=== PATIENT | female | born 1985 | race Caucasian/White ===

== ENCOUNTER 2023-09-16 11:10 | Outpatient (OUT) | payer OTHER, SELFPAY ==
[2023-09-16 11:47] LABS: Basophils Absolute Auto 0.1 10^3/uL (0.0-0.1); Basophils Percent Auto 0.8 % (0.2-2.0); Eosinophils Absolute Auto 0.3 10^3/uL (0.0-0.7); Eosinophils Percent Auto 3.3 % (0.9-7.0); Hematocrit 37.9 % (36.0-48.0); Hemoglobin 12.1 g/dL (12.0-16.0); Immature Granulocytes Abs Auto 0.02 10^3/uL (0.00-0.03); Immature Granulocytes Pct Auto 0.2 % (0.0-0.5); Lymphocytes Absolute Auto 2.7 10^3/uL (1.2-3.8); Lymphocytes Percent Auto 27.3 % (20.5-60.0); Mean Corpuscular HGB Conc 31.9 g/dL (29.9-35.2); Mean Corpuscular Hemoglobin 28.1 pg (26.7-34.0); Mean Corpuscular Volume 88.1 fL (81.0-99.0); Mean Platelet Volume 11.3 fL (9.5-13.5); Monocytes Absolute Auto 0.6 10^3/uL (0.3-0.8); Monocytes Percent Auto 6.2 % (1.7-12.0); Neutrophils Absolute Auto 6.1 10^3/uL (1.4-6.5); Neutrophils Percent Auto 62.2 % (43.0-75.0); Platelet Count 325 10^3/uL (150-450); Red Cell Distribution Width 13.9 % (11.0-15.0); White Blood Count 9.8 10^3/uL (4.0-11.0)
[2023-09-16 12:41] LABS: Estimated Average Glucose 111 mg/dL; Glycohemoglobin A1C 5.5 % (4.5-6.2)
[2023-09-16 12:57] LABS: HCG Quantitative <1 mIU/mL; Thyroid Stimulating Hormone 2.407 uIU/mL (0.358-3.740)
[2023-09-16 13:22] LABS: Free T4 0.66 ng/dL (0.76-1.46)
[2023-09-17 15:09] LABS: FSH 5.3 mIU/mL (.); Luteinizing Hormone(LH) 6.1 mIU/mL (.)
[2023-09-28 15:09] LABS: DHEA, Serum 227 ng/dL (31-701)
== END 2023-09-16 11:11 | disposition home or self-care (01) ==
LOC: LAB 11:14
PROVIDERS: Visit Provider Obstetrics & Gynecology
DX: E28.2 Polycystic ovarian syndrome (principal)
CPT/HCPCS: 36415; 82626; 82627; 83001; 83002; 83036; 84439; 84443; 84702; 85025

== ENCOUNTER 2023-09-16 11:16 | Outpatient (OUT) | payer OTHER, SELFPAY ==
--- NOTE | 2023-09-16 11:55 | XR_ITS ---
The [address] [address] Patient Name: SARAH ALVAREZ MRN: [id number] date: 1985 Sex: F Assigned Patient Location: [facility] Current Patient Location: [facility] Accession/Order Number: [id number] Exam Date: 09/16/2023 11:40 Report Date: 09/16/2023 12:18 At the request of: CLARITZA JORDAN Procedure: XR thoracic spine 3V EXAM: XR thoracic spine 3V HISTORY: mid back pain M54.9 COMPARISON: None. TECHNIQUE: 2 view(s) of the thoracic spine. FINDINGS: The bones are well mineralized. The spine is in good alignment. Mild multilevel degenerative changes are present in the thoracic spine. No acute fracture or malalignment. Surgical clips are noted in the right upper quadrant of the abdomen. XR/XR thoracic spine 3V IMPRESSION: 1. No osseous abnormality of the thoracic spine. 2. Mild multilevel degenerative changes. Electronically authenticated by: TAYLA ZHOU Date: 09/16/2023 12:18
--- NOTE | 2023-09-16 11:55 | XR_ITS ---
The [address] [address] Patient Name: SARAH ALVAREZ MRN: [id number] date: 1985 Sex: F Assigned Patient Location: [facility] Current Patient Location: Accession/Order Number: [id number] Exam Date: 09/16/2023 11:40 Report Date: 09/17/2023 06:45 At the request of: CLARITZA JORDAN Procedure: XR hip RT 2V w/ pelvis PROCEDURE: XR hip RT 2V w/ pelvis HISTORY: right hip pain M25.551 , chronic low back pain COMPARISON: None. FINDINGS: BONES:No fracture, acute abnormality, or significant arthropathy. Small areas of heterotopic bone formation cephalad to the greater trochanter bilaterally, likely sequela of remote injuries. SOFT TISSUES:No visible soft tissue swelling. EFFUSION:None visible. OTHER: Negative. XR/XR hip RT 2V w/ pelvis IMPRESSION: 1. No acute bone abnormality. 2. Minimal degenerative joint disease. Electronically authenticated by: ZACH WALDEN Date: 09/17/2023 06:45
--- NOTE | 2023-09-16 11:55 | XR_ITS ---
The [address] [address] Patient Name: SARAH ALVAREZ MRN: [id number] date: 1985 Sex: F Assigned Patient Location: [facility] Current Patient Location: [facility] Accession/Order Number: [id number] Exam Date: 09/16/2023 11:40 Report Date: 09/16/2023 12:16 At the request of: CLARITZA JORDAN Procedure: XR lumbar spine min 4V EXAM: XR lumbar spine min 4V HISTORY: mid back pain M54.9 COMPARISON: 10/20/2021 TECHNIQUE: 5 view(s) of the lumbar spine. FINDINGS: The bones are well mineralized. The spine is in good alignment. No significant degenerative changes are identified. No acute fracture or malalignment. XR/XR lumbar spine min 4V IMPRESSION: 1. No osseous abnormality of the lumbar spine. Electronically authenticated by: TAYLA ZHOU Date: 09/16/2023 12:16
== END 2023-09-16 11:17 | disposition home or self-care (01) ==
LOC: RAD 11:17
PROVIDERS: Visit Provider Nurse Practitioner
DX: M54.9 Dorsalgia, unspecified (principal); M25.551 Pain in right hip; M16.11 Unilateral primary osteoarthritis, right hip; M51.34 Other intervertebral disc degeneration, thoracic region; E28.2 Polycystic ovarian syndrome
CPT/HCPCS: 36415; 72072; 72110; 73502; 82626; 82627; 83001; 83002; 83036; 84439; 84443; 84702; 85025

== ENCOUNTER 2024-05-18 19:01 | Observation (INO) | payer OTHER, SELFPAY ==
--- OUTSIDE RECORDS SUMMARY | 2024-05-18 19:06 | XMS_ITS | CCD ---
Author Organization [facility] Care Team Providers Care Grinder Brake Lining Name Role Phone LUIS ANGEL, DR JOHNSON Admitting Unavailable LUIS ANGEL, DR JOHNSON Attending Unavailable REQUEST, NONE LISTED Primary Care Unavaila ble LUIS ANGEL, DR JOHNSON Consulting Unavailable LUIS ANGEL, DR JOHNSON Admitting Unavailable LUIS ANGEL, DR JOHNSON Attending Unavailable HOUSE, DR BO Primary Care Unavailable LUIS ANGEL, DR JOHNSON Consulting Unavailable LUIS ANGEL, DR JOHNSON Admitting Unavailable LUIS ANGEL, DR JOHNSON Attending Unavailable REQUEST, DR NONE LISTED Primary Care Unavaila ble LUIS ANGEL, DR JOHNSON Consulting Unavailable CARLAJAVIER Francisco Consulting Unavailable LUIS ANGEL, DR JOHNSON Procedure Practitioner Unavailab KENDAL Walsh Consulting Unavailable TEAGAN CALZADA Consulting Unavaila ble LUIS ANGEL, DR JOHNSON Admitting Unavailable LUIS ANGEL, DR JOHNSON Attending Unavailable HOUSE, DR BO Primary Care Unavailable LUIS ANGEL, DR JOHNSON Consulting Unavailable LUIS ANGEL, DR JOHNSON Admitting Unavailable LUIS ANGEL, DR JOHNSON Attending Unavailable ANGELICA, DR BO Primary Care Unavailable AMERICUS, DR SOUMYA Galan Consulting Unavailable LUIS ANGEL, DR JOHNSON Consulting Unavailable HOUSE, DR BO Primary Care Unavailable KARASIPiotr, DR FALK Admitting Unavailable KARBREA, DR FALK Attending Unavailable GREY, DR FALK Consulting Unavailable LUIS ANGEL, DR JOHNSON Consulting Unavailable IRAM, DR ZACH Baxter Consulting Unavailable ANGELICA, DR BO Primary Care Unavailable OWEN, DR ANAYELI Baxter Admitting Unavailable OWEN, DR ANAYELI Baxter Attending Unavailable OWEN, DR ANAYELI Baxter Consulting Unavailable BARBARA ROBBINS Consulting Unavailable ANGELICA, DR BO Primary Care Unavailable JAMEL RAMÍREZ Admitting Unavailable JAMEL RAMÍREZ Attending Unavailable SHAIKH Jeyson ANGELO Consulting Unavailable JAMEL RAMÍREZ Consulting Unavailable JANE MORTON Consulting Unavailable LUIS ANGEL, DR JOHNSON Admitting Unavailable LUIS ANGEL, DR JOHNSON Attending Unavailable HOUSE, DR BO Primary Care Unavailable LUIS ANGEL, DR JOHNSON Consulting Unavailable LUIS ANGEL, DR JOHNSON Admitting Unavailable LUIS ANGEL, DR JOHNSON Attending Unavailable HOUSE, DR BO Primary Care Unavailable LUIS ANGEL, DR JOHNSON Consulting Unavailable HOUSE, DR BO Primary Care Unavailable KARASIK, DR FALK Admitting Unavailable KARASIK, DR FALK Attending Unavailable KARASIK, DR FALK Consulting Unavailable LUIS ANGEL, DR JOHNSON Consulting Unavailable ZIEBER, DR ZACH Baxter Consulting Unavailable LUIS ANGEL, DR JOHNSON Admitting Unavailable LUIS ANGEL, DR JOHNSON Attending Unavailable LUIS ANGEL, DR JOHNSON Consulting Unavailable REQUEST, DR OHARA LISTED Primary Care Unavaila ble ZIEBER, DR ZACH Baxter Consulting Unavailable LUIS ANGEL, DR JOHNSON Admitting Unavailable LUIS ANGEL, DR JOHNSON Attending Unavailable HOUSE, DR BO Primary Care Unavailable LUIS ANGEL, DR JOHNSON Consulting Unavailable ZIEBER, DR ZACH Baxter Consulting Unavailable LUIS ANGEL, DR JOHNSON Admitting Unavailable LUIS ANGEL, DR JOHNSON Attending Unavailable HOUSE, DR BO Primary Care Unavailable LUIS ANGEL, DR JOHNSON Consulting Unavailable ZIEBER, DR ZACH Baxter Consulting Unavailable LUIS ANGEL, DR JOHNSON Admitting Unavailable LUIS ANGEL, DR JOHNSON Attending Unavailable HOUSE, DR BO Primary Care Unavailable WEST, DR SOUMYA Galan Consulting Unavailable LUIS ANGEL, DR JOHNSON Consulting Unavailable LUIS ANGEL, DR JOHNSON Admitting Unavailable LUIS ANGEL, DR JOHNSON Attending Unavailable HOUSE, DR OB Primary Care Unavailable LUIS ANGEL, DR JOHNSON Consulting Unavailable ZIEBER, DR ZACH Baxter Consulting Unavailable LUIS ANGEL, DR JOHNSON Admitting Unavailable LUIS ANGEL, DR JOHNSON Attending Unavailable HOUSE, DR BO Primary Care Unavailable LUIS ANGEL, DR JOHNSON Consulting Unavailable LUIS ANGEL, DR JOHNSON Admitting Unavailable LUIS ANGEL, DR JOHNSON Attending Unavailable HOUSE, DR BO Primary Care Unavailable LUIS ANGEL, DR JOHNSON Consulting Unavailable LUIS ANGEL, DR JOHNSON Admitting Unavailable LUIS ANGEL, DR JOHNSON Attending Unavailable HOUSE, DR BO Primary Care Unavailable LUIS ANGEL, DR JOHNSON Consulting Unavailable LUIS ANGEL, DR JOHNSON Admitting Unavailable LUIS ANGEL, DR JOHNSON Attending Unavailable HOUSE, DR BO Primary Care Unavailable HOUSE, DR BO Primary Care Unavailable KARASIK, DR FALK Admitting Unavailable KARASIK, DR FALK Attending Unavailable GREY, DR FALK Consulting Unavailable LUIS ANGEL, DR JOHNSON Consulting Unavailable IRAM, DR ZACH Baxter Consulting Unavailable Unavailable Primary Care Provider UnavailJENS Haynes Attending Unavailable JENS PLASENCIA Attending Unavailable KARSON ACUNA Attending Unavailable Robbin Love Attending Unavailable Robbin Love Ad[facility] Unavailable DO Danyell Banks Emergency Provider NON STAFF Primary Care Provider UnavailDO Robbin Wilks Admit Provider DO Robbin Love Attending Provider SHVIA Cheng [place] Primary Care Provider PHILLIP SALEH Attending Unavailable PHILLIP SALEH Referring Unavailable [facility] Care Unavailable Unavailable Primary Care Provider Unavailhannah [facility] [phone] Allergies Allergy Classification Reported Allergen(s) Allergy Type Date of Onset Reaction(s) Facility (1 source) Azithromycin Drug Allergy 07-22-2013 [facility] Repository (10 sources) Azithromycin; Translations: [AZITHROMYCIN] Drug Allergy 01-31-2013 [facility] Work Phone: (1 source) Azithromycin Drug Allergy 05-09-2024 [facility] Repository Medications Current Medications Medication Drug Class(es) Dates Sig (Normalized) Sig (Original) 24 hr dilTIAZem hydrochloride 120 mg extended release oral tablet (2 sources) Calcium Channel Tae Start: 05-09-2024 take 1 tablet by mouth once daily Diltiazem Hcl (Cardizem La) 120 mg tablet extended release 24 hr Active 120 MG PO Daily May 09, 2024 12:00am ibuprofen 400 mg oral tablet (3 sources) Nonsteroidal Anti-inflammatory Drug take 1 tablet by mouth every six hours ibuprofen 400 MG tablet Take 400 mg by mouth every 6 (six) hours 0 Active metFORMIN hydrochloride 500 mg oral tablet (3 sources) Biguanide Start: 09-10-2023 End: 12-09-2023 take 1 tablet by mouth at mealtime metFORMIN (Glucophage) 500 MG tablet Indications: PCOS (polycystic ovarian syndrome) Take 1 tablet (500 mg) by mouth in the morning. Take with meals. 30 tablet 2 09/10/2023 12/09/2023 Active metroNIDAZOLE 500 mg oral tablet (3 sources) Nitroimidazole Antimicrobial Start: 09-10-2023 End: 09-17-2023 take 1 tablet by mouth in the morning metroNIDAZOLE (Flagyl) 500 MG tablet Indications: Vaginal discharge Take 1 tablet (500 mg) by mouth in the morning and 1 tablet (500 mg) before bedtime. Do all this for 7 days. Do not drink alcohol while taking this medication. 14 tablet 0 09/10/2023 09/17/2023 Active rivaroxaban 20 mg oral tablet (2 sources) Factor Xa Inhibitor Start: 05-13-2024 End: 05-13-2025 take 1 tablet by mouth once daily at mealtime rivaroxaban (Xarelto) 20 mg tablet Indications: Paroxysmal atrial fibrillation (Multi) Take 1 tablet (20 mg) by mouth once daily in the evening. Take with meals. Take with food. 30 tablet 11 05/13/2024 05/13/2025 Active Problems Active Problems Problem Classification Problem Date Documented Date Episodic/Chronic Cardiac dysrhythmias (13 sources) Unspecified atrial fibrillation; Translations: [Atrial fibrillation] Onset: 05-09-2024 05-09-2024 Chronic Contraceptive and procreative management (1 source) Encounter for sterilization; Translations: [ENCOUNTER FOR STERILIZATION] Onset: 07-29-2022 Episodic Fluid and electrolyte disorders (1 source) Hypokalemia; Translations: [HYPOKALEMIA] Onset: 05-28-2022 Episodic Genitourinary symptoms and ill-defined conditions (6 sources) Personal history of urinary (tract) infections; Translations: [Hematuria, unspecified] Onset: 07-02-2022 Episodic Immunizations and screening for infectious disease (4 sources) Encounter for screening for human papillomavirus (HPV); Translations: [Contact with and (suspected) exposure to infections with a predominantly sexual mode of transmission] Onset: 12-26-2021 09-10-2023 Episodic Menstrual disorders (4 sources) Irregular menstruation, unspecified; Translations: [IRREGULAR MENSTRUATION UNSPECIFIED] Onset: 12-23-2021 Chronic Nausea and vomiting (3 sources) Nausea with vomiting, unspecified; Translations: [NAUSEA WITH VOMITING UNSPECIFIED] Onset: 05-22-2022 Episodic Noninfectious gastroenteritis (1 source) Noninfective gastroenteritis and colitis, unspecified; Translations: [NONINFECTIVE GE AND COLITIS UNS] Onset: 05-28-2022 Episodic Other complications of ; puerperium affecting management of mother (1 source) Smoking (tobacco) complicating childbirth; Translations: [SMOKING TOBACCO COMP CHILDBIRTH] Onset: 07-29-2022 Episodic Other complications of (3 sources) Smoking (tobacco) complicating , third trimester; Translations: [SMOKING TOBACCO COMP PREG 3RD TRI] Onset: 07-12-2022 Episodic Other complications of (5 sources) Maternal care for excessive growth, third trimester, not applicable or unspecified; Translations: [MAT CARE EXCSS FTL GRTH 3RD TRI UNS] Onset: 06-24-2022 Episodic Other complications of (4 sources) Supervision of elderly multigravida, third trimester; Translations: [SUP ELDER MULTIGRAVIDA THIRD TRI] Onset: 07-05-2022 Episodic Other complications of (1 source) Supervision of with history of in utero procedure during previous , third trimester; Translations: [SUP PREG HX IU PROC PREV PG 3RD TRI] Onset: 07-12-2022 Episodic Other complications of (1 source) Diseases of the digestive system complicating , third trimester; Translations: [DZ DIGESTIVE SYS COMP PREG 3RD TRI] Onset: 05-28-2022 Episodic Other complications of (1 source) Other specified related conditions, third trimester; Translations: [OTH SPEC PREG RELATED COND 3RD TRI] Onset: 05-28-2022 Episodic Other endocrine disorders (2 sources) Polycystic ovary syndrome; Translations: [Polycystic ovarian syndrome] 09-10-2023 Chronic Other female genital disorders (2 sources) Vaginal discharge; Translations: [Other specified noninflammatory disorders of vagina] 09-10-2023 Episodic Other nutritional; endocrine; and metabolic disorders (2 sources) Weight gain; Translations: [Abnormal weight gain] 09-10-2023 Episodic Other and delivery including normal (15 sources) Single live ; Translations: [Encounter for supervision of other normal , third trimester] Onset: 11-29-2021 Episodic Polyhydramnios and other problems of amniotic cavity (1 source) Polyhydramnios, third trimester, not applicable or unspecified; Translations: [POLYHYDRAMNIOS THIRD TRI NA/UNS] Onset: 07-12-2022 Episodic Previous (1 source) Maternal care for low transverse scar from previous delivery; Translations: [MAT CARE LW TRANS SCAR PREV C/S DEL] Onset: 07-29-2022 Episodic Residual codes; unclassified (1 source) 39 weeks gestation of ; Translations: [39 WEEKS GESTATION OF ] Onset: 07-29-2022 Episodic Residual codes; unclassified (1 source) Acquired absence of other specified parts of digestive tract; Translations: [ACQ ABSENCE OTH PART DIGESTV TRACT] Onset: 07-29-2022 Episodic Residual codes; unclassified (1 source) 38 weeks gestation of ; Translations: [38 WEEKS GESTATION OF ] Onset: 07-12-2022 Episodic Residual codes; unclassified (1 source) 37 weeks gestation of ; Translations: [37 WEEKS GESTATION OF ] Onset: 07-05-2022 Episodic Residual codes; unclassified (1 source) 36 weeks gestation of ; Translations: [36 WEEKS GESTATION OF ] Onset: 06-28-2022 Episodic Residual codes; unclassified (1 source) 35 weeks gestation of ; Translations: [35 WEEKS GESTATION OF ] Onset: 06-20-2022 Episodic Residual codes; unclassified (1 source) 34 weeks gestation of ; Translations: [34 WEEKS GESTATION OF ] Onset: 06-14-2022 Episodic Residual codes; unclassified (1 source) 33 weeks gestation of ; Translations: [33 WEEKS GESTATION OF ] Onset: 06-05-2022 Episodic Residual codes; unclassified (1 source) 32 weeks gestation of ; Translations: [32 WEEKS GESTATION OF ] Onset: 06-01-2022 Episodic Residual codes; unclassified (1 source) 31 weeks gestation of ; Translations: [31 WEEKS GESTATION OF ] Onset: 05-28-2022 Episodic Substance-related disorders (2 sources) Nicotine dependence, cigarettes, uncomplicated; Translations: [Nicotine dependence, unspecified, uncomplicated] Onset: 07-12-2022 Chronic Unclassified (1 source) CONTACT W/AND (SUSP) EXPOS COVID-19; Translations: [CONTACT W/AND (SUSP) EXPOS COVID-19] Onset: 07-29-2022 Unclassified (1 source) OTH SPCF DIS/COND COMPL CHILDBIRTH; Translations: [OTH SPCF DIS/COND COMPL CHILDBIRTH] Onset: 07-29-2022 Past or Other Problems Problem Classification Problem Date Documented Da te Episodic/Chronic Abdominal pain (4 sources) Epigastric pain; Translations: [Unspecified abdominal pain] Onset: 10-20-2021 Episodic Other screening for suspected conditions (not mental disorders or infectious disease) (10 sources) Encounter for screening for malignant neoplasm of cervix; Translations: [Encounter for other specified screening] Onset: 12-26-2021 Episodic Unclassified (2 sources) Onset: 05-13-2024 05-13-2024 Urinary tract infections (4 sources) Urinary tract infection, site not specified; Translations: [UTI SITE NOT SPECIFIED] Onset: 04-15-2022 Episodic Results Test Name Value Interpretation Reference Range Facility [facility] echo transthoracicon [facility] echo transthoracic [facility] [place] [address] Echocardiogram Signed Patient: Sarah Pennington MR#: [id number] : 1985 Acct:[id number] Age/Sex: 38 / F ADM Date: 05/09/24 Loc: Room: [address] [place] [address] Type: DIS INOo Attending Dr: Robbin Love DO Ordering Provider: Robbin Love DO Date of Service: 05/09/2402/23/2013 [facility] echo transthoracic: afib Copies to: MD Robbin Ryan DO Sarah Conroy 11:55 AM Patient Location: : 1985 Gender: Female (MM/DD/YYYY) Age: 38 Years Ordering Physician: Robbin Love Height: 65.75 in Weight: 240.941 lb Performed By: Romana Fuentes BSA: 2.16 m2 BP: 101 / 63 mmHg HR: 54 bpm Reason For Study: afib History: Smoker, Afib + + Interpretation Summary Ejection Fraction = 60-65%. The left ventricular size and thickness are normal. No regional wall motion abnormalities noted. A variety of Doppler measurements indicate normal left ventricular diastolic function. There is no comparison study available. This was essentially a normal study. Procedure/Quality: A two-dimensional transthoracic echocardiogram with color flow and Doppler was performed. The study was technically good in quality. Left Ventricle: The left ventricular size and thickness are normal. Ejection Fraction = 60-65%. A variety of Doppler measurements indicate normal left ventricular diastolic function. No regional wall motion abnormalities noted. Left Atrium: The left atrium appears normal in size. Right Atrium: The right atrium appears normal in size. Right Ventricle: The right ventricle is normal in size and function. Aortic Valve: The aortic valve is normal in structure. No hemodynamically significant valvular aortic stenosis. No aortic regurgitation is present. Mitral Valve: The mitral valve is normal in structure. No significant mitral valve stenosis. There is no mitral regurgitation noted. Tricuspid Valve: The tricuspid valve is normal in structure. No tricuspid regurgitation. Pulmonic Valve: The pulmonic valve is not well visualized. Arteries: The aortic root is normal size. Pericardium/Pleura: No pericardial effusion seen. There is no pleural effusion. IVC/Hepatic Veins: Mildly dilated inferior vena cava. MMode/2D Measurements Calculations IVSd (0.7-1.1 cm): 1.10 cm LVIDd (3.7-5.4 cm): 4.8 cm LVPWd (0.7-1.1 cm): 1.04 cm LVIDs (2.3-3.6 cm): 2.9 cm LA dimension (2.3-4.0 cm): 3.6 Ao root diam (2.0-3.2 cm): 3.3 cm cm FS: 39.4 % Ao root area: 8.7 cm2 EDV(Teich): 109.1 ml LVOT diam: 2.02 cm ESV(Teich): 32.9 ml LVOT area: 3.2 cm2 EF(Teich): 69.8 % LAV(MOD-sp2): 63.9 ml LAV(MOD-sp4): 52.5 ml LA A2 area: 22.9 cm2 LA A4 area: 21.6 cm2 LA length (vol): 7.2 cm LA vol: 58.7 ml LA vol index: 27.2 ml/m2 Doppler Measurements Calculations MV E max alton: 105.0 cm/sec Ao V2 max: 146.6 cm/sec MV A max alton: 55.4 cm/sec Ao max P.6 mmHg MR max alton: 153.4 cm/sec Ao mean P.0 mmHg MV dec time: 0.22 sec Ao V2 mean: 106.0 cm/sec MV dec slope: 466.9 cm/sec?? Ao V2 VTI: 38.3 cm E/E' lat: 6.5 CAREN(I,D): 2.5 cm2 E/E' med: 8.9 CAREN(V,D): 2.6 cm2 TV max P.0 mmHg LV V1 max: 119.7 cm/sec TR max alton: 186.0 cm/sec LV V1 max P.7 mmHg TR max P.8 mmHg LV V1 mean: 74.3 cm/sec RAP systole: 8.0 mmHg LV V1 mean P.8 mmHg LV V1 VTI: 30.2 cm + + + -------+ + : Electronically : : : : signed by: Daniel : : : : Obie : : : : on: 05/10/2024, : : 6:17 PM : Transcribed By: LOBO Performed At: 05/10/24 1155 Signed By: Daniel Ragland MD 05/10/24 1817 Normal [facility] Albumin [Mass/volume] in Ser um or Plasma by Bromocresol green (BCG) dye binding methoOrdered By: Danyell Banks on 05-09-2024 Albumin BCG dye [Mass/Vol] 3.9 g/dL 3.5-5.7 [facility] B-Type Natriuretic PeptideOr dered By: Danyell Banks on 05-09-2024 Natriuretic peptide B (Bld) [Mass/Vol] 63.0 pg/mL Normal 5-100 [facility] Comment on above: Result Comment: PERF ORMED BY: [place] [address] PATHOLOGIST MICRO LAB ANALYST JEANETH CERNA M.D. Performed By: #### C BC, HS TROP, BNP, TSH3, MG, CMP, PHOS, HCGQUAL #### [facility] [address] [place] [address] Bacteria [Presence] in Urine by AutomatedOrdered By: Danyell Banks on 05-09-2024 Bacteria Auto Ql (U) Rare [HPF] None Seen [facility] Bilirubin Test strip Ql (U)O rdered By: Danyell Banks on 05-09-2024 Bilirubin Ql (U) Negative Negative [facility] Choriogonadotropin.beta subu nit [Units/volume] in Serum or PlasmaOrdered By: Danyell Banks on 05-09-2024 HCG.beta subunit Qn Negative [facility] Complete Blood Count Auto Di ffOrdered By: Danyell Banks on 05-09-2024 Basophils (Bld) [#/Vol] 0.1 10*3/uL Normal 0.0-0.2 [facility] Comment on above: Result Comment: PERF ORMED BY: [place] [address] PATHOLOGIST MICRO LAB ANALYST JEANETH CERNA M.D. Performed By: #### C BC, HS TROP, BNP, TSH3, MG, CMP, PHOS, HCGQUAL #### [facility] [address] [place] [address] [place] Basophils/100 WBC (Bld) 0.9 % Normal . [facility] Comment on above: Performed By: #### C BC, HS TROP, BNP, TSH3, MG, CMP, PHOS, HCGQUAL #### [facility] [address] Eosinophils (Bld) [#/Vol] 0.2 10*3/uL Normal 0.0-0.45 [facility] Comment on above: Performed By: #### C BC, HS TROP, BNP, TSH3, MG, CMP, PHOS, HCGQUAL #### [address] Eosinophils/100 WBC (Bld) 2.7 % Normal . [facility] Comment on above: Performed By: #### C BC, HS TROP, BNP, TSH3, MG, CMP, PHOS, HCGQUAL #### [address] Erythrocyte distribution width (RBC) [Ratio] 14.6 % Normal 11.9-15.3 [facility] Comment on above: Performed By: #### C BC, HS TROP, BNP, TSH3, MG, CMP, PHOS, HCGQUAL #### [address] Hematocrit (Bld) [Volume fraction] 38.2 % Normal 34.0-46.4 [facility] Comment on above: Performed By: #### C BC, HS TROP, BNP, TSH3, MG, CMP, PHOS, HCGQUAL #### [address] Hemoglobin (Bld) [Mass/Vol] 12.8 g/dL Normal 11.8-15.4 [facility] Comment on above: Performed By: #### C BC, HS TROP, BNP, TSH3, MG, CMP, PHOS, HCGQUAL #### [address] Lymphocytes (Bld) [#/Vol] 2.8 10*3/uL Normal 1.00-4.8 [facility] Comment on above: Performed By: #### C BC, HS TROP, BNP, TSH3, MG, CMP, PHOS, HCGQUAL #### [address] Lymphocytes/100 WBC (Bld) 31.1 % Normal . [facility] Comment on above: Performed By: #### C BC, HS TROP, BNP, TSH3, MG, CMP, PHOS, HCGQUAL #### [address] MCH (RBC) [Entitic mass] 28.6 pg Normal 24.7-34.3 [facility] Comment on above: Performed By: #### C BC, HS TROP, BNP, TSH3, MG, CMP, PHOS, HCGQUAL #### [address] MCV (RBC) [Entitic vol] 85.4 fL Normal 80-100 [facility] Comment on above: Performed By: #### C BC, HS TROP, BNP, TSH3, MG, CMP, PHOS, HCGQUAL #### [address] Monocytes (Bld) [#/Vol] 0.6 10*3/uL Normal 0.0-0.8 [facility] Comment on above: Performed By: #### C BC, HS TROP, BNP, TSH3, MG, CMP, PHOS, HCGQUAL #### [address] Monocytes/100 WBC (Bld) 6.3 % Normal . [facility] Comment on above: Performed By: #### C BC, HS TROP, BNP, TSH3, MG, CMP, PHOS, HCGQUAL #### [address] Neutrophils (Bld) [#/Vol] 5.4 10*3/uL Normal 1.8-7.7 [facility] Comment on above: Performed By: #### C BC, HS TROP, BNP, TSH3, MG, CMP, PHOS, HCGQUAL #### [address] Neutrophils/100 WBC (Bld) 59.0 % Normal . [facility] Comment on above: Performed By: #### C BC, HS TROP, BNP, TSH3, MG, CMP, PHOS, HCGQUAL #### [address] Platelet mean volume (Bld) [Entitic vol] 9.2 fL Normal 6.3-10.7 [facility] Comment on above: Performed By: #### C BC, HS TROP, BNP, TSH3, MG, CMP, PHOS, HCGQUAL #### [address] Platelets (Bld) [#/Vol] 344 10*3/uL Normal 150-450 [facility] Comment on above: Performed By: #### C BC, HS TROP, BNP, TSH3, MG, CMP, PHOS, HCGQUAL #### [address] RBC (Bld) [#/Vol] 4.47 10*6/uL Normal 3.60-5.00 [facility] Comment on above: Performed By: #### C BC, HS TROP, BNP, TSH3, MG, CMP, PHOS, HCGQUAL #### [address] WBC (Bld) [#/Vol] 9.1 10*3/uL Normal 3.8-11.6 [facility] Comment on above: Performed By: #### C BC, HS TROP, BNP, TSH3, MG, CMP, PHOS, HCGQUAL #### [address] Complete Blood Count Auto Di ffon 05-09-2024 Mean Corpuscular HGB Conc 33.5 g/dL Normal 32.0-35.0 [facility] Comment on above: Performed By: #### C BC, HS TROP, BNP, TSH3, MG, CMP, PHOS, HCGQUAL #### [address] Monocytes/100 WBC (Bld) 19.70 % Normal 0.00-20.00 [facility] Comment on above: Performed By: #### C BC, HS TROP, BNP, TSH3, MG, CMP, PHOS, HCGQUAL #### [address] NRBC% 0.1 /100{WBC} Normal 0-0.5 [facility] Comment on above: Performed By: #### C BC, HS TROP, BNP, TSH3, MG, CMP, PHOS, HCGQUAL #### [address] Comprehensive Metabolic Pane brady 05-09-2024 Albumin [Mass/Vol] 3.9 g/dL Normal 3.5-5.7 [facility] Comment on above: Performed By: #### C BC, HS TROP, BNP, TSH3, MG, CMP, PHOS, HCGQUAL #### [address] Creatinine Clr Calc Pharmacy 145.19 Normal [facility] Comment on above: Performed By: #### C BC, HS TROP, BNP, TSH3, MG, CMP, PHOS, HCGQUAL #### [address] GFR/1.73 sq M.predicted MDRD (S/P/Bld) [Vol rate/Area] mL/min/{1.73_m2} Normal [facility] Comment on above: Performed By: #### C BC, HS TROP, BNP, TSH3, MG, CMP, PHOS, HCGQUAL #### [address] Comprehensive Metabolic Pane lOrdered By: Danyell Banks on 05-09-2024 Albumin/Globulin [Mass ratio] 1.1 {ratio} Normal [facility] Comment on above: Performed By: #### C BC, HS TROP, BNP, TSH3, MG, CMP, PHOS, HCGQUAL #### [address] ALP [Catalytic activity/Vol] 66 U/L Normal 34-104 [facility] Comment on above: Performed By: #### C BC, HS TROP, BNP, TSH3, MG, CMP, PHOS, HCGQUAL #### [facility] [address] ALT [Catalytic activity/Vol] 13 U/L Normal 7-52 [facility] Comment on above: Performed By: #### C BC, HS TROP, BNP, TSH3, MG, CMP, PHOS, HCGQUAL #### [facility] [address] Anion gap [Moles/Vol] 11.2 mmol/L Normal 6.0-15.0 [facility] Comment on above: Performed By: #### C BC, HS TROP, BNP, TSH3, MG, CMP, PHOS, HCGQUAL #### [facility] [address] [place] [address] AST [Catalytic activity/Vol] 12 U/L Low 13-39 [facility] Comment on above: Performed By: #### C BC, HS TROP, BNP, TSH3, MG, CMP, PHOS, HCGQUAL #### [address] Bilirubin [Mass/Vol] 0.4 mg/dL Normal 0.3-1.0 [facility] Comment on above: Performed By: #### C BC, HS TROP, BNP, TSH3, MG, CMP, PHOS, HCGQUAL #### [address] Calcium [Mass/Vol] 8.6 mg/dL Normal 8.6-10.3 [facility] Comment on above: Performed By: #### C BC, HS TROP, BNP, TSH3, MG, CMP, PHOS, HCGQUAL #### [address] Chloride [Moles/Vol] 108 mmol/L High 98-107 [facility] Comment on above: Performed By: #### C BC, HS TROP, BNP, TSH3, MG, CMP, PHOS, HCGQUAL #### [address] CO2 [Moles/Vol] 24.7 mmol/L Normal 21.0-31.0 [facility] Comment on above: Performed By: #### C BC, HS TROP, BNP, TSH3, MG, CMP, PHOS, HCGQUAL #### [address] Creatinine [Mass/Vol] 0.66 mg/dL Normal 0.60-1.20 [facility] Comment on above: Performed By: #### C BC, HS TROP, BNP, TSH3, MG, CMP, PHOS, HCGQUAL #### [address] Globulin (S) [Mass/Vol] 3.4 g/dL Normal [facility] Comment on above: Performed By: #### C BC, HS TROP, BNP, TSH3, MG, CMP, PHOS, HCGQUAL #### [address] Glucose [Mass/Vol] 102 mg/dL High 70-100 [facility] Comment on above: Result Comment: [place] om Glucose Reference Range is dependent on time and content of last meal. Glucose of more than 200 mg/dL in a nonstressed, ambulatory subject supports the diagnosis of Diabetes Mellitus. ADA recommended reference range Performed By: #### C BC, HS TROP, BNP, TSH3, MG, CMP, PHOS, HCGQUAL #### [address] ADA recommended refe rence rangeRandom Glucose Reference Range is dependent on time and content of last meal. Glucose of more than 200 mg/dL in a nonstressed, ambulatory subject supports the diagnosis of Diabetes Mellitus. Potassium [Moles/Vol] 3.9 mmol/L Normal 3.5-5.1 [facility] Comment on above: Performed By: #### C BC, HS TROP, BNP, TSH3, MG, CMP, PHOS, HCGQUAL #### [address] Protein [Mass/Vol] 7.3 g/dL Normal 6.4-8.9 [facility] Comment on above: Performed By: #### C BC, HS TROP, BNP, TSH3, MG, CMP, PHOS, HCGQUAL #### [facility] [address] Sodium [Moles/Vol] 140 mmol/L Normal 136-145 [facility] Comment on above: Performed By: #### C BC, HS TROP, BNP, TSH3, MG, CMP, PHOS, HCGQUAL #### [facility] [address] Urea nitrogen [Mass/Vol] 9 mg/dL Normal 7-25 [facility] Comment on above: Performed By: #### C BC, HS TROP, BNP, TSH3, MG, CMP, PHOS, HCGQUAL #### [place] [address] [place] Dipstick and MicroscopicOrde red By: Danyell Banks on 05-09-2024 Appearance (U) Clear Normal Clear [facility] Comment on above: Order Comment: Name Collection Type:: Clean-Voided Midstream Performed By: #### A DDONUAPLUS #### [address] Color (U) Colorless Normal Yellow [facility] Comment on above: Order Comment: Name Collection Type:: Clean-Voided Midstream Performed By: #### A DDONUAPLUS #### [address] Ketones Ql (U) Negative Normal Negative [facility] Comment on above: Order Comment: Name Collection Type:: Clean-Voided Midstream Performed By: #### A DDONUAPLUS #### [address] Leukocyte esterase Test strip Ql (U) Negative Normal Negative [facility] Comment on above: Order Comment: Name Collection Type:: Clean-Voided Midstream Performed By: #### A DDONUAPLUS #### [address] pH (U) 6.5 [pH] Normal 5.0-9.0 [facility] Comment on above: Order Comment: Name Collection Type:: Clean-Voided Midstream Performed By: #### A DDONUAPLUS #### [place] [address] [place] Dipstick and Microscopicon 1 0 Bacteria,Urine Rare Normal None Seen [facility] Comment on above: Order Comment: Name Collection Type:: Clean-Voided Midstream Performed By: #### A DDONUAPLUS #### [place] [address] [place] Bilirubin,Urine Negative Normal Negative [facility] Comment on above: Order Comment: Name Collection Type:: Clean-Voided Midstream Performed By: #### A DDONUAPLUS #### [address] Glucose Ql (U) Normal Normal Normal [facility] Comment on above: Order Comment: Name Collection Type:: Clean-Voided Midstream Performed By: #### A DDONUAPLUS #### [address] Hyaline Casts,Urine None Normal 0-8 [facility] Comment on above: Order Comment: Name Collection Type:: Clean-Voided Midstream Result Comment: PERF ORMED BY: [place] [address] PATHOLOGIST MICRO LAB ANALYST JEANETH CERNA M.D. Performed By: #### A DDONUAPLUS #### [place] [address] [place] Nitrite,Urine Negative Normal Negative [facility] Comment on above: Order Comment: Name Collection Type:: Clean-Voided Midstream Performed By: #### A DDONUAPLUS #### [place] [address] [place] Occult Blood,Urine 1+ High Negative [facility] Comment on above: Order Comment: Name Collection Type:: Clean-Voided Midstream Result Comment: PERF ORMED BY: [place] [address] PATHOLOGIST MICRO LAB ANALYST JIANLAN SUN M.D. Performed By: #### A DDONUAPLUS #### [place] [address] [place] Protein,Urine Negative Normal Negative [facility] Comment on above: Order Comment: Name Collection Type:: Clean-Voided Midstream Performed By: #### A DDONUAPLUS #### [place] [id number] [place] RBC,Urine 3-4 Normal 0-4 [facility] Comment on above: Order Comment: Name Collection Type:: Clean-Voided Midstream Performed By: #### A DDONUAPLUS #### [place] [address] [place] Specificy [place],Urine 1.006 Normal 1.001-1.030 [facility] Comment on above: Order Comment: Name Collection Type:: Clean-Voided Midstream Performed By: #### A DDONUAPLUS #### [place] [address] [place] Squamous Epithelial Cell,Urine 1-2 Normal 0-2 [facility] Comment on above: Order Comment: Name Collection Type:: Clean-Voided Midstream Performed By: #### A DDONUAPLUS #### [place] [address] [place] Urobilinogen,Urine Normal Normal Normal [facility] Comment on above: Order Comment: Name Collection Type:: Clean-Voided Midstream Performed By: #### A DDONUAPLUS #### [place] [address] [place] WBC,Urine 1-2 Normal 0-4 [facility] Comment on above: Order Comment: Name Collection Type:: Clean-Voided Midstream Performed By: #### A DDONUAPLUS #### [place] [address] [place] ECG 12 lead ECGon 05-09-2024 ECG 12 lead ECG [facility] [place] [address] [place] [address] Electrocardiograph Report Signed Patient: Sarah Pennington MR#: [id number] : 1985 Acct:[id number] Age/Sex: 38 / F ADM Date: 05/09/24 Loc: Room: [address] [place] [address] Type: ADM INOo Attending Dr: Robbin Love DO Ordering Provider: Danyell Banks DO Date of Service: 05/09/2402/23/1100 ECG/ECG 12 lead ECG: Arrhythmia/Palpitati ons Copies to: Test Reason : Blood Pressure : */* mmHG Vent. Rate : 52 BPM Atrial Rate : 52 BPM P-R Int : 166 ms QRS Dur : 88 ms QT Int : 452 ms P-R-T Axes : 61 38 30 degrees QTcB Int : 420 ms Sinus bradycardia Confirmed by Mark Madrigal DO ([id number]) on 05/09/2024 8:25:51 PM Referred By: Electronically Signed By: Mark Madrigal DO Transcribed By: MUS Signed By Mark Madrigal DO 2024 Normal [facility] ECG 12 lead ECG [facility] [place] [address] Electrocardiograph Report Signed Patient: Sarah Pennington MR#: [id number] : 1985 Acct:[id number] Age/Sex: 38 / F ADM Date: 05/09/24 Loc: Room: [address] [place] [address] Type: ADM INOo Attending Dr: Robbin Love DO Ordering Provider: Danyell Banks DO Date of Service: 05/09/2402/23/850 ECG/ECG 12 lead ECG: Arrhythmia/Palpitati ons Copies to: Test Reason : Blood Pressure : 120/85 mmHG Vent. Rate : 103 BPM Atrial Rate : 104 BPM P-R Int : * ms QRS Dur : 92 ms QT Int : 364 ms P-R-T Axes : * 43 -21 degrees QTcB Int : 476 ms Atrial fibrillation with rapid ventricular response Nonspecific ST and T wave abnormality Confirmed by Mark Madrigal DO ([id number]) on 05/09/2024 8:26:05 PM Referred By: Electronically Signed By: Mark Madrigal DO Transcribed By: MUS Signed By Mark Madrigal DO 2025 Normal [facility] Epithelial cells.squamous [# /area] in Urine sediment by Automated countOrdered By: Danyell Banks on 05-09-2024 Epithelial cells.squamous Auto (Urine sed) [#/Area] 1-2 [HPF] 0-2 [facility] Erythrocytes [#/area] in Uri ne sediment by Automated countOrdered By: Danyell Banks on 05-09-2024 RBC Auto (Urine sed) [#/Area] 3-4 [HPF] 0-4 [facility] Glucose [Mass/volume] in Uri ne by Test stripOrdered By: Danyell Banks on 05-09-2024 Glucose Test strip (U) [Mass/Vol] Normal mg/dL Normal [facility] HCG,Qualitative Serumon HCG,Qualitative Serum Negative Normal [facility] Comment on above: Result Comment: PERF ORMED BY: [place] [address] PATHOLOGIST MICRO LAB ANALYST JEANETH CERNA M.D. Performed By: #### C BC, HS TROP, BNP, TSH3, MG, CMP, PHOS, HCGQUAL #### [address] Hemoglobin Test strip Ql (U) Ordered By: Danyell Banks on 05-09-2024 Hemoglobin Ql (U) 1+ High Negative [facility] Hyaline casts [#/area] in Ur ine sediment by Automated countOrdered By: Danyell Banks on 05-09-2024 Hyaline casts Auto (Urine sed) [#/Area] None [LPF] 0-8 [facility] Leukocytes [#/area] in Urine sediment by Automated countOrdered By: Danyell Banks on 05-09-2024 WBC Auto (Urine sed) [#/Area] 1-2 [HPF] 0-4 [facility] Leukocytes [#/volume] correc tania for nucleated erythrocytes in Blood by Automated counOrdered By: Danyell Banks on 05-09-2024 WBC corrected for nucl RBC Auto (Bld) [#/Vol] 9.1 10*3/uL 3.8-11.6 [facility] MCHC Auto (RBC) [Mass/Vol]Or dered By: Danyell Banks on 05-09-2024 MCHC (RBC) [Mass/Vol] 33.5 g/dL 32.0-35.0 [facility] MagnesiumOrdered By: Johanna Banks on 05-09-2024 Magnesium [Mass/Vol] 1.8 mg/dL Low 1.9-2.7 [facility] Comment on above: Performed By: #### C BC, HS TROP, BNP, TSH3, MG, CMP, PHOS, HCGQUAL #### [facility] [address] Monocyte distribution width [Entitic volume] in Blood by AutomatedOrdered By: Danyell Banks on 05-09-2024 Monocyte distribution width Auto (Bld) [Entitic vol] 19.70 % 0.00-20.00 [facility] Nitrite Test strip Ql (U)Ord ered By: Danyell Banks on 05-09-2024 Nitrite Ql (U) Negative Negative [facility] No Panel InformationOrdered By: Danyell Banks on 05-09-2024 Estimated GFR (CKD-EPI) > 60.0 mL/Min [facility] Creatinine Clearance (Chem 145.19 [facility] Nucleated erythrocytes [Pres ence] in Blood by Automated countOrdered By: Danyell Bansk on 05-09-2024 Nucleated RBC Auto Ql (Bld) 0.1 /100{WBC} 0-0.5 [facility] PhosphorusOrdered By: Austyn Banks on 05-09-2024 Phosphate [Mass/Vol] 2.7 mg/dL Normal 2.5-4.5 [facility] Comment on above: Performed By: #### C BC, HS TROP, BNP, TSH3, MG, CMP, PHOS, HCGQUAL #### [facility] [address] Protein Test strip (U) [Mass /Vol]Ordered By: Danyell Banks on 05-09-2024 Protein (U) [Mass/Vol] Negative Negative [facility] Specific gravity Test strip (U) [Rel density]Ordered By: Danyell Banks on 05-09-2024 Specific gravity (U) [Rel density] 1.006 1.001-1.030 [facility] Thyroid Stimulating HormoneO rdered By: Danyell Banks on 05-09-2024 TSH Qn 2.96 m[IU]/L Normal 0.45-5.33 [facility] Comment on above: Performed By: #### C BC, HS TROP, BNP, TSH3, MG, CMP, PHOS, HCGQUAL #### [facility] [address] [place] [address] Troponin I High Sensitivityo n 05-09-2024 Troponin I High Sensitivity 5.7 pg/mL Normal 0.0-15.0 [facility] Comment on above: Result Comment: PERF ORMED BY: [place] [address] PATHOLOGIST MICRO LAB ANALYST JEANETH CERNA M.D. Performed By: #### C BC, HS TROP, BNP, TSH3, MG, CMP, PHOS, HCGQUAL #### [facility] [address] [place] [address] Troponin I.cardiac [Mass/vol ume] in Serum or Plasma by Detection limit <= 0.01 ng/Ordered By: Danyell Banks on 05-09-2024 Troponin I.cardiac DL <= 0.01 ng/mL [Mass/Vol] 5.7 pg/mL 0.0-15.0 [facility] Urobilinogen Test strip (U) [Mass/Vol]Ordered By: Danyell Banks on 05-09-2024 Urobilinogen (U) [Mass/Vol] Normal mg/dL Normal [facility] XR chest 1V portableon 05-09 XR chest 1V portable [facility] [place] [address] XRay Report Signed Patient: Sarah Pennington MR#: [id number] : 1985 Acct:[id number] Age/Sex: 38 / F ADM Date: 05/09/24 Loc: ER Room: Type: [facility] ER Attending Dr: Copies to: Danyell Banks DO Ordering Provider: Danyell Banks DO Date of Service: 05/09/24 XR/XR chest 1V portable: Arrhythmia/Palpitati ons Plain film chest Single view HISTORY: Chest pain. History of atrial fibrillation. COMPARISON: None FINDINGS: SUPPORT DEVICES: None POSTSURGICAL CHANGES: None HEART: Within normal limits PULMONARY NILTON: Within normal limits MEDIASTINUM: Unremarkable LUNGS AND PLEURA: No acute lung process, pleural effusion or pneumothorax identified. BONY STRUCTURES: Intact ADDITIONAL FINDINGS None XR/XR chest 1V portable IMPRESSION: No acute process. Impression dictated by: Artie Duke M.D.05/09/2024 10:31 AM Dictation Location: [place] [address] Transcribed By: [facility] 05/09/24 1031 Dictated By: Artie Duke DO 05/09/24 1031 Signed By: 05/09/24 1031 Normal [facility] ALL CBC WITH AUTO DIFFon BASOPHILS ABSOLUTE AUTO 0.1 [facility] Basophils/100 WBC (Bld) 0.8 % 0.2 - 2.0 % [facility] Eosinophils/100 WBC (Bld) 3.3 % 0.9 - 7.0 % [facility] Erythrocyte distribution width (RBC) [Ratio] 13.9 % 11.0 - 15.0 % [facility] Hematocrit (Bld) [Volume fraction] 37.9 % 36.0 - 48.0 % [facility] Hemoglobin (Bld) [Mass/Vol] 12.1 g/dL 12.0 - 16.0 g/dL [facility] IMMATURE GRANULOCYTES ABS AUTO 0.02 [facility] Immature granulocytes/100 WBC (Bld) 0.2 % 0.0 - 0.5 % [facility] LYMPHOCYTES ABSOLUTE AUTO 2.7 [facility] Lymphocytes/100 WBC (Bld) 27.3 % 20.5 - 60.0 % [facility] MCH (RBC) [Entitic mass] 28.1 pg 26.7 - 34.0 [facility] MCHC (RBC) [Mass/Vol] 31.9 g/dL 29.9 - 35.2 g/dL [facility] MCV (RBC) [Entitic vol] 88.1 fL 81.0 - 99.0 fL [facility] MONOCYTES ABSOLUTE AUTO 0.6 [facility] Monocytes/100 WBC (Bld) 6.2 % 1.7 - 12.0 % [facility] NEUTROPHILS ABSOLUTE AUTO 6.1 [facility] Neutrophils/100 WBC (Bld) 62.2 % 43.0 - 75.0 % [facility] Platelet mean volume (Bld) [Entitic vol] 11.3 fL 9.5 - 13.5 fL [facility] E[facility] # [facility]3 [facility] RBC 4.30 [facility] WBC 9.8 [facility] BUNon 07-15-2022 Urea nitrogen [Mass/Vol] 10.0 mg/dL Normal 7.0-18.0 [facility] Comment on above: Performed By: #### U RCX #### [facility] [address] [place] [address] Dr. Julien Eric CBC AUTO DIFFon 07-15-2022 BASO # 0.1 103/ul Normal 0.0-0.1 [facility] Comment on above: Performed By: #### H CVPCRR #### [facility] [address] [place] [address] Dr. Julien Eric Basophils/100 WBC (Bld) 0.4 % Normal 0.2-2.0 [facility] Comment on above: Performed By: #### H CVPCRR #### [facility] [address] [place] [address] Dr. Julien Eric EO # 0.2 103/ul Normal 0.0-0.7 [facility] Comment on above: Performed By: #### H CVPCRR #### [facility] [address] [place] [address] Dr. Julien Eric Eosinophils/100 WBC (Bld) 1.6 % Normal 0.9-7.0 [facility] Comment on above: Performed By: #### H CVPCRR #### [facility] [address] [place] [address] Dr. Julien Eric Erythrocyte distribution width (RBC) [Ratio] 15.3 % Critically high 11.0-15.0 [facility] Comment on above: Performed By: #### H CVPCRR #### [facility] [address] [place] [address] Dr. Julien Eric Hematocrit (Bld) [Volume fraction] 27.2 % Critically low 36.0-48.0 [facility] Comment on above: Performed By: #### H CVPCRR #### [facility] [address] [place] [address] [address] Julien Eric Hemoglobin (Bld) [Mass/Vol] 8.8 g/dL Critically low 12.0-16.0 [facility] Comment on above: Performed By: #### H CVPCRR #### [facility] [address] [place] [address] Dr. Julien Eric IG # 0.07 10e3/ul Critically high 0.00-0.03 [facility] Comment on above: Performed By: #### H CVPCRR #### [facility] [address] [place] [address] Dr. Julien Eric IG % 0.6 % Critically high 0.0-0.5 [facility] Comment on above: Performed By: #### H CVPCRR #### [facility] [address] [place] [address] Dr. Julien Eric LYMPH # 2.0 103/ul Normal 1.2-3.8 [facility] Comment on above: Performed By: #### H CVPCRR #### [facility] [address] [place] [address] Dr. Julien Eric Lymphocytes/100 WBC (Bld) 17.3 % Critically low 20.5-60.0 [facility] Comment on above: Performed By: #### H CVPCRR #### [facility] [address] [place] [address] Dr. Julien Eric MANUAL DIFF REQ NO Normal [facility] Comment on above: Performed By: #### H CVPCRR #### [facility] [address] [place] [address] Dr. Julien Eric MCH (RBC) [Entitic mass] 29.9 pg Normal 26.7-34.0 [facility] Comment on above: Performed By: #### H CVPCRR #### [facility] [address] [place] [address] Dr. Julien Eric MCHC (RBC) [Mass/Vol] 32.4 g/dL Normal 29.9-35.2 [facility] Comment on above: Performed By: #### H CVPCRR #### [facility] [address] [place] [address] [address] Julien Eric MCV (RBC) [Entitic vol] 92.5 fL Normal 81.0-99.0 [facility] Comment on above: Performed By: #### H CVPCRR #### [facility] [address] [place] [address] [address] Julien Eric MONO # 0.7 103/ul Normal 0.3-0.8 [facility] Comment on above: Performed By: #### H CVPCRR #### [facility] [address] [place] [address] [address] Julien Eric Monocytes/100 WBC (Bld) 5.8 % Normal 1.7-12.0 [facility] Comment on above: Performed By: #### H CVPCRR #### [facility] [address] [place] [address] [address] Julien Eric NEUT # 8.4 103/ul Critically high 1.4-6.5 [facility] Comment on above: Performed By: #### H CVPCRR #### [facility] [address] [place] [address] [address] Julien Eric Neutrophils/100 WBC (Bld) 74.3 % Normal 43.0-75.0 [facility] Comment on above: Performed By: #### H CVPCRR #### [facility] [address] [place] [address] [address] Julien Eric Platelet mean volume (Bld) [Entitic vol] 10.9 fL Normal 9.5-13.5 [facility] Comment on above: Performed By: #### H CVPCRR #### [facility] [address] [place] [address] [address] Julien Eric PLT 300 103/ul Normal 150-450 [facility] Comment on above: Performed By: #### H CVPCRR #### [facility] [address] [place] [address] [address] Julien Eric RBC 2.94 106/ul Critically low 4.20-5.40 [facility] Comment on above: Performed By: #### H CVPCRR #### [facility] [address] [place] [address] [address] Julien Eric WBC 11.3 103/ul Critically high 4.0-11.[address] [facility] Comment on above: Performed By: #### H CVPCRR #### [facility] [address] [place] [address] [address] Julien Eric CREATININEon 07-15-2022 Creatinine [Mass/Vol] 0.61 mg/dL Normal 0.55-1.02 [facility] Comment on above: Performed By: #### U RCX #### [facility] [address] [place] [address] Dr. Julien Eric EGFR-AF AFGHAN >60 Normal >=[address] [facility] Comment on above: Performed By: #### U RCX #### [facility] [address] [place] [address] Dr. Julien Eric EGFR-NON AF AFGHAN >60 Normal >=60 [facility] Comment on above: Performed By: #### U RCX #### [facility] [address] [place] [address] Dr. Julien Eric CBC AUTO DIFFon 07-14-2022 BASO # 0.1 103/ul Normal 0.0-0.1 [facility] Comment on above: Performed By: #### U RCX #### [facility] [address] [place] [address] Dr. Julien Eric Basophils/100 WBC (Bld) 0.4 % Normal 0.2-2.0 [facility] Comment on above: Performed By: #### U RCX #### [facility] [address] [place] [address] Dr. Julien Eric EO # 0.2 103/ul Normal 0.0-0.7 [facility] Comment on above: Performed By: #### U RCX #### [facility] [address] [place] [address] [address] Julien Eric Eosinophils/100 WBC (Bld) 1.2 % Normal 0.9-7.0 [facility] Comment on above: Performed By: #### U RCX #### [facility] [address] [place] [address] Dr. Julien Eric Erythrocyte distribution width (RBC) [Ratio] 15.2 % Critically high 11.0-15.0 [facility] Comment on above: Performed By: #### U RCX #### [facility] [address] [place] [address] Dr. Julien Eric Hematocrit (Bld) [Volume fraction] 33.8 % Critically low 36.0-48.0 [facility] Comment on above: Performed By: #### U RCX #### [facility] [address] [place] [address] Dr. Julien Eric Hemoglobin (Bld) [Mass/Vol] 11.1 g/dL Critically low 12.0-16.0 [facility] Comment on above: Performed By: #### U RCX #### [facility] [address] [place] [address] Dr. Julien Eric IG # 0.06 10e3/ul Critically high 0.00-0.03 [facility] Comment on above: Performed By: #### U RCX #### [facility] [address] [place] [address] Dr. Julien Eric IG % 0.5 % Normal 0.0-0.5 [facility] Comment on above: Performed By: #### U RCX #### [facility] [address] [place] [address] Dr. Julien Eric LYMPH # 2.4 103/ul Normal 1.2-3.8 [facility] Comment on above: Performed By: #### U RCX #### [facility] [address] [place] [address] Dr. Julien Eric Lymphocytes/100 WBC (Bld) 19.4 % Critically low 20.5-60.0 [facility] Comment on above: Performed By: #### U RCX #### [facility] [address] [place] [address] Dr. Julien Eric MANUAL DIFF REQ NO Normal [facility] Comment on above: Performed By: #### U RCX #### [facility] [address] [place] [address] Dr. Julien Eric MCH (RBC) [Entitic mass] 29.6 pg Normal 26.7-34.0 [facility] Comment on above: Performed By: #### U RCX #### [facility] [address] [place] [address] Dr. Julien Eric MCHC (RBC) [Mass/Vol] 32.8 g/dL Normal 29.9-35.2 [facility] Comment on above: Performed By: #### U RCX #### [facility] [address] [place] [address] Dr. Julien Eric MCV (RBC) [Entitic vol] 90.1 fL Normal 81.0-99.0 [facility] Comment on above: Performed By: #### U RCX #### [facility] [address] [place] [address] Dr. Julien Eric MONO # 0.7 103/ul Normal 0.3-0.8 [facility] Comment on above: Performed By: #### U RCX #### [facility] [address] [place] [address] Dr. Julien Eric Monocytes/100 WBC (Bld) 5.4 % Normal 1.7-12.0 [facility] Comment on above: Performed By: #### U RCX #### [facility] [address] [place] [address] Dr. Julien Eric NEUT # 9.2 103/ul Critically high 1.4-6.5 [facility] Comment on above: Performed By: #### U RCX #### [facility] [address] [place] [address] Dr. Julien Eric Neutrophils/100 WBC (Bld) 73.1 % Normal 43.0-75.0 [facility] Comment on above: Performed By: #### U RCX #### [facility] [address] [address] [address] Julien Eric Platelet mean volume (Bld) [Entitic vol] 11.2 fL Normal 9.5-13.5 [facility] Comment on above: Performed By: #### U RCX #### [facility] [address] [address] [address] Julien Eric PLT 371 103/ul Normal 150-450 [facility] Comment on above: Performed By: #### U RCX #### [facility] [address] [address] [address] Julien Eric RBC 3.75 106/ul Critically low 4.20-5.40 [facility] Comment on above: Performed By: #### U RCX #### [facility] [address] [place] [address] Dr. Julien Eric WBC 12.6 103/ul Critically high 4.0-11.[address] [facility] Comment on above: Performed By: #### U RCX #### [facility] [address] [place] [address] Dr. Julien Eric CULTURE URINEon 07-14-2022 CULTURE URINE Culture Observations: LIGHT GROWTH OF MIXED GENITAL BRITTON. NO POTENTIAL PATHOGENS SEEN. Normal [facility] Comment on above: Performed By: #### B LDCX2 #### [facility] [address] [place] [address] Dr. Julien Eric DRUG SCREEN RAPID (URINE)on 07-14-2022 AMP Negative Normal NEGATIVE [facility] Comment on above: Performed By: #### H CVPCRR #### [facility] [address] [place] [address] Dr. Julien Eric BAR Negative Normal NEGATIVE [facility] Comment on above: Performed By: #### H CVPCRR #### [facility] [address] [place] [address] Dr. Julien Eric BUP Negative Normal NEGATIVE [facility] Comment on above: Performed By: #### H CVPCRR #### [facility] [address] [place] [address] Dr. Julien Eric BZO Negative Normal NEGATIVE [facility] Comment on above: Performed By: #### H CVPCRR #### [facility] [address] [place] [address] Dr. Julien Eric REMI Negative Normal NEGATIVE [facility] Comment on above: Performed By: #### H CVPCRR #### [facility] [address] [place] [address] Dr. Julien Eric CUT-OFFS SEE BELOW Normal [facility] Comment on above: Result Comment: AMP (Amphetamine): 500ng/mL, BAR (Barbituates): 200 ng/mL, BZO (Benzodiazepines): 150 ng/mL, BUP (Buprenorphine): 10 ng/mL, REMI (Cocaine): 150 ng/mL, mAMP (Methamphetamine): 500 ng/mL, MTD (Methadone): 200 ng/mL, OPI (Opiates): 100 ng/mL, OXY (Oxycodone): 100 ng/mL, PCP (Phencyclidine): 25 ng/mL, PPX (Propoxyphene): 300 ng/mL, THC (Cannabinoids): 50 ng/mL, TCA (Trycyclic Antidepressants): 300 ng/mL Performed By: #### H CVPCRR #### [facility] [address] [place] [address] Dr. Julien Eric DRUG CUT HEADER DRUG CLASS TEST SYSTEM CUT-OFF CONCENTRATIONS ARE FOLLOWS: Normal [facility] Comment on above: Performed By: #### H CVPCRR #### [facility] [address] [place] [address] Dr. Julien Eric mAMP Negative Normal NEGATIVE [facility] Comment on above: Performed By: #### H CVPCRR #### [facility] [address] [place] [address] Dr. Julien Eric MTD Negative Normal NEGATIVE [facility] Comment on above: Performed By: #### H CVPCRR #### [facility] [address] [place] [address] Dr. Julien Eric OPI Negative Normal NEGATIVE [facility] Comment on above: Performed By: #### H CVPCRR #### [facility] [address] [address] [address] Julien Eric OXY Negative Normal NEGATIVE [facility] Comment on above: Performed By: #### H CVPCRR #### [facility] [address] [place] [address] Dr. Julien Eric PCP Negative Normal NEGATIVE [facility] Comment on above: Performed By: #### H CVPCRR #### [facility] [address] [place] [address] Dr. Julien Eric PPX Negative Normal NEGATIVE [facility] Comment on above: Performed By: #### H CVPCRR #### [facility] [address] [place] [address] Dr. Julien Eric TCA Negative Normal NEGATIVE [facility] Comment on above: Performed By: #### H CVPCRR #### [facility] [address] [place] [address] Dr. Julien Eric THC Negative Normal NEGATIVE [facility] Comment on above: Performed By: #### H CVPCRR #### [facility] [address] [place] [address] Dr. Julien Eric TYPE AND SCREENon 07-14-2022 TYPE AND SCREEN Negative Normal [facility] Comment on above: Performed By: #### T NS #### [facility] [address] [place] [address] Dr. 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 Julien Eric Clarity (U) SL CLOUDY Abnormal CLEAR [facility] Comment on above: Performed By: #### H CVPCRR #### [facility] [address] [place] [address] Dr. Julien Eric Color (U) LT. YELLOW Normal YELLOW [facility] Comment on above: Performed By: #### H CVPCRR #### [facility] [address] [place] [address] Dr. Julien Eric Glucose Ql (U) Negative Normal NEGATIVE [facility] Comment on above: Performed By: #### H CVPCRR #### [facility] [address] [place] [address] Dr. Julien Eric Hemoglobin Ql (U) SMALL Abnormal NEGATIVE [facility] Comment on above: Performed By: #### H CVPCRR #### [facility] [address] [place] [address] Dr. Julien Eric Ketones Ql (U) Negative Normal NEGATIVE [facility] Comment on above: Performed By: #### H CVPCRR #### [facility] [address] [place] [address] Dr. Julien Eric LEUKOCYTES SMALL Abnormal NEGATIVE [facility] Comment on above: Performed By: #### H CVPCRR #### [facility] [address] [place] [address] Dr. Julien Eric Nitrite Ql (U) Negative Normal NEGATIVE [facility] Comment on above: Performed By: #### H CVPCRR #### [facility] [address] [place] [address] Dr. Julien Eric pH (U) 7.0 [pH] Normal 5-9 [facility] Comment on above: Performed By: #### H CVPCRR #### [facility] [address] [place] [address] Dr. Julien Eric SPEC GRAVITY 1.020 Normal 1.005-<=1.02 5 [facility] Comment on above: Performed By: #### H CVPCRR #### [facility] [address] [place] [address] Dr. Julien Eric UA PROTEIN 30 mg/dl Abnormal NEGATIVE/ TRACE [facility] Comment on above: Performed By: #### H CVPCRR #### [facility] [address] [place] [address] Dr. Julien Eric UR MICRO IND INDICATED Normal [facility] Comment on above: Performed By: #### H CVPCRR #### [facility] [address] [place] [address] Dr. Julien Eric Urobilinogen Qn (U) 0.2 {Ene'U}/dL Normal 0.2 - 1. 0 [facility] Comment on above: Performed By: #### H CVPCRR #### [facility] [address] [place] [address] Dr. Julien Eric URINE MICROSCOPIC ONLYon BACTERIA MODERATE Abnormal NONE SEEN [facility] Comment on above: Performed By: #### H CVPCRR #### [facility] [address] [place] [address] Dr. Julien Eric Bacteria identified Cx Nom (U) INDICATED Normal [facility] Comment on above: Performed By: #### H CVPCRR #### [facility] [address] [place] [address] Dr. Julien Eric CAST NONE SEEN Normal NONE SEEN [facility] Comment on above: Performed By: #### H CVPCRR #### [facility] [address] [place] [address] Dr. Julien Eric Crystals LM Nom (Urine sed) NONE SEEN Normal NONE SEEN [facility] Comment on above: Performed By: #### H CVPCRR #### [facility] [address] [place] [address] Dr. Julien Eric Epithelial cells LM Ql (Urine sed) MANY Abnormal NONE SEEN /RARE [facility] Comment on above: Performed By: #### H CVPCRR #### [facility] [address] [place] [address] Dr. Julien Eric MUCOUS NONE SEEN Normal NONE SEEN [facility] Comment on above: Performed By: #### H CVPCRR #### [facility] [address] [place] [address] Dr. Julien Eric RBC 0-2 Normal 0-2 [facility] Comment on above: Performed By: #### H CVPCRR #### [facility] [address] [place] [address] Dr. Julien Eric WBC 2-5 Abnormal NONE SEEN [facility] Comment on above: Performed By: #### H CVPCRR #### [facility] [address] [place] [address] Dr. Julien Eric Covid-19 PCR (CVDTBH)on SARS-CoV-2 (COVID-19) RNA KATTY+probe Ql (Unsp spec) Not detected Normal NOT DETECTED [facility] Comment on above: Result Comment: This test is not yet approved or cleared by the [place] FDA. When there are no FDA-approved or cleared tests available, and other criteria are met, FDA can make tests available under an emergency access mechanism called an Emergency Use Authorization (EUA). The EUA for this test is supported by the [place] of Health and Human Service's (HHS's) declaration that circumstances exist to justify the emergency use of in vitro diagnostics for the detection and/or diagnosis of the virus that causes COVID-19. This EUA will remain in effect (meaning this test can be used) for the duration of the COVID-19 declaration justifying emergency of IVDs, unless it is terminated or revoked by FDA (after which the test may no longer be used). When diagnostic testing is negative, the possibility of a false negative should be considered in the context of a patient's recent exposures and the presence of clinical signs and symptoms consistent with SARS-CoV-2. Performed By: #### U RCX #### [facility] [address] [place] [address] Dr. Julien Eric US PREG BIOPHY W NON STRESSo n 07-09-2022 US PREG BIOPHY W NON STRESS EXAMINATION: US PREG BIOPHY W NON STRESS HISTORY: Multigravida of advanced maternal age COMPARISON: Ultrasound biophysical 07/01/2022 TECHNIQUE: Ultrasound biophysical profile was performed. FINDINGS: BREATHING MOVEMENTS: 2.0 GROSS BODY MOVEMENTS: 2.0 TONE: 2.0 QUALITATIVE AMNIOTIC FLUID VOLUME: 2.0 PRESENTATION: Cephalic HEART RATE: 125.6 bpm bpm. AMNIOTIC FLUID VOLUME: 26.0 cm GESTATIONAL AGE: 38 weeks 2 days CONCLUSION: 1. Total biophysical profile score 8.0. 2. Polyhydramnios. Electronically authenticated by: ZACH WALDEN Date: 2022-07-09 06:31 Normal [facility] CULTURE URINEon 07-02-2022 CULTURE URINE Culture Observations: NO GROWTH. Normal [facility] Comment on above: Performed By: #### U RCX #### [facility] [address] [place] [address] Dr. Julien Eric PREG BIOPHY W NON STRESSo n 07-01-2022 US PREG BIOPHY W NON STRESS EXAMINATION: US PREG BIOPHY W NON STRESS HISTORY: Multigravida of advanced maternal age COMPARISON: Ultrasound biophysical 06/24/2022 TECHNIQUE: Ultrasound biophysical profile was performed. FINDINGS: BREATHING MOVEMENTS: 2.0 GROSS BODY MOVEMENTS: 2.0 TONE: 2.0 QUALITATIVE AMNIOTIC FLUID VOLUME: 2.0 PRESENTATION: Transverse HEART RATE: 123.3 bpm bpm. AMNIOTIC FLUID VOLUME: 25.0 cm; >95th percentile GESTATIONAL AGE: 37 weeks 2 days CONCLUSION: 1. Total biophysical profile score 8.0. 2. Polyhydramnios. Electronically authenticated by: ZACH WALDEN Date: 2022-07-01 16:27 Normal [facility] GROUP B STREP CULTUREon 06-04 S. agalactiae Ag Ql (Unsp spec) Culture Observations: NEGATIVE FOR GROUP B STREPTOCOCCUS. Normal [facility] Comment on above: Performed By: #### B [id number] #### [facility] [address] [place] [address] Dr. Julien Eric PREG BIOPHY W NON STRESSo n 06-24-2022 US PREG BIOPHY W NON STRESS EXAMINATION: US PREG BIOPHY W NON STRESS HISTORY: Advanced maternal age COMPARISON: Ultrasound biophysical 06/17/2022 TECHNIQUE: Ultrasound biophysical profile was performed. FINDINGS: BREATHING MOVEMENTS: 2.0 GROSS BODY MOVEMENTS: 2.0 TONE: 2.0 QUALITATIVE AMNIOTIC FLUID VOLUME: 2.0 PRESENTATION: Cephalic HEART RATE: 121.1 bpm bpm. AMNIOTIC FLUID VOLUME: 25.4 cm GESTATIONAL AGE: 36 weeks 2 days CONCLUSION: Total biophysical profile score 8.0. Electronically authenticated by: ZACH WALDEN Date: 2022-06-24 21:28 Normal [facility] US PREG GROWTHon 06-24-2022 US PREG GROWTH EXAMINATION: US PREG GROWTH HISTORY: Advanced maternal age COMPARISON: Ultrasound growth 05/27/2022 FINDINGS: Heart Rate: 121.1 bpm Number: 1.0 Position: Cephalic Amniotic Fluid Volume: 25.4 cm Maximum Vertical Pocket: 9.9 cm BIOMETRY: BPD: 9.5 cm cm; 38 weeks 4 days; greater than 97% HC: 34.2 cmcm; 39 weeks 3 days; 89% AC: 34.2 cm cm; 38 weeks 1 days; 95% FL: 7.2 cm cm; 36 weeks 6 days; 61% EFW: 3368.6 grams; 91% FL/AC: 21.0 FL/BPD: 76.0 HC/AC: 1.0 GESTATIONAL AGE: Age by EDC: 36 weeks 2 days RENETTA by EDC: 07/20/2022 Age by US: 38 weeks 2 days RENETTA by US: 07/06/2022 IMPRESSION: 1. Single live intrauterine with growth detailed above. 2. Biparietal diameter is greater than 97%. 3. Borderline polyhydramnios. Electronically authenticated by: ZACH WALDEN Date: 2022-06-24 21:25 Normal [facility] US PREG BIOPHY W NON STRESSo n 06-18-2022 US PREG BIOPHY W NON STRESS EXAMINATION: US PREG BIOPHY W NON STRESS HISTORY: Advanced maternal age COMPARISON: Ultrasound biophysical 06/10/2022 TECHNIQUE: Ultrasound biophysical profile was performed. FINDINGS: BREATHING MOVEMENTS: 2.0 GROSS BODY MOVEMENTS: 2.0 TONE: 2.0 QUALITATIVE AMNIOTIC FLUID VOLUME: 2.0 PRESENTATION: Breech HEART RATE: 122.2 bpm bpm. AMNIOTIC FLUID VOLUME: 20.9 cm GESTATIONAL AGE: 35 weeks 2 days CONCLUSION: 1. Total biophysical profile score 8.0. 2. Mildly distended renal pelvis, 5 mm. 3. Moderate amount of echogenic debris within amniotic fluid. Electronically authenticated by: ZACH WALDEN Date: 2022-06-18 06:40 Normal [facility] US PREG BIOPHY W NON STRESSo n 06-10-2022 US PREG BIOPHY W NON STRESS EXAMINATION: US PREG BIOPHY W NON STRESS HISTORY: Advanced maternal age COMPARISON: No relevant comparison available. TECHNIQUE: Ultrasound biophysical profile was performed in the radiology department. FINDINGS: BREATHING MOVEMENTS: 2.0 GROSS BODY MOVEMENTS: 2.0 TONE: 2.0 QUALITATIVE AMNIOTIC FLUID VOLUME: 2.0 PRESENTATION: Cephalic HEART RATE: 120.8 bpm H.B./min AMNIOTIC FLUID VOLUME: 19.3 cm cm GESTATIONAL AGE: 34 weeks 2 days CONCLUSION: Total biophysical profile score: 8.0 Electronically authenticated by: SOUMYA MONSALVE Date: 2022-06-10 19:11 Normal [facility] US PREG BIOPHY W NON STRESSo n 06-04-2022 US PREG BIOPHY W NON STRESS EXAMINATION: US PREG BIOPHY W NON STRESS HISTORY: Multigravida of advanced maternal age COMPARISON: Ultrasound biophysical 05/27/2022 TECHNIQUE: Ultrasound biophysical profile was performed. FINDINGS: BREATHING MOVEMENTS: 2.0 GROSS BODY MOVEMENTS: 2.0 TONE: 2.0 QUALITATIVE AMNIOTIC FLUID VOLUME: 2.0 PRESENTATION: CEPHALIC HEART RATE: 153.4 bpm bpm. AMNIOTIC FLUID VOLUME: 22.6 cm GESTATIONAL AGE: 33 weeks 2 days CONCLUSION: Total biophysical profile score 8.0. Electronically authenticated by: ZACH WALDEN Date: 2022-06-03 22:14 Normal [facility] CULTURE BLOODon 05-28-2022 Microscopic examination of blood, culture Culture Observations: POSITIVE AEROBIC BOTTLE 05/23/22 Culture Observations: BCID= STAPH SPP. CALLED TO LIANA JONES RN 05/23/22 @1329 BY DM Culture Observations: NO GROWTH IN ANAEROBIC BOTTLE AT 5 DAYS. Isolate 1 Staphylococcus hominis Growth of ORGANISM 1 Staphylococcus hominis ANTIBIOTIC M.I.C RX STATUS Beta-Lactamase Neg NEG F Cefoxitin Screen Neg NEG F Benzylpenicillin >=0.5 R F Gentamicin <=0.5 S F Ciprofloxacin <=0.5 S F Levofloxacin <=0.12 S F Inducible Clindamycin Resistance Neg NEG F Erythromycin >=8 R F Clindamycin <=0.25 S F Quinupristin/Dalfopr istin <=0.25 S F Linezolid 2 S F Vancomycin 1 S F Tetracycline 2 S F Rifampicin <=0.5 S F Trimethoprim/Sulfame thoxazole <=10 S F Oxacillin <=0.25 S F Normal [facility] Comment on above: Performed By: #### B [id number] #### [facility] [address] [place] [address] Dr. Julien Eric US PREG BIOPHY W NON STRESSo n 05-27-2022 US PREG BIOPHY W NON STRESS EXAMINATION: US PREG BIOPHY W NON STRESS HISTORY: Multigravida of advanced maternal age COMPARISON: Ultrasound anatomy 02/25/2022 TECHNIQUE: Ultrasound biophysical profile was performed. FINDINGS: BREATHING MOVEMENTS: 2.0 GROSS BODY MOVEMENTS: 2.0 TONE: 2.0 QUALITATIVE AMNIOTIC FLUID VOLUME: 2.0 PRESENTATION: CEPHALIC HEART RATE: 161.7 bpm bpm. AMNIOTIC FLUID VOLUME: 17.8 cm GESTATIONAL AGE: 32 weeks 2 days CONCLUSION: Total biophysical profile score 8.0. Electronically authenticated by: ZACH WALDEN Date: 2022-05-27 16:04 Normal [facility] US PREG GROWTHon 05-27-2022 US PREG GROWTH EXAMINATION: US PREG GROWTH HISTORY: Excessive growth affecting management of mother COMPARISON: No relevant comparison available. FINDINGS: Heart Rate: 161.7 bpm Number: 1.0 Position: CEPHALIC Amniotic Fluid Volume: 17.8 cm Maximum Vertical Pocket: 7.0 cm BIOMETRY: BPD: 8.4 cm cm; 34 weeks 0 days; 87% HC: 31.9 cmcm; 35 weeks 6 days; 94% AC: 30.5 cm cm; 34 weeks 3 days; 95% FL: 6.3 cm cm; 32 weeks 4 days; 44% EFW: 2331.8 grams; 89% FL/AC: 20.6 FL/BPD: 74.5 HC/AC: 1.0 GESTATIONAL AGE: Age by EDC: 32 weeks 2 days RENETTA by EDC: 07/20/2022 Age by US: 34 weeks, 2 days RENETTA by US: 07/06/2022 IMPRESSION: 1. Single live intrauterine with growth detailed above. Electronically authenticated by: ZACH WALDEN Date: 2022-05-27 16:05 Normal [facility] CBC AUTO DIFFon 05-23-2022 BASO # 0.0 103/ul Normal 0.0-0.1 [facility] Comment on above: Performed By: #### H CVPCRR #### [facility] [address] [address] [address] Julien Eric Basophils/100 WBC (Bld) 0.3 % Normal 0.2-2.0 [facility] Comment on above: Performed By: #### H CVPCRR #### [facility] [address] [address] [address] Julien Eric EO # 0.1 103/ul Normal 0.0-0.7 [facility] Comment on above: Performed By: #### H CVPCRR #### [facility] [address] [place] [address] Dr. Julien Eric Eosinophils/100 WBC (Bld) 1.3 % Normal 0.9-7.0 [facility] Comment on above: Performed By: #### H CVPCRR #### [facility] [address] [place] [address] Dr. Julien Eric Erythrocyte distribution width (RBC) [Ratio] 14.5 % Normal 11.0-15.0 [facility] Comment on above: Performed By: #### H CVPCRR #### [facility] [address] [place] [address] Dr. Julien Eric Hematocrit (Bld) [Volume fraction] 28.8 % Critically low 36.0-48.0 [facility] Comment on above: Performed By: #### H CVPCRR #### [facility] [address] [place] [address] Dr. Julien Eric Hemoglobin (Bld) [Mass/Vol] 9.5 g/dL Critically low 12.0-16.0 [facility] Comment on above: Performed By: #### H CVPCRR #### [facility] [address] [place] [address] Dr. Julien Eric IG # 0.06 10e3/ul Critically high 0.00-0.03 [facility] Comment on above: Performed By: #### H CVPCRR #### [facility] [address] [place] [address] Dr. Julien Eric IG % 0.8 % Critically high 0.0-0.5 [facility] Comment on above: Performed By: #### H CVPCRR #### [facility] [address] [place] [address] Dr. Julien Eric LYMPH # 1.5 103/ul Normal 1.2-3.8 [facility] Comment on above: Performed By: #### H CVPCRR #### [facility] [address] [place] [address] Dr. Julien Eric Lymphocytes/100 WBC (Bld) 18.8 % Critically low 20.5-60.0 [facility] Comment on above: Performed By: #### H CVPCRR #### [facility] [address] [place] [address] Dr. Julien Eric MANUAL DIFF REQ NO Normal [facility] Comment on above: Performed By: #### H CVPCRR #### [facility] [address] [place] [address] Dr. Julien Eric MCH (RBC) [Entitic mass] 30.4 pg Normal 26.7-34.0 [facility] Comment on above: Performed By: #### H CVPCRR #### [facility] [address] [place] [address] Dr. Julien Eric MCHC (RBC) [Mass/Vol] 33.0 g/dL Normal 29.9-35.2 [facility] Comment on above: Performed By: #### H CVPCRR #### [facility] [address] [place] [address] Dr. Julien Eric MCV (RBC) [Entitic vol] 92.0 fL Normal 81.0-99.0 [facility] Comment on above: Performed By: #### H CVPCRR #### [facility] [address] [place] [address] Dr. Julien Eric MONO # 0.6 103/ul Normal 0.3-0.8 [facility] Comment on above: Performed By: #### H CVPCRR #### [facility] [address] [place] [address] Dr. Julien Eric Monocytes/100 WBC (Bld) 7.3 % Normal 1.7-12.0 [facility] Comment on above: Performed By: #### H CVPCRR #### [facility] [address] [place] [address] Dr. Julien Eric NEUT # 5.7 103/ul Normal 1.4-6.5 [facility] Comment on above: Performed By: #### H CVPCRR #### [facility] [address] [place], [place] [id number] Dr. Julien Eric Neutrophils/100 WBC (Bld) 71.5 % Normal 43.0-75.0 [facility] Comment on above: Performed By: #### H CVPCRR #### [facility] [address] [address] [address] Julien Eric Platelet mean volume (Bld) [Entitic vol] 11.4 fL Normal 9.5-13.5 [facility] [facility] Comment on above: Performed By: #### H CVPCRR #### [facility] [address] [address] [address] Julien Eric PLT 286 103/ul Normal 150-450 [facility] Comment on above: Performed By: #### H CVPCRR #### [facility] [address] [address] [address] Julien Eric RBC 3.13 106/ul Critically low 4.20-5.40 [facility] Comment on above: Performed By: #### H CVPCRR #### [facility] [address] [address] [address] Julien Eric WBC 8.0 103/ul Normal 4.0-11.0 [facility] Comment on above: Performed By: #### H CVPCRR #### [facility] [address] [place] [address] Dr. Julien Eric PROF CHEM 8 (BAS METB)on Anion gap [Moles/Vol] 7.8 mmol/L Normal [facility] Comment on above: Performed By: #### H BSANS #### [facility] [address] [place] [address] Dr. Julien Eric Calcium [Mass/Vol] 7.8 mg/dL Critically low 8.5-10.1 [facility] Comment on above: Performed By: #### H BSANS #### [facility] [address] [place] [address] Dr. Julien Eric Chloride [Moles/Vol] 105 mmol/L Normal 98-107 [facility] Comment on above: Performed By: #### H BSANS #### [facility] [address] [address] [address] Julien Eric CO2 [Moles/Vol] 24.5 mmol/L Normal 21.0-32.0 [facility] Comment on above: Performed By: #### H BSANS #### [facility] [address] [address] [address] Julien Eric Creatinine [Mass/Vol] 0.50 mg/dL Critically low 0.55-1.02 [facility] Comment on above: Performed By: #### H BSANS #### [facility] [address] [address] [address] Julien Eric EGFR-AF AFGHAN >60 Normal >=60 [facility] Comment on above: Performed By: #### H BSANS #### [facility] [address] [address] [address] Julien Eric EGFR-NON AF AFGHAN >60 Normal >=60 [facility] Comment on above: Performed By: #### H BSANS #### [facility] [address] [address] [address] Julien Eric Glucose [Mass/Vol] 98 mg/dL Normal 74-106 [facility] Comment on above: Performed By: #### H BSANS #### [facility] [address] [address] [address] Julien Eric Potassium [Moles/Vol] 3.3 mmol/L Critically low 3.5-5.1 [facility] Comment on above: Performed By: #### H BSANS #### [facility] [address] [address] [address] Julien Eric Sodium [Moles/Vol] 134 mmol/L Critically low 136-145 Th [facility] Comment on above: Performed By: #### H BSANS #### [facility] [address] [address] [address] Julien Eric Urea nitrogen [Mass/Vol] 5.0 mg/dL Critically low 7.0-18.0 [facility] Comment on above: Performed By: #### H BSANS #### [facility] [address] [address] [address] Julien Eric Urea nitrogen/Creatinine [Mass ratio] 10.0 mg/mg Normal [facility] Comment on above: Performed By: #### H BSANS #### [facility] [address] [place] [address] Dr. Julien Eric AMYLASEon 05-22-2022 Amylase [Catalytic activity/Vol] 33 U/L Normal 25-115 [facility] Comment on above: Performed By: #### H BSANS #### [facility] [address] [place] [address] Dr. Julien Eric BLOOD CULTURE ID PANELon A. baumannii Not detected Normal NOT DETECTED [facility] Comment on above: Performed By: #### U RCX #### [facility] [address] [place] [address] Dr. Julien Eric Bacteriodes fragilis Not detected Normal NOT DETECTED [facility] Comment on above: Performed By: #### U RCX #### [facility] [address] [place] [address] Dr. Julien Eric BCID CONTROLS PASSED Normal [facility] Comment on above: Performed By: #### U RCX #### [facility] [address] [place] [address] Dr. Julien Eric BCIDBTHD BLOOD CULTURE BOTTLE INFORMATION Normal [facility] Comment on above: Performed By: #### U RCX #### [facility] [address] [place] [address] Dr. Julien Eric BCIDHD1 ANTIMICROBIAL RESISTANCE GENES Normal [facility] Comment on above: Performed By: #### U RCX #### [facility] [address] [place] [address] Dr. Julien Eric BCIDHD2 SEE BELOW [facility] Comment on above: Result Comment: Note : Antimicrobial resitance can occur via multiple mechanisms. A Not Detected result for the [employer] antomicrobial resistance gene assays does not indicate antimicrobial susceptibility. Subculturing is required for species identification and susceptibility testing of isolates. Performed By: #### U RCX #### [facility] [address] [place] [address] Dr. Julien Eric BCIDHD3 Positive Normal [facility] Comment on above: Performed By: #### U RCX #### [facility] [address] [address] [address] Julien Eric BCIDHD4 Negative Normal [facility] Comment on above: Performed By: #### U RCX #### [facility] [address] [address] [address] Julien Eric BCIDHD5 YEAST Normal [facility] Comment on above: Performed By: #### U RCX #### [facility] [address] [address] [address] Julien Eric Bottle Set: Set 2 [facility] Comment on above: Performed By: #### U RCX #### [facility] [address] [place] [address] Dr. Julien Eric Bottle: Aerobic Normal [facility] Comment on above: Performed By: #### U RCX #### [facility] [address] [place] [address] Dr. Julien Eric C. neoformans/gattii Not detected Normal NOT DETECTED [facility] Comment on above: Performed By: #### U RCX #### [facility] [address] [place] [address] Dr. Julien Eric Rocio albicans Not detected Normal NOT DETECTED [facility] Comment on above: Performed By: #### U RCX #### [facility] [address] [place] [address] Dr. Julien Eric Rocio auris Not detected Normal NOT DETECTED [facility] Comment on above: Performed By: #### U RCX #### [facility] [address] [place] [address] Dr. Julien Eric Rocio glabrata Not detected Normal NOT DETECTED [facility] Comment on above: Performed By: #### U RCX #### [facility] [address] [place] [address] Dr. Julien Eric Rocio Krusei Not detected Normal NOT DETECTED [facility] Comment on above: Performed By: #### U RCX #### [facility] [address] [place] [address] Dr. Julien Eric Rocio Parapsilosis Not detected Normal NOT DETECTED [facility] Comment on above: Performed By: #### U RCX #### [facility] [address] [address] [address] Julien Eric Rocio Tropicalis Not detected Normal NOT DETECTED [facility] Comment on above: Performed By: #### U RCX #### [facility] [address] [place] [address] Dr. Julien Eric CTX-M Resistant Gene Not Applicable Normal NOT DETECTE D [facility] Comment on above: Performed By: #### U RCX #### [facility] [address] [place] [address] Dr. Julien Eric E. Cloacae complex Not detected Normal NOT DETECTED [facility] Comment on above: Performed By: #### U RCX #### [facility] [address] [place] [address] Dr. Julien Eric E. faecalis Not detected Normal NOT DETECTED [facility] Comment on above: Performed By: #### U RCX #### [facility] [address] [place] [address] Dr. Julien Eric E. faecium Not detected Normal NOT DETECTED [facility] Comment on above: Performed By: #### U RCX #### [facility] [address] [place] [address] Dr. Julien Eric Enterobacteriaceae Not detected Normal NOT DETECTED [facility] Comment on above: Performed By: #### U RCX #### [facility] [address] [place] [address] Dr. Julien Eric Escherichia coli Not detected Normal NOT DETECTED [facility] Comment on above: Performed By: #### U RCX #### [facility] [address] [place] [address] Dr. Julien Eric H. influenzae Not detected Normal NOT DETECTED [facility] Comment on above: Performed By: #### U RCX #### [facility] [address] [place] [address] Dr. Julien Eric IMP Resistant Gene Not Applicable Normal NOT DETECTED [facility] Comment on above: Performed By: #### U RCX #### [facility] [address] [place] [address] Dr. Julien Eric K. oxytoca Not detected Normal NOT DETECTED [facility] Comment on above: Performed By: #### U RCX #### [facility] [address] [place] [address] Dr. Julien Eric K. pneumoniae Not detected Normal NOT DETECTED [facility] Comment on above: Performed By: #### U RCX #### [facility] [address] [place] [address] Dr. Julien Eric Klebsiella aerogenes Not detected Normal NOT DETECTED [facility] Comment on above: Performed By: #### U RCX #### [facility] [address] [place] [address] Dr. Julien Eric KPC Resistant Gene Not Applicable Normal NOT DETECTED [facility] Comment on above: Performed By: #### U RCX #### [facility] [address] [place] [address] Dr. Julien Eric List. monocytogenes Not detected Normal NOT DETECTED [facility] Comment on above: Performed By: #### U RCX #### [facility] [address] [place] [address] Dr. Julien Eric Mcr-1 Resistant Gene Not Applicable Normal NOT DETECTE D [facility] Comment on above: Performed By: #### U RCX #### [facility] [address] [place] [address] Dr. Julien Eric mecA/C Not Applicable Normal NOT DETECTED [facility] Comment on above: Performed By: #### U RCX #### [facility] [address] [place] [address] Dr. Julien Eric mecA/C MREJ Not Applicable Normal NOT DETECTED [facility] Comment on above: Performed By: #### U RCX #### [facility] [address] [place] [address] Dr. Julien Eric N. meningitidis Not detected Normal NOT DETECTED [facility] Comment on above: Performed By: #### U RCX #### [facility] [address] [place] [address] Dr. Julien Eric NDM Resistant Gene Not Applicable Normal NOT DETECTED [facility] Comment on above: Performed By: #### U RCX #### [facility] [address] [place] [address] Dr. Julien Eric Oxa-48-like Not Applicable Normal NOT DETECTED [facility] Comment on above: Performed By: #### U RCX #### [facility] [address] [place] [address] Dr. Julien Eric Proteus Not detected Normal NOT DETECTED [facility] Comment on above: Performed By: #### U RCX #### [facility] [address] [place] [address] Dr. Julien Eric Pseud. aeruginosa Not detected Normal NOT DETECTED [facility] Comment on above: Performed By: #### U RCX #### [facility] [address] [place] [address] Dr. Julien Eric S. maltophilia Not detected Normal NOT DETECTED [facility] Comment on above: Performed By: #### U RCX #### [facility] [address] [place] [address] Dr. Julien Eric Salmonella Not detected Normal NOT DETECTED [facility] Comment on above: Performed By: #### U RCX #### [facility] [address] [place] [address] Dr. Julien Eric Seratia marcescens Not detected Normal NOT DETECTED [facility] Comment on above: Performed By: #### U RCX #### [facility] [address] [place] [address] Dr. Julien Eric Site: l. hand Normal [facility] Comment on above: Performed By: #### U RCX #### [facility] [address] [place] [address] Dr. Julien Eric Staph. aureus Not detected Normal NOT DETECTED [facility] Comment on above: Performed By: #### U RCX #### [facility] [address] [place] [address] Dr. Julien Eric Staph. epidermidis Not detected Normal NOT DETECTED [facility] Comment on above: Performed By: #### U RCX #### [facility] [address] [place] [address] Dr. Julein Eric Staph. lugdunensis Not detected Normal NOT DETECTED [facility] Comment on above: Performed By: #### U RCX #### [facility] [address] [place] [address] Dr. Julien Eric Staphylococcus Detected Critically abnormal NOT DETECTED [facility] Comment on above: Performed By: #### U RCX #### [facility] [address] [place] [address] Dr. Julien Eric Strep. agalactiae Not detected Normal NOT DETECTED [facility] Comment on above: Performed By: #### U RCX #### [facility] [address] [place] [address] Dr. Julien Eric Strep. pneumoniae Not detected Normal NOT DETECTED [facility] Comment on above: Performed By: #### U RCX #### [facility] [address] [place] [address] Dr. Julien Eric Strep. pyogenes Not detected Normal NOT DETECTED [facility] Comment on above: Performed By: #### U RCX #### [facility] [address] [place] [address] Dr. Julien Eric Streptococcus Not detected Normal NOT DETECTED [facility] Comment on above: Performed By: #### U RCX #### [facility] [address] [place] [address] Dr. Julien Eric Melisa/B Resist. Gene Not Applicable Normal NOT DETECTED [facility] Comment on above: Performed By: #### U RCX #### [facility] [address] [place] [address] Dr. Julien Eric VIM Resistant Gene Not Applicable Normal NOT DETECTED [facility] Comment on above: Performed By: #### U RCX #### [facility] [address] [place] [address] Dr. Julien Eric CBC AUTO DIFFon 05-22-2022 BASO # 0.1 103/ul Normal 0.0-0.1 [facility] Comment on above: Performed By: #### U RCX #### [facility] [address] [place] [address] Dr. Julien Eric Basophils/100 WBC (Bld) 0.3 % Normal 0.2-2.0 [facility] Comment on above: Performed By: #### U RCX #### [facility] [address] [place] [address] Dr. Julien Eric EO # 0.0 103/ul Normal 0.0-0.7 [facility] Comment on above: Performed By: #### U RCX #### [facility] [address] [place] [address] Dr. Julien Eric Eosinophils/100 WBC (Bld) 0.2 % Critically low 0.9-7.0 [facility] Comment on above: Performed By: #### U RCX #### [facility] [address] [place] [address] Dr. Julien Eric Erythrocyte distribution width (RBC) [Ratio] 14.3 % Normal 11.0-15.0 [facility] Comment on above: Performed By: #### U RCX #### [facility] [address] [place] [address] Dr. Julien Eric Hematocrit (Bld) [Volume fraction] 36.3 % Normal 36.0-48.0 [facility] Comment on above: Performed By: #### U RCX #### [facility] [address] [place] [address] Dr. Julien Eric Hemoglobin (Bld) [Mass/Vol] 11.8 g/dL Critically low 12.0-16.0 [facility] Comment on above: Performed By: #### U RCX #### [facility] [address] [place] [address] Dr. Julien Eric IG # 0.11 10e3/ul Critically high 0.00-0.03 [facility] Comment on above: Performed By: #### U RCX #### [facility] [address] [place] [address] Dr. Julien Eric IG % 0.6 % Critically high 0.0-0.5 [facility] Comment on above: Performed By: #### U RCX #### [facility] [address] [place] [address] Dr. Julien Eric LYMPH # 0.9 103/ul Critically low 1.2-3.8 [facility] Comment on above: Performed By: #### U RCX #### [facility] [address] [place] [address] Dr. Julien Eric Lymphocytes/100 WBC (Bld) 4.7 % Critically low 20.5-60.0 [facility] Comment on above: Performed By: #### U RCX #### [facility] [address] [place] [address] Dr. Julien Eric MANUAL DIFF REQ NO Normal [facility] Comment on above: Performed By: #### U RCX #### [facility] [address] [place] [address] Dr. Julien Eric MCH (RBC) [Entitic mass] 29.9 pg Normal 26.7-34.0 [facility] Comment on above: Performed By: #### U RCX #### [facility] [address] [place] [address] Dr. Julien Eric MCHC (RBC) [Mass/Vol] 32.5 g/dL Normal 29.9-35.2 [facility] Comment on above: Performed By: #### U RCX #### [facility] [address] [place] [address] Dr. Julien Eric MCV (RBC) [Entitic vol] 92.1 fL Normal 81.0-99.0 [facility] Comment on above: Performed By: #### U RCX #### [facility] [address] [place] [address] Dr. Julien Eric MONO # 0.5 103/ul Normal 0.3-0.8 [facility] Comment on above: Performed By: #### U RCX #### [facility] [address] [place] [address] Dr. Julien Eric Monocytes/100 WBC (Bld) 2.7 % Normal 1.7-12.0 [facility] Comment on above: Performed By: #### U RCX #### [facility] [address] [place] [address] Dr. Julien Eric NEUT # 16.4 103/ul Critically high 1.4-6.[address] [facility] Comment on above: Performed By: #### U RCX #### [facility] [address] [place] [address] Dr. Julien Eric Neutrophils/100 WBC (Bld) 91.5 % Critically high 43.0-75.0 [facility] Comment on above: Performed By: #### U RCX #### [facility] [address] [place] [address] Dr. Julien Eric Platelet mean volume (Bld) [Entitic vol] 11.1 fL Normal 9.5-13.5 [facility] Comment on above: Performed By: #### U RCX #### [facility] [address] [place] [address] Dr. Julien Eric PLT 374 103/ul Normal 150-450 [facility] Comment on above: Performed By: #### U RCX #### [facility] [address] [place] [address] Dr. Julien Eric RBC 3.94 106/ul Critically low 4.20-5.40 [facility] Comment on above: Performed By: #### U RCX #### [facility] [address] [place] [address] Dr. Julien Eric WBC 17.9 103/ul Critically high 4.0-11.[address] [facility] Comment on above: Performed By: #### U RCX #### [facility] [address] [place] [address] Dr. Julien Eric CULTURE BLOODon 05-22-2022 Microscopic examination of blood, culture Culture Observations: NO GROWTH AT 5 DAYS. Normal [facility] Comment on above: Performed By: #### B [id number] #### [facility] [address] [place] [address] Dr. Julien Eric CULTURE URINEon 05-22-2022 CULTURE URINE Culture Observations: HEAVY GROWTH OF MIXED GENITAL BRITTON. NO POTENTIAL PATHOGENS SEEN. Normal [facility] Comment on above: Performed By: #### B LDCX2 #### [facility] [address] [address] [address] Julien Eric Covid-19 PCR ([facility])on 05-04 SARS-CoV-2 (COVID-19) RNA KATTY+probe Ql (Unsp spec) Not detected Normal NOT DETECTED [facility] Comment on above: Result Comment: When diagnostic testing is negative, the possibility of a false negative should be considered in the context of a patient's recent exposures and the presence of clinical signs and symptoms consistent with SARS-CoV-2. This test is not yet approved or cleared by the [place] FDA. When there are no FDA-approved or cleared tests available, and other criteria are met, FDA can make tests available under an emergency access mechanism called an Emergency Use Authorization (EUA). The EUA for this test is supported by the [place] of Health and Human Service's declaration that circumstances exist to justify the emergency use of in vitro diagnostics for the detection and/or diagnosis of the virus that causes COVID-19. This EUA will remain in effect for the duration of the COVID-19 declaration justifying emergency of IVDs, unless it is terminated or revoked by the FDA (after which the test may no longer be used). Performed By: #### H CVPCRR #### [facility] [address] [address] [address] Julien Eric DRUG SCREEN RAPID (URINE)on 05-22-2022 AMP Negative Normal NEGATIVE [facility] Comment on above: Performed By: #### H CVPCRR #### [facility] [address] [address] [address] Julien Eric BAR Negative Normal NEGATIVE [facility] Comment on above: Performed By: #### H CVPCRR #### [facility] [address] [place] [address] Dr. Julien Eric [facility] Negative Normal NEGATIVE [facility] Comment on above: Performed By: #### H CVPCRR #### [facility] [address] [place] [address] Dr. Julien Eric BZO Negative Normal NEGATIVE [facility] Comment on above: Performed By: #### H CVPCRR #### [facility] [address] [place] [address] Dr. Julien Eric REMI Negative Normal NEGATIVE [facility] Comment on above: Performed By: #### H CVPCRR #### [facility] [address] [place] [address] Dr. Julien Eric CUT-OFFS SEE BELOW Normal [facility] Comment on above: Result Comment: AMP (Amphetamine): 500ng/mL, BAR (Barbituates): 200 ng/mL, BZO (Benzodiazepines): 150 ng/mL, BUP (Buprenorphine): 10 ng/mL, REMI (Cocaine): 150 ng/mL, mAMP (Methamphetamine): 500 ng/mL, MTD (Methadone): 200 ng/mL, OPI (Opiates): 100 ng/mL, OXY (Oxycodone): 100 ng/mL, PCP (Phencyclidine): 25 ng/mL, PPX (Propoxyphene): 300 ng/mL, THC (Cannabinoids): 50 ng/mL, TCA (Trycyclic Antidepressants): 300 ng/mL Performed By: #### H CVPCRR #### [facility] [address] [place] [address] Dr. Julien Eirc DRUG CUT HEADER DRUG CLASS TEST SYSTEM CUT-OFF CONCENTRATIONS ARE FOLLOWS: Normal [facility] Comment on above: Performed By: #### H CVPCRR #### [facility] [address] [place] [address] Dr. Julien Eric mAMP Negative Normal NEGATIVE [facility] Comment on above: Performed By: #### H CVPCRR #### [facility] [address] [place] [address] Dr. Julien Eric MTD Negative Normal NEGATIVE [facility] Comment on above: Performed By: #### H CVPCRR #### [facility] [address] [place] [address] Dr. Julien Eric OPI Negative Normal NEGATIVE [facility] Comment on above: Performed By: #### H CVPCRR #### [facility] [address] [address] [address] Julien Eric OXY Negative Normal NEGATIVE [facility] Comment on above: Performed By: #### H CVPCRR #### [facility] [address] [place] [address] Dr. Julien Eric PCP Negative Normal NEGATIVE [facility] Comment on above: Performed By: #### H CVPCRR #### [facility] [address] [place] [address] Dr. Julien Eric PPX Negative Normal NEGATIVE [facility] Comment on above: Performed By: #### H CVPCRR #### [facility] [address] [place] [address] Dr. Julien Eric TCA Negative Normal NEGATIVE [facility] Comment on above: Performed By: #### H CVPCRR #### [facility] [address] [place] [address] Dr. Julien Eric THC Negative Normal NEGATIVE [facility] Comment on above: Performed By: #### H CVPCRR #### [facility] [address] [place] [address] Dr. Julien Eric LIPASEon 05-22-2022 Lipase [Catalytic activity/Vol] 71.0 U/L Critically low 73.0-393.0 [facility] Comment on above: Performed By: #### H BSANS #### [facility] [address] [place] [address] Dr. Julien Eric MRI ABDOMEN WO CONon 022 MRI ABDOMEN WO CON MRI ABDOMEN WITHOUT IV CONTRAST. HISTORY: Abdominal pain COMPARISON: None. TECHNIQUE: MR imaging of the abdomen using the following sequences without IV contrast: axial and coronal T2 SSFSE and FRFSE, axial gradient recalled echo opposed phase sequence and axial 2-D FIESTA. Coronal T1 and T2-weighted images with fat suppression were subsequently acquired. FINDINGS: Somewhat limited evaluation due to motion. LOWER LUNGS: Clear. LIVER: No mass. No intrahepatic ductal dilatation. GALLBLADDER: Absent. CBD: Normal caliber. No stone. PANCREAS: No mass. No peripancreatic inflammation. No pancreatic duct dilatation. ADRENAL: No mass. KIDNEYS: No mass. No hydronephrosis. PERITONEAL CAVITY: No fluid or inflammation. Incompletely visualized intrauterine . STOMACH AND BOWEL: No bowel wall thickening or inflammation. Appendix is not visualized on this MR abdomen study. OSSEOUS STRUCTURES: No visualized destructive osseous lesion. IMPRESSION: 1. Unremarkable MRI abdomen. 2. Incompletely visualized intrauterine . Electronically authenticated by: JANE MORTON Date: 2022-05-22 19:43 Normal [facility] PROF 14(COMP METB)on 05-22- 022 Albumin [Mass/Vol] 2.7 g/dL Critically low 3.4-5.0 [facility] Comment on above: Performed By: #### H BSANS #### [facility] [address] [address] [address] Julien Eric Albumin/Globulin [Mass ratio] 0.6 {ratio} Normal [facility] Comment on above: Performed By: #### H BSANS #### [facility] [address] [place] [address] Dr. Julien Eric ALP [Catalytic activity/Vol] 108 U/L Normal 46-116 [facility] Comment on above: Performed By: #### H BSANS #### [facility] [address] [address] [address] Julien Eric ALT [Catalytic activity/Vol] 10 U/L Critically low 14-59 [facility] Comment on above: Performed By: #### H BSANS #### [facility] [address] [address] [address] Julien Eric Anion gap [Moles/Vol] 16.6 mmol/L Normal [facility] Comment on above: Performed By: #### H BSANS #### [facility] [address] [address] [address] Julien Eric AST [Catalytic activity/Vol] 9 U/L Critically low 15-37 [facility] Comment on above: Performed By: #### H BSANS #### [facility] [address] [address] [address] Julien Eric Bilirubin [Mass/Vol] 0.3 mg/dL Normal 0.2-1.0 [facility] Comment on above: Performed By: #### H BSANS #### [facility] [address] [address] [address] Julien rEic Calcium [Mass/Vol] 8.1 mg/dL Critically low 8.5-10.1 Th [facility] Comment on above: Performed By: #### H BSANS #### [facility] [address] [address] [address] Julien Eric Chloride [Moles/Vol] 103 mmol/L Normal 98-107 [facility] Comment on above: Performed By: #### H BSANS #### [facility] [address] [address] [address] Julien Eric CO2 [Moles/Vol] 21.4 mmol/L Normal 21.0-32.0 [facility] Comment on above: Performed By: #### H BSANS #### [facility] [address] [place] [address] Dr. Julien Eric Creatinine [Mass/Vol] 0.46 mg/dL Critically low 0.55-1.02 [facility] Comment on above: Performed By: #### H BSANS #### [facility] [address] [address] [address] Julien Eric EGFR-AF AFGHAN >60 Normal >=60 [facility] Comment on above: Performed By: #### H BSANS #### [facility] [address] [address] [address] Julien Eric EGFR-NON AF AFGHAN >60 Normal >=60 [facility] Comment on above: Performed By: #### H BSANS #### [facility] [address] [address] [address] Julien Eric Globulin (S) [Mass/Vol] 4.5 g/dL Normal [facility] Comment on above: Performed By: #### H BSANS #### [facility] [address] [address] [address] Julien Eric Glucose [Mass/Vol] 99 mg/dL Normal 74-106 [facility] Comment on above: Performed By: #### H BSANS #### [facility] [address] [address] [address] Julien Eric Potassium [Moles/Vol] 4.0 mmol/L Normal 3.5-5.1 [facility] Comment on above: Performed By: #### H BSANS #### [facility] [address] [place] [address] Dr. Julien Eric Protein [Mass/Vol] 7.2 g/dL Normal 6.4-8.2 [facility] Comment on above: Performed By: #### H BSANS #### [facility] [address] [place] [address] Dr. Julien Eric Sodium [Moles/Vol] 137 mmol/L Normal 136-145 [facility] Comment on above: Performed By: #### H BSANS #### [facility] [address] [place] [address] Dr. Julien Eric Urea nitrogen [Mass/Vol] 7.0 mg/dL Normal 7.0-18.0 [facility] Comment on above: Performed By: #### H BSANS #### [facility] [address] [place] [address] Dr. Julien Eric Urea nitrogen/Creatinine [Mass ratio] 15.2 mg/mg Normal [facility] Comment on above: Performed By: #### H BSANS #### [facility] [address] [place] [address] Dr. Julien Eric UA (CLEAN/CATCH) [employer] SUPERVISOR/MICRO I F IND.on 05-22-2022 Bilirubin Ql (U) Negative Normal NEGATIVE [facility] Comment on above: Performed By: #### U RCX #### [facility] [address] [place] [address] Dr. Julien Eric Clarity (U) CLEAR Normal CLEAR [facility] Comment on above: Performed By: #### U RCX #### [facility] [address] [place] [address] Dr. Julien Eric Color (U) YELLOW Normal YELLOW [facility] Comment on above: Performed By: #### U RCX #### [facility] [address] [place] [address] Dr. Julien Eric Glucose Ql (U) Negative Normal NEGATIVE [facility] Comment on above: Performed By: #### U RCX #### [facility] [address] [place] [address] Dr. Julien Eric Hemoglobin Ql (U) MODERATE Abnormal NEGATIVE [facility] Comment on above: Performed By: #### U RCX #### [facility] [address] [place] [address] Dr. Julien Eric Ketones Ql (U) Negative Normal NEGATIVE [facility] Comment on above: Performed By: #### U RCX #### [facility] [address] [place] [address] Dr. Julien Eric LEUKOCYTES Negative Normal NEGATIVE [facility] Comment on above: Performed By: #### U RCX #### [facility] [address] [place] [address] Dr. Julien Eric Nitrite Ql (U) Negative Normal NEGATIVE [facility] Comment on above: Performed By: #### U RCX #### [facility] [address] [place] [address] Dr. Julien Eric pH (U) 6.0 [pH] Normal 5-9 [facility] Comment on above: Performed By: #### U RCX #### [facility] [address] [place] [address] Dr. Julien Eric SPEC GRAVITY >=1.030 Abnormal 1.005-<=1.02 5 [facility] Comment on above: Performed By: #### U RCX #### [facility] [address] [place] [address] Dr. Julien Eric UA PROTEIN 100 mg/dl Abnormal NEGATIVE/ TRACE [facility] Comment on above: Performed By: #### U RCX #### [facility] [address] [place] [address] Dr. Julien Eric UR MICRO IND INDICATED Normal [facility] Comment on above: Performed By: #### U RCX #### [facility] [address] [place] [address] Dr. Julien Eric Urobilinogen Qn (U) 0.2 {Ene'U}/dL Normal 0.2 - 1. 0 [facility] Comment on above: Performed By: #### U RCX #### [facility] [address] [place] [address] Dr. Julien Eric URINE MICROSCOPIC ONLYon BACTERIA SMALL Abnormal NONE SEEN [facility] Comment on above: Performed By: #### U RCX #### [facility] [address] [place] [address] Dr. Julien Eric Bacteria identified Cx Nom (U) NOT INDICATED Normal [facility] Comment on above: Performed By: #### U RCX #### [facility] [address] [place] [address] Dr. Julien Eric CAST NONE SEEN Normal NONE SEEN [facility] Comment on above: Performed By: #### U RCX #### [facility] [address] [place] [address] Dr. Julien Eric Crystals LM Nom (Urine sed) NONE SEEN Normal NONE SEEN [facility] Comment on above: Performed By: #### U RCX #### [facility] [address] [place] [address] Dr. Julien Eric Epithelial cells LM Ql (Urine sed) FEW Abnormal NONE SEEN /RARE [facility] Comment on above: Performed By: #### U RCX #### [facility] [address] [place] [address] Dr. Julien Eric MUCOUS LARGE Abnormal NONE SEEN [facility] Comment on above: Performed By: #### U RCX #### [facility] [address] [place] [address] Dr. Julien Eric RBC 5-10 Abnormal 0-2 [facility] Comment on above: Performed By: #### U RCX #### [facility] [address] [place] [address] Dr. Julien Eric WBC NONE SEEN Normal NONE SEEN [facility] Comment on above: Performed By: #### U RCX #### [facility] [address] [place] [address] Dr. Julien Eric PAP ACOG PANEL 2: 30 to 65on 04-21-2022 . . Normal [facility] Comment on above: Result Comment: Perf ormed at: WB Performed By: #### U RCX #### [facility] [address] [address] [address] Julien Eric Age Gdln ACOG Testing 30-65 [facility] Comment on above: Performed By: #### U RCX #### [facility] [address] [address] [address] Julien Eric DIAGNOSIS: Comment Normal [facility] Comment on above: Result Comment: NEGA TIVE FOR INTRAEPITHELIAL LESION OR MALIGNANCY. Performed at: WB Performed By: #### U RCX #### [facility] [address] [address] [address] Julien Eric HPV Aptima Negative Normal Negative [facility] Comment on above: Result Comment: This nucleic acid amplification test detects fourteen high-risk HPV types (16,18,31,33,35,39,45,51,52,56,58,59,66,68) without differentiation. Performed at: =G Performed By: #### U RCX #### [facility] [address] [place] [address] Dr. Julien Eric Methodology: Comment [facility] Comment on above: Result Comment: This liquid based ThinPrep(R) pap test was screened with the use of an image guided system. Performed at: WB Performed By: #### U RCX #### [facility] [address] [place] [address] Dr. Julien Eric Note: Comment Normal [facility] Comment on above: Result Comment: The Pap smear is a screening test designed to aid in the detection of premalignant and malignant conditions of the uterine cervix. It is not a diagnostic procedure and should not be used as the sole means of detecting cervical cancer. Both false-positive and false-negative reports do occur. . Performed at: WB Performed By: #### U RCX #### [facility] [address] [address] [address] Julien Eric Performed by: Comment Normal [facility] Comment on above: Result Comment: Hanane Treviño, [employer] ([employer]) Performed at: WB Performed By: #### U RCX #### [facility] [address] [place] [address] Dr. Julien Eric Specimen adequacy: Comment Normal [facility] Comment on above: Result Comment: Sati sfactory for evaluation. No endocervical component is identified. Performed at: WB Performed By: #### U RCX #### [facility] [address] [place] [address] Dr. Julien Eric CHLAMYDIA/GONOCOCCUS KATTY (SW AB/URINE/PAPon 04-18-2022 Chlamydia trachomatis, KATTY Negative Normal Negative [facility] Comment on above: Performed By: #### H BSANS #### [facility] [address] [place] [address] Dr. Julien Eric Neisseria gonorrhoeae, KATTY Negative Normal Negative [facility] Comment on above: Performed By: #### H BSANS #### [facility] [address] [place] [address] Dr. Julien Eric CULTURE URINEon 04-18-2022 CULTURE URINE Isolate 1 Escherichia coli >100,000 cfu/mL of ORGANISM 1 Escherichia coli ANTIBIOTIC M.I.C RX STATUS Ampicillin <=2 S F Ampicillin/Sulbactam <=2 S F Piperacillin/Tazobac enrique <=4 S F Cefazolin <=4 S F Ceftazidime <=1 S F Ceftriaxone <=1 S F Ertapenem <=0.5 S F Imipenem <=0.25 S F Amikacin <=2 S F Gentamicin <=1 S F Tobramycin <=1 S F Ciprofloxacin <=0.25 S F Levofloxacin <=0.12 S F Nitrofurantoin <=16 S F Trimethoprim/Sulfame thoxazole <=20 S F Normal [facility] Comment on above: Performed By: #### U RCX #### [facility] [address] [place] [address] Dr. Julien Eric VAGINITIS/VAGINOSIS DNA PROB Jonathan 04-17-2022 Rocio species Negative Normal Negative [facility] Comment on above: Performed By: #### H CVPCRR #### [facility] [address] [place] [address] Dr. Julien Eric Gardnerella vaginalis Negative Normal Negative [facility] Comment on above: Performed By: #### H CVPCRR #### [facility] [address] [place] [address] Dr. Julien Eric Trichomonas vaginalis Negative Normal Negative [facility] Comment on above: Performed By: #### H CVPCRR #### [facility] [address] [place] [address] Dr. Julien Eric UA RANDOM W/MICROSCOPICon BACTERIA LARGE Abnormal NONE SEEN [facility] Comment on above: Performed By: #### U RCX #### [facility] [address] [place] [address] Dr. Julien Eric Bilirubin Ql (U) Negative Normal NEGATIVE [facility] Comment on above: Performed By: #### U RCX #### [facility] [address] [place] [address] Dr. Julien Eric CAST NONE SEEN Normal NONE SEEN [facility] Comment on above: Performed By: #### U RCX #### [facility] [address] [place] [address] Dr. Julien Eric Clarity (U) CLEAR Normal CLEAR [facility] Comment on above: Performed By: #### U RCX #### [facility] [address] [place] [address] Dr. Julien Eric Color (U) LT. YELLOW Normal YELLOW [facility] Comment on above: Performed By: #### U RCX #### [facility] [address] [address] [address] Julien Eric Crystals LM Nom (Urine sed) NONE SEEN Normal NONE SEEN [facility] Comment on above: Performed By: #### U RCX #### [facility] [address] [place] [address] Dr. Julien Eric Epithelial cells LM Ql (Urine sed) FEW Abnormal NONE SEEN /RARE [facility] Comment on above: Performed By: #### U RCX #### [facility] [address] [place] [address] Dr. Julien Eric Glucose Ql (U) Negative Normal NEGATIVE [facility] Comment on above: Performed By: #### U RCX #### [facility] [address] [place] [address] Dr. Julien Eric Hemoglobin Ql (U) MODERATE Abnormal NEGATIVE [facility] Comment on above: Performed By: #### U RCX #### [facility] [address] [place] [address] Dr. Julien Eric Ketones Ql (U) Negative Normal NEGATIVE [facility] Comment on above: Performed By: #### U RCX #### [facility] [address] [place] [address] Dr. Julien Eric LEUKOCYTES Negative Normal NEGATIVE [facility] Comment on above: Performed By: #### U RCX #### [facility] [address] [place] [address] Dr. Julien Eric MUCOUS NONE SEEN Normal NONE SEEN [facility] Comment on above: Performed By: #### U RCX #### [facility] [address] [place] [address] Dr. Julien Eric Nitrite Ql (U) Negative Normal NEGATIVE [facility] Comment on above: Performed By: #### U RCX #### [facility] [address] [place] [address] Dr. Julien Eric pH (U) 6.5 [pH] Normal 5-9 [facility] Comment on above: Performed By: #### U RCX #### [facility] [address] [place] [address] Dr. Julien Eric RBC NONE SEEN Abnormal 0-2 [facility] Comment on above: Performed By: #### U RCX #### [facility] [address] [place] [address] Dr. Julien Eric SPEC GRAVITY 1.020 Normal 1.005-<=1.02 5 [facility] Comment on above: Performed By: #### U RCX #### [facility] [address] [place] [address] Dr. Julien Eric UA PROTEIN 30 mg/dl Abnormal NEGATIVE/ TRACE [facility] Comment on above: Performed By: #### U RCX #### [facility] [address] [address] [address] Julien Eric Urobilinogen Qn (U) 0.2 {Ene'U}/dL Normal 0.2 - 1. 0 [facility] Comment on above: Performed By: #### U RCX #### [facility] [address] [address] [address] Julien Eric WBC 2-5 Abnormal NONE SEEN [facility] Comment on above: Performed By: #### U RCX #### [facility] [address] [address] [address] Julien Eric AFP MATERNAL FOR SPINA BIFID Aon 03-01-2022 AFP MoM 0.98 Normal [facility] Comment on above: Performed By: #### A FPMAT #### [facility] [address] [address] [address] Julien Eric AFP Value 35.7 ng/mL Normal [facility] Comment on above: Performed By: #### A FPMAT #### [facility] [address] [address] [address] Julien Eric AFP, Serum for Spina Bifida Report Normal [facility] Comment on above: Performed By: #### A FPMAT #### [facility] [address] [address] [address] Julien Eric Comment Comment Normal [facility] Comment on above: Result Comment: Jessica Borja, Ph.D., [facility] Director . References: Available Upon Request. . Multiples Of Median Cutoffs For AFP Elevations Warner 2.5 Black 2.8 IDD 2.0 Twins 4.5 Abbreviation Definitions IDD - Insulin Dep Diabetes OSBR - Open Spina Bifida Risk . For further inquiries contact [employer] [facility] at [phone]. . This test was developed and its performance characteristics determined by [employer]. It has not been cleared or approved by the Food and Drug Administration. Performed By: #### A FPMAT #### [facility] [address] [address] [address] Julien Eric Gest Age Collection Date 18.3 weeks Normal [facility] Comment on above: Performed By: #### A FPMAT #### [facility] [address] [place] [address] Dr. Julien Eric Gestat, Age Based on As provided Normal [facility] Comment on above: Result Comment: Reca lculations are not recommended when gestational dating by LMP and ultrasound are within 10 days. Performed By: #### A FPMAT #### [facility] [address] [place] [address] Dr. Julien Eric Insulin Dep Diabetes No Normal [facility] Comment on above: Performed By: #### A FPMAT #### [facility] [address] [place] [address] Dr. Julien Eric Interpretation Comment Normal [facility] Comment on above: Result Comment: Inte rpretation: Screen Negative . This result is screen negative for OSB. The AFP MoM calculated is based on the gestational age provided. MS-AFP can identify up to 80% of open neural tube defects. Closed neural tube defects and some open defects may not be detected by this test. This test does not screen for Down Syndrome or Trisomy 18. If screening for Down Syndrome or Trisomy 18 is desired, contact [employer] to discuss available options. The [employer] recommends amniocentesis be offered to women age 35 and older. Performed By: #### A FPMAT #### [facility] [address] [place] [address] Dr. Julien Eric [age] Normal [facility] Comment on above: Performed By: #### A FPMAT #### [facility] [address] [place] [address] Dr. Julien Eric Multiple Gestation No Normal [facility] Comment on above: Performed By: #### A FPMAT #### [facility] [address] [place] [address] Dr. Julien Eric [place] [id number] Normal [facility] Comment on above: Performed By: #### A FPMAT #### [facility] [address] [place] [address] Dr. Julien Eric PDF . Normal [facility] Comment on above: Performed By: #### A FPMAT #### [facility] [address] [address] [address] uJlien Eric Race Normal [facility] Comment on above: Performed By: #### A FPMAT #### [facility] [address] [place], [place] [address] Dr. Julien Eric Test Results: Negative Normal [facility] Comment on above: Performed By: #### A FPMAT #### [facility] [address] [place], [place] [address] Dr. Julien Eric US PREG ANATOMY SINGLEon US PREG ANATOMY SINGLE EXAMINATION: US P REG ANATOMY SINGLE HISTORY: anatomy study COMPARISON: No relevant comparison available. TECHNIQUE: Transabdominal sonographic examination was performed for obstetrical and evaluation. FINDINGS: Number: 1 Heart Rate: 140.0 bpm H.B. /min Amniotic Fluid Volume: Subjectively normal Placental Location: POSTERIOR with lower margin 3.3 cm from os Cervix Length: 4 cm in length; trace amount of fluid within cervical canal. ANATOMY: Normal Structures -cerebellum, choroid plexus, cisterna magna, lateral cerebral ventricles, orbits, midline falx, hard palate, four-chamber heart, RVOT, LVOT, stomach, kidneys, bladder, umbilical cord insertion into abdomen, three-vessel cord, cervical spine, thoracic spine, lumbar spine, sacral spine, right upper extremity, left upper extremity, right lower extremity, left lower extremity. SUBOPTIMALLY SEEN: Cerebellum, posterior fossa, hard palate, four-chamber heart, cardiac outflow tracts ABNORMALITIES: None BIOMETRY: BPD: 4.7 cm 20 weeks 1 days HC: 17.4 cm 19 weeks 6 days AC: 14.9 cm 20 weeks 1 days FL: 3.2 cm 19 weeks 6 days EFW:325.9 grams; 85% FL/AC: 21.1 FL/BPD: 67.3 HC/AC: 1.2 GESTATIONAL AGE: Age by EDC: 19 weeks 2 days RENETTA by EDC: 07/20/2022 Age by current US: 20 weeks 0 days RENETTA by current US: 07/15/2022 IMPRESSION: 1. Single live intrauterine with growth detailed above. 2. Suboptimal visualization of the cerebellum, posterior fossa, hard palate, four-chamber heart, cardiac outflow tracts due to early gestational age and maternal body habitus. Electronically authenticated by: ZACH WALDEN Date: 2022-02-25 16:32 Normal [facility] HEPATITIS C VIRUS AB W/ REFL EX QUANTon 12-26-2021 HCV AB 1.9 s/co ratio Critically high 0.0-0.9 [facility] Comment on above: Result Comment: . Performed By: #### H CVPCRR #### [facility] [address] [place] [address] Dr. Julien Eric HCV log10 Normal [facility] Comment on above: Performed By: #### H CVPCRR #### [facility] [address] [place] [address] Dr. Julien Eric Hep C Quantitation Not detected Normal [facility] Comment on above: Performed By: #### H CVPCRR #### [facility] [address] [place] [address] Dr. Julien Eric Interpretation Comment Normal [facility] Comment on above: Result Comment: Posi tive HCV antibody screen without the presence of HCV RNA is consistent with a resolved past infection or a false positive HCV antibody. Consider repeat testing after one month. Performed By: #### H CVPCRR #### [facility] [address] [place] [address] Dr. Julien Eric Test Information: Comment Normal [facility] Comment on above: Result Comment: The quantitative range of this assay is 15 IU/mL to 100 million IU/mL. Performed By: #### H CVPCRR #### [facility] [address] [place] [address] Dr. Julien Eric CULTURE URINEon 12-24-2021 CULTURE URINE Culture Observations: GREATER THAN TWO ORGANISMS PRESENT. PLEASE RESUBMIT CLEAN CATCH MID-STREAM URINE IF CLINICALLY INDICATED. Normal [facility] Comment on above: Performed By: #### U RCX #### [facility] [address] [place] [address] Dr. Julien Eric HEP B SURFACE ANTIGEN SCREEN on 12-24-2021 HBsAg Screen Negative Normal Negative [facility] Comment on above: Performed By: #### H BSANS #### [facility] [address] [address] [address] Julien Eric HIV 1 AND 2 WITH REFLEXon HIV Screen 4th Generation wRfx Non-Reactive Normal Non Reactive [facility] Comment on above: Result Comment: HIV Negative HIV-1/HIV-2 antibodies and HIV-1 p24 antigen were NOT detected. There is no laboratory evidence of HIV infection. Performed By: #### U RCX #### [facility] [address] [address] [address] Julien Eric RPR QUANTon 12-24-2021 Rapid Plasma Reagin, Quant Non-Reactive Normal NonRea<1:1 [facility] Comment on above: Result Comment: Plea Note: This test does not meet current guidelines for screening and diagnosis of syphilis. This test is intended for following treatment response in patients being treated for syphilis infection. To screen for syphilis infection, a reflex cascade that includes both RPR and a treponema-specific assay should be utilized, such as Treponema pallidum (Syphilis) Screening [facility] (648097) or Rapid Plasma Reagin (RPR) Test With Reflex to Quantitative RPR and Confirmatory Treponema pallidum Antibodies (692168). Performed By: #### U RCX #### [facility] [address] [place] [address] Dr. Julien Eric RUBELLA AB IGGon 12-24-2021 Rubella Antibodies, IgG 8.34 index Normal Immune >0.99 [facility] Comment on above: Result Comment: Non- immune <0.90 Equivocal 0.90 - 0.99 Immune >0.99 Performed By: #### H CVPCRR #### [facility] [address] [place] [address] Dr. Julien Eric CBC AUTO DIFFon 12-23-2021 BASO # 0.1 103/ul Normal 0.0-0.1 [facility] Comment on above: Performed By: #### B [id number] #### [facility] [address] [place] [address] Dr. Julien Eric Basophils/100 WBC (Bld) 0.6 % Normal 0.2-2.0 [facility] Comment on above: Performed By: #### B LDCX2 #### [facility] [address] [place] [address] Dr. Julien Eric EO # 0.2 103/ul Normal 0.0-0.7 [facility] Comment on above: Performed By: #### B LDCX2 #### [facility] [address] [place] [address] Dr. Julien Eric Eosinophils/100 WBC (Bld) 1.5 % Normal 0.9-7.0 [facility] Comment on above: Performed By: #### B LDCX2 #### [facility] [address] [place] [address] Dr. Julien Eric Erythrocyte distribution width (RBC) [Ratio] 14.4 % Normal 11.0-15.0 [facility] Comment on above: Performed By: #### B LDCX2 #### [facility] [address] [place] [address] Dr. Julien Eric Hematocrit (Bld) [Volume fraction] 39.5 % Normal 36.0-48.0 [facility] Comment on above: Performed By: #### B LDCX2 #### [facility] [address] [place] [address] Dr. Julien Eric Hemoglobin (Bld) [Mass/Vol] 12.8 g/dL Normal 12.0-16.0 [facility] Comment on above: Performed By: #### B [id number] #### [facility] [address] [place] [address] Dr. Julien Eric IG # 0.04 10e3/ul Critically high 0.00-0.03 [facility] Comment on above: Performed By: #### B LDCX2 #### [facility] [address] [place] [address] Dr. Julien Eric IG % 0.3 % Normal 0.0-0.5 [facility] Comment on above: Performed By: #### B [id number] #### [facility] [address] [place] [address] Dr. Julien Eric LYMPH # 2.5 103/ul Normal 1.2-3.8 [facility] Comment on above: Performed By: #### B LDCX2 #### [facility] [address] [place] [address] Dr. Julien Eric Lymphocytes/100 WBC (Bld) 21.2 % Normal 20.5-60.0 [facility] Comment on above: Performed By: #### B [id number] #### [facility] [address] [place] [address] Dr. Julien Eric MANUAL DIFF REQ NO Normal [facility] Comment on above: Performed By: #### B LDCX2 #### [facility] [address] [place] [address] Dr. Julien Eric MCH (RBC) [Entitic mass] 29.1 pg Normal 26.7-34.0 [facility] Comment on above: Performed By: #### B LDCX2 #### [facility] [address] [place] [address] Dr. Julien Eric MCHC (RBC) [Mass/Vol] 32.4 g/dL Normal 29.9-35.2 [facility] Comment on above: Performed By: #### B LDCX2 #### [facility] [address] [place] [address] Dr. Julien Eric MCV (RBC) [Entitic vol] 89.8 fL Normal 81.0-99.0 [facility] Comment on above: Performed By: #### B LDCX2 #### [facility] [address] [place] [address] Dr. Julien Eric MONO # 0.5 103/ul Normal 0.3-0.8 [facility] Comment on above: Performed By: #### B LDCX2 #### [facility] [address] [place] [address] Dr. Julien Eric Monocytes/100 WBC (Bld) 4.2 % Normal 1.7-12.0 [facility] Comment on above: Performed By: #### B LDCX2 #### [facility] [address] [place] [address] Dr. Julien Eric NEUT # 8.4 103/ul Critically high 1.4-6.5 [facility] Comment on above: Performed By: #### B LDCX2 #### [facility] [address] [address] [address] Julien Eric Neutrophils/100 WBC (Bld) 72.2 % Normal 43.0-75.0 [facility] Comment on above: Performed By: #### B LDCX2 #### [facility] [address] [address] [address] Julien Eric Platelet mean volume (Bld) [Entitic vol] 11.3 fL Normal 9.5-13.5 [facility] Comment on above: Performed By: #### B LDCX2 #### [facility] [address] [place] [address] Dr. Julien Eric PLT 264 103/ul Normal 150-450 [facility] Comment on above: Performed By: #### B LDCX2 #### [facility] [address] [place] [address] Dr. Julien Eric RBC 4.40 106/ul Normal 4.20-5.40 [facility] Comment on above: Performed By: #### B LDCX2 #### [facility] [address] [place] [address] Dr. Julien Eric WBC 11.7 103/ul Critically high 4.0-11.0 [facility] Comment on above: Performed By: #### B LDCX2 #### [facility] [address] [place] [address] Dr. Julien Eric GLYCOHEMOGLOBIN A1Con 2021 ADA RECOMMENDATION SEE BELOW Normal [facility] Comment on above: Result Comment: ADA RECOMMENDED LIMIT 4.0 - 6.0 ADA THERAPEUTIC TARGET < 7.0 ACTION SUGGESTED > 7.0 Performed By: #### H BSANS #### [facility] [address] [place] [address] Dr. Julien Eric Glucose [Mass/Vol] 111 mg/dL Normal [facility] Comment on above: Performed By: #### H BSANS #### [facility] [address] [place] [address] Dr. Julien Eric HbA1c (Bld) [Mass fraction] 5.5 % Normal 4.5-6.2 [facility] Comment on above: Performed By: #### H BSANS #### [facility] [address] [place] [address] Dr. Julien Eric SERENITY BOX TEST PT SEND OUTo n 12-23-2021 SENT TO REF LAB 12/23/2021 Normal [facility] Comment on above: Performed By: #### H BSANS #### [facility] [address] [place] [address] Dr. Julien Eric TYPE AND SCREENon 12-23-2021 TYPE AND SCREEN Negative Normal [facility] Comment on above: Performed By: #### H BSANS #### [facility] [address] [place] [address] Dr. Julien Eric CULTURE URINEon 12-02-2021 CULTURE URINE Isolate 1 Escherichia coli >100,000 cfu/ml of ORGANISM 1 Escherichia coli ANTIBIOTIC M.I.C RX STATUS Ampicillin >=32 R F Ampicillin/Sulbactam 8 S F Cefazolin 8 S F Ceftazidime <=1 S F Ceftriaxone <=1 S F Ertapenem <=0.5 S F Amikacin 4 S F Gentamicin <=1 S F Tobramycin <=1 S F Ciprofloxacin 0.5 S F Levofloxacin <=0.12 S F Nitrofurantoin 32 S F Normal [facility] Comment on above: Performed By: #### H BSANS #### [facility] [address] [place] [address] Dr. Julien Eric US PREG TVon 11-29-2021 US PREG TV EXAMINATION: US PREG TV HISTORY: Missed period COMPARISON: No relevant comparison available. FINDINGS: Transvaginal images Warner intrauterine gestation Gestational sac: 1.9 cm, 6 weeks 2 days [place]-rump length: 0.76 cm, 6 weeks 5 days Yolk sac: 0.34 cm Heart rate: 111 beats minute Cervix: Closed, 4.5 cm The uterus is normal in appearance, retroverted, retroflexed The ovaries are normal in appearance. Clinical age: 12 weeks 1 day Clinical RENETTA: 06/12/2022 Ultrasound age: 6 weeks 5 days Ultrasound RENETTA: 07/20/2022 IMPRESSION: Viable warner intrauterine gestation measuring 6 weeks 5 days Electronically authenticated by: SOUMYA MONSALVE Date: 2021-11-29 16:59 Normal [facility] AMYLASEon 10-20-2021 Amylase [Catalytic activity/Vol] 32 U/L Normal 25-115 [facility] Comment on above: Performed By: #### U RCX #### [facility] [address] [place] [address] Dr. Julien Eric CBC AUTO DIFFon 10-20-2021 BASO # 0.1 103/ul Normal 0.0-0.1 [facility] Comment on above: Performed By: #### U RCX #### [facility] [address] [place] [address] Dr. Julien Eric Basophils/100 WBC (Bld) 0.8 % Normal 0.2-2.0 [facility] Comment on above: Performed By: #### U RCX #### [facility] [address] [place] [address] Dr. Julien Eric EO # 0.5 103/ul Normal 0.0-0.7 [facility] Comment on above: Performed By: #### U RCX #### [facility] [address] [place] [address] Dr. Julien Eric Eosinophils/100 WBC (Bld) 4.7 % Normal 0.9-7.0 [facility] Comment on above: Performed By: #### U RCX #### [facility] [address] [place] [address] Dr. Julien Eric Erythrocyte distribution width (RBC) [Ratio] 14.9 % Normal 11.0-15.0 [facility] Comment on above: Performed By: #### U RCX #### [facility] [address] [place] [address] Dr. Julien Eric Hematocrit (Bld) [Volume fraction] 39.3 % Normal 36.0-48.0 [facility] Comment on above: Performed By: #### U RCX #### [facility] [address] [address] [address] Julien Eric Hemoglobin (Bld) [Mass/Vol] 12.6 g/dL Normal 12.0-16.0 [facility] Comment on above: Performed By: #### U RCX #### [facility] [address] [address] [address] Julien Eric IG # 0.03 10e3/ul Normal 0.00-0.03 [facility] Comment on above: Performed By: #### U RCX #### [facility] [address] [address] [address] Julien Eric IG % 0.3 % Normal 0.0-0.5 [facility] Comment on above: Performed By: #### U RCX #### [facility] [address] [place] [address] Dr. Julien Eric LYMPH # 3.0 103/ul Normal 1.2-3.8 [facility] Comment on above: Performed By: #### U RCX #### [facility] [address] [place] [address] Dr. Julien Eric Lymphocytes/100 WBC (Bld) 27.8 % Normal 20.5-60.0 [facility] Comment on above: Performed By: #### U RCX #### [facility] [address] [place] [address] Dr. Julien Eric MANUAL DIFF REQ NO Normal [facility] Comment on above: Performed By: #### U RCX #### [facility] [address] [address] [address] Julien Eric MCH (RBC) [Entitic mass] 29.2 pg Normal 26.7-34.0 [facility] Comment on above: Performed By: #### U RCX #### [facility] [address] [place] [address] Dr. Julien Eric MCHC (RBC) [Mass/Vol] 32.1 g/dL Normal 29.9-35.2 [facility] Comment on above: Performed By: #### U RCX #### [facility] [address] [place] [address] Dr. Julien Eric MCV (RBC) [Entitic vol] 91.0 fL Normal 81.0-99.0 [facility] Comment on above: Performed By: #### U RCX #### [facility] [address] [place] [address] Dr. Julien Eric MONO # 0.8 103/ul Normal 0.3-0.8 [facility] Comment on above: Performed By: #### U RCX #### [facility] [address] [place] [address] Dr. Julien Eric Monocytes/100 WBC (Bld) 7.6 % Normal 1.7-12.0 [facility] Comment on above: Performed By: #### U RCX #### [facility] [address] [place] [address] Dr. Julien Eric NEUT # 6.3 103/ul Normal 1.4-6.5 [facility] Comment on above: Performed By: #### U RCX #### [facility] [address] [place] [address] Dr. Julien Eric Neutrophils/100 WBC (Bld) 58.8 % Normal 43.0-75.0 [facility] Comment on above: Performed By: #### U RCX #### [facility] [address] [place] [address] Dr. Julien Eric Platelet mean volume (Bld) [Entitic vol] 10.9 fL Normal 9.5-13.5 [facility] Comment on above: Performed By: #### U RCX #### [facility] [address] [place] [address] Dr. Julien Eric PLT 305 103/ul Normal 150-450 [facility] Comment on above: Performed By: #### U RCX #### [facility] [address] [place] [address] Dr. Julien Eric RBC 4.32 106/ul Normal 4.20-5.40 [facility] Comment on above: Performed By: #### U RCX #### [facility] [address] [place] [address] Dr. Julien Eric WBC 10.7 103/ul Normal 4.0-11.0 [facility] Comment on above: Performed By: #### U RCX #### [facility] [address] [address] [address] ABD/PELV W CONon 10-21-19 CT ABD/PELV W CON EXAMINATION: CT ABD/PELV W CON HISTORY: ABDOMINAL DISTENSION (GASEOUS) COMPARISON: CT abdomen and pelvis examination dated 05/14/2018. TECHNIQUE: Axial CT images through the abdomen and pelvis were obtained after the intravenous administration of 100 mL Omnipaque 300 contrast. Coronal and sagittal reformats were obtained. Dose reduction techniques were achieved by using automated exposure control and/or adjustment of mA and/or kV according to patient size and/or use of iterative reconstruction technique. FINDINGS: There is mild bibasilar atelectasis. Abdomen: The liver and spleen enhance homogeneously without focal lesion. There is no intra or extrahepatic biliary duct dilatation. The gallbladder is surgically absent. The pancreas, adrenal glands, kidneys, and bowel loops, including the appendix, are unremarkable. There is no mesenteric or retroperitoneal lymphadenopathy. Pelvis: The bladder demonstrates wall thickening. The rectum is unremarkable. There is no iliac or inguinal lymphadenopathy. The uterus is present. The ovaries appear within normal limits by CT. Bone windows show no aggressive osseous lesions. IMPRESSION: 1. No evidence of bowel obstruction. 2. Status post cholecystectomy. 3. Normal appendix. 4. Urinary bladder wall thickening. Please correlate with urinalysis for infection. Electronically authenticated by: Piotr ROBBINS Date: 2021-10-20 03:27 Normal [facility] LIPASEon 10-20-2021 Lipase [Catalytic activity/Vol] 112.0 U/L Normal 23.0-300.0 [facility] Comment on above: Performed By: #### U RCX #### [facility] [address] [address] [address] Julien Eric PREG HCG QUALon 10-20-2021 , QUAL Negative Normal NEGATIVE [facility] Comment on above: Performed By: #### H CVPCRR #### [facility] [address] [address] [address] Julien Eric PROF 14(COMP METB)on 022 Albumin [Mass/Vol] 3.1 g/dL Critically low 3.4-5.0 [facility] Comment on above: Performed By: #### U RCX #### [facility] [address] [place] [address] Dr. Julien Eric Albumin/Globulin [Mass ratio] 0.8 {ratio} Normal [facility] Comment on above: Performed By: #### U RCX #### [facility] [address] [place] [address] Dr. Julien Eric ALP [Catalytic activity/Vol] 86 U/L Normal 46-116 [facility] Comment on above: Performed By: #### U RCX #### [facility] [address] [place] [address] Dr. Julien Eric ALT [Catalytic activity/Vol] 21 U/L Normal 14-59 [facility] Comment on above: Performed By: #### U RCX #### [facility] [address] [place] [address] Dr. Julien Eric Anion gap [Moles/Vol] 12.1 mmol/L Normal [facility] Comment on above: Performed By: #### U RCX #### [facility] [address] [place] [address] Dr. Julien Eric AST [Catalytic activity/Vol] 10 U/L Critically low 15-37 [facility] Comment on above: Performed By: #### U RCX #### [facility] [address] [place] [address] Dr. Julien Eric Bilirubin [Mass/Vol] 0.1 mg/dL Critically low 0.2-1.3 [facility] Comment on above: Performed By: #### U RCX #### [facility] [address] [place] [address] Dr. Julien Eric Calcium [Mass/Vol] 8.2 mg/dL Critically low 8.5-10.1 [facility] Comment on above: Performed By: #### U RCX #### [facility] [address] [place] [address] Dr. Julien Eric Chloride [Moles/Vol] 105 mmol/L Normal 98-107 [facility] Comment on above: Performed By: #### U RCX #### [facility] [address] [address] [address] Julien Eric CO2 [Moles/Vol] 26.7 mmol/L Normal 22.0-30.0 [facility] Comment on above: Performed By: #### U RCX #### [facility] [address] [address] [address] Julien Eric Creatinine [Mass/Vol] 0.79 mg/dL Normal 0.52-1.04 [facility] Comment on above: Performed By: #### U RCX #### [facility] [address] [place] [address] Dr. Julien Eric EGFR-AF AFGHAN >60 Normal >=60 [facility] Comment on above: Performed By: #### U RCX #### [facility] [address] [place] [address] Dr. Julien Eric EGFR-NON AF AFGHAN >60 Normal >=60 [facility] Comment on above: Performed By: #### U RCX #### [facility] [address] [address] [address] Julien Eric Globulin (S) [Mass/Vol] 3.7 g/dL Normal [facility] Comment on above: Performed By: #### U RCX #### [facility] [address] [address] [address] Julien Eric Glucose [Mass/Vol] 112 mg/dL Critically high 74-106 [facility] Comment on above: Performed By: #### U RCX #### [facility] [address] [address] [address] Julien Eric Potassium [Moles/Vol] 3.8 mmol/L Normal 3.4-5.0 [facility] Comment on above: Performed By: #### U RCX #### [facility] [address] [place] [address] Dr. Julien Eric Protein [Mass/Vol] 6.8 g/dL Normal 6.1-8.2 [facility] Comment on above: Performed By: #### U RCX #### [facility] [address] [address] [address] Julien Eric Sodium [Moles/Vol] 140 mmol/L Normal 137-145 [facility] Comment on above: Performed By: #### U RCX #### [facility] [address] [address] [address] Julien Eric Urea nitrogen [Mass/Vol] 8.0 mg/dL Normal 7.0-18.0 [facility] Comment on above: Performed By: #### U RCX #### [facility] [address] [address] [address] Julien Eric Urea nitrogen/Creatinine [Mass ratio] 10.1 mg/mg Normal [facility] Comment on above: Performed By: #### U RCX #### [facility] [address] [address] [address] Julien Eric Vital Signs Date Time Vital Sign Value Performing Clinician Facility 05-13-2024 13:04-0400 Body height 170.2 cm Phillip RAMÍREZ DNP Work Phone: [phone] [place] [address] 05-13-2024 13:04-0400 Body mass index (BMI) [Ratio] 38.37 kg/m2 Phillip RAMÍREZ DNP Work Phone: [phone] [place] [address] 05-13-2024 13:04-0400 Body weight 111.13 kg Phillip RAMÍREZ DNP Work Phone: [phone] [place] [address] 05-13-2024 13:04-0400 Diastolic blood pressure 70 mm[Hg] Phillip RAMÍREZ DNP Work Phone: [phone] [place] [address] 05-13-2024 13:04-0400 Heart rate 81 /min Phillip RAMÍREZ DNP Work Phone: [phone] [address] 05-13-2024 13:04-0400 SaO2% (BldA) [Mass fraction] 99 % Phillip RAMÍREZ DNP Work Phone: [facility] 05-13-2024 13:04-0400 Systolic blood pressure 112 mm[Hg] Phillip Saleh IT AUDITOR-OUTSIDE SALES ENGINEER, DNP Work Phone: [facility] 05-10-2024 12:00-0400 Body temperature 98.1 [degF] DO Danyell Brown Work Phone: [facility] 05-10-2024 12:00-0400 Diastolic blood pressure 70 mm[Hg] DO Danyell Brown Work Phone: [facility] 05-10-2024 12:00-0400 Heart rate 69 /min DO Danyell Brown Work Phone: [facility] 05-10-2024 12:00-0400 Respiratory rate 16 /min DO Danyell Brown Work Phone: [facility] 05-10-2024 12:00-0400 SaO2% (BldA) [Mass fraction] 99 % DO Danyell Brown Work Phone: [facility] 05-10-2024 12:00-0400 Systolic blood pressure 124 mm[Hg] DO Danyell Brown Work Phone: [facility] 05-10-2024 06:57-0400 Body weight 109.3 kg DO Danyell Brown Work Phone: [facility] 05-09-2024 14:05-0400 Body height 167.64 cm DO Danyell Brown Work Phone: [facility] 05-09-2024 13:00-0400 Diastolic blood pressure 56 mm[Hg] DO Danyell Brown Work Phone: [facility] 05-09-2024 13:00-0400 Heart rate 56 /min DO Danyell Brown Work Phone: [facility] 05-09-2024 13:00-0400 Respiratory rate 18 /min DO Danyell Brown Work Phone: [facility] 05-09-2024 13:00-0400 SaO2% (BldA) [Mass fraction] 98 % DO Danyell Banks Work Phone: [facility] 05-09-2024 13:00-0400 Systolic blood pressure 97 mm[Hg] DO Danyell Banks Work Phone: [facility] 05-09-2024 08:41-0400 Body height 167.64 cm DO Danyell Banks Work Phone: [facility] 05-09-2024 08:41-0400 Body temperature 98.4 [degF] DO Danyell Banks Work Phone: [facility] 05-09-2024 08:41-0400 Body weight 110 kg DO Danyell Banks Work Phone: [facility] 09-10-2023 08:59-0500 Body height 170.2 cm Jenssenait Plasencia DO Work Phone: [facility] 09-10-2023 08:59-0500 Body mass index (BMI) [Ratio] 39.84 kg/m2 Jens Plasencia DO Work Phone: [facility] 09-10-2023 08:59-0500 Body weight 115.39 kg Jens Plasencia DO Work Phone: [facility] 09-10-2023 08:59-0500 Diastolic blood pressure 70 mm[Hg] Jenssenait Plasencia DO Work Phone: [facility] 09-10-2023 08:59-0500 Systolic blood pressure 110 mm[Hg] Jens Luis Angel Work Phone: [facility] 03-01-2022 02:06-0400 Body weight 105.[address] JENS PLASENCIA [facility] Comment on above: Performed By: #### AFPMAT #### [facility] [address] [place] [address] Dr. Julien Eric Encounters Encounter Date Encounter Type Care Provider Facility Start: 05-13-2024 End: 05-13-[address] [facility] Start: 05-13-2024 End: 05-13-2024 Subsequent hospital visit by physician Fernando Ellington [facility] Comment on above: Paroxysmal atrial fi brillation (Multi) Start: 05-13-2024 End: 05-13-2024 Office outpatient new 45 minutes Phillip Baxter Reynaldo IT AUDITOR-OUTSIDE SALES ENGINEER, DNP Work Phone: [facility] Comment on above: Paroxysmal atrial fi brillation (Multi) (Primary Dx) Start: 05-13-2024 End: 05-13-2024 ambulatory PHILLIP Baxter SALEH [facility] Start: 05-09-2024 End: 05-10-2024 Evaluation and management of inpatient DO Danyell Banks Work Phone: [facility] Work Phone: Start: 05-09-2024 End: 05-10-2024 observation encounter DO Danyell Banks Work Phone: [facility] Work Phone: Start: 05-09-2024 End: 05-10-2024 ambulatory Robbin Love Facility:[facility] Start: 10-29-2023 End: 10-29-2023 ambulatory KARSON ARMAND Not Available Start: 10-01-2023 End: 10-01-2023 ambulatory JENS LUIS ANGEL Not Available Start: 09-16-2023 Clinisync Result Encounter Jens Luis Angel DO Work Phone: [facility] Unsolicited Start: 09-16-2023 Clinisync Result Encounter Jens Luis Angel DO Work Phone: [facility] Unsolicited Start: 09-10-2023 Bamboo flowsheet Jens Luis Angel D O Work Phone: [facility] Start: 09-10-2023 Bamboo flowsheet Jens Luis Angel D O Work Phone: [facility] Start: 09-10-2023 End: 09-10-2023 ambulatory JENS PLASENCIA Not Available Start: 09-10-2023 End: 09-10-2023 Office outpatient visit 15 minutes Jens Plasencia DO Work Phone: [facility] Comment on above: Vaginal discharge; Weight gain; PCOS (polycystic ovarian syndrome); STD exposure Start: 07-29-2022 Encounter for preprocedural laboratory examination DR JENS PLASENCIA [facility] Start: 07-16-2022 Encounter for preprocedural laboratory examination DR JENS PLASENCIA [facility] Start: 07-14-2022 End: 07-16-2022 Evaluation and management of inpatient DR JENS PLASENCIA Facility:[facility] Start: 07-11-2022 End: 07-12-[address] JENS PLASENCIA Facility:[facility] Start: 07-11-2022 End: 07-12-2022 Encounter for preprocedural laboratory examination DR JENS PLASENCIA Facility:[facility] Start: 07-08-2022 End: 07-08-[address] JENS PLASENCIA Facility:[facility] Start: 07-02-2022 End: 07-02-[address] JENS PLASENCIA Facility:[facility] Start: 07-01-2022 End: 07-01-[address] BETZY DOMINGUEZ Facility:[facility] Start: 06-25-2022 End: 06-25-[address] JENS PLASENCIA Facility:[facility] Start: 06-24-2022 End: 06-24-[address] BETZY DOMINGUEZ Facility:[facility] Start: 06-17-2022 End: 06-17-[address] BETZY DOMINGUEZ Facility:[facility] Start: 06-10-2022 End: 06-10-[address] JENS PLASENCIA Facility:[facility] Start: 06-03-2022 End: 06-03-[address] JENS PLASENCIA Facility:[facility] Start: 05-27-2022 End: 05-27-[address] JENS PLASENCIA Facility:[facility] Start: 05-22-2022 End: 05-23-[address] BETZY DOMINGUEZ Facility:[facility] Start: 04-29-[address] JENS PLASENCIA Facility :[facility] Start: 04-15-2022 End: 04-15-[address] JENS PLASENCIA Facility:[facility] Start: 02-25-2022 End: 02-26-[address] JENS PLASENCIA Facility:[facility] Start: 02-18-2022 End: 02-19-[address] JENS PLASENCIA Facility:[facility] Start: 12-23-2021 End: 12-24-[address] JENS PLASENCIA Facility:[facility] Start: 11-29-2021 End: 11-29-[address] JENS PLASENCIA Facility:[facility] Start: 11-29-2021 End: 11-30-[address] JENS PLASENCIA Facility:[facility] Start: 10-20-2021 End: 10-20-[address] BETZY DOMINGUEZ Facility:[facility] Procedures Date Procedure Procedure Detail Performing Clinician Start: 05-09-2024 Plain chest X-ray DO Al yuni Banks Work Phone: Start: 09-16-2023 ALL CBC WITH AUTO DIFF Jens Plasencia DO Work Phone: Start: 07-14-2022 Extraction of Produc ts of Conception, Low Cervical, Open Approach DR JENS PLASENCIA Start: 07-14-2022 Resection of Bilater al Fallopian Tubes, Open Approach DR JENS PLASENCIA Plan of Treatment Date Care Activity Detail Author Start: 11-16-2035 Zoster Vaccines (1 o f 2) Zoster Vaccines (1 of 2) [facility] Start: 06-24-2024 End: 06-24-2024 Telemedicine consultation with patient 06/24/2024 1:00 PM EST Telemedicine [facility] [address] [place] [id number] Phillip Saleh, IT AUDITOR-OUTSIDE SALES ENGINEER, DNP [address] [place], [place] [id number] [facility] Start: 06-13-2024 End: 06-13-2024 Patient encounter procedure 06/13/2024 11:15 AM EST Appointment [address] [place] [address] [facility] Start: 06-13-2024 End: 06-13-2024 Patient encounter procedure [facility] Start: 05-13-2024 End: 05-13-2025 Holter monitor study [facility] Work Phone: Comment on above: Expected: 05/13/2024 (Approximate), Expires: 05/13/2025 Once for 1 Occurrenc es starting 05/13/2024 until 05/13/2024 Start: 05-13-2024 End: 05-13-2025 NM Heart Perfusion W stress and W radionuclide IV Nuclear Stress Test Cardiac Nuclear Medicine Routine Paroxysmal atrial fibrillation (Multi) Expected: 05/13/2024 (Approximate), Expires: 05/13/2025 [facility] Service Area Work Phone: Comment on above: Expected: 05/13/2024 (Approximate), Expires: 05/13/2025 Start: 05-13-2024 End: 05-13-2024 Patient encounter procedure 05/13/2024 2:00 PM EDT Appointment [facility] [address] [phone] [facility] Start: 05-10-2024 [facility] Start: 05-09-2024 Hospital admission [facility] Start: 05-09-2024 [facility] Start: 04-03-2024 COVID-19 Vaccine ( season) COVID-19 Vaccine ( season) [facility] Start: 04-03-2024 Influenza vaccination Influenza Vacc ine (#1) [facility] Start: 10-01-2023 End: 10-01-2023 Patient encounter procedure 10/01/2023 10:00 AM EST Office Visit [facility] [address] [place] [place] [address] Jens Plasencia DO [address] [place] [address] [facility] Start: 09-10-2023 End: 09-10-2024 DHEA DHEA Lab Routine PCOS (polycystic ovarian syndrome) Expected: 09/10/2023 (Approximate), Expires: 09/10/2024 [facility] Comment on above: Expected: 09/10/2023 (Approximate), Expires: 09/10/2024 Start: 09-10-2023 End: 09-10-2024 US for US PELVIS-TRANSVAG IF INDICATED Imaging Routine PCOS (polycystic ovarian syndrome) Expected: 09/10/2023 (Approximate), Expires: 09/10/2024 [facility] Comment on above: Expected: 09/10/2023 (Approximate), Expires: 09/10/2024 Start: 09-10-2023 End: 09-10-2023 Patient encounter procedure 09/10/2023 8:50 AM EST Office Visit [facility] [address] [place] [phone] Jens Plasencia DO [address] [facility] [address] [place], [place] [id number] Arrived [facility] Comment on above: Arrived Start: 11-16-2007 DTaP/Tdap/Td Vaccine s (1 - Tdap) DTaP/Tdap/Td Vaccines (1 - Tdap) [facility] Start: 2006 Screening for malign ant neoplasm of cervix [facility] Start: 2004 Hepatitis B Vaccines (1 of 3 - 19+ 3-dose series) Hepatitis B Vaccines (1 of 3 - 19+ 3-dose series) [facility] Start: 11-16-2003 Diabetes mellitus screening Diabetes Screening [facility] Start: 11-16-2003 Hepatitis C screening Hepatitis C Sc reening [facility] Start: 1998 Varicella vaccination Varicell a Vaccines (1 of 2 - 13+ 2-dose series) [facility] Start: 1986 MMR Vaccines (1 of 1 - Standard series) MMR Vaccines (1 of 1 - Standard series) [facility] Start: 1985 HIV screening HIV Screening [facility] Start: 1985 Lipid panel Lipid Panel [facility] Start: 1985 Yearly Adult Physical Yearly Adult P hysical [facility] CBC W Auto Different ial panel - Blood CBC and differential Lab Routine PCOS (polycystic ovarian syndrome) Ordered: 09/10/2023 [facility] Comment on above: Ordered: 09/10/2023 CHLAMYDIA TRACHOMATI S (GENITO/STI) CHLAMYDIA TRACHOMATIS (GENITO/STI) Lab Routine STD exposure Ordered: 09/10/2023 [facility] Comment on above: Ordered: 09/10/2023 DHEA-sulfate DHEA-sulfate Lab Routine PCOS (polycystic ovarian syndrome) Ordered: 09/10/2023 [facility] Comment on above: Ordered: 09/10/2023 Follicle stimulating hormone Follicle stimulating hormone Lab Routine PCOS (polycystic ovarian syndrome) Ordered: 09/10/2023 [facility] Comment on above: Ordered: 09/10/2023 hCG, quantitative, hCG, quantitative, Lab Routine PCOS (polycystic ovarian syndrome) Ordered: 09/10/2023 [facility] Work Phone: Comment on above: Ordered: 09/10/2023 Hemoglobin A1c measurement Hemoglobin A1c Lab Routine PCOS (polycystic ovarian syndrome) Ordered: 09/10/2023 [facility] Comment on above: Ordered: 09/10/2023 Luteinizing hormone Luteinizing hormone Lab Routine PCOS (polycystic ovarian syndrome) Ordered: 09/10/2023 [facility] Comment on above: Ordered: 09/10/2023 Neisseria gonorrhoea e DNA [Presence] in Unspecified specimen by KATTY with probe detection Neisseria gonorrhea DNA probe, direct Lab Routine STD exposure Ordered: 09/10/2023 [facility] Comment on above: Ordered: 09/10/2023 Patient Education Know your Meds [facility] Work Phone: Patient referral [facility] Work Phone: SURESWAB(R) ADVANCED VAGINITIS PLUS, TMA SURESWAB(R) ADVANCED VAGINITIS PLUS, TMA Pathology and Cytology Routine Vaginal discharge Ordered: 09/10/2023 [facility] Comment on above: Ordered: 09/10/2023 Thyrotropin [Units/volume] in Serum or Plasma TSH Lab Routine PCOS (polycystic ovarian syndrome) Ordered: 09/10/2023 [facility] Comment on above: Ordered: 09/10/2023 Thyroxine (T4) free [Mass/volume] in Serum or Plasma T4, free Lab Routine PCOS (polycystic ovarian syndrome) Ordered: 09/10/2023 [facility] Comment on above: Ordered: 09/10/2023 Payers Date Payer Category Payer Self-pay 2019 Medicaid [employer] [place] [employer] [id number] 2019-Present [address] [place] [address] [id number] 2019 Unknown [facility] [id number] 2019-Present [address] [place] [address] [id number] 1985 Unknown [id number] 2.16.840.1.737287.3.579.2.593 1985 Unknown [id number] 2.16.840.1.004438.3.579.2.593 1985 Unknown [id number] 2.16.840.1.234336.3.579.2.593 1985 Unknown [id number] 2.16.840.1.371363.3.579.2.593 1985 Unknown [id number] 2.16.840.1.495767.3.579.2.593 1985 Unknown [id number] 2.16.840.1.890001.3.579.2.593 1985 Unknown [id number] 2.16.840.1.960685.3.579.2.593 1985 Unknown [id number] 2.16.840.1.897243.3.579.2.593 1985 Unknown [id number] 2.16.840.1.216637.3.579.2.593 1985 Unknown [id number] 2.16.840.1.357220.3.579.2.593 1985 Unknown [id number] 2.16.840.1.145669.3.579.2.593 1985 Unknown [id number] 2.16.840.1.522434.3.579.2.593 1985 Unknown [id number] 2.16.840.1.396188.3.579.2.593 1985 Unknown [id number] 2.16.840.1.305775.3.579.2.593 1985 Unknown [id number] 2.16.840.1.415594.3.579.2.593 1985 Unknown [id number] 2.16.840.1.213074.3.579.2.593 1985 Unknown [id number] 2.16.840.1.225583.3.579.2.593 1985 Unknown [id number] 2.16.840.1.606690.3.579.2.593 1985 Unknown [id number] 2.16.840.1.404553.3.579.2.593 1985 Unknown [id number] 2.16.840.1.434219.3.579.2.593 1985 Unknown [id number] 2.16.840.1.246825.3.579.2.1259 1985 Unknown [id number] 2.16.840.1.938777.3.579.2.1259 1985 Unknown [id number] 2.16.840.1.178058.3.579.2.1259 1985 Unknown [id number] 2.16.840.1.721929.3.579.2.1244 1985 Unknown [id number] 2.16.840.1.597391.3.579.2.1243 1959 Self-pay [id number] 1959 Unknown [id number] 1959 Unknown UNDEFINED Unknown [id number] 2.16.840.1.923098.3.579.2.593 Unknown [id number] 2.16.840.1.053275.3.579.2.531 Social History Date Type Detail Facility Start: 04-10-2023 Tobacco smoking status SDIS Never smoked tobacco [facility] Start: 04-10-2023 Tobacco use and exposure Smokeless tobacco non-user [facility] Start: 04-10-2023 End: 09-10-2023 Alcohol intake Lifetime non-drinker (finding) [facility] Start: 04-10-2023 End: 05-13-2024 History of Social function [facility] Start: 04-10-2023 End: 05-13-2024 Tobacco use panel [facility] Start: 1985 Sex Assigned At Not on file [facility] Start: 05-09-2024 End: 05-09-2024 Tobacco smoking status SDIS Smoker (finding) [facility] Start: 1985 Sex Assigned At Female [facility] Start: 05-13-2024 Tobacco smoking status SDIS Ex-smoker [facility] Work Phone: History of tobacco use Cigarette Smoker [facility] Work Phone: Start: 05-13-2024 Tobacco use and exposure User of smokeless tobacco [facility] Work Phone: Start: 05-13-2024 Alcoholic beverage intake Current drinker of alcohol (finding) [facility] Work Phone: Start: 05-13-2024 Tobacco Comment Vape [facility] Work Phone: Start: 05-13-2024 Alcohol Comment occasionally [facility] Work Phone: Start: 05-03-2024 End: 05-13-2024 Exposure to SARS-CoV-2 (event) Not sure [facility] NEGATED: Highlighted row [facility] Goals Date Patient Goal Desired Activity /State Functional Status Date Assessment Result Facility 05-09-2024 Functional status Patient at [facility] Work Phone: Mental Status Date Assessment Result Facility 05-09-2024 Cognitive function Cognitive Sta tus Patient at [facility] Work Phone: Clinical Notes 07-14-2022 to 05-13-2024 Phillip Saleh, IT AUDITOR-OUTSIDE SALES ENGINEER, DNP - 05/13/2024 1:00 PM EDT Note Date & Type Note Facility 05-13-2024 History of Present illness Narrative Images from the original note were not included. CHIEF COMPLAINT Establish care HISTORY OF PRESENT ILLNESS Patient presented to the ER on 05/09/24 in the setting of palpitations and elevated heart rate. Patient was found to be atrial fibrillation and given diltiazem and self converted back to NSR. She reports she also had an ultrasound done at the hospital. She was never prescribed a DOAC and was sent home on diltiazem ER 120mg daily but stopped due to low heart rates. Patient was never advised to follow up with a Cardiology, but rather her PCP. Patient tried to get in with a Supervisor Brine near her hometown but all were months out. Given her recent hospital admission, I can see her discharge summary, chest x-ray results, and blood work. She did have an echo done, but no report can be seen. Patient reports occasional chest pressure that does go away with deep breathing and she is wondering if her symptoms are more related to stress which she reports she has been under more than normal. Patient reports a strong family hx of afib on her paternal side. Past Medical, Surgical, and Family History reviewed and updated in chart. Reviewed all medications by prescribing practitioner or clinical pharmacist (such as prescriptions, OTCs, herbal therapies and supplements) and documented in the medical record. Past Medical History History reviewed. No pertinent past medical history. Social History Social History Tobacco Use Smoking status: Former Types: Cigarettes Smokeless tobacco: Current Tobacco comments: Vape Substance Use Topics Alcohol use: Yes Comment: occasionally Drug use: Never Family History Family History Problem Relation Name Age of Onset Heart disease Paternal Grandmother Heart disease Paternal Grandfather Allergies: Allergies Allergen Reactions Azithromycin Swelling Face swells up. Outpatient Medications: Current Outpatient Medications Medication Instructions rivaroxaban (XARELTO) 20 mg, oral, Daily with evening meal, Take with food. Labs: CMP:No results for input(s): NA , K , CL , CO2 , ANIONGAP , BUN , CREATININE , EGFR , MG in the last 74866 hours.No results for input(s): ALBUMIN , ALKPHOS , ALT , AST , BILITOT , LIPASE in the last 12454 hours. No lab exists for component: CA CBC:No results for input(s): WBC , HGB , HCT , PLT , MCV in the last 72103 hours. COAG: No results for input(s): PTT , INR , HAUF , DDIMERVTE , HAPTOGLOBIN , FIBRINOGEN in the last 68724 hours. ABO: No results for input(s): ABO in the last 51346 hours. HEME/ENDO:No results for input(s): FERRITIN , IRONSAT , TSH , HGBA1C in the last 57611 hours. CARDIAC: No results for input(s): LDH , CKMB , TROPHS , BNP in the last 22974 hours. No lab exists for component: CK , CKMBP No results for input(s): CHOL , LDLF , HDL , TRIG in the last 15241 hours. MICRO: No results for input(s): ESR , CRP , PROCAL in the last 27572 hours. No results found for the last 90 days. Notable Studies: imaging personally reviewed EKG:No results found for this or any previous visit (from the past 4464 hour(s)). Echocardiogram: No results found for this or any previous visit from the past 1825 days. Stress Testing: No results found for this or any previous visit from the past 1825 days. Cardiac Catheterization: No results found for this or any previous visit from the past 1825 days. No results found for this or any previous visit from the past 3650 days. REVIEW OF SYSTEMS A 10-point system review was completed and was negative except as noted in the HPI. VITALS Vitals: 05/13/24 1304 BP: 112/70 Pulse: 81 SpO2: 99% PHYSICAL EXAM General: awake, alert and oriented. No acute distress. Skin: Skin is warm, dry and intact without rashes or lesions. HEENT: normocephalic, atraumatic; conjunctivae are clear without exudates or hemorrhage. Sclera is non-icteric. Eyelids are normal in appearance without swelling or lesions. Hearing intact. Nares are patent bilaterally. Moist mucous membranes. Cardiovascular: heart rate and rhythm are normal. No murmurs, gallops, or rubs are auscultated. S1 and S2 are heard and are of normal intensity. No JVD, no carotid bruits Respiratory: bilateral lung sounds clear to auscultations without rales, rhonchi, or wheezes. No accessory muscle use or stridor Musculoskeletal: ROM intact, no deformities Extremities: no swelling or erythema Neurological: no focal deficits; gait steady Psychiatric: appropriate mood and affect; good judgment and insight ASSESSMENT AND PLAN Assessment/Plan Diagnoses and all orders for this visit: Paroxysmal atrial fibrillation (Multi) -IOEKG showing NSR with controlled rates -MACIE?DS?-VASc Score of 1; will start patient on Xarelto 20mg daily until further data obtained. Patient advised on common side effects and red flag s/sx to alert me of such as hematuria or blood in her stool -Will order a 30 day event monitor. If at the end of the monitoring period, no further episodes of atrial fibrillation observed, we can discuss long-term monitoring with a loop recorder. -Will try and obtain echo results to rule out any underlying structural abnormalities -Will order a nuclear stress test to rule out ischemia RTC:after testing Thank you for allowing me to participate in the care of this patient. Please reach me out if you have any questions or if you need any clarifications regarding the patient's care. Phillip Saleh DNP, SHIVA, TRACER CLERK-C Division of Cardiovascular Medicine [facility] documented in this encounter [facility] Work Phone: 05-09-2024 History and physi thomas note Note Date/Time May 09, 2024 8:21pm [facility] [address] [place] [address] Hospitalist H&P Signed Patient: Sarah Pennington MR#: [id number] : 1985 Acct:[id number] Age/Sex: 38 / F Adm Date: 4 Loc: Room: [address] [place] [address] Type: ADM INOo Attending Dr: Robbin Love DO Copies to: NON STAFF Robbin Love, ~ HPI DATE OF EXAMINATION: 05/09/24 CHIEF COMPLAINT: Palpitations HISTORY OF PRESENT ILLNESS: This patient is a 38-year-old female who presented to the emergency department by EMS earlier today after having woken up with severe palpitations and poundingin her chest. She felt as if she was having a heart attack . She was in much more rapid atrial fibrillation with a heart rate as high as 150 bpm per EMS and was given 20 Cardizem IV. Subsequently on arrival to the ER she had EKG revealing atrial fibrillation with mild tachycardia but more rate controlled. Cardizem drip was initiated at 10 mg an hour and the patient relatively quickly converted to a normal sinus rhythm and actually became mildly bradycardic subsequently down titrated on drip. [facility] hospitalist service for further evaluation and treatment. She presently feels okay and has no further palpitations but reportsthat she has had flutters in the past that usually go away however this acute episode was much more significant abdominal would not pass. Physical Examination: GENERAL APPEARANCE: Alert, up in bed AAOx3 HEENT: NCAT, MMM NECK: Neck soft w/o masses, no JVD CARDIAC: Normal S1 and S2. No S3, S4 or murmurs. LUNGS: Clear to auscultation bilaterally. no wheeze/rhonchi/rales ABDOMEN: Positive bowel sounds. Soft, nontender. No guarding or signs of an acute abdomen MUSCULOSKELETAL: No joint erythema or tenderness. EXTREMITIES: No clubbing, cyanosis or edema PSYCHIATRIC: Appropriate mood and affect Assessment and plan: 1. Atrial fibrillation with rapid ventricular rate with suspected paroxysmal atrial fibrillation undiagnosed previously The patient is hemodynamically doing well and converted quite quickly with IV Cardizem. Subsequently will provide her an evening dose of 60 mg p.o. Cardizem IR and start 120 mg extended release Cardizem daily tomorrow with plan for discharge on this medication. She however has had intermittent flutters that she describes and likely I feel this represents paroxysmal A-fib that does placeher at theoretically higher risk for cardiac thrombus and subsequent stroke thishowever is her only real risk factor other than female gender in terms of her [id number] scoring which is only a score of 1 based on gender. Ultimately there is minimal risk to her being placed on anticoagulation at her age and evenif stroke risk is minimal I think reasonable to initiate anticoagulation with Eliquis. Will obtain echocardiogram and if no functional abnormalities and she remains a rate controlled sinus rhythm on p.o. Cardizem she can be discharged with these 2 new medications tomorrow. [facility] Medical History (Updated 05/09/24 @ 13:12 by Robbin Love DO) No pertinent past medical history Social History Smoking Status: Current every day smoker Tobacco Type: e-cigarettes Substance Use Type: None Social History Comments: four children Meds Medications and Allergies Allergies azithromycin Allergy (Severe, Verified 05/09/24 08:45) Swelling of Lip/Tongue/Throat Home Medications diltiazem HCl 120 mg tablet,extended release 24 hr (Cardizem LA) 120 mg PO DAILY#30 tabs 05/09/24 [Rx] Exam Physical Exam Vital Signs: Temp Pulse Resp BP Pulse Ox O2 Del Method 98 F 60 18 107/70 99 Room Air 05/09/24 20:00 05/09/24 20:00 05/09/24 20:00 05/09/24 20:00 05/09/24 20:00 05/09/24 20:00 Results - Hospitalist H&P Lab Results Labs: Laboratory Last Values Corrected WBC 9.1 X10E3/uL (3.8-11.6) 05/09/24 08:43 Uncorrected WBC Count 9.1 x10E3/uL (3.8-11.6) 05/09/24 08:43 RBC 4.47 X10E6/uL (3.60-5.00) 05/09/24 08:43 Hgb 12.8 g/dL (11.8-15.4) 05/09/24 08:43 Hct 38.2 % (34.0-46.4) 05/09/24 08:43 MCV 85.4 fl (80-100) 05/09/24 08:43 MCH 28.6 pg (24.7-34.3) 05/09/24 08:43 MCHC 33.5 g/dL (32.0-35.0) 05/09/24 08:43 RDW 14.6 % (11.9-15.3) 05/09/24 08:43 Plt Count 344 x10E3/uL (150-450) 05/09/24 08:43 MPV 9.2 fl (6.3-10.7) 05/09/24 08:43 Neut % (Auto) 59.0 % (.) 05/09/24 08:43 Lymph % (Auto) 31.1 % (.) 05/09/24 08:43 Barnes % (Auto) 6.3 % (.) 05/09/24 08:43 Eos % (Auto) 2.7 % (.) 05/09/24 08:43 Baso % (Auto) 0.9 % (.) 05/09/24 08:43 Nucleat RBC Rel Count 0.1 /100 WBC (0-0.5) 05/09/24 08:43 Neut # (Auto) 5.4 x10E3/uL (1.8-7.7) 05/09/24 08:43 Lymph # (Auto) 2.8 x10E3/uL (1.00-4.8) 05/09/24 08:43 Barnes # (Auto) 0.6 x10E3/uL (0.0-0.8) 05/09/24 08:43 Eos # (Auto) 0.2 x10E3/uL (0.0-0.45) 05/09/24 08:43 Baso # (Auto) 0.1 x10E3/uL (0.0-0.2) 05/09/24 08:43 Monocyte Dist Width 19.70 % (0.00-20.00) 05/09/24 08:43 PHA Creatinine Clear 145.19 05/09/24 08:43 Sodium 140 mmol/L (136-145) 05/09/24 08:43 Potassium 3.9 mmol/L (3.5-5.1) 05/09/24 08:43 Chloride 108 mmol/L (98-107) H 05/09/24 08:43 Carbon Dioxide 24.7 mmol/L (21.0-31.0) 05/09/24 08:43 Anion Gap 11.2 mEq/L (6.0-15.0) 05/09/24 08:43 BUN 9 mg/dL (7-25) 05/09/24 08:43 Creatinine 0.66 mg/dL (0.60-1.20) 05/09/24 08:43 Est GFR (CKD-EPI) > 60.0 mL/Min 05/09/24 08:43 Glucose 102 mg/dL (70-100) H 05/09/24 08:43 Calcium 8.6 mg/dL (8.6-10.3) 05/09/24 08:43 Phosphorus 2.7 mg/dL (2.5-4.5) 05/09/24 08:43 Magnesium 1.8 mg/dL (1.9-2.7) L 05/09/24 08:43 Total Bilirubin 0.4 mg/dl (0.3-1.0) 05/09/24 08:43 AST 12 U/L (13-39) L 05/09/24 08:43 ALT 13 U/L (7-52) 05/09/24 08:43 Alkaline Phosphatase 66 U/L (34-104) 05/09/24 08:43 Troponin I High Sens 5.7 pg/mL (0.0-15.0) 05/09/24 08:43 B-Natriuretic Peptide 63.0 pg/mL (5-100) 05/09/24 08:43 Total Protein 7.3 gm/dL (6.4-8.9) 05/09/24 08:43 Albumin 3.9 gm/dL (3.5-5.7) 05/09/24 08:43 Globulin 3.4 gm/dL 05/09/24 08:43 Albumin/Globulin Ratio 1.1 05/09/24 08:43 TSH 3rd Generation 2.96 uIU/mL (0.45-5.33) 05/09/24 08:43 HCG, Qual Negative 05/09/24 08:43 Urine Color Colorless (Yellow) 05/09/24 08:05 Urine Appearance Clear (Clear) 05/09/24 08:05 Urine pH 6.5 (5.0-9.0) 05/09/24 08:05 Ur Specific [place] 1.006 (1.001-1.030) 05/09/24 08:05 Urine Protein Negative mg/dL (Negative) 05/09/24 08:05 Urine Glucose (UA) Normal mg/dL (Normal) 05/09/24 08:05 Urine Ketones Negative (Negative) 05/09/24 08:05 Urine Occult Blood 1+ (Negative) H 05/09/24 08:05 Urine Nitrite Negative (Negative) 05/09/24 08:05 Urine Bilirubin Negative (Negative) 05/09/24 08:05 Urine Urobilinogen Normal mg/dL (Normal) 05/09/24 08:05 Ur Leukocyte Esterase Negative (Negative) 05/09/24 08:05 Urine RBC 3-4 /HPF (0-4) 05/09/24 08:05 Urine WBC 1-2 /HPF (0-4) 05/09/24 08:05 Ur Squamous Epith Cells 1-2 /HPF (0-2) 05/09/24 08:05 Urine Bacteria Rare /HPF (None Seen) 05/09/24 08:05 Hyaline Casts None /LPF (0-8) 05/09/24 08:05 Assessment & Plan Assessment/Plan (1) Atrial fibrillation: Plan . IP vs OBS Justification Based on differential dx, clinical care plan, and risk of adverse events, if untreated, in my clinical judgement this patient requires an acute care setting as: OBSERVATION because of an expectation of an under 2 midnight stay. Estimated length of stay (# of days): 2 Documented By: Robbin Love DO 05/09/24 15 Signed By: <Electronically signed by Robbin Love DO> 05/09/242020 [facility] Work Phone: 1(328) 305-696510-07-2024 Discharge summary Author Robbin Love [facility] May 09, 2024 5:40pm Note Date/Time May 09, 2024 1: 19pm [facility] [address] [place] [address] Discharge Summary Signed with Addenda Patient: Sarah Pennington MR#: [id number] : 1985 Acct:[id number] Age/Sex: 38 / F Adm Date: 4 Loc: 3T Room: 8Y5207-[address]: Robbin Love DO Copies to: NON STAFF Robbin Love DO~ ADDENDUM1 Disregard this documentation as I was falsely informed by ER nursing staff of the patient's AMA status and now unbeknownst to me he has arrived on the [facility] for admission. Addendum Documented By: Robbin Love DO 05/09/241739 Addendum Signed By: <Electronically signed by Robbin Love, > 05/09/241739 Providers Date of Discharge: 05/09/24 Discharging Provider: Robbin Love Primary Care Provider: NON STAFF Discharge Diagnosis Final Diagnosis Final Discharge Diagnosis: Atrial Fibrillation Summary Hospital Course Hospital course: This patient is a 38-year-old female who presented to the emergency department earlier today after awakening with palpitations. She had more rapid atrial fibrillation reported by EMS and was provided Cardizem and removed. She was in a more rate controlled but still tachycardic atrial fibrillation upon arrival tothe ER and after initiation of Cardizem drip she did convert to a normal sinus rhythm quite quickly. I accepted the patient for admission and observation on telemetry to obtain echocardiogram and discuss her diagnosis and potentially cardiac consultation as well as trending of cardiac markers in case of any acutecoronary syndrome precipitating this event. She however left AGAINST MEDICAL ADVICE prior to admission. I have provided a 30-day prescription for 120 mg of extended release Cardizem daily at discharge sent to her listed pharmacy. She has no PCP listed and ultimately is at risk for recurrence especially in light of unknown etiology or other cardiac risk factors not being fully elucidated. She theoretically may also necessitate a blood thinner long-term however at 38 years old she has minimal known risk factors Elisse listed within her medical chart to warrant anticoagulation chronically answered [id number] scoring based on female statusis only 1. She may have other cardiac risk factors and be of higher risk and absolutely necessitate long-term anticoagulation but I am unable to know these factors at this time and have deferred anticoagulation to her PCP if she does indeed have one. Physical examination deferred due to AMA status Time Spent with Patient Time spent providing/coordinating discharge services (# min): 15 Discharge Plan Discharge Plan Clinical Impression: Atrial fibrillation Patient Disposition: Against Medical Advice Condition: Guarded Prescriptions: New diltiazem HCl [Cardizem LA] 120 mg tablet extended release 24 hr 120 mg PO DAILY Qty: 30 2RF Exam Physical Exam Vital Signs: Temp Pulse Resp BP Pulse Ox O2 Del Method 98.4 F 53 L 18 97/56 L 95 Room Air 05/09/24 08:41 05/09/24 12:56 05/09/24 12:56 05/09/24 12:56 05/09/24 12:56 05/09/24 12:56 Diagnostic Studies Completed and Pending Studies Pending studies at discharge: 05/09/24 11:54 ECH echo transthoracic Routine Labs on day of discharge: 05/09/24 08:43: Corrected WBC 9.1, Uncorrected WBC Count 9.1, RBC 4.47, Hgb 12.8, Hct 38.2, MCV 85.4, MCH 28.6, MCHC 33.5, RDW 14.6, Plt Count 344, MPV 9.2,Neut % (Auto) 59.0, Lymph % (Auto) 31.1, Barnes % (Auto) 6.3, Eos % (Auto) 2.7, Baso % (Auto) 0.9, Nucleat RBC Rel Count 0.1, Neut # (Auto) 5.4, Lymph # (Auto) 2.8, Barnes # (Auto) 0.6, Eos # (Auto) 0.2, Baso # (Auto) 0.1, Monocyte Dist Width19.70, PHA Creatinine Clear 145.19, Sodium 140, Potassium 3.9, Chloride 108 H, Carbon Dioxide 24.7, Anion Gap 11.2, BUN 9, Creatinine 0.66, Est GFR (CKD-EPI) >60.0, Glucose 102 H, Calcium 8.6, Phosphorus 2.7, Magnesium 1.8 L, Total Bilirubin 0.4, AST 12 L, ALT 13, Alkaline Phosphatase 66, Troponin I High Sens 5.7, B-Natriuretic Peptide 63.0, Total Protein 7.3, Albumin 3.9, Globulin 3.4, Albumin/Globulin Ratio 1.1, TSH 3rd Generation 2.96, HCG, Qual Negative 05/09/24 08:05: Urine Color Colorless, Urine Appearance Clear, Urine pH 6.5, Ur Specific [place] 1.006, Urine Protein Negative, Urine Glucose (UA) Normal, UrineKetones Negative, Urine Occult Blood 1+ H, Urine Nitrite Negative, Urine Bilirubin Negative, Urine Urobilinogen Normal, Ur Leukocyte Esterase Negative, Urine RBC 3-4, Urine WBC 1-2, Ur Squamous Epith Cells 1-2, Urine Bacteria Rare, Hyaline Casts None Documented By: Robbin Love DO 05/09/24 13 15 Signed By: <Electronically signed by Robbin Love DO> 05/09/24 [facility] [facility] Work Phone: 1(419) 510-843302-08-2024 History of Present illness Narrative* Rosio Maurer SILVANA - 09/10/2023 8:50 AM EST Reason for Appointment: Patient ID: Sarah Pennington is a 37 y.o. female who presents for Issues with vagina Patient presents today for Acute Visit appointment. Current Medications: has a current medication list which includes the following prescription(s): ibuprofen. Medical History: Active Ambulatory Problems Diagnosis Date Noted No Active Ambulatory Problems Resolved Ambulatory Problems Diagnosis Date Noted No Resolved Ambulatory Problems Past Medical History: Diagnosis Date Bacterial vaginosis Broken wrist HPV (human papilloma virus) infection Smoker UTI (urinary tract infection) Family History Problem Relation Name Age of Onset Breast cancer Mother Diabetes Father Social History Tobacco Use Smoking status: Never Smokeless tobacco: Never Substance Use Topics Alcohol use: Never Drug use: Never Past Surgical History: Procedure Laterality Date SECTION, LOW TRANSVERSE 05/09/2004, 12/03/2007, 10/05/2017 CHOLECYSTECTOMY 2013 PAP SMEAR 2021 neg HPV- TUBAL LIGATION 07/14/2022 Allergies Allergen Reactions Azithromycin Swelling Other Reaction(s): Comments: lips swelling and swelling in face, Unknown Face swells up. Review of Systems: Review of Systems All other systems reviewed and are negative. Objective Physical Exam Constitutional: Appearance: Normal appearance. She is well-developed. Genitourinary: Vulva normal. Vaginal discharge present. Cardiovascular: Rate and Rhythm: Normal rate and regular rhythm. Pulmonary: Effort: Pulmonary effort is normal. Breath sounds: Normal breath sounds. Abdominal: General: Bowel sounds are normal. There is no distension. Palpations: Abdomen is soft. Tenderness: There is no abdominal tenderness. There is no guarding or rebound. Musculoskeletal: General: No swelling. Normal range of motion. Right lower leg: No edema. Left lower leg: No edema. Neurological: Mental Status: She is alert and oriented to person, place, and time. Skin: General: Skin is warm and dry. Psychiatric: Mood and Affect: Mood normal. Behavior: Behavior normal. Vitals and nursing note reviewed. Exam conducted with a numerical control lathe operator present. Vitals: Estimated body mass index is 39.84 kg/m as calculated from the following: Height as of this encounter: 5' 7 . Weight as of this encounter: 254 lb 6.4 oz. BP: 110/70 Patient's last menstrual period was 08/17/2023. Assessment/Plan Encounter Diagnoses Name Primary? Vaginal discharge Weight gain Pt presents today complaining of vaginal discharge and odor around the time of her cycles. Culturesobtained today. She also complains of weight gain and desires weight loss. Labs and US ordered today. Metformin sent to pharmacy. Pt to return to discuss starting Adipex. Documented by Rosio Maurer MA on behalf of: Jens Plasencia DO documented in this encounterMissouri Rehabilitation [id number] NoteOPERATIVE NOTE OPERATION DATE: 07/14/2022 PROCEDURE: Repeat low transverse section with bilateral salpingectomy. PREOPERATIVE DIAGNOSIS: 1. Intrauterine at 39 weeks. 2. Desires permanent sterilization. 3. Previous x3. POSTOPERATIVE DIAGNOSIS: 1. Intrauterine at 39 weeks. 2. Desires permanent sterilization. 3. Previous x3. ANESTHESIA: Spinal with Duramorph. SURGEON: Jens Plasencia D.O. CORPORATE DEVELOPMENT ANALYST: KURT Carrion URINE OUTPUT: Yellow and clear. BLOOD LOSS: 575 mL. SPECIMEN: Placenta. FINDINGS: Viable male. Apgars and weight unknown at this time. PROCEDURE: Patient was taken back to the Operating Room where she was given a spinal anesthesia with Duramorph without difficulty. She was prepped and draped in the normal sterile fashion. A Pfannenstiel skin incision was then made 2 cm above the symphysis pubis and carried down to underlying rectus fascia using a Bovie. The fascia was incised in the midline and extended laterally using Kennedy scissors. Two Alanna clamps were placed on the superior aspect of the fascia and dissected off the underlying rectus muscles. The same was performed on the inferior aspect as well. The muscles were then in the midline. Peritoneum was identified and entered bluntly. The peritoneum was then extended superiorly and inferiorly with good visualization of the bladder. The bladder blade was inserted. Vesicouterine peritoneum was identified, tented up, and entered with Metzenbaum scissors. A bladder flap was then created digitally. The bladder blade was reinserted. A low transverse incision was made on the patient's uterus and extended laterally digitally. The infant was then delivered atraumatically after the bladder blade was removed in the cephalic position. The cord was clamped and cut. Cord blood was obtained. The was handed off to awaiting team. The patient's placenta was spontaneously delivered. The uterus was then exteriorized. The uterus was cleared of all clots and debris. The bladder blade was reinserted. The patient's uterine incision was closed using #0 Vicryl in a running lock fashion. Excellent hemostasis was assured. The uterus was then returned to the patient's abdomen. The patient's abdomen was copiously irrigated using warm saline. Peritoneal gutters were cleared of all clots and debris. Again excellent hemostasis was assured. The tubes were identified, grasped with a Allie, the LigaSure apparatus was used to come across the mesosalpinx and the tube removed in its entirety. Excellent hemostasis was assured. The patient's peritoneum was closed using 3-0 Vicryl in a running fashion. The patient's fascia was closed using #0 Vicryl in a running fashion. The patient's skin was closed using 4-0 Vicryl subcuticularly. The patient tolerated the procedure well. Sponge, lap, and needle counts were correct x2. The patient was taken to the Recovery Room in stable condition.[facility] [id number] NoteDISCHARGE SUMMARY DISCHARGE DATE: 07/28/2022 PRIMARY DIAGNOSES: 1. Intrauterine at 39 weeks. 2. Desires permanent sterilization. 3. Previous x3. PROCEDURE: Repeat low transverse section with bilateral salpingectomy. HOSPITAL COURSE: As expected. Please see chart for full details. LABORATORY DATA: Please see chart. COMPLICATIONS: None. DISCHARGE CONDITION: Stable. CONSULTATION: Anesthesia. DISCHARGE INSTRUCTIONS: 1. Diet: Regular. 2. Medications: a. Percocet 5/325 one to two p.o. every 4-6 hours p.r.n. pain. b. Motrin 800 one p.o. every 8 hours p.r.n. pain. 3. Followup in one week. Restrictions: Pelvic rest for 6 weeks. No heavy lifting. May drive when pain free and no longer on narcotics.[facility] HospitalDischar summary Author Robbin Love [facility] May 09, 2024 1:19pm Note Date/Time May 09, 2024 1: 19pm [facility] [address] [place], [place] [id number] Discharge Summary Signed Patient: Sarah Pennington MR#: [id number] : 1985 Acct:[id number] Age/Sex: 38 / F Adm Date: 4 Loc: ER Room: Attending Dr: Copies to: NON STAFF Danyell Banks, DO Robbin Love, ~ Providers Date of Discharge: 05/09/24 Discharging Provider: Robbin Love Primary Care Provider: NON STAFF Discharge Diagnosis Final Diagnosis Final Discharge Diagnosis: Atrial Fibrillation Summary Hospital Course Hospital course: This patient is a 38-year-old female who presented to the emergency department earlier today after awakening with palpitations. She had more rapid atrial fibrillation reported by EMS and was provided Cardizem and removed. She was in a more rate controlled but still tachycardic atrial fibrillation upon arrival tothe ER and after initiation of Cardizem drip she did convert to a normal sinus rhythm quite quickly. I accepted the patient for admission and observation on telemetry to obtain echocardiogram and discuss her diagnosis and potentially cardiac consultation as well as trending of cardiac markers in case of any acutecoronary syndrome precipitating this event. She however left AGAINST MEDICAL ADVICE prior to admission. I have provided a 30-day prescription for 120 mg of extended release Cardizem daily at discharge sent to her listed pharmacy. She has no PCP listed and ultimately is at risk for recurrence especially in light of unknown etiology or other cardiac risk factors not being fully elucidated. She theoretically may also necessitate a blood thinner long-term however at 38 years old she has minimal known risk factors Elisse listed within her medical chart to warrant anticoagulation chronically answered [id number] scoring based on female statusis only 1. She may have other cardiac risk factors and be of higher risk and absolutely necessitate long-term anticoagulation but I am unable to know these factors at this time and have deferred anticoagulation to her PCP if she does indeed have one. Physical examination deferred due to AMA status Time Spent with Patient Time spent providing/coordinating discharge services (# min): 15 Discharge Plan Discharge Plan Clinical Impression: Atrial fibrillation Patient Disposition: Against Medical Advice Condition: Guarded Prescriptions: New diltiazem HCl [Cardizem LA] 120 mg tablet extended release 24 hr 120 mg PO DAILY Qty: 30 2RF Exam Physical Exam Vital Signs: Temp Pulse Resp BP Pulse Ox O2 Del Method 98.4 F 53 L 18 97/56 L 95 Room Air 05/09/24 08:41 05/09/24 12:56 05/09/24 12:56 05/09/24 12:56 05/09/24 12:56 05/09/24 12:56 Diagnostic Studies Completed and Pending Studies Pending studies at discharge: 05/09/24 11:54 ECH echo transthoracic Routine Labs on day of discharge: 05/09/24 08:43: Corrected WBC 9.1, Uncorrected WBC Count 9.1, RBC 4.47, Hgb 12.8, Hct 38.2, MCV 85.4, MCH 28.6, MCHC 33.5, RDW 14.6, Plt Count 344, MPV 9.2,Neut % (Auto) 59.0, Lymph % (Auto) 31.1, Barnes % (Auto) 6.3, Eos % (Auto) 2.7, Baso % (Auto) 0.9, Nucleat RBC Rel Count 0.1, Neut # (Auto) 5.4, Lymph # (Auto) 2.8, Barnes # (Auto) 0.6, Eos # (Auto) 0.2, Baso # (Auto) 0.1, Monocyte Dist Width19.70, PHA Creatinine Clear 145.19, Sodium 140, Potassium 3.9, Chloride 108 H, Carbon Dioxide 24.7, Anion Gap 11.2, BUN 9, Creatinine 0.66, Est GFR (CKD-EPI) >60.0, Glucose 102 H, Calcium 8.6, Phosphorus 2.7, Magnesium 1.8 L, Total Bilirubin 0.4, AST 12 L, ALT 13, Alkaline Phosphatase 66, Troponin I High Sens 5.7, B-Natriuretic Peptide 63.0, Total Protein 7.3, Albumin 3.9, Globulin 3.4, Albumin/Globulin Ratio 1.1, TSH 3rd Generation 2.96, HCG, Qual Negative 05/09/24 08:05: Urine Color Colorless, Urine Appearance Clear, Urine pH 6.5, Ur Specific [place] 1.006, Urine Protein Negative, Urine Glucose (UA) Normal, UrineKetones Negative, Urine Occult Blood 1+ H, Urine Nitrite Negative, Urine Bilirubin Negative, Urine Urobilinogen Normal, Ur Leukocyte Esterase Negative, Urine RBC 3-4, Urine WBC 1-2, Ur Squamous Epith Cells 1-2, Urine Bacteria Rare, Hyaline Casts None Documented By: Robbin Love DO 05/09/24 13 15 Signed By: <Electronically signed by Robbin Love DO> 05/09/24 1319 [facility] Work Phone: Evaluation note* Diagnosis Vaginal discharge Leukorrhea, not specified as infective Weight gain Other symptoms concerning nutrition, metabolism, and development PCOS (polycystic ovarian syndrome) Polycystic ovaries STD exposure documented [facility] Diagnosis Onset Date Resolution Status Atrial fibrillation acute [facility] Work Phone: Evaluation note* Diagnosis Paroxysmal atrial fibrillation (Multi)- Primary Atrial fibrillation documented in this encounter [facility] Work Phone: Evaluation note* Diagnosis Paroxysmal atrial fibrillation (Multi) Atrial fibrillation documented in this encounter [facility] Work Phone: Summary Purpose Family History No Family History Records FoundNo Family History Records FoundNo Family History Records FoundNo Family History Records FoundNo Family History Records Found Advance Directives Advance Directive Response Recorded Date/ Time Advance Directives No February 10 1:57pm Chief Complaint and Reason for Visit Chief Complaint a-fib Reason for Visit Atrial fibrillation Reason for Referral Specialty Diagnoses / Procedures Referred By Contac t Referred To Contact Cardiology Diagnoses Paroxysmal atrial fibrillation (Multi) Procedures Holter Or Event Sandwich Maker Phillip Saleh APRN-CNP, [facility] [facility], [address] [place] [address] Referral ID Status Reason Start Date Expiration Date V isits Requested Visits Authorized [id number] Pending Review 05/13/2024 05/13/2025 1 1 Specialty Diagnoses / Procedures Referred By Contac t Referred To Contact Cardiology Diagnoses Paroxysmal atrial fibrillation (Multi) Procedures Nuclear Stress Test CHG MYOCARDIAL SPECT MULTIPLE STUDIES Phillip Saleh APRN-CNP, DNP [address] [place], [address] [place] [address] Referral ID Status Reason Start Date Expiration Date Visits Requested Visits Authorized [id number] Pending Review Perform Procedure 05/13/2025 3 3 Referral ID Status Reason Start Date Expiration Date V isits Requested Visits Authorized [id number] Authorized 05/13/2024 05/13/2025 1 1 Additional Source Comments INFORMATION SOURCE (unrecogn ized section and content) DATE CREATED AUTHOR 07/29/2022 [facility] DATE CREATED AUTHOR AUTHOR'S ORGANIZ ATION 10/30/2023 [facility] [facility] EPIC DATE CREATED AUTHOR AUTHOR'S ORGANIZ ATION 05/14/2024 [facility] DATE CREATED AUTHOR AUTHOR'S ORGANIZ ATION 05/16/2024 [facility] DATE CREATED AUTHOR AUTHOR'S ORGANIZ ATION 05/16/2024 [facility] Reason for Visit (unrecogniz ed section and content) Reason Comments Issues with vagina Reason Comments New Patient Visit AFIB Specialty Diagnoses / Procedures Referred By Contac t Referred To Contact Cardiology Diagnoses Paroxysmal atrial fibrillation (Multi) Procedures Holter Or Event Sandwich Maker Phillip Saleh, SHIVA-OUTSIDE SALES ENGINEER, DNP [address] [facility], [facility] [address] [place] [address] Referral ID Status Reason Start Date Expiration Date V isits Requested Visits Authorized [id number] Authorized 05/13/2024 05/13/2025 1 1 Care Teams (unrecognized sec tion and content) Team Status: Active Member Role Status Dates NON STAFF Primary Care Provider Active Team Status: Active Member Role Status Dates Danyell Banks DO Emergency Provider Active Start: May 09, 2024 NON STAFF Primary Care Provider Active Start: May 09, 2024 Robbin Love DO Admit Provider, Atte nding Provider Active Start: May 09, 2024 Team Status: Active Member Role Status Dates Airam Cheng APRN Primary Care Provider Active Team Status: Inactive Member Role Status Dates Danyell Banks DO Emergency Provider Active Start: May 09, 2024 End: May 10, 2024 Robbin Love DO Admit Provider, Atte nding Provider Active Start: May 09, 2024 End: May 10, 2024 Airam Cheng APRN Primary Care Provider Active Start: May 09, 2024 End: May 10, 2024 Grinder Brake Lining Relationship Specialty Start Date End Date Airam Cheng [address] [place] [address] PCP - General 05/13/24 Goals (unrecognized section and content) Goals may be documented in a n alternate section FOR RECORDS PERTAINING TO PATIENTS WHO ARE OR HAVE BEEN ENROLLED IN A CHEMICAL DEPENDENCY/SUBSTANCEABUSE PROGRAM, SOME INFORMATION MAY BE OMITTED. This clinical summary was aggregated from multiple sources. Caution should be exercised in using it in the provision of clinical care. This summary normalizes information from multiple sources, and as a consequence, information in this document may materially change the coding, format and clinical context of patient data. In addition, data may be omitted in some cases. CLINICAL DECISIONS SHOULD BE BASED ON THE PRIMARY CLINICAL RECORDS. [employer] provides no warranty or guarantee of the accuracy or completeness of information in this document.
[2024-05-18 19:07] VITALS: BP 153/75; PULSE 90; TEMP 37.4; O2SAT 99; BMI 37.7
--- NOTE | 2024-05-18 19:23 | ED.GENADUL1 ---
Documented by User: MUSTAPHA Dunne 05/18/24 22:38 HPI HPI - General Adult General Chief complaint: Fever Stated complaint: DENTAL PAIN Time Seen by Provider: 05/18/24 19:02 Source: patient Mode of arrival: walk-in Limitations: no limitations History of Present Illness HPI narrative: Patient is a 38-year-old female who presents to the emergency department for shaking chills after dental procedure this afternoon. She states 4 hours ago she had 4 teeth extracted by her dentist. She was not prescribed any medications. She states 30 minutes after the procedure she began shaking and had chills in addition to temperatures as high as 99.0 Fahrenheit. She was concerned that she may be having a reaction to the Novocaine. She is not concerned for . She has not had any recent illness, no drainage from the teeth. She states her pain is fairly well-controlled and she was not prescribed any pain medication from the dentist. Related Data Allergies Allergy/AdvReac Type Severity Reaction Status Date / Time azithromycin (From Zithromax) Allergy Mild Anaphylaxis Verified 05/18/24 19:13 Opioid HPI Opioid Management Most Recent Opioid Data: No Data to Display Review of Systems ROS Constitutional Reports: chills; Denies: fever Ears, nose, mouth, and throat Denies: throat pain Respiratory Denies: shortness of breath Gastrointestinal Denies: nausea or vomiting Musculoskeletal Denies: back pain, neck pain or extremity pain Integumentary/Breast Denies: rash Neurological Reports: headache; Denies: numbness in extremities or weakness in extremities Hematologic/Lymphatic Denies: easy bruising or easy bleeding Exam Narrative Exam Narrative: Gen.: Awake, alert, in no distress Head: Normocephalic, atraumatic ENT: Moist mucous membranes, bilateral TMs clear, mild facial swelling noted with extraction sites to the gums that are intact with no active bleeding or purulence. No redness or swelling under the tongue, uvula midline Respiratory: No respiratory distress, lungs clear bilaterally Cardio: Regular rate and rhythm Extremities: Moves extremities equally Psych: Normal mood and affect Neuro: No focal neuro deficit Skin: Warm, dry, intact Constitutional Vital Signs, click to edit/add: Last Vital Signs Temp 100 F 05/18/24 21:17 Pulse 58 L 05/18/24 22:26 Resp 18 05/18/24 22:26 BP 97/46 L 10/16/24 22:26 Pulse Ox 97 05/18/24 22:26 O2 Del Method Room Air 05/18/24 22:26 Course Vital Signs Vital signs: Vital Signs Temperature 99.3 F 05/18/24 19:07 Pulse Rate 90 05/18/24 19:07 Respiratory Rate 20 05/18/24 19:07 Blood Pressure 153/75 H 05/18/24 19:07 Pulse Oximetry 99 05/18/24 19:07 Oxygen Delivery Method Room Air 05/18/24 19:07 Temperature 100 F 05/18/24 21:17 Pulse Rate 58 L 05/18/24 22:26 Respiratory Rate 18 05/18/24 22:26 Blood Pressure 97/46 L 05/18/24 22:26 Pulse Oximetry 97 05/18/24 22:26 Oxygen Delivery Method Room Air 05/18/24 22:26 Medical Decision Making MDM Narrative Medical decision making narrative: 2234: Patient was initially medicated with IV fluids, pain medication with significant improvement. She was found to have elevated white blood cell count, negative respiratory swabs, otherwise unremarkable labs except for an elevated lactic acid. Her urine does show evidence of very minimal urinary tract infection but she does have large blood. She states she does have a history of UTIs. At this time I do not appreciate a dental abscess or any active drainage from the mouth. Chest x-ray was added, this is unremarkable. Blood cultures are pending. Patient was given IV Rocephin for antibiotic coverage and a CT of the abdomen and pelvis is pending at this time. Case is turned over to attending physician for disposition after imaging results. SHARED APC VISIT, PHYSICIAN ATTESTATION: [id number] I performed a substantive part of the MDM during the patient?s E/M visit. I personally evaluated and examined the patient. I personally made or approved the documented management plan and acknowledge its risk of complications. Medical Records Medical records reviewed: Yes I reviewed the patient's medical records Lab Data Lab results reviewed: Yes I reviewed the patient's lab results Labs: Lab Results 05/18/24 05/18/24 05/18/24 Range/Units 19:30 20:18 21:25 WBC 18.3 H (4.0-11.0) 10^3/uL RBC 4.28 (4.20-5.40) 10^6/uL Hgb 12.3 (12.0-16.0) g/dL Hct 37.4 (36.0-48.0) % MCV 87.4 (81.0-99.0) fL MCH 28.7 (26.7-34.0) pg MCHC 32.9 (29.9-35.2) g/dL RDW 14.2 (11.0-15.0) % Plt Count 284 (150-450) 10^3/uL MPV 11.0 (9.5-13.5) fL Neut % (Auto) 91.3 H (43.0-75.0) % Lymph % (Auto) 4.0 L (20.5-60.0) % Rogers % (Auto) 3.8 (1.7-12.0) % Eos % (Auto) 0.2 L (0.9-7.0) % Baso % (Auto) 0.3 (0.2-2.0) % Neut # (Auto) 16.7 H (1.4-6.5) 10^3/uL Lymph # (Auto) 0.7 L (1.2-3.8) 10^3/uL Rogers # (Auto) 0.7 (0.3-0.8) 10^3/uL Eos # (Auto) 0.0 (0.0-0.7) 10^3/uL Baso # (Auto) 0.1 (0.0-0.1) 10^3/uL Abs Immat Gran (auto) 0.08 H (0.00-0.03) 10^3/uL Imm/Tot Granulo (auto) 0.4 (0.0-0.5) % VBG pH 7.427 (7.330-7.430) VBG pCO2 32.4 L (40.0-52.0) mmHg Sodium 137 (136-145) mmol/L Potassium 3.4 L (3.5-5.1) mmol/L Chloride 103 (98-107) mmol/L Carbon Dioxide 21.2 (21.0-32.0) mmol/L Anion Gap 16.2 BUN 11.0 (7.0-18.0) mg/dL Creatinine 1.08 H (0.55-1.02) mg/dL Est GFR ( Amer) >60 (>=60 mL/min/1.73m^2) Est GFR (Non-Af Amer) 57 L (>=60 mL/min/1.73m^2) BUN/Creatinine Ratio 10.2 Glucose 135 H (74-106) mg/dL Lactate 3.4 H* (0.4-2.0) mmol/L Calcium 8.9 (8.5-10.1) mg/dL Total Bilirubin 0.4 (0.2-1.0) mg/dL AST 13 L (15-37) U/L ALT 21 (14-59) U/L Alkaline Phosphatase 74 (46-116) U/L Total Protein 7.1 (6.4-8.2) g/dL Albumin 3.2 L (3.4-5.0) g/dL Globulin 3.9 g/dL Albumin/Globulin Ratio 0.8 Urine Color Lt. yellow (YELLOW) Urine Clarity Clear (CLEAR) Urine pH 5.5 (5.0-9.0) Ur Specific [place] >=1.030 A (1.005-1.025) Urine Protein 100 A (NEG/TRACE) mg/dL Urine Glucose (UA) Negative (NEGATIVE) mg/dL Urine Ketones Negative (NEGATIVE) mg/dL Urine Occult Blood Large A (NEGATIVE) Urine Nitrite Negative (NEGATIVE) Urine Bilirubin Negative (NEGATIVE) Urine Urobilinogen 0.2 (0.2-1.0) EU/dL Ur Leukocyte Esterase Negative (NEGATIVE) Urine RBC 2-5 A (0-2) #/HPF Urine WBC 2-5 A (NONE SEEN) #/HPF Ur Squamous Epith Cells Few A (NONE/RARE) #/LPF Urine Crystals None seen (None Seen) #/HPF Urine Bacteria Trace A (NONE SEEN) #/HPF Urine Casts None seen (NONE SEEN) #/LPF Urine Mucus Trace A (NONE SEEN) Ur Culture Indicated? No Urine HCG, Qual Negative (NEGATIVE) Influenza Type A Ag Negative Influenza Type B Ag Negative SARS-CoV-2 Ag (CV2AG) Negative (NEGATIVE) 05/18/24 Range/Units 22:56 WBC (4.0-11.0) 10^3/uL RBC (4.20-5.40) 10^6/uL Hgb (12.0-16.0) g/dL Hct (36.0-48.0) % MCV (81.0-99.0) fL MCH (26.7-34.0) pg MCHC (29.9-35.2) g/dL RDW (11.0-15.0) % Plt Count (150-450) 10^3/uL MPV (9.5-13.5) fL Neut % (Auto) (43.0-75.0) % Lymph % (Auto) (20.5-60.0) % Rogers % (Auto) (1.7-12.0) % Eos % (Auto) (0.9-7.0) % Baso % (Auto) (0.2-2.0) % Neut # (Auto) (1.4-6.5) 10^3/uL Lymph # (Auto) (1.2-3.8) 10^3/uL Rogers # (Auto) (0.3-0.8) 10^3/uL Eos # (Auto) (0.0-0.7) 10^3/uL Baso # (Auto) (0.0-0.1) 10^3/uL Abs Immat Gran (auto) (0.00-0.03) 10^3/uL Imm/Tot Granulo (auto) (0.0-0.5) % VBG pH (7.330-7.430) VBG pCO2 (40.0-52.0) mmHg Sodium (136-145) mmol/L Potassium (3.5-5.1) mmol/L Chloride (98-107) mmol/L Carbon Dioxide (21.0-32.0) mmol/L Anion Gap BUN (7.0-18.0) mg/dL Creatinine (0.55-1.02) mg/dL Est GFR ( Amer) (>=60 mL/min/1.73m^2) Est GFR (Non-Af Amer) (>=60 mL/min/1.73m^2) BUN/Creatinine Ratio Glucose (74-106) mg/dL Lactate 2.2 H* (0.4-2.0) mmol/L Calcium (8.5-10.1) mg/dL Total Bilirubin (0.2-1.0) mg/dL AST (15-37) U/L ALT (14-59) U/L Alkaline Phosphatase (46-116) U/L Total Protein (6.4-8.2) g/dL Albumin (3.4-5.0) g/dL Globulin g/dL Albumin/Globulin Ratio Urine Color (YELLOW) Urine Clarity (CLEAR) Urine pH (5.0-9.0) Ur Specific [place] (1.005-1.025) Urine Protein (NEG/TRACE) mg/dL Urine Glucose (UA) (NEGATIVE) mg/dL Urine Ketones (NEGATIVE) mg/dL Urine Occult Blood (NEGATIVE) Urine Nitrite (NEGATIVE) Urine Bilirubin (NEGATIVE) Urine Urobilinogen (0.2-1.0) EU/dL Ur Leukocyte Esterase (NEGATIVE) Urine RBC (0-2) #/HPF Urine WBC (NONE SEEN) #/HPF Ur Squamous Epith Cells (NONE/RARE) #/LPF Urine Crystals (None Seen) #/HPF Urine Bacteria (NONE SEEN) #/HPF Urine Casts (NONE SEEN) #/LPF Urine Mucus (NONE SEEN) Ur Culture Indicated? Urine HCG, Qual (NEGATIVE) Influenza Type A Ag Influenza Type B Ag SARS-CoV-2 Ag (CV2AG) (NEGATIVE) Imaging Data Chest x-ray: Attestation: I have reviewed the pertinent imaging results. Radiologist's impression: ITS Impressions Chest X-Ray 05/18/24 20:46 IMPRESSION: No acute pulmonary disease. Electronically authenticated by: VENU LOVE Date: 05/18/2024 22:17 Abdomen/Pelvis CT 05/18/24 21:41 IMPRESSION: 1. Punctate nonobstructing left renal calculus. 2. Suggestion of a tubular structure in the right adnexa measuring approximately 2.1 centimeters in caliber. This may represent hydrosalpinx or pyosalpinx. Pelvic ultrasound for further evaluation as warranted. 3. Moderate diverticulosis. 4. Small hiatal hernia. Electronically authenticated by: NEAL SERNA Date: 05/18/2024 22:55 Discharge Plan Discharge Chief Complaint: Fever Clinical Impression: Rigors, Fever Patient Disposition: Admitted as Observation Documented by User: Yobani Garay MD 05/18/24 23:53 HPI HPI - General Adult General Chief complaint: Fever Stated complaint: DENTAL PAIN Time Seen by Provider: 05/18/24 19:02 Related Data Allergies Allergy/AdvReac Type Severity Reaction Status Date / Time azithromycin (From Zithromax) Allergy Mild Anaphylaxis Verified 05/18/24 19:13 Opioid HPI Opioid Management Most Recent Opioid Data: No Data to Display Exam Constitutional Vital Signs, click to edit/add: Last Vital Signs Temp 100 F 05/18/24 21:17 Pulse 58 L 05/18/24 22:26 Resp 18 05/18/24 22:26 BP 97/46 L 05/18/24 22:26 Pulse Ox 97 05/18/24 22:26 O2 Del Method Room Air 05/18/24 22:26 Course Vital Signs Vital signs: Vital Signs Temperature 99.3 F 05/18/24 19:07 Pulse Rate 90 05/18/24 19:07 Respiratory Rate 20 05/18/24 19:07 Blood Pressure 153/75 H 05/18/24 19:07 Pulse Oximetry 99 05/18/24 19:07 Oxygen Delivery Method Room Air 05/18/24 19:07 Temperature 100 F 05/18/24 21:17 Pulse Rate 58 L 05/18/24 22:26 Respiratory Rate 18 05/18/24 22:26 Blood Pressure 97/46 L 05/18/24 22:26 Pulse Oximetry 97 05/18/24 22:26 Oxygen Delivery Method Room Air 05/18/24 22:26 Medical Decision Making [facility] Narrative Medical decision making narrative: 223: Patient was initially medicated with IV fluids, pain medication with significant improvement. She was found to have elevated white blood cell count, negative respiratory swabs, otherwise unremarkable labs except for an elevated lactic acid. Her urine does show evidence of very minimal urinary tract infection but she does have large blood. She states she does have a history of UTIs. At this time I do not appreciate a dental abscess or any active drainage from the mouth. Chest x-ray was added, this is unremarkable. Blood cultures are pending. Patient was given IV Rocephin for antibiotic coverage and a CT of the abdomen and pelvis is pending at this time. Case is turned over to attending physician for disposition after imaging results. CT returned with finding of hydrosalpinx vs pyosalpinx. Patient re interviewed. she no abdominal or pelvic pain. None before she came in. Her abdomen is completely nontender clinically I suspect she has hydrosalpinx. she presents with picture of bacteremia after dental procedure. She has leukocytosis and lactic acidosis. Discussed with the hospitalist and will plan obs admission SHARED APC VISIT, PHYSICIAN ATTESTATION: [id number] I performed a substantive part of the MDM during the patient?s E/M visit. I personally evaluated and examined the patient. I personally made or approved the documented management plan and acknowledge its risk of complications. Lab Data Labs: Lab Results 05/18/24 05/18/24 05/18/24 Range/Units 19:30 20:18 21:25 WBC 18.3 H (4.0-11.0) 10^3/uL RBC 4.28 (4.20-5.40) 10^6/uL Hgb 12.3 (12.0-16.0) g/dL Hct 37.4 (36.0-48.0) % MCV 87.4 (81.0-99.0) fL MCH 28.7 (26.7-34.0) pg MCHC 32.9 (29.9-35.2) g/dL RDW 14.2 (11.0-15.0) % Plt Count 284 (150-450) 10^3/uL MPV 11.0 (9.5-13.5) fL Neut % (Auto) 91.3 H (43.0-75.0) % Lymph % (Auto) 4.0 L (20.5-60.0) % Rogers % (Auto) 3.8 (1.7-12.0) % Eos % (Auto) 0.2 L (0.9-7.0) % Baso % (Auto) 0.3 (0.2-2.0) % Neut # (Auto) 16.7 H (1.4-6.5) 10^3/uL Lymph # (Auto) 0.7 L (1.2-3.8) 10^3/uL Rogers # (Auto) 0.7 (0.3-0.8) 10^3/uL Eos # (Auto) 0.0 (0.0-0.7) 10^3/uL Baso # (Auto) 0.1 (0.0-0.1) 10^3/uL Abs Immat Gran (auto) 0.08 H (0.00-0.03) 10^3/uL Imm/Tot Granulo (auto) 0.4 (0.0-0.5) % VBG pH 7.427 (7.330-7.430) VBG pCO2 32.4 L (40.0-52.0) mmHg Sodium 137 (136-145) mmol/L Potassium 3.4 L (3.5-5.1) mmol/L Chloride 103 (98-107) mmol/L Carbon Dioxide 21.2 (21.0-32.0) mmol/L Anion Gap 16.2 BUN 11.0 (7.0-18.0) mg/dL Creatinine 1.08 H (0.55-1.02) mg/dL Est GFR ( Amer) >60 (>=60 mL/min/1.73m^2) Est GFR (Non-Af Amer) 57 L (>=60 mL/min/1.73m^2) BUN/Creatinine Ratio 10.2 Glucose 135 H (74-106) mg/dL Lactate 3.4 H* (0.4-2.0) mmol/L Calcium 8.9 (8.5-10.1) mg/dL Total Bilirubin 0.4 (0.2-1.0) mg/dL AST 13 L (15-37) U/L ALT 21 (14-59) U/L Alkaline Phosphatase 74 (46-116) U/L Total Protein 7.1 (6.4-8.2) g/dL Albumin 3.2 L (3.4-5.0) g/dL Globulin 3.9 g/dL Albumin/Globulin Ratio 0.8 Urine Color Lt. yellow (YELLOW) Urine Clarity Clear (CLEAR) Urine pH 5.5 (5.0-9.0) Ur Specific [place] >=1.030 A (1.005-1.025) Urine Protein 100 A (NEG/TRACE) mg/dL Urine Glucose (UA) Negative (NEGATIVE) mg/dL Urine Ketones Negative (NEGATIVE) mg/dL Urine Occult Blood Large A (NEGATIVE) Urine Nitrite Negative (NEGATIVE) Urine Bilirubin Negative (NEGATIVE) Urine Urobilinogen 0.2 (0.2-1.0) EU/dL Ur Leukocyte Esterase Negative (NEGATIVE) Urine RBC 2-5 A (0-2) #/HPF Urine WBC 2-5 A (NONE SEEN) #/HPF Ur Squamous Epith Cells Few A (NONE/RARE) #/LPF Urine Crystals None seen (None Seen) #/HPF Urine Bacteria Trace A (NONE SEEN) #/HPF Urine Casts None seen (NONE SEEN) #/LPF Urine Mucus Trace A (NONE SEEN) Ur Culture Indicated? No Urine HCG, Qual Negative (NEGATIVE) Influenza Type A Ag Negative Influenza Type B Ag Negative SARS-CoV-2 Ag (CV2AG) Negative (NEGATIVE) 05/18/24 Range/Units 22:56 WBC (4.0-11.0) 10^3/uL RBC (4.20-5.40) 10^6/uL Hgb (12.0-16.0) g/dL Hct (36.0-48.0) % MCV (81.0-99.0) fL MCH (26.7-34.0) pg MCHC (29.9-35.2) g/dL RDW (11.0-15.0) % Plt Count (150-450) 10^3/uL MPV (9.5-13.5) fL Neut % (Auto) (43.0-75.0) % Lymph % (Auto) (20.5-60.0) % Rogers % (Auto) (1.7-12.0) % Eos % (Auto) (0.9-7.0) % Baso % (Auto) (0.2-2.0) % Neut # (Auto) (1.4-6.5) 10^3/uL Lymph # (Auto) (1.2-3.8) 10^3/uL Rogers # (Auto) (0.3-0.8) 10^3/uL Eos # (Auto) (0.0-0.7) 10^3/uL Baso # (Auto) (0.0-0.1) 10^3/uL Abs Immat Gran (auto) (0.00-0.03) 10^3/uL Imm/Tot Granulo (auto) (0.0-0.5) % VBG pH (7.330-7.430) VBG pCO2 (40.0-52.0) mmHg Sodium (136-145) mmol/L Potassium (3.5-5.1) mmol/L Chloride (98-107) mmol/L Carbon Dioxide (21.0-32.0) mmol/L Anion Gap BUN (7.0-18.0) mg/dL Creatinine (0.55-1.02) mg/dL Est GFR ( Amer) (>=60 mL/min/1.73m^2) Est GFR (Non-Af Amer) (>=60 mL/min/1.73m^2) BUN/Creatinine Ratio Glucose (74-106) mg/dL Lactate 2.2 H* (0.4-2.0) mmol/L Calcium (8.5-10.1) mg/dL Total Bilirubin (0.2-1.0) mg/dL AST (15-37) U/L ALT (14-59) U/L Alkaline Phosphatase (46-116) U/L Total Protein (6.4-8.2) g/dL Albumin (3.4-5.0) g/dL Globulin g/dL Albumin/Globulin Ratio Urine Color (YELLOW) Urine Clarity (CLEAR) Urine pH (5.0-9.0) Ur Specific [place] (1.005-1.025) Urine Protein (NEG/TRACE) mg/dL Urine Glucose (UA) (NEGATIVE) mg/dL Urine Ketones (NEGATIVE) mg/dL Urine Occult Blood (NEGATIVE) Urine Nitrite (NEGATIVE) Urine Bilirubin (NEGATIVE) Urine Urobilinogen (0.2-1.0) EU/dL Ur Leukocyte Esterase (NEGATIVE) Urine RBC (0-2) #/HPF Urine WBC (NONE SEEN) #/HPF Ur Squamous Epith Cells (NONE/RARE) #/LPF Urine Crystals (None Seen) #/HPF Urine Bacteria (NONE SEEN) #/HPF Urine Casts (NONE SEEN) #/LPF Urine Mucus (NONE SEEN) Ur Culture Indicated? Urine HCG, Qual (NEGATIVE) Influenza Type A Ag Influenza Type B Ag SARS-CoV-2 Ag (CV2AG) (NEGATIVE) Imaging Data Chest x-ray: Radiologist's impression: ITS Impressions Chest X-Ray 05/18/24 20:46 IMPRESSION: No acute pulmonary disease. Electronically authenticated by: VENU LOVE Date: 05/18/2024 22:17 Abdomen/Pelvis CT 05/18/24 21:41
[2024-05-18 20:06] LABS: Influenza Virus A Antigen Negative; Influenza Virus B Antigen Negative; Internal Control Within Normal Limits; SARS-CoV-2 Ag NEGATIVE (NEGATIVE)
[2024-05-18 20:39] LABS: Basophils Absolute Auto 0.1 10^3/uL (0.0-0.1); Basophils Percent Auto 0.3 % (0.2-2.0); Eosinophils Percent Auto 0.2 % (0.9-7.0); Hematocrit 37.4 % (36.0-48.0); Hemoglobin 12.3 g/dL (12.0-16.0); Immature Granulocytes Abs Auto 0.08 10^3/uL (0.00-0.03); Immature Granulocytes Pct Auto 0.4 % (0.0-0.5); Lymphocytes Absolute Auto 0.7 10^3/uL (1.2-3.8); Mean Corpuscular HGB Conc 32.9 g/dL (29.9-35.2); Mean Corpuscular Hemoglobin 28.7 pg (26.7-34.0); Mean Corpuscular Volume 87.4 fL (81.0-99.0); Monocytes Absolute Auto 0.7 10^3/uL (0.3-0.8); Monocytes Percent Auto 3.8 % (1.7-12.0); Neutrophils Absolute Auto 16.7 10^3/uL (1.4-6.5); Neutrophils Percent Auto 91.3 % (43.0-75.0); Platelet Count 284 10^3/uL (150-450); Red Blood Count 4.28 10^6/uL (4.20-5.40); Red Cell Distribution Width 14.2 % (11.0-15.0); White Blood Count 18.3 10^3/uL (4.0-11.0)
[2024-05-18 20:43] LABS: PCO2 VBG 32.4 mmHg (40.0-52.0); pH VBG 7.427 (7.330-7.430)
[2024-05-18] MEDS: 0.9 % SODIUM CHLORIDE 500 ML IV (20:43)
[2024-05-18] MEDS: KETOROLAC TROMETHAMINE 30 MG/ML VIAL IVP (20:43)
[2024-05-18] MEDS: HYDROMORPHONE HCL 1 MG/ML CARTRIDGE IV (20:43)
[2024-05-18] MEDS: ONDANSETRON PF 4 MG/2 ML VIAL IV (20:43)
--- NOTE | 2024-05-18 20:46 | XR_ITS ---
The [address] [address] Patient Name: SARAH ALVAREZ MRN: [id number] date: 1985 Sex: F Assigned Patient Location: ER Current Patient Location: ER Accession/Order Number: [id number] Exam Date: 05/18/2024 21:06 Report Date: 05/18/2024 22:17 At the request of: REGLA DIAS Procedure: XR chest 1V EXAM: XR chest 1V TECHNIQUE: Single AP view chest HISTORY: Chills COMPARISON: None. FINDINGS: The heart and mediastinum are unremarkable. The lung santiago are clear of any acute infiltrate, effusion or mass. No acute bony abnormality. XR/XR chest 1V IMPRESSION: No acute pulmonary disease. Electronically authenticated by: VENU LOVE Date: 05/18/2024 22:17
[2024-05-18 20:54] LABS: Alanine Aminotransferase 21 U/L (14-59); Albumin Globulin Ratio 0.8; Albumin Level 3.2 g/dL (3.4-5.0); Alkaline Phosphatase 74 U/L (46-116); Anion Gap 16.2; Aspartate Amino Transferase 13 U/L (15-37); BUN Creatinine Ratio 10.2; Bilirubin Total 0.4 mg/dL (0.2-1.0); Calcium 8.9 mg/dL (8.5-10.1); Carbon Dioxide 21.2 mmol/L (21.0-32.0); Chloride 103 mmol/L (98-107); Estimated GFR (African America >60 (>=60 mL/min/1.73m^2); Estimated GFR (Non-African Ame 57 (>=60 mL/min/1.73m^2); Globulin 3.9 g/dL; Glucose 135 mg/dL (74-106); Potassium 3.4 mmol/L (3.5-5.1); Sodium 137 mmol/L (136-145); Total Protein 7.1 g/dL (6.4-8.2)
[2024-05-18 21:11] LABS: Lactate/Lactic Acid 3.4 mmol/L (0.4-2.0)
[2024-05-18 21:17] VITALS: BP 116/53; PULSE 69; TEMP 37.7; O2SAT 96
[2024-05-18 21:35] LABS: Bilirubin Urine NEGATIVE (NEGATIVE); Blood Urine LARGE (NEGATIVE); Clarity Urine CLEAR (CLEAR); Color Urine LT. YELLOW (YELLOW); Glucose Urine UA NEGATIVE (NEGATIVE); Ketones Urine NEGATIVE (NEGATIVE); Leukocyte Esterase Urine NEGATIVE (NEGATIVE); Nitrite Urine NEGATIVE (NEGATIVE); Protein Urine 100 mg/dL (NEG/TRACE); Specific Gravity Urine >=1.030 (1.005-1.025); Urobilinogen Urine 0.2 EU/dL (0.2-1.0); pH Urine 5.5 (5.0-9.0)
[2024-05-18 21:36] LABS: Urine Microscopic Indicated YES
[2024-05-18] MEDS: CEFTRIAXONE 2,000 MG in 0.9 % SODIUM CHLORIDE 100 ML 200 MG IV (21:38)
--- NOTE | 2024-05-18 21:41 | CT_ITS ---
[address] [address] Patient Name: SARAH ALVAREZ MRN: [id number] date: 1985 Sex: F Assigned Patient Location: ER Current Patient Location: .MAIN Accession/Order Number: [id number] Exam Date: 05/18/2024 22:08 Report Date: 05/18/2024 22:55 At the request of: REGLA DIAS Procedure: CT abdomen pelvis wo con EXAM: CT abdomen pelvis wo con HISTORY: Fever COMPARISON: 10/20/2021, 05/22/2022 TECHNIQUE: CT of abdomen and pelvis without intravenous contrast. Dose reduction techniques were achieved by using automated exposure control and/or adjustment of mA and/or kV according to patient size and/or use of iterative reconstruction technique. FINDINGS: Limited evaluation of the viscera/organs and vasculature without intravenous contrast. TUBES AND IMPLANTS: None. LOWER CHEST: Small hiatal hernia. Borderline enlarged heart. ABDOMEN and PELVIS ABDOMINAL WALL AND SOFT TISSUES: Unremarkable. BONES: No suspicious lesions. Multilevel degenerative changes of the spine. ARTERIES: Incompletely evaluated. Mild aortoiliac atherosclerosis without aneurysm VEINS: Incompletely evaluated. LYMPH NODES: Unremarkable. PERITONEUM/ RETROPERITONEUM: Unremarkable. BOWEL: No obstruction. Moderate diverticulosis APPENDIX: Unremarkable LIVER: No suspicious lesions GALLBLADDER: Surgically absent BILE DUCTS: Not dilated SPLEEN: Unremarkable. PANCREAS: Unremarkable. ADRENALS: Unremarkable. KIDNEYS/ URETERS: No right stones or hydronephrosis. Punctate nonobstructing left renal calculus REPRODUCTIVE ORGANS: The uterus appears to be retroflexed. There is a tubular structure in the right adnexa.Left ovarian cyst measuring 2.9, likely physiologic. URINARY BLADDER: Unremarkable. CT/CT abdomen pelvis wo con IMPRESSION: 1. Punctate nonobstructing left renal calculus. 2. Suggestion of a tubular structure in the right adnexa measuring approximately 2.1 centimeters in caliber. This may represent hydrosalpinx or pyosalpinx. Pelvic ultrasound for further evaluation as warranted. 3. Moderate diverticulosis. 4. Small hiatal hernia. Electronically authenticated by: NEAL SERNA Date: 05/18/2024 22:55
[2024-05-18 21:49] LABS: Bacteria Urine TRACE #/HPF (NONE SEEN); Mucus Urine TRACE (NONE SEEN); Squamous Epithelial Cell Urine FEW #/LPF (NONE/RARE)
[2024-05-18 21:50] LABS: Cast Seen? NONE SEEN #/LPF (NONE SEEN); Crystals Seen? None Seen #/HPF (None Seen); Urine Culture Indicated NO
[2024-05-18 22:01] LABS: HCG Qualitative Urine* NEGATIVE (NEGATIVE); Internal Control Within Normal Limits
[2024-05-18 22:26] VITALS: BP 97/46; PULSE 58; O2SAT 97
[2024-05-18 23:48] LABS: Lactate/Lactic Acid 2.2 mmol/L (0.4-2.0)
[2024-05-18 23:58] VITALS: BP 95/58; PULSE 49; TEMP 36.9; O2SAT 96
--- OUTSIDE RECORDS SUMMARY | 2024-05-19 00:34 | XMS_ITS | CCD ---
Author Organization [facility] Care Team Providers Care [employer]er Name Role Phone LUIS ANGEL, DR JOHNSON [...] Unavailable ANGELICA, DR BO Primary Care Unavailable EDNA, DR SOUMYA Galan Consulting Unavailable LUIS ANGEL, [...] PLASENCIA Attending Unavailable KARSON ACUNA Attending Unavailable DO Danyell Banks Emergency Provider [phone] NON STAFF Primary Care Provider UnavailDO Robbin Wilks Admit Provider [phone] DO Robbin Love Attending Provider [phone] SHIVA Cheng [place] Primary Care Provider [phone] PHILLIP SALEH Attending Unavailable PHILLIP SALEH Referring Unavailable [facility] Primary Care Unavailable Unavailable Primary Care Provider [facility] [phone] Robbin Love Attending Unavailable Robbin Love Admitting Unavailable [facility] Unavailable Allergies Allergy Classification Reported Allergen(s) Allergy Type Date of Onset Reaction(s) Facility (1 source) Azithromycin Drug Allergy 07-22-2013 [facility] Repository (10 sources) Azithromycin; Translations: [AZITHROMYCIN] Drug Allergy 01-31-2013 [facility] Work Phone: (1 source) Azithromycin Drug Allergy 05-09-2024 [facility] Repository Medications Current Medications Medication Drug Class(es) [...] Documented Date Episodic/Chronic Cardiac dysrhythmias (13 sources) Atrial fibrillation; Translations: [Unspecified atrial fibrillation] Onset: 05-09-2024 05-09-2024 Chronic Contraceptive and [...] Test Name Value Interpretation Reference Range Facility [facility] echo transthoracicon [facility] echo transthoracic [facility] [place] [address] Echocardiogram Signed Patient: Sarah Pennington MR#: [id number] : 1985 Acct:[id number] Age/Sex: 38 / F ADM Date: 05/09/24 Loc: Room: [address] [place] [address] Type: DIS INOo Attending Dr: Robbin Love DO Ordering Provider: Robbin Love DO Date of Service: 05/09/2402/23/2013 [facility] echo transthoracic: afib Copies to: MD Robbin [...] V1 VTI: 30.2 cm + + + --------+ + : Electronically : : : : signed by: Daniel : : : : Obie : : : : on: 05/10/2024, : : 6:17 PM : Transcribed By: LOBO Performed At: 05/10/24 1155 Signed By: Daniel Ragland MD 05/10/24 1817 Normal [facility] Alanine aminotransferase [En zymatic activity/volume] in Serum or PlasmaOrdered By: Danyell Banks on 05-09-2024 ALT [Catalytic activity/Vol] 13 U/L Normal 7-52 [facility] Comment on above: Performed By: #### C BC, HS TROP, BNP, TSH3, MG, CMP, PHOS, HCGQUAL #### [facility] [address] [place] [address] Albumin [Mass/volume] in Ser um or Plasma by Bromocresol green (BCG) dye binding methoOrdered By: Danyell Banks on 05-09-2024 Albumin BCG dye [Mass/Vol] 3.9 g/dL 3.5-5.7 [facility] Alkaline phosphatase [Enzyma tic activity/volume] in Serum or PlasmaOrdered By: Danyell Banks on 05-09-2024 ALP [Catalytic activity/Vol] 66 U/L Normal 34-104 [facility] Comment on above: Performed By: #### C BC, HS TROP, BNP, TSH3, MG, CMP, PHOS, HCGQUAL #### [facility] [address] [place] [address] Aspartate aminotransferase [ Enzymatic activity/volume] in Serum or PlasmaOrdered By: Danyell Banks on 05-09-2024 AST [Catalytic activity/Vol] 12 U/L Low 13-39 [facility] Comment on above: Performed By: #### C BC, HS TROP, BNP, TSH3, MG, CMP, PHOS, HCGQUAL #### [address] Automated basophil %Ordered By: Danyell Banks on 05-09-2024 Basophils/100 WBC (Bld) 0.9 % Normal . [facility] Comment on above: Performed By: #### C BC, HS TROP, BNP, TSH3, MG, CMP, PHOS, HCGQUAL #### [facility] [address] [place] [address] Automated basophil countOrde red By: Danyell Banks on 05-09-2024 Basophils (Bld) [#/Vol] 0.1 10*3/uL Normal 0.0-0.2 [facility] Comment on above: Result Comment: PERF ORMED BY: [place] [id number] PATHOLOGIST [employer] MILL WORKER JEANETH CERNA M.D. Performed By: #### C BC, HS TROP, BNP, TSH3, MG, CMP, PHOS, HCGQUAL #### [address] Automated blood monocyte cou ntOrdered By: Danyell Banks on 05-09-2024 Monocytes (Bld) [#/Vol] 0.6 10*3/uL Normal 0.0-0.8 [facility] Comment on above: Performed By: #### C BC, HS TROP, BNP, TSH3, MG, CMP, PHOS, HCGQUAL #### [address] Automated eosinophil %Ordere d By: Danyell Banks on 05-09-2024 Eosinophils/100 WBC (Bld) 2.7 % Normal . [facility] Comment on above: Performed By: #### C BC, HS TROP, BNP, TSH3, MG, CMP, PHOS, HCGQUAL #### [address] Automated eosinophil countOr dered By: Danyell Banks on 05-09-2024 Eosinophils (Bld) [#/Vol] 0.2 10*3/uL Normal 0.0-0.45 [facility] Comment on above: Performed By: #### C BC, HS TROP, BNP, TSH3, MG, CMP, PHOS, HCGQUAL #### [address] Automated monocyte %Ordered By: Danyell Banks on 05-09-2024 Monocytes/100 WBC (Bld) 6.3 % Normal . [facility] Comment on above: Performed By: #### C BC, HS TROP, BNP, TSH3, MG, CMP, PHOS, HCGQUAL #### [address] Automated neutrophil %Ordere d By: Danyell Banks on 05-09-2024 Neutrophils/100 WBC (Bld) 59.0 % Normal . [facility] Comment on above: Performed By: #### C BC, HS TROP, BNP, TSH3, MG, CMP, PHOS, HCGQUAL #### [facility] [address] [place] [address] BNP ser/plasOrdered By: Cuco Banks on 05-09-2024 Natriuretic peptide B (Bld) [Mass/Vol] 63.0 pg/mL Normal 5-100 [facility] Comment on above: Result Comment: PERF ORMED BY: [place] [id number] PATHOLOGIST [employer] MILL WORKER JEANETH CERNA M.D. Performed By: #### C BC, HS TROP, BNP, TSH3, MG, CMP, PHOS, HCGQUAL #### [address] Bacteria [Presence] in Urine by AutomatedOrdered By: Danyell Banks on 05-09-2024 Bacteria Auto Ql (U) Rare [HPF] None Seen [facility] Bilirubin Test strip Ql (U)O rdered By: Danyell Banks on 05-09-2024 Bilirubin Ql (U) Negative Negative [facility] Bilirubin.total [Mass/volume ] in Serum or PlasmaOrdered By: Danyell Banks on 05-09-2024 Bilirubin [Mass/Vol] 0.4 mg/dL Normal 0.3-1.0 [facility] Comment on above: Performed By: #### C BC, HS TROP, BNP, TSH3, MG, CMP, PHOS, HCGQUAL #### [facility] [address] [place] [address] Calcium [Mass/volume] in Ser um or PlasmaOrdered By: Danyell Banks on 05-09-2024 Calcium [Mass/Vol] 8.6 mg/dL Normal 8.6-10.3 [facility] Comment on above: Performed By: #### C BC, HS TROP, BNP, TSH3, MG, CMP, PHOS, HCGQUAL #### [address] Carbon dioxide, total [Moles /volume] in Serum or PlasmaOrdered By: Danyell Banks on 05-09-2024 CO2 [Moles/Vol] 24.7 mmol/L Normal 21.0-31.0 [facility] Comment on above: Performed By: #### C BC, HS TROP, BNP, TSH3, MG, CMP, PHOS, HCGQUAL #### [facility] [address] Chloride [Moles/volume] in S ranulfo or PlasmaOrdered By: Danyell Banks on 05-09-2024 Chloride [Moles/Vol] 108 mmol/L High 98-107 [facility] Comment on above: Performed By: #### C BC, HS TROP, BNP, TSH3, MG, CMP, PHOS, HCGQUAL #### [address] Choriogonadotropin.beta subu nit [Units/volume] in Serum or PlasmaOrdered By: Danyell Banks on 05-09-2024 HCG.beta subunit Qn Negative [facility] Color of Urine by AutoOrdere d By: Danyell Banks on 05-09-2024 Color (U) Colorless Normal Yellow [facility] Comment on above: Order Comment: Name Collection Type:: Clean-Voided Midstream Performed By: #### A DDONUAPLUS #### [address] Complete Blood Count Auto Di ffon 05-09-2024 Mean Corpuscular HGB Conc 33.5 g/dL Normal 32.0-35.0 [facility] Comment on above: Performed By: #### C BC, HS TROP, BNP, TSH3, MG, CMP, PHOS, HCGQUAL #### [place] [address] [place] Monocytes/100 WBC (Bld) 19.70 % Normal 0.00-20.00 [facility] Comment on above: Performed By: #### C BC, HS TROP, BNP, TSH3, MG, CMP, PHOS, HCGQUAL #### [address] NRBC% 0.1 /100{WBC} Normal 0-0.5 [facility] Comment on above: Performed By: #### C BC, HS TROP, BNP, TSH3, MG, CMP, PHOS, HCGQUAL #### [facility] [address] Comprehensive Metabolic Pane brady 05-09-2024 Albumin [Mass/Vol] 3.9 g/dL Normal 3.5-5.7 [facility] Comment on above: Performed By: #### C BC, HS TROP, BNP, TSH3, MG, CMP, PHOS, HCGQUAL #### [facility] [address] Creatinine Clr Calc Pharmacy 145.19 Normal [facility] Comment on above: Performed By: #### C BC, HS TROP, BNP, TSH3, MG, CMP, PHOS, HCGQUAL #### [address] GFR/1.73 sq M.predicted MDRD (S/P/Bld) [Vol rate/Area] mL/min/{1.73_m2} Normal [facility] Comment on above: Performed By: #### C BC, HS TROP, BNP, TSH3, MG, CMP, PHOS, HCGQUAL #### [address] Creatinine [Mass/volume] in Serum or PlasmaOrdered By: Danyell Banks on 05-09-2024 Creatinine [Mass/Vol] 0.66 mg/dL Normal 0.60-1.20 [facility] Comment on above: Performed By: #### C BC, HS TROP, BNP, TSH3, MG, CMP, PHOS, HCGQUAL #### [facility] [address] [place] [address] [place] Dipstick and Microscopicon 1 Bacteria,Urine Rare Normal None Seen [facility] Comment on above: Order Comment: Name Collection Type:: Clean-Voided Midstream Performed By: #### A DDONUAPLUS #### [address] Bilirubin,Urine Negative Normal Negative [facility] Comment on above: Order Comment: Name Collection Type:: Clean-Voided Midstream Performed By: #### A DDONUAPLUS #### [address] Glucose Ql (U) Normal Normal Normal [facility] Comment on above: Order Comment: Name Collection Type:: Clean-Voided Midstream Performed By: #### A DDONUAPLUS #### [place] [address] [place] Hyaline Casts,Urine None Normal 0-8 [facility] Comment on above: Order Comment: Name Collection Type:: Clean-Voided Midstream Result Comment: PERF ORMED BY: [place] [id number] PATHOLOGIST [employer] MILL WORKER JEANETH CERNA M.D. Performed By: #### A DDONUAPLUS #### [address] Nitrite,Urine Negative Normal Negative [facility] Comment on above: Order Comment: Name Collection Type:: Clean-Voided Midstream Performed By: #### A DDONUAPLUS #### [address] Occult Blood,Urine 1+ High Negative [facility] Comment on above: Order Comment: Name Collection Type:: Clean-Voided Midstream Result Comment: PERF ORMED BY: [place] [id number] PATHOLOGIST [employer] M[employer] WORKER JEANETH CERNA M.D. Performed By: #### A DDONUAPLUS #### [place] [address] [place] Protein,Urine Negative Normal Negative [facility] Comment on above: Order Comment: Name Collection Type:: Clean-Voided Midstream Performed By: #### A DDONUAPLUS #### [place] [address] [place] RBC,Urine 3-4 Normal 0-4 [facility] Comment on above: Order Comment: Name Collection Type:: Clean-Voided Midstream Performed By: #### A DDONUAPLUS #### [address] Specificy [place]set,Urine 1.006 Normal 1.001-1.030 [facility] Comment on above: Order Comment: Name Collection Type:: Clean-Voided Midstream Performed By: #### A DDONUAPLUS #### [address] Squamous Epithelial Cell,Urine 1-2 Normal 0-2 [facility] Comment on above: Order Comment: Name Collection Type:: Clean-Voided Midstream Performed By: #### A DDONUAPLUS #### [address] Urobilinogen,Urine Normal Normal Normal [facility] Comment on above: Order Comment: Name Collection Type:: Clean-Voided Midstream Performed By: #### A DDONUAPLUS #### [address] WBC,Urine 1-2 Normal 0-4 [facility] Comment on above: Order Comment: Name Collection Type:: Clean-Voided Midstream Performed By: #### A DDONUAPLUS #### [address] ECG 12 lead ECGon 05-09-2024 ECG 12 lead ECG [facility] Main [place] [address] [place] [address] Electrocardiograph Report Signed Patient: Sarah Pennington MR#: [id number] : 1985 Acct:[id number] Age/Sex: 38 / F ADM Date: 05/09/24 Loc: Room: [address] [place] [address] Type: ADM INOo Attending Dr: Robbin Love DO Ordering Provider: Danyell Banks DO Date of Service: 05/09/2402/23/1100 ECG/ECG 12 lead ECG: Arrhythmia/Palpitat ions Copies to: Test Reason : Blood Pressure : */* mmHG Vent. Rate : 52 BPM Atrial Rate : 52 BPM P-R Int : 166 ms QRS Dur : 88 ms QT Int : 452 ms P-R-T Axes : 61 38 30 degrees QTcB Int : 420 ms Sinus bradycardia Confirmed by Mark Madrigal DO ([id number]) on 05/09/2024 8:25:51 PM Referred By: Electronically Signed By: Mark Madrigal DO Transcribed By: YO Signed By Mark Madrigal DO 2024 Normal [facility] ECG 12 lead ECG [facility] [place] [address] Electrocardiograph Report Signed Patient: Sarah Pennington MR#: [id number] : 1985 Acct:[id number] Age/Sex: 38 / F ADM Date: 05/09/24 Loc: Room: [address] [place] [address] Type: ADM INOo Attending Dr: Robbin Love DO Ordering Provider: Danyell Banks DO Date of Service: 05/09/2402/23/850 ECG/ECG 12 lead ECG: Arrhythmia/Palpitat ions Copies to: Test Reason : Blood Pressure [...] wave abnormality Confirmed by Mark Madrigal DO ([id number]) on 05/09/2024 8:26:05 PM Referred By: Electronically Signed By: Mark Madrigal DO Transcribed By: MUS Signed By Mark Madrigal DO 2025 Normal [facility] Epithelial cells.squamous [# /area] in Urine sediment by Automated countOrdered By: Danyell Banks on 05-09-2024 Epithelial cells.squamous Auto (Urine sed) [#/Area] 1-2 [HPF] 0-2 [facility] Erythrocyte distribution wid th [Ratio] by Automated countOrdered By: Danyell Banks on 05-09-2024 Erythrocyte distribution width (RBC) [Ratio] 14.6 % Normal 11.9-15.3 [facility] Comment on above: Performed By: #### C BC, HS TROP, BNP, TSH3, MG, CMP, PHOS, HCGQUAL #### [facility] [address] [place] [id number] [place] Erythrocytes [#/area] in Uri ne sediment by Automated countOrdered By: Danyell Banks on 05-09-2024 RBC Auto (Urine sed) [#/Area] 3-4 [HPF] 0-4 [facility] Erythrocytes [#/volume] in B lood by Automated countOrdered By: Danyell Banks on 05-09-2024 RBC (Bld) [#/Vol] 4.47 10*6/uL Normal 3.60-5.00 [facility] Comment on above: Performed By: #### C BC, HS TROP, BNP, TSH3, MG, CMP, PHOS, HCGQUAL #### [facility] [address] [place] [id number] [facility] Glucose [Mass/volume] in Ser um or PlasmaOrdered By: Danyell Banks on 05-09-2024 Glucose [Mass/Vol] 102 mg/dL High 70-100 [facility] Comment on above: ADA recommended refe rence rangeRandom Glucose Reference Range is dependent on time and content of last meal. Glucose of more than 200 mg/dL in a nonstressed, ambulatory subject supports the diagnosis of Diabetes Mellitus. Result Comment: Bode om Glucose Reference Range is dependent on time and content of last meal. Glucose of more than 200 mg/dL in a nonstressed, ambulatory subject supports the diagnosis of Diabetes Mellitus. ADA recommended reference range Performed By: #### C BC, HS TROP, BNP, TSH3, MG, CMP, PHOS, HCGQUAL #### [facility] [address] [place] [id number] [place] Glucose [Mass/volume] in Uri ne by Test stripOrdered By: Danyell Banks on 05-09-2024 Glucose Test strip (U) [Mass/Vol] Normal mg/dL Normal [facility] HCG,Qualitative Serumon HCG,Qualitative Serum Negative Normal [facility] Comment on above: Result Comment: PERF ORMED BY: [place] [id number] PATHOLOGIST [employer] MILL WORKER JEANETH CERNA M.D. Performed By: #### C BC, HS TROP, BNP, TSH3, MG, CMP, PHOS, HCGQUAL #### [facility] [address] [place] [address] [place] Hematocrit [Volume Fraction] of Blood by Automated countOrdered By: Danyell Banks on 05-09-2024 Hematocrit (Bld) [Volume fraction] 38.2 % Normal 34.0-46.4 [facility] Comment on above: Performed By: #### C BC, HS TROP, BNP, TSH3, MG, CMP, PHOS, HCGQUAL #### [address] Hemoglobin Test strip Ql (U) Ordered By: Danyell Banks on 05-09-2024 Hemoglobin Ql (U) 1+ High Negative [facility] Hemoglobin [Mass/volume] in BloodOrdered By: Danyell Banks on 05-09-2024 Hemoglobin (Bld) [Mass/Vol] 12.8 g/dL Normal 11.8-15.4 [facility] Comment on above: Performed By: #### C BC, HS TROP, BNP, TSH3, MG, CMP, PHOS, HCGQUAL #### [place] [address] [place] Hyaline casts [#/area] in Ur ine sediment by Automated countOrdered By: Danyell Banks on 05-09-2024 Hyaline casts Auto (Urine sed) [#/Area] None [LPF] 0-8 [facility] Ketones [Presence] in Urine by Test stripOrdered By: Danyell Banks on 05-09-2024 Ketones Ql (U) Negative Normal Negative [facility] Comment on above: Order Comment: Name Collection Type:: Clean-Voided Midstream Performed By: #### A DDONUAPLUS #### [address] Leukocyte esterase [Presence ] in Urine by Test stripOrdered By: Danyell Banks on 05-09-2024 Leukocyte esterase Test strip Ql (U) Negative Normal Negative [facility] Comment on above: Order Comment: Name Collection Type:: Clean-Voided Midstream Performed By: #### A DDONUAPLUS #### [place] [address] [place] Leukocytes [#/area] in Urine sediment by Automated countOrdered By: Danyell Banks on 05-09-2024 WBC Auto (Urine sed) [#/Area] 1-2 [HPF] 0-4 [facility] Leukocytes [#/volume] correc tania for nucleated erythrocytes in Blood by Automated counOrdered By: Danyell Banks on 05-09-2024 WBC corrected for nucl RBC Auto (Bld) [#/Vol] 9.1 10*3/uL 3.8-11.6 [facility] Leukocytes [#/volume] in Blo od by Automated countOrdered By: Danyell Banks on 05-09-2024 WBC (Bld) [#/Vol] 9.1 10*3/uL Normal 3.8-11.6 [facility] Comment on above: Performed By: #### C BC, HS TROP, BNP, TSH3, MG, CMP, PHOS, HCGQUAL #### [place] [address] [place] Lymphocytes [#/volume] in Bl ood by Automated countOrdered By: Danyell Banks on 05-09-2024 Lymphocytes (Bld) [#/Vol] 2.8 10*3/uL Normal 1.00-4.8 [facility] Comment on above: Performed By: #### C BC, HS TROP, BNP, TSH3, MG, CMP, PHOS, HCGQUAL #### [place] [address] [place] Lymphocytes/100 leukocytes i n Blood by Automated countOrdered By: Danyell Banks on 05-09-2024 Lymphocytes/100 WBC (Bld) 31.1 % Normal . [facility] Comment on above: Performed By: #### C BC, HS TROP, BNP, TSH3, MG, CMP, PHOS, HCGQUAL #### [place] [address] [place] MCH [Entitic mass] by Automa tania countOrdered By: Danyell Banks on 05-09-2024 MCH (RBC) [Entitic mass] 28.6 pg Normal 24.7-34.3 [facility] Comment on above: Performed By: #### C BC, HS TROP, BNP, TSH3, MG, CMP, PHOS, HCGQUAL #### [facility] [address] MCHC Auto (RBC) [Mass/Vol]Or dered By: Danyell Banks on 05-09-2024 MCHC (RBC) [Mass/Vol] 33.5 g/dL 32.0-35.0 [facility] MCV [Entitic volume] by Auto mated countOrdered By: Danyell Banks on 05-09-2024 MCV (RBC) [Entitic vol] 85.4 fL Normal 80-[address] [facility] Comment on above: Performed By: #### C BC, HS TROP, BNP, TSH3, MG, CMP, PHOS, HCGQUAL #### [address] Magnesium [Mass/volume] in S ranulfo or PlasmaOrdered By: Danyell Banks on 05-09-2024 Magnesium [Mass/Vol] 1.8 mg/dL Low 1.9-2.7 [facility] Comment on above: Performed By: #### C BC, HS TROP, BNP, TSH3, MG, CMP, PHOS, HCGQUAL #### [address] Monocyte distribution width [Entitic volume] in Blood by AutomatedOrdered By: Danyell Banks on 05-09-2024 Monocyte distribution width Auto (Bld) [Entitic vol] 19.70 % 0.00-20.00 [facility] Neutrophils [#/volume] in Bl ood by Automated countOrdered By: Danyell Banks on 05-09-2024 Neutrophils (Bld) [#/Vol] 5.4 10*3/uL Normal 1.8-7.7 [facility] Comment on above: Performed By: #### C BC, HS TROP, BNP, TSH3, MG, CMP, PHOS, HCGQUAL #### [facility] [address] Nitrite Test strip Ql (U)Ord ered By: Danyell Banks on 05-09-2024 Nitrite Ql (U) Negative Negative [facility] No Panel InformationOrdered By: Danyell Banks on 05-09-2024 Estimated GFR (CKD-EPI) > 60.0 mL/Min [facility] Creatinine Clearance (Chem 145.19 [facility] Nucleated erythrocytes [Pres ence] in Blood by Automated countOrdered By: Danyell Banks on 05-09-2024 Nucleated RBC Auto Ql (Bld) 0.1 /100{WBC} 0-0.5 [facility] Phosphate [Mass/volume] in S ranulfo or PlasmaOrdered By: Danyell Banks on 05-09-2024 Phosphate [Mass/Vol] 2.7 mg/dL Normal 2.5-4.5 [facility] Comment on above: Performed By: #### C BC, HS TROP, BNP, TSH3, MG, CMP, PHOS, HCGQUAL #### [facility] [address] [place] [address] [place] Platelet mean volume [Entiti c volume] in Blood by Automated countOrdered By: Danyell Banks on 05-09-2024 Platelet mean volume (Bld) [Entitic vol] 9.2 fL Normal 6.3-10.7 [facility] Comment on above: Performed By: #### C BC, HS TROP, BNP, TSH3, MG, CMP, PHOS, HCGQUAL #### [facility] [address] [place] [address] [place] Platelets [#/volume] in Bloo d by Automated countOrdered By: Danyell Banks on 05-09-2024 Platelets (Bld) [#/Vol] 344 10*3/uL Normal 150-450 [facility] Comment on above: Performed By: #### C BC, HS TROP, BNP, TSH3, MG, CMP, PHOS, HCGQUAL #### [facility] [address] [place] [address] [place] Potassium [Moles/volume] in Serum or PlasmaOrdered By: Danyell Banks on 05-09-2024 Potassium [Moles/Vol] 3.9 mmol/L Normal 3.5-5.1 [facility] Comment on above: Performed By: #### C BC, HS TROP, BNP, TSH3, MG, CMP, PHOS, HCGQUAL #### [address] Protein Test strip (U) [Mass /Vol]Ordered By: Danyell Banks on 05-09-2024 Protein (U) [Mass/Vol] Negative Negative [facility] Protein [Mass/volume] in Ser um or PlasmaOrdered By: Danyell Banks on 05-09-2024 Protein [Mass/Vol] 7.3 g/dL Normal 6.4-8.9 [facility] Comment on above: Performed By: #### C BC, HS TROP, BNP, TSH3, MG, CMP, PHOS, HCGQUAL #### [address] Serum globulin measurement b y calculation (mass/volume)Ordered By: Danyell Banks on 05-09-2024 Globulin (S) [Mass/Vol] 3.4 g/dL Normal [facility] Comment on above: Performed By: #### C BC, HS TROP, BNP, TSH3, MG, CMP, PHOS, HCGQUAL #### [address] Serum or plasma albumin/glob ulin mass ratioOrdered By: Danyell Banks on 05-09-2024 Albumin/Globulin [Mass ratio] 1.1 {ratio} Normal [facility] Comment on above: Performed By: #### C BC, HS TROP, BNP, TSH3, MG, CMP, PHOS, HCGQUAL #### [address] Serum or plasma anion gap de terminationOrdered By: Danyell Banks on 05-09-2024 Anion gap [Moles/Vol] 11.2 mmol/L Normal 6.0-15.0 [facility] Comment on above: Performed By: #### C BC, HS TROP, BNP, TSH3, MG, CMP, PHOS, HCGQUAL #### [facility] [facility] [address] Sodium [Moles/volume] in Ser um or PlasmaOrdered By: Danyell Banks on 05-09-2024 Sodium [Moles/Vol] 140 mmol/L Normal 136-145 [facility] Comment on above: Performed By: #### C BC, HS TROP, BNP, TSH3, MG, CMP, PHOS, HCGQUAL #### [facility] [address] Specific gravity Test strip (U) [Rel density]Ordered By: Danyell Banks on 05-09-2024 Specific gravity (U) [Rel density] 1.006 1.001-1.030 [facility] Thyrotropin [Units/volume] i n Serum or PlasmaOrdered By: Danyell Banks on 05-09-2024 TSH Qn 2.96 m[IU]/L Normal 0.45-5.33 [facility] Comment on above: Performed By: #### C BC, HS TROP, BNP, TSH3, MG, CMP, PHOS, HCGQUAL #### [address] Troponin I High Sensitivityo n 05-09-2024 Troponin I High Sensitivity 5.7 pg/mL Normal 0.0-15.0 [facility] Comment on above: Result Comment: PERF ORMED BY: [place] [id number] PATHOLOGIST [employer] JEANETH CERNA M.D. Performed By: #### C BC, HS TROP, BNP, TSH3, MG, CMP, PHOS, HCGQUAL #### [address] Troponin I.cardiac [Mass/vol ume] in Serum or Plasma by Detection limit <= 0.01 ng/Ordered By: Danyell Banks on 05-09-2024 Troponin I.cardiac DL <= 0.01 ng/mL [Mass/Vol] 5.7 pg/mL 0.0-15.0 [facility] Urea nitrogen [Mass/volume] in Serum or PlasmaOrdered By: Danyell Banks on 05-09-2024 Urea nitrogen [Mass/Vol] 9 mg/dL Normal 7-25 [facility] Comment on above: Performed By: #### C BC, HS TROP, BNP, TSH3, MG, CMP, PHOS, HCGQUAL #### [facility] [address] Urine appearanceOrdered By: Danyell Banks on 05-09-2024 Appearance (U) Clear Normal Clear [facility] Comment on above: Order Comment: Name Collection Type:: Clean-Voided Midstream Performed By: #### A DDONUAPLUS #### [facility] [address] [place] [address] Urobilinogen Test strip (U) [Mass/Vol]Ordered By: Danyell Banks on 05-09-2024 Urobilinogen (U) [Mass/Vol] Normal mg/dL Normal [facility] XR chest 1V portableon 05-09 XR chest 1V portable [facility] [place] [address] [place] [address] XRay Report Signed Patient: Sarah Pennington MR#: [id number] : 1985 Acct:[id number] Age/Sex: 38 / F ADM Date: 05/09/24 Loc: ER Room: Type: [facility] ER Attending Dr: Copies to: Danyell Banks DO Ordering Provider: Danyell Banks DO Date of Service: 05/09/24 XR/XR chest 1V portable: Arrhythmia/Palpitat ions Plain film chest Single view HISTORY: Chest [...] Artie Duke M.D.05/09/2024 10:31 AM Dictation Location: [place] [address] Transcribed By: KAYLYN 05/09/24 1031 Dictated By: Artie Duke DO 05/09/24 1031 Signed By: 05/09/24 1031 Normal [facility] pH of Urine by Test stripOrd ered By: Danyell Banks on 05-09-2024 pH (U) 6.5 [pH] Normal 5.0-9.0 [facility] Comment on above: Order Comment: Name Collection Type:: Clean-Voided Midstream Performed By: #### A DDONUAPLUS #### [facility] [address] ALL CBC WITH AUTO DIFFon BASOPHILS ABSOLUTE AUTO 0.1 N [facility] Basophils/100 WBC (Bld) 0.8 % 0.2 - 2.0 % [facility] Eosinophils/100 WBC (Bld) 3.3 % 0.9 - 7.0 % [facility] Erythrocyte distribution width (RBC) [Ratio] 13.9 % 11.0 - 15.0 % [facility] Hematocrit (Bld) [Volume fraction] 37.9 % 36.0 - 48.0 % [facility] Hemoglobin (Bld) [Mass/Vol] 12.1 g/dL 12.0 - 16.0 g/dL [facility] IMMATURE GRANULOCYTES ABS AUTO 0.02 [facility] Immature granulocytes/100 WBC (Bld) 0.2 % 0.0 - 0.5 % [facility] LYMPHOCYTES ABSOLUTE AUTO 2.7 [facility] Lymphocytes/100 WBC (Bld) 27.3 % 20.5 - 60.0 % [facility] MCH (RBC) [Entitic mass] 28.1 pg 26. 7 - 34.0 pg [facility] MCHC (RBC) [Mass/Vol] 31.9 g/dL 29.9 - 35.2 g/dL [facility] MCV (RBC) [Entitic vol] 88.1 fL 81.0 - 99.0 fL [facility] MONOCYTES ABSOLUTE AUTO 0.6 [facility] Monocytes/100 WBC (Bld) 6.2 % 1.7 - 12.0 % [facility] NEUTROPHILS ABSOLUTE AUTO 6.1 [facility] Neutrophils/100 WBC (Bld) 62.2 % 43.0 - 75.0 % [facility] Platelet mean volume (Bld) [Entitic vol] 11.3 fL 9.5 - 13.5 fL [facility] TBH EO # 0.3 [facility] PLT 325 [facility] TB RBC 4.30 [facility] WBC 9.8 [facility] BUNon 07-15-2022 Urea nitrogen [Mass/Vol] 10.0 mg/dL Normal 7.0-18.0 [facility] Comment on above: Performed By: #### U RCX #### [facility] [address] [place] [address] Dr. Julien Eric CBC AUTO DIFFon 07-15-2022 BASO # 0.1 103/ul Normal 0.0-0.1 [facility] Comment on above: Performed By: #### H CVPCRR #### [facility] [address] [place] [address] Dr. Julien Eric Basophils/100 WBC (Bld) 0.4 % Normal 0.2-2.0 [facility] Comment on above: Performed By: #### H CVPCRR #### [facility] [address] [place] [address] Dr. Julien Eric EO # 0.2 103/ul Normal 0.0-0.7 [facility] Comment on above: Performed By: #### H CVPCRR #### [facility] [address] [place] [address] Dr. Julien Eric Eosinophils/100 WBC (Bld) 1.6 % Normal 0.9-7.0 [facility] Comment on above: Performed By: #### H CVPCRR #### [facility] [address] [place] [address] Dr. Julien Eric Erythrocyte distribution width (RBC) [Ratio] 15.3 % Critically high 11.0-15.0 [facility] Comment on above: Performed By: #### H CVPCRR #### [facility] [address] [place] [address] Dr. Julien Eric Hematocrit (Bld) [Volume fraction] 27.2 % Critically low 36.0-48.0 [facility] Comment on above: Performed By: #### H CVPCRR #### [facility] [address] [place] [address] Dr. Julien rEic Hemoglobin (Bld) [Mass/Vol] 8.8 g/dL Critically low 12.0-16.0 [facility] Comment on above: Performed By: #### H CVPCRR #### [facility] [address] [place] [address] Dr. Julien Eric IG # 0.07 10e3/ul Critically high 0.00-0.03 [facility] Comment on above: Performed By: #### H CVPCRR #### [facility] [address] [place] [address] Dr. Julien Eric IG % 0.6 % Critically high 0.0-0.5 [facility] Comment on above: Performed By: #### H CVPCRR #### [facility] [address] [place] [address] Dr. Julien Eric LYMPH # 2.0 103/ul Normal 1.2-3.8 [facility] Comment on above: Performed By: #### H CVPCRR #### [facility] [address] [place] [address] Dr. Julien Eric Lymphocytes/100 WBC (Bld) 17.3 % Critically low 20.5-60.0 [facility] Comment on above: Performed By: #### H CVPCRR #### [facility] [address] [place] [address] Dr. Julien Eric MANUAL DIFF REQ NO Normal [facility] Comment on above: Performed By: #### H CVPCRR #### [facility] [address] [place] [address] Dr. Julien Eric MCH (RBC) [Entitic mass] 29.9 pg Normal 26.7-34.0 [facility] Comment on above: Performed By: #### H CVPCRR #### [facility] [address] [place] [address] Dr. Julien Eric MCHC (RBC) [Mass/Vol] 32.4 g/dL Normal 29.9-35.2 [facility] Comment on above: Performed By: #### H CVPCRR #### [facility] [address] [place] [address] Dr. Julien Eric MCV (RBC) [Entitic vol] 92.5 fL Normal 81.0-99.0 [facility] Comment on above: Performed By: #### H CVPCRR #### [facility] [address] [place] [address] Dr. Julien Eric MONO # 0.7 103/ul Normal 0.3-0.8 [facility] Comment on above: Performed By: #### H CVPCRR #### [facility] [address] [place] [address] Dr. Julien Eric Monocytes/100 WBC (Bld) 5.8 % Normal 1.7-12.0 [facility] Comment on above: Performed By: #### H CVPCRR #### [facility] [address] [place] [address] Dr. Julien Eric NEUT # 8.4 103/ul Critically high 1.4-6.5 [facility] Comment on above: Performed By: #### H CVPCRR #### [facility] [address] [place] [address] Dr. Julien Eric Neutrophils/100 WBC (Bld) 74.3 % Normal 43.0-75.0 [facility] Comment on above: Performed By: #### H CVPCRR #### [facility] [address] [place] [address] Dr. Julien Eric Platelet mean volume (Bld) [Entitic vol] 10.9 fL Normal 9.5-13.5 [facility] Comment on above: Performed By: #### H CVPCRR #### [facility] [address] [place] [address] Dr. Julien Eric PLT 300 103/ul Normal 150-450 [facility] Comment on above: Performed By: #### H CVPCRR #### [facility] [address] [place] [address] Dr. Julien Eric RBC 2.94 106/ul Critically low 4.20-5.40 [facility] Comment on above: Performed By: #### H CVPCRR #### [facility] [address] [place] [address] [address] Julien Eric WBC 11.3 103/ul Critically high 4.0-11.0 [facility] Comment on above: Performed By: #### H CVPCRR #### [facility] [address] [place] [address] Dr. Julien Eric CREATININEon 07-15-2022 Creatinine [Mass/Vol] 0.61 mg/dL Normal 0.55-1.02 [facility] Comment on above: Performed By: #### U RCX #### [facility] [address] [place] [address] Dr. Julien Eric EGFR-AF TUNISIAN >60 Normal >=60 [facility] Comment on above: Performed By: #### U RCX #### [facility] [address] [place] [address] Dr. Julien Eric EGFR-NON AF TUNISIAN >60 Normal >=60 [facility] Comment on above: Performed By: #### U RCX #### [facility] [address] [place] [address] Dr. Julien Eric CBC AUTO DIFFon 07-14-2022 BASO # 0.1 103/ul Normal 0.0-0.1 [facility] Comment on above: Performed By: #### U RCX #### [facility] [address] [place] [address] Dr. Julien Eric Basophils/100 WBC (Bld) 0.4 % Normal 0.2-2.0 [facility] Comment on above: Performed By: #### U RCX #### [facility] [address] [place] [address] Dr. Julien Eric EO # 0.2 103/ul Normal 0.0-0.7 [facility] Comment on above: Performed By: #### U RCX #### [facility] [address] [place] [address] Dr. Julien Eric Eosinophils/100 WBC (Bld) 1.2 % Normal 0.9-7.0 [facility] Comment on above: Performed By: #### U RCX #### [facility] [address] [place] [address] [address] Julien Eric Erythrocyte distribution width (RBC) [Ratio] 15.2 % Critically high 11.0-15.0 [facility] Comment on above: Performed By: #### U RCX #### [facility] [address] [place] [address] [address] Julien Eric Hematocrit (Bld) [Volume fraction] 33.8 % Critically low 36.0-48.0 [facility] Comment on above: Performed By: #### U RCX #### [facility] [address] [place] [address] Dr. Julien Eric Hemoglobin (Bld) [Mass/Vol] 11.1 g/dL Critically low 12.0-16.0 [facility] Comment on above: Performed By: #### U RCX #### [facility] [address] [place] [address] Dr. Julien Eric IG # 0.06 10e3/ul Critically high 0.00-0.03 [facility] Comment on above: Performed By: #### U RCX #### [facility] [address] [place] [address] Dr. Julien Eric IG % 0.5 % Normal 0.0-0.5 [facility] Comment on above: Performed By: #### U RCX #### [facility] [address] [place] [address] Dr. Julien Eric LYMPH # 2.4 103/ul Normal 1.2-3.8 [facility] Comment on above: Performed By: #### U RCX #### [facility] [address] [place] [address] Dr. Julien Eric Lymphocytes/100 WBC (Bld) 19.4 % Critically low 20.5-60.0 [facility] Comment on above: Performed By: #### U RCX #### [facility] [address] [place] [address] Dr. Julien Eric MANUAL DIFF REQ NO Normal [facility] Comment on above: Performed By: #### U RCX #### [facility] [address] [place] [address] [address] Julien Eric MCH (RBC) [Entitic mass] 29.6 pg Normal 26.7-34.0 [facility] Comment on above: Performed By: #### U RCX #### [facility] [address] [place] [address] Dr. Julien Eric MCHC (RBC) [Mass/Vol] 32.8 g/dL Normal 29.9-35.2 [facility] Comment on above: Performed By: #### U RCX #### [facility] [address] [place] [address] Dr. Julein Eric MCV (RBC) [Entitic vol] 90.1 fL Normal 81.0-99.0 [facility] Comment on above: Performed By: #### U RCX #### [facility] [address] [place] [address] Dr. Julien Eric MONO # 0.7 103/ul Normal 0.3-0.8 [facility] Comment on above: Performed By: #### U RCX #### [facility] [address] [place] [address] Dr. Julien Eric Monocytes/100 WBC (Bld) 5.4 % Normal 1.7-12.0 [facility] Comment on above: Performed By: #### U RCX #### [facility] [address] [place] [address] Dr. Julien Eric NEUT # 9.2 103/ul Critically high 1.4-6.5 [facility] Comment on above: Performed By: #### U RCX #### [facility] [address] [place] [address] Dr. Julien Eric Neutrophils/100 WBC (Bld) 73.1 % Normal 43.0-75.0 [facility] Comment on above: Performed By: #### U RCX #### [facility] [address] [place] [address] Dr. Julien Eric Platelet mean volume (Bld) [Entitic vol] 11.2 fL Normal 9.5-13.5 [facility] Comment on above: Performed By: #### U RCX #### [facility] [address] [place] [address] Dr. Julien Eric PLT 371 103/ul Normal 150-450 [facility] Comment on above: Performed By: #### U RCX #### [facility] [address] [place] [address] Dr. Julien Eric RBC 3.75 106/ul Critically low 4.20-5.40 [facility] Comment on above: Performed By: #### U RCX #### [facility] [address] [place] [address] Dr. Julien Erci WBC 12.6 103/ul Critically high 4.0-11.0 [facility] Comment on above: Performed By: #### U RCX #### [facility] [address] [place] [address] Dr. Julien Eric CULTURE URINEon 07-14-2022 CULTURE URINE Culture Observations: LIGHT GROWTH OF MIXED GENITAL BRITTON. NO POTENTIAL PATHOGENS SEEN. Normal [facility] Comment on above: Performed By: #### B LDCX2 #### [facility] [address] [place] [address] Dr. Julien Eric DRUG SCREEN RAPID (URINE)on 07-14-2022 AMP Negative Normal NEGATIVE [facility] Comment on above: Performed By: #### H CVPCRR #### [facility] [address] [place] [address] Dr. Julien Eric BAR Negative Normal NEGATIVE [facility] Comment on above: Performed By: #### H CVPCRR #### [facility] [address] [place] [address] Dr. Julien Eric BUP Negative Normal NEGATIVE [facility] Comment on above: Performed By: #### H CVPCRR #### [facility] [address] [place] [address] Dr. Julien Eric BZO Negative Normal NEGATIVE [facility] Comment on above: Performed By: #### H CVPCRR #### [facility] [address] [place], [place] [id number] Dr. Julien Eric REMI Negative Normal NEGATIVE [facility] Comment on above: Performed By: #### H CVPCRR #### [facility] [address] [place] [address] Dr. Julien Eric CUT-OFFS SEE BELOW Normal [facility] Comment on above: Result Comment: AMP [...] ng/mL Performed By: #### H CVPCRR #### [facility] [address] [place] [address] Dr. Julien Eric DRUG CUT HEADER DRUG CLASS TEST SYSTEM CUT-OFF CONCENTRATIONS ARE FOLLOWS: Normal [facility] Comment on above: Performed By: #### H CVPCRR #### [facility] [address] [place] [address] Dr. Julien Eric mAMP Negative Normal NEGATIVE [facility] Comment on above: Performed By: #### H CVPCRR #### [facility] [address] [place] [address] Dr. Julien Eric MTD Negative Normal NEGATIVE [facility] Comment on above: Performed By: #### H CVPCRR #### [facility] [address] [place] [address] Dr. Julien Eric OPI Negative Normal NEGATIVE [facility] Comment on above: Performed By: #### H CVPCRR #### [facility] [address] [place] [address] Dr. Julien Eric OXY Negative Normal NEGATIVE [facility] Comment on above: Performed By: #### H CVPCRR #### [facility] [address] [place] [address] Dr. Julien Eric PCP Negative Normal NEGATIVE [facility] Comment on above: Performed By: #### H CVPCRR #### [facility] [address] [place] [address] Dr. Julien Eric PPX Negative Normal NEGATIVE [facility] Comment on above: Performed By: #### H CVPCRR #### [facility] [address] [place] [address] Dr. Julien Eric TCA Negative Normal NEGATIVE [facility] Comment on above: Performed By: #### H CVPCRR #### [facility] [address] [place] [address] Dr. Julien Eric THC Negative Normal NEGATIVE [facility] Comment on above: Performed By: #### H CVPCRR #### [facility] [address] [place] [address] Dr. Julien Eric TYPE AND SCREENon 07-14-2022 TYPE AND SCREEN Negative Normal [facility] Comment on above: Performed By: #### T NS #### [facility] [address] [place] [address] Dr. Julien Eric UA (CLEAN/CATCH) CODIFIER/MICRO I F IND.on 07-14-2022 Bilirubin Ql (U) Negative Normal NEGATIVE [facility] Comment on above: Performed By: #### H CVPCRR #### [facility] [address] [place] [address] Dr. Julien Eric Clarity (U) SL CLOUDY Abnormal CLEAR [facility] Comment on above: Performed By: #### H CVPCRR #### [facility] [address] [place] [address] Dr. Julien Eirc Color (U) LT. YELLOW Normal YELLOW [facility] Comment on above: Performed By: #### H CVPCRR #### [facility] [address] [place] [address] Dr. Julien Eric Glucose Ql (U) Negative Normal NEGATIVE [facility] Comment on above: Performed By: #### H CVPCRR #### [facility] [address] [place], [place] [id number] Dr. Julien Eric Hemoglobin Ql (U) SMALL Abnormal NEGATIVE [facility] Comment on above: Performed By: #### H CVPCRR #### [facility] [address] [place] [address] Dr. Julien Eric Ketones Ql (U) Negative Normal NEGATIVE [facility] Comment on above: Performed By: #### H CVPCRR #### [facility] [address] [place] [address] Dr. Julien Eric LEUKOCYTES SMALL Abnormal NEGATIVE [facility] Comment on above: Performed By: #### H CVPCRR #### [facility] [address] [place] [address] Dr. Julien Eric Nitrite Ql (U) Negative Normal NEGATIVE [facility] Comment on above: Performed By: #### H CVPCRR #### [facility] [address] [place] [address] Dr. Julien Eric pH (U) 7.0 [pH] Normal 5-9 [facility] Comment on above: Performed By: #### H CVPCRR #### [facility] [address] [place] [address] Dr. Julien Eric SPEC GRAVITY 1.020 Normal 1.005-<=1.02 5 [facility] Comment on above: Performed By: #### H CVPCRR #### [facility] [address] [place] [address] Dr. Julien Eric UA PROTEIN 30 mg/dl Abnormal NEGATIVE/ TRACE [facility] Comment on above: Performed By: #### H CVPCRR #### [facility] [address] [place] [address] Dr. Julien Eric UR MICRO IND INDICATED Normal [facility] Comment on above: Performed By: #### H CVPCRR #### [facility] [address] [place] [address] Dr. Julien Eric Urobilinogen Qn (U) 0.2 {Ene'U}/dL Normal 0.2 - 1. 0 [facility] Comment on above: Performed By: #### H CVPCRR #### [facility] [address] [place] [address] Dr. Julien Eric URINE MICROSCOPIC ONLYon BACTERIA MODERATE Abnormal NONE SEEN [facility] Comment on above: Performed By: #### H CVPCRR #### [facility] [address] [place] [address] Dr. Julien Eric Bacteria identified Cx Nom (U) INDICATED Normal [facility] Comment on above: Performed By: #### H CVPCRR #### [facility] [address] [place] [address] Dr. Julien Eric CAST NONE SEEN Normal NONE SEEN [facility] Comment on above: Performed By: #### H CVPCRR #### [facility] [address] [place] [address] Dr. Julien Eric Crystals LM Nom (Urine sed) NONE SEEN Normal NONE SEEN [facility] Comment on above: Performed By: #### H CVPCRR #### [facility] [address] [place] [address] Dr. Julien Eric Epithelial cells LM Ql (Urine sed) MANY Abnormal NONE SEEN /RARE [facility] Comment on above: Performed By: #### H CVPCRR #### [facility] [address] [place] [address] Dr. Julien Eric MUCOUS NONE SEEN Normal NONE SEEN [facility] Comment on above: Performed By: #### H CVPCRR #### [facility] [address] [place] [address] Dr. Julien Eric RBC 0-2 Normal 0-2 [facility] [facility] Comment on above: Performed By: #### H CVPCRR #### [facility] [address] [place] [address] Dr. Julien Eric WBC 2-5 Abnormal NONE SEEN [facility] Comment on above: Performed By: #### H CVPCRR #### [facility] [address] [place] [address] Dr. Julien Eric [facility]on SARS-CoV-2 (COVID-19) RNA KATTY+probe Ql (Unsp spec) Not detected Normal NOT DETECTED [facility] Comment on above: Result Comment: This test is not yet approved or cleared by the [place] FDA. When there are no FDA-approved or cleared tests available, and other criteria are met, FDA can make tests available under an emergency access mechanism called an Emergency Use Authorization (EUA). The EUA for this test is supported by the [place] of Health and Human Service's (HHS's) declaration [...] SARS-CoV-2. Performed By: #### U RCX #### [facility] [address] [place] [address] Dr. Julien Eric US PREG BIOPHY W [...] ZACH WALDEN Date: 2022-07-09 06:31 Normal [facility] CULTURE URINEon 07-02-2022 CULTURE URINE Culture Observations: NO GROWTH. Normal [facility] Comment on above: Performed By: #### U RCX #### [facility] [address] [place] [address] Dr. Julien Eric US PREG BIOPHY W NON STRESSo n 07-01-2022 [...] by: ZACH WALDEN Date: 2022-07-01 16:27 Normal [facility] GROUP B STREP CULTUREon 06-04 S. agalactiae Ag Ql (Unsp spec) Culture Observations: NEGATIVE FOR GROUP B STREPTOCOCCUS. Normal [facility] Comment on above: Performed By: #### B [id number] #### [facility] [address] [place] [address] Dr. Julien Eric US PREG BIOPHY W NON STRESSo n 06-24-2022 [...] ZACH WALDEN Date: 2022-06-24 21:28 Normal [facility] US PREG GROWTHon 06-24-2022 US PREG [...] by: ZACH WALDEN Date: 2022-06-24 21:25 Normal [facility] US PREG BIOPHY W NON STRESSo [...] by: ZACH WALDEN Date: 2022-06-18 06:40 Normal [facility] US PREG BIOPHY W NON STRESSo [...] by: SOUMYA MONSALVE Date: 2022-06-10 19:11 Normal [facility] US PREG BIOPHY W NON STRESSo [...] by: ZACH WALDEN Date: 2022-06-03 22:14 Normal [facility] CULTURE BLOODon 05-28-2022 Microscopic examination of blood, culture Culture Observations: POSITIVE AEROBIC BOTTLE 05/23/22 Culture Observations: BCID= STAPH SPP. CALLED TO LIANA JONES RN 05/23/22 @1835 BY DM Culture Observations: NO GROWTH IN [...] >=8 R F Clindamycin <=0.25 S F Quinupristin/Dalfop ristin <=0.25 S F Linezolid 2 S F Vancomycin 1 S F Tetracycline 2 S F Rifampicin <=0.5 S F Trimethoprim/Sulfam ethoxazole <=10 S F Oxacillin <=0.25 S F Normal [facility] Comment on above: Performed By: #### B LDCX2 #### [facility] [address] [place] [address] Dr. Julien Eric US PREG BIOPHY W [...] ZACH WALDEN Date: 2022-05-27 16:04 Normal [facility] US PREG GROWTHon 05-27-2022 US PREG [...] by: ZACH WALDEN Date: 2022-05-27 16:05 Normal [facility] CBC AUTO DIFFon 05-23-2022 BASO # 0.0 103/ul Normal 0.0-0.1 [facility] Comment on above: Performed By: #### H CVPCRR #### [facility] [address] [place] [address] Dr. Julien Eric Basophils/100 WBC (Bld) 0.3 % Normal 0.2-2.0 T [facility] Comment on above: Performed By: #### H CVPCRR #### [facility] [address] [place] [address] Dr. Julien Eric EO # 0.1 103/ul Normal 0.0-0.7 [facility] Comment on above: Performed By: #### H CVPCRR #### [facility] [address] [address] [address] Julien Eric Eosinophils/100 WBC (Bld) 1.3 % Normal 0.9-7.0 [facility] Comment on above: Performed By: #### H CVPCRR #### [facility] [address] [place] [address] Dr. Julien Eric Erythrocyte distribution width (RBC) [Ratio] 14.5 % Normal 11.0-15.0 [facility] Comment on above: Performed By: #### H CVPCRR #### [facility] [address] [place] [address] Dr. Julien Eric Hematocrit (Bld) [Volume fraction] 28.8 % Critically low 36.0-48.0 [facility] Comment on above: Performed By: #### H CVPCRR #### [facility] [address] [place] [address] Dr. Julien Eric Hemoglobin (Bld) [Mass/Vol] 9.5 g/dL Critically low 12.0-16.0 [facility] Comment on above: Performed By: #### H CVPCRR #### [facility] [address] [place] [address] Dr. Julien Eric IG # 0.06 10e3/ul Critically high 0.00-0.03 [facility] Comment on above: Performed By: #### H CVPCRR #### [facility] [address] [place] [address] Dr. Julien Eric IG % 0.8 % Critically high 0.0-0.[address] [facility] Comment on above: Performed By: #### H CVPCRR #### [facility] [address] [place] [address] Dr. Julien Eric LYMPH # 1.5 103/ul Normal 1.2-3.8 [facility] Comment on above: Performed By: #### H CVPCRR #### [facility] [address] [place] [address] Dr. Julien Eric Lymphocytes/100 WBC (Bld) 18.8 % Critically low 20.5-60.0 [facility] Comment on above: Performed By: #### H CVPCRR #### [facility] [address] [place] [address] Dr. Julien Eric MANUAL DIFF REQ NO Normal [facility] Comment on above: Performed By: #### H CVPCRR #### [facility] [address] [place] [address] Dr. Julien Eric MCH (RBC) [Entitic mass] 30.4 pg Normal 26.7-34.0 [facility] Comment on above: Performed By: #### H CVPCRR #### [facility] [address] [place] [address] Dr. Julien Eric MCHC (RBC) [Mass/Vol] 33.0 g/dL Normal 29.9-35.2 [facility] Comment on above: Performed By: #### H CVPCRR #### [facility] [address] [place] [address] Dr. Julien Eric MCV (RBC) [Entitic vol] 92.0 fL Normal 81.0-99.0 [facility] Comment on above: Performed By: #### H CVPCRR #### [facility] [address] [place] [address] Dr. Julien Eric MONO # 0.6 103/ul Normal 0.3-0.8 [facility] Comment on above: Performed By: #### H CVPCRR #### [facility] [address] [place] [address] Dr. Julien Eric Monocytes/100 WBC (Bld) 7.3 % Normal 1.7-12.0 [facility] Comment on above: Performed By: #### H CVPCRR #### [facility] [address] [place] [address] Dr. Julien Eric NEUT # 5.7 103/ul Normal 1.4-6.5 [facility] Comment on above: Performed By: #### H CVPCRR #### [facility] [address] [place] [address] Dr. Julien Eric Neutrophils/100 WBC (Bld) 71.5 % Normal 43.0-75.0 [facility] Comment on above: Performed By: #### H CVPCRR #### [facility] [address] [address] [address] Julien Eric Platelet mean volume (Bld) [Entitic vol] 11.4 fL Normal 9.5-13.5 [facility] Comment on above: Performed By: #### H CVPCRR #### [facility] [address] [address] [address] Julien Eric PLT 286 103/ul Normal 150-450 [facility] Comment on above: Performed By: #### H CVPCRR #### [facility] [address] [address] [address] Julien Eric RBC 3.13 106/ul Critically low 4.20-5.40 [facility] Comment on above: Performed By: #### H CVPCRR #### [facility] [address] [address] [address] Julien Eric WBC 8.0 103/ul Normal 4.0-11.0 [facility] Comment on above: Performed By: #### H CVPCRR #### [facility] [address] [address] [address] Julien Eric PROF CHEM 8 (BAS METB)on Anion gap [Moles/Vol] 7.8 mmol/L Normal [facility] Comment on above: Performed By: #### H BSANS #### [facility] [address] [address] [address] Julien Eric Calcium [Mass/Vol] 7.8 mg/dL Critically low 8.5-10.1 Th [facility] Comment on above: Performed By: #### H BSANS #### [facility] [address] [address] [address] Julien Eric Chloride [Moles/Vol] 105 mmol/L Normal 98-107 [facility] Comment on above: Performed By: #### H BSANS #### [facility] [address] [address] [address] Julien Eric CO2 [Moles/Vol] 24.5 mmol/L Normal 21.0-32.0 [facility] Comment on above: Performed By: #### H BSANS #### [facility] [address] [address] [address] Julien Eric Creatinine [Mass/Vol] 0.50 mg/dL Critically low 0.55-1.02 [facility] Comment on above: Performed By: #### H BSANS #### [facility] [address] [address] [address] Julien Eric EGFR-AF TUNISIAN >60 Normal >=60 [facility] Comment on above: Performed By: #### H BSANS #### [facility] [address] [address] [address] Julien Eric EGFR-NON AF TUNISIAN >60 Normal >=60 [facility] Comment on above: Performed By: #### H BSANS #### [facility] [address] [address] [address] Julien Eric Glucose [Mass/Vol] 98 mg/dL Normal 74-106 [facility] Comment on above: Performed By: #### H BSANS #### [facility] [address] [address] [address] Julien Eric Potassium [Moles/Vol] 3.3 mmol/L Critically low 3.5-5.1 [facility] Comment on above: Performed By: #### H BSANS #### [facility] [address] [address] [address] Julien Eric Sodium [Moles/Vol] 134 mmol/L Critically low 136-145 Th [facility] Comment on above: Performed By: #### H BSANS #### [facility] [address] [address] [address] Julien Eric Urea nitrogen [Mass/Vol] 5.0 mg/dL Critically low 7.0-18. 0 [facility] Comment on above: Performed By: #### H BSANS #### [facility] [address] [address] [address] Julien Eric Urea nitrogen/Creatinine [Mass ratio] 10.0 mg/mg Normal [facility] Comment on above: Performed By: #### H BSANS #### [facility] [address] [place] [address] Dr. Julien Eric AMYLASEon 05-22-2022 Amylase [Catalytic activity/Vol] 33 U/L Normal 25-115 [facility] Comment on above: Performed By: #### H BSANS #### [facility] [address] [place] [address] Dr. Julien Eric BLOOD CULTURE ID PANELon A. baumannii Not detected Normal NOT DETECTED The [facility] Comment on above: Performed By: #### U RCX #### [facility] [address] [place] [address] Dr. Julien Eric Bacteriodes fragilis Not detected Normal NOT DETECTED [facility] Comment on above: Performed By: #### U RCX #### [facility] [address] [place] [address] Dr. Julien Eric BCID CONTROLS PASSED Normal [facility] Comment on above: Performed By: #### U RCX #### [facility] [address] [place] [address] Dr. Julien Eric BCIDBTHD BLOOD CULTURE BOTTLE INFORMATION Normal [facility] Comment on above: Performed By: #### U RCX #### [facility] [address] [place] [address] Dr. Julien Eric BCIDHD1 ANTIMICROBIAL RESISTANCE GENES Normal [facility] Comment on above: Performed By: #### U RCX #### [facility] [address] [place] [address] Dr. Julien Eric BCIDHD2 SEE BELOW Normal [facility] Comment on above: Result Comment: Note : Antimicrobial resitance can occur via multiple mechanisms. A Not Detected result for the [employer] antomicrobial resistance gene assays does not indicate antimicrobial susceptibility. Subculturing is required for species identification and susceptibility testing of isolates. Performed By: #### U RCX #### [facility] [address] [place] [address] Dr. Julien Eric BCIDHD3 Positive Normal [facility] Comment on above: Performed By: #### U RCX #### [facility] [address] [place] [address] Dr. Julien Eric BCIDHD4 Negative Normal [facility] Comment on above: Performed By: #### U RCX #### [facility] [address] [address] [address] Julien Eric BCIDHD5 YEAST Normal [facility] Comment on above: Performed By: #### U RCX #### [facility] [address] [place] [address] Dr. Julien Eric Bottle Set: Set 2 Normal [facility] Comment on above: Performed By: #### U RCX #### [facility] [address] [place] [address] Dr. Julien Eric Bottle: Aerobic Normal [facility] Comment on above: Performed By: #### U RCX #### [facility] [address] [place] [address] Dr. Julien Eric C. neoformans/gattii Not detected Normal NOT DETECTED [facility] Comment on above: Performed By: #### U RCX #### [facility] [address] [place] [address] Dr. Julien Eric Rocio albicans Not detected Normal NOT DETECTED [facility] Comment on above: Performed By: #### U RCX #### [facility] [address] [place] [address] Dr. Julien Eric Rocio auris Not detected Normal NOT DETECTED The [facility] Comment on above: Performed By: #### U RCX #### [facility] [address] [place] [address] Dr. Julien Eric Rocio glabrata Not detected Normal NOT DETECTED [facility] Comment on above: Performed By: #### U RCX #### [facility] [address] [place] [address] Dr. Julien Eric Rocio Krusei Not detected Normal NOT DETECTED The [facility] Comment on above: Performed By: #### U RCX #### [facility] [address] [place] [address] Dr. Julien Eric Rocio Parapsilosis Not detected Normal NOT DETECTED [facility] Comment on above: Performed By: #### U RCX #### [facility] [address] [place] [address] Dr. Julien Eric Rocio Tropicalis Not detected Normal NOT DETECTED [facility] Comment on above: Performed By: #### U RCX #### [facility] [address] [address] [address] Julien Eric CTX-M Resistant Gene Not Applicable Normal NOT DETECTE D [facility] Comment on above: Performed By: #### U RCX #### [facility] [address] [place] [address] Dr. Julien Eric E. Cloacae complex Not detected Normal NOT DETECTED [facility] Comment on above: Performed By: #### U RCX #### [facility] [address] [place] [address] Dr. Julien Eric E. faecalis Not detected Normal NOT DETECTED [facility] Comment on above: Performed By: #### U RCX #### [facility] [address] [place] [address] Dr. Julien Eric E. faecium Not detected Normal NOT DETECTED The [facility] Comment on above: Performed By: #### U RCX #### [facility] [address] [place] [address] Dr. Julien Eric Enterobacteriaceae Not detected Normal NOT DETECTED [facility] Comment on above: Performed By: #### U RCX #### [facility] [address] [place] [address] Dr. Julien Eric Escherichia coli Not detected Normal NOT DETECTED [facility] Comment on above: Performed By: #### U RCX #### [facility] [address] [place] [address] Dr. Julien Eric H. influenzae Not detected Normal NOT DETECTED The [facility] Comment on above: Performed By: #### U RCX #### [facility] [address] [place] [address] Dr. Julien Eric IMP Resistant Gene Not Applicable Normal NOT DETECTED [facility] Comment on above: Performed By: #### U RCX #### [facility] [address] [place] [address] Dr. Julien Eric K. oxytoca Not detected Normal NOT DETECTED The [facility] Comment on above: Performed By: #### U RCX #### [facility] [address] [place] [address] Dr. Julien Eric K. pneumoniae Not detected Normal NOT DETECTED The [facility] Comment on above: Performed By: #### U RCX #### [facility] [address] [place] [address] Dr. Julien Eric Klebsiella aerogenes Not detected Normal NOT DETECTED [facility] Comment on above: Performed By: #### U RCX #### [facility] [address] [place] [address] Dr. Julien Eric KPC Resistant Gene Not Applicable Normal NOT DETECTED [facility] Comment on above: Performed By: #### U RCX #### [facility] [address] [place] [address] Dr. Julien Eric List. monocytogenes Not detected Normal NOT DETECTED [facility] Comment on above: Performed By: #### U RCX #### [facility] [address] [place] [address] Dr. Julien Eric Mcr-1 Resistant Gene Not Applicable Normal NOT DETECTE D [facility] Comment on above: Performed By: #### U RCX #### [facility] [address] [place] [address] Dr. Julien Eric mecA/C Not Applicable Normal NOT DETECTED [facility] Comment on above: Performed By: #### U RCX #### [facility] [address] [place] [address] Dr. Jluien Eric mecA/C MREJ Not Applicable Normal NOT DETECTED The [facility] Comment on above: Performed By: #### U RCX #### [facility] [address] [place] [address] Dr. Julien Eric N. meningitidis Not detected Normal NOT DETECTED The [facility] Comment on above: Performed By: #### U RCX #### [facility] [address] [place] [address] Dr. Julien Eric NDM Resistant Gene Not Applicable Normal NOT DETECTED [facility] Comment on above: Performed By: #### U RCX #### [facility] [address] [place] [address] Dr. Julien Eric Oxa-48-like Not Applicable Normal NOT DETECTED [facility] Comment on above: Performed By: #### U RCX #### [facility] [address] [place] [address] Dr. Julien Eric Proteus Not detected Normal NOT DETECTED [facility] Comment on above: Performed By: #### U RCX #### [facility] [address] [place] [address] Dr. Julien Eric Pseud. aeruginosa Not detected Normal NOT DETECTED [facility] Comment on above: Performed By: #### U RCX #### [facility] [address] [place] [address] Dr. Julien Eric S. maltophilia Not detected Normal NOT DETECTED [facility] Comment on above: Performed By: #### U RCX #### [facility] [address] [place] [address] Dr. Julien Eric Salmonella Not detected Normal NOT DETECTED [facility] Comment on above: Performed By: #### U RCX #### [facility] [address] [place] [address] Dr. Julien Eric Seratia marcescens Not detected Normal NOT DETECTED [facility] Comment on above: Performed By: #### U RCX #### [facility] [address] [place] [address] Dr. Julien Eric Site: l. hand Normal [facility] Comment on above: Performed By: #### U RCX #### [facility] [address] [place] [address] Dr. Julien Eric Staph. aureus Not detected Normal NOT DETECTED [facility] Comment on above: Performed By: #### U RCX #### [facility] [address] [place] [address] Dr. Julien Eric Staph. epidermidis Not detected Normal NOT DETECTED [facility] Comment on above: Performed By: #### U RCX #### [facility] [address] [place] [address] Dr. Julien Eric Staph. lugdunensis Not detected Normal NOT DETECTED [facility] Comment on above: Performed By: #### U RCX #### [facility] [address] [place] [address] Dr. Julien Eric Staphylococcus Detected Critically abnormal NOT DETECTED [facility] Comment on above: Performed By: #### U RCX #### [facility] [address] [place] [address] Dr. Julien Eric Strep. agalactiae Not detected Normal NOT DETECTED [facility] Comment on above: Performed By: #### U RCX #### [facility] [address] [place] [address] Dr. Julien Eric Strep. pneumoniae Not detected Normal NOT DETECTED [facility] Comment on above: Performed By: #### U RCX #### [facility] [address] [place] [address] Dr. Julien Eric Strep. pyogenes Not detected Normal NOT DETECTED [facility] Comment on above: Performed By: #### U RCX #### [facility] [address] [place] [address] Dr. Julien Eric Streptococcus Not detected Normal NOT DETECTED The [facility] Comment on above: Performed By: #### U RCX #### [facility] [address] [place] [address] Dr. Julien Eric Melisa/B Resist. Gene Not Applicable Normal NOT DETECTED [facility] Comment on above: Performed By: #### U RCX #### [facility] [address] [place] [address] Dr. Julien Eric VIM Resistant Gene Not Applicable Normal NOT DETECTED [facility] Comment on above: Performed By: #### U RCX #### [facility] [address] [place] [address] Dr. Julien Eric CBC AUTO DIFFon 05-22-2022 BASO # 0.1 103/ul Normal 0.0-0.1 [facility] Comment on above: Performed By: #### U RCX #### [facility] [address] [address] [address] Julien Eric Basophils/100 WBC (Bld) 0.3 % Normal 0.2-2.0 [facility] Comment on above: Performed By: #### U RCX #### [facility] [address] [place] [address] Dr. Julien Eric EO # 0.0 103/ul Normal 0.0-0.7 [facility] Comment on above: Performed By: #### U RCX #### [facility] [address] [place] [address] Dr. Julien Eric Eosinophils/100 WBC (Bld) 0.2 % Critically low 0.9-7.0 [facility] Comment on above: Performed By: #### U RCX #### [facility] [facility] [address] [place] [address] Dr. Julien Eric Erythrocyte distribution width (RBC) [Ratio] 14.3 % Normal 11.0-15.0 [facility] Comment on above: Performed By: #### U RCX #### [facility] [address] [place] [address] Dr. Julien Eric Hematocrit (Bld) [Volume fraction] 36.3 % Normal 36.0-48.0 [facility] Comment on above: Performed By: #### U RCX #### [facility] [address] [place] [address] Dr. Julien Eric Hemoglobin (Bld) [Mass/Vol] 11.8 g/dL Critically low 12.0-16.0 [facility] Comment on above: Performed By: #### U RCX #### [facility] [address] [place] [address] Dr. Julien Eric IG # 0.11 10e3/ul Critically high 0.00-0.03 [facility] Comment on above: Performed By: #### U RCX #### [facility] [address] [place] [address] Dr. Julien Eric IG % 0.6 % Critically high 0.0-0.[address] [facility] Comment on above: Performed By: #### U RCX #### [facility] [address] [address] [address] Julien Eric LYMPH # 0.9 103/ul Critically low 1.2-3.8 [facility] Comment on above: Performed By: #### U RCX #### [facility] [address] [address] [address] Julien Eric Lymphocytes/100 WBC (Bld) 4.7 % Critically low 20.5-60.0 [facility] Comment on above: Performed By: #### U RCX #### [facility] [address] [address] [address] Julien Eric MANUAL DIFF REQ NO Normal [facility] Comment on above: Performed By: #### U RCX #### [facility] [address] [address] [address] Julien Eric MCH (RBC) [Entitic mass] 29.9 pg Normal 26.7-34.0 [facility] Comment on above: Performed By: #### U RCX #### [facility] [address] [address] [address] Julien Eric MCHC (RBC) [Mass/Vol] 32.5 g/dL Normal 29.9-35.2 [facility] Comment on above: Performed By: #### U RCX #### [facility] [address] [address] [address] Julien Eric MCV (RBC) [Entitic vol] 92.1 fL Normal 81.0-99.0 [facility] Comment on above: Performed By: #### U RCX #### [facility] [address] [address] [address] Julien Eric MONO # 0.5 103/ul Normal 0.3-0.8 [facility] Comment on above: Performed By: #### U RCX #### [facility] [address] [address] [address] Julien Eric Monocytes/100 WBC (Bld) 2.7 % Normal 1.7-12.0 [facility] Comment on above: Performed By: #### U RCX #### [facility] [address] [address] [address] Julien Eric NEUT # 16.4 103/ul Critically high 1.4-6.5 [facility] Comment on above: Performed By: #### U RCX #### [facility] [address] [address] [address] Julien Eric Neutrophils/100 WBC (Bld) 91.5 % Critically high 43.0-75.0 [facility] Comment on above: Performed By: #### U RCX #### [facility] [address] [address] [address] Julien Eric Platelet mean volume (Bld) [Entitic vol] 11.1 fL Normal 9.5-13.5 [facility] Comment on above: Performed By: #### U RCX #### [facility] [address] [place] [address] Dr. Julien Eric PLT 374 103/ul Normal 150-450 [facility] Comment on above: Performed By: #### U RCX #### [facility] [address] [address] [address] Julien Eric RBC 3.94 106/ul Critically low 4.20-5.[address] [facility] Comment on above: Performed By: #### U RCX #### [facility] [address] [address] [address] Julien Eric WBC 17.9 103/ul Critically high 4.0-11.0 [facility] Comment on above: Performed By: #### U RCX #### [facility] [address] [address] [address] Julien Eric CULTURE BLOODon 05-22-2022 Microscopic examination of blood, culture Culture Observations: NO GROWTH AT 5 DAYS. Normal [facility] Comment on above: Performed By: #### B [id number] #### [facility] [address] [address] [address] Julien Eric CULTURE URINEon 05-22-2022 CULTURE URINE Culture Observations: HEAVY GROWTH OF MIXED GENITAL BRITTON. NO POTENTIAL PATHOGENS SEEN. Normal [facility] Comment on above: Performed By: #### B LDCX2 #### [facility] [address] [address] [address] Julien Eric Covid-19 PCR ([facility])on 05-04 SARS-CoV-2 (COVID-19) RNA KATTY+probe Ql (Unsp spec) Not detected Normal NOT DETECTED [facility] Comment on above: Result Comment: When [...] for this test is supported by the [place] of [employer] and Human Service's declaration that [...] used). Performed By: #### H CVPCRR #### [facility] [address] [place] [address] Dr. Julien Eric DRUG SCREEN RAPID (URINE)on 05-22-2022 AMP Negative Normal NEGATIVE [facility] Comment on above: Performed By: #### H CVPCRR #### [facility] [address] [place] [address] Dr. Julien Eric BAR Negative Normal NEGATIVE [facility] Comment on above: Performed By: #### H CVPCRR #### [facility] [address] [place] [address] Dr. Julien Eric BUP Negative Normal NEGATIVE [facility] Comment on above: Performed By: #### H CVPCRR #### [facility] [address] [place] [address] Dr. Julien Eric BZO Negative Normal NEGATIVE [facility] Comment on above: Performed By: #### H CVPCRR #### [facility] [address] [place] [address] Dr. Julien Eric REMI Negative Normal NEGATIVE [facility] Comment on above: Performed By: #### H CVPCRR #### [facility] [address] [place] [address] Dr. Julien Eric CUT-OFFS SEE BELOW Normal [facility] Comment on above: Result Comment: AMP [...] ng/mL Performed By: #### H CVPCRR #### [facility] [address] [place] [address] Dr. Julien Eric DRUG CUT HEADER DRUG CLASS TEST SYSTEM CUT-OFF CONCENTRATIONS ARE FOLLOWS: Normal [facility] Comment on above: Performed By: #### H CVPCRR #### [facility] [address] [place] [address] Dr. Julien Eric mAMP Negative Normal NEGATIVE [facility] Comment on above: Performed By: #### H CVPCRR #### [facility] [address] [place] [address] Dr. Julien Eric MTD Negative Normal NEGATIVE [facility] Comment on above: Performed By: #### H CVPCRR #### [facility] [address] [place] [address] Dr. Julien Eric OPI Negative Normal NEGATIVE [facility] Comment on above: Performed By: #### H CVPCRR #### [facility] [address] [place] [address] Dr. Julien Eric OXY Negative Normal NEGATIVE [facility] Comment on above: Performed By: #### H CVPCRR #### [facility] [address] [address] [address] Julien Eric PCP Negative Normal NEGATIVE [facility] Comment on above: Performed By: #### H CVPCRR #### [facility] [address] [address] [address] Julien Eric PPX Negative Normal NEGATIVE [facility] Comment on above: Performed By: #### H CVPCRR #### [facility] [address] [place] [address] Dr. Julien Eric TCA Negative Normal NEGATIVE [facility] Comment on above: Performed By: #### H CVPCRR #### [facility] [address] [place] [address] Dr. Julien Eric THC Negative Normal NEGATIVE [facility] Comment on above: Performed By: #### H CVPCRR #### [facility] [address] [place] [address] Dr. Julien Eric LIPASEon 05-22-2022 Lipase [Catalytic activity/Vol] 71.0 U/L Critically low 73.0-393.0 [facility] Comment on above: Performed By: #### H BSANS #### [facility] [address] [place] [address] Dr. Julien Eric MRI ABDOMEN WO CONon [...] by: JANE MORTON Date: 2022-05-22 19:43 Normal [facility] PROF 14(COMP METB)on 05-22- 022 Albumin [Mass/Vol] 2.7 g/dL Critically low 3.4-5.0 [facility] Comment on above: Performed By: #### H BSANS #### [facility] [address] [address] [address] Julien Eric Albumin/Globulin [Mass ratio] 0.6 {ratio} Normal [facility] Comment on above: Performed By: #### H BSANS #### [facility] [address] [place] [address] Dr. Julien Eric ALP [Catalytic activity/Vol] 108 U/L Normal 46-116 [facility] Comment on above: Performed By: #### H BSANS #### [facility] [address] [address] [address] Julien Eric ALT [Catalytic activity/Vol] 10 U/L Critically low 14-59 [facility] Comment on above: Performed By: #### H BSANS #### [facility] [address] [address] [address] Julien Eric Anion gap [Moles/Vol] 16.6 mmol/L Normal [facility] Comment on above: Performed By: #### H BSANS #### [facility] [address] [address] [address] Julien Eric AST [Catalytic activity/Vol] 9 U/L Critically low 15-37 [facility] Comment on above: Performed By: #### H BSANS #### [facility] [address] [address] [address] Julien Eric Bilirubin [Mass/Vol] 0.3 mg/dL Normal 0.2-1.0 [facility] Comment on above: Performed By: #### H BSANS #### [facility] [address] [place] [address] Dr. Julien Eric Calcium [Mass/Vol] 8.1 mg/dL Critically low 8.5-10.1 [facility] Comment on above: Performed By: #### H BSANS #### [facility] [address] [place] [address] Dr. Julien Eric Chloride [Moles/Vol] 103 mmol/L Normal 98-107 [facility] Comment on above: Performed By: #### H BSANS #### [facility] [address] [place] [address] Dr. Julien Eric CO2 [Moles/Vol] 21.4 mmol/L Normal 21.0-32.0 [facility] Comment on above: Performed By: #### H BSANS #### [facility] [address] [place] [address] Dr. Julien Eric Creatinine [Mass/Vol] 0.46 mg/dL Critically low 0.55-1.02 [facility] Comment on above: Performed By: #### H BSANS #### [facility] [address] [place] [address] Dr. Julien Eric EGFR-AF TUNISIAN >60 Normal >=60 [facility] Comment on above: Performed By: #### H BSANS #### [facility] [address] [place] [address] Dr. Julien Eric EGFR-NON AF TUNISIAN >60 Normal >=60 [facility] Comment on above: Performed By: #### H BSANS #### [facility] [address] [place] [address] Dr. Julien Eric Globulin (S) [Mass/Vol] 4.5 g/dL Normal T [facility] Comment on above: Performed By: #### H BSANS #### [facility] [address] [place] [address] Dr. Julien Eric Glucose [Mass/Vol] 99 mg/dL Normal 74-106 [facility] Comment on above: Performed By: #### H BSANS #### [facility] [address] [place] [address] Dr. Julien Eric Potassium [Moles/Vol] 4.0 mmol/L Normal 3.5-5.1 [facility] Comment on above: Performed By: #### H BSANS #### [facility] [address] [address] [address] Julien Eric Protein [Mass/Vol] 7.2 g/dL Normal 6.4-8.2 [facility] Comment on above: Performed By: #### H BSANS #### [facility] [address] [address] [address] Julien Eric Sodium [Moles/Vol] 137 mmol/L Normal 136-145 [facility] Comment on above: Performed By: #### H BSANS #### [facility] [address] [place] [address] Dr. Julien Eric Urea nitrogen [Mass/Vol] 7.0 mg/dL Normal 7.0-18.0 [facility] Comment on above: Performed By: #### H BSANS #### [facility] [address] [place] [address] Dr. Julien Eric Urea nitrogen/Creatinine [Mass ratio] 15.2 mg/mg Normal [facility] Comment on above: Performed By: #### H BSANS #### [facility] [address] [place] [address] Dr. Julien Eric UA (CLEAN/CATCH) CODIFIER/MICRO I F IND.on 05-22-2022 Bilirubin Ql (U) Negative Normal NEGATIVE [facility] Comment on above: Performed By: #### U RCX #### [facility] [address] [place] [address] Dr. Julien Eric Clarity (U) CLEAR Normal CLEAR [facility] Comment on above: Performed By: #### U RCX #### [facility] [address] [place] [address] Dr. Julien Eric Color (U) YELLOW Normal YELLOW [facility] Comment on above: Performed By: #### U RCX #### [facility] [address] [place] [address] Dr. Julien Eric Glucose Ql (U) Negative Normal NEGATIVE [facility] Comment on above: Performed By: #### U RCX #### [facility] [address] [address] [address] Julien Eric Hemoglobin Ql (U) MODERATE Abnormal NEGATIVE [facility] Comment on above: Performed By: #### U RCX #### [facility] [address] [place] [address] Dr. Julien Eric Ketones Ql (U) Negative Normal NEGATIVE [facility] Comment on above: Performed By: #### U RCX #### [facility] [address] [place] [address] Dr. Julien Eric LEUKOCYTES Negative Normal NEGATIVE [facility] Comment on above: Performed By: #### U RCX #### [facility] [address] [place] [address] Dr. Julien Eric Nitrite Ql (U) Negative Normal NEGATIVE [facility] Comment on above: Performed By: #### U RCX #### [facility] [address] [place] [address] Dr. Julien Eric pH (U) 6.0 [pH] Normal 5-9 [facility] Comment on above: Performed By: #### U RCX #### [facility] [address] [place] [address] Dr. Julien Eric SPEC GRAVITY >=1.030 Abnormal 1.005-<=1.02 5 [facility] Comment on above: Performed By: #### U RCX #### [facility] [address] [place] [address] Dr. Julien Eric UA PROTEIN 100 mg/dl Abnormal NEGATIVE/ TRACE [facility] Comment on above: Performed By: #### U RCX #### [facility] [address] [place] [address] Dr. Julien Eric UR MICRO IND INDICATED Normal [facility] Comment on above: Performed By: #### U RCX #### [facility] [address] [place] [address] Dr. Julien Eric Urobilinogen Qn (U) 0.2 {Ene'U}/dL Normal 0.2 - 1. 0 [facility] Comment on above: Performed By: #### U RCX #### [facility] [address] [place] [address] Dr. Julien Eric URINE MICROSCOPIC ONLYon BACTERIA SMALL Abnormal NONE SEEN [facility] Comment on above: Performed By: #### U RCX #### [facility] [address] [place] [address] Dr. Julien Eric Bacteria identified Cx Nom (U) NOT INDICATED Normal [facility] Comment on above: Performed By: #### U RCX #### [facility] [address] [place] [address] Dr. Julien Eric CAST NONE SEEN Normal NONE SEEN [facility] Comment on above: Performed By: #### U RCX #### [facility] [address] [place] [address] Dr. Julien Eric Crystals LM Nom (Urine sed) NONE SEEN Normal NONE SEEN [facility] Comment on above: Performed By: #### U RCX #### [facility] [address] [place] [address] Dr. Julien Eric Epithelial cells LM Ql (Urine sed) FEW Abnormal NONE SEEN /RARE [facility] Comment on above: Performed By: #### U RCX #### [facility] [address] [place] [address] Dr. Julien Eric MUCOUS LARGE Abnormal NONE SEEN [facility] Comment on above: Performed By: #### U RCX #### [facility] [address] [place] [address] Dr. Julien Eric RBC 5-10 Abnormal 0-2 [facility] Comment on above: Performed By: #### U RCX #### [facility] [address] [place] [address] Dr. Julien Eric WBC NONE SEEN Normal NONE SEEN [facility] Comment on above: Performed By: #### U RCX #### [facility] [address] [place] [address] Dr. Julien Eric PAP ACOG PANEL 2: 30 to 65on 04-21-2022 . . Normal [facility] Comment on above: Result Comment: Perf ormed at: WB Performed By: #### U RCX #### [facility] [address] [address] [address] Julien Eric Age Gdln ACOG Testing 30-65 Normal [facility] Comment on above: Performed By: #### U RCX #### [facility] [address] [place] [address] Dr. Julien Eric DIAGNOSIS: Comment Normal [facility] Comment on above: Result Comment: NEGA TIVE FOR INTRAEPITHELIAL LESION OR MALIGNANCY. Performed at: WB Performed By: #### U RCX #### [facility] [address] [place] [address] Dr. Julien Eric HPV Aptima Negative Normal Negative [facility] Comment on above: Result Comment: This nucleic acid amplification test detects fourteen high-risk HPV types (16,18,31,33,35,39,45,51,52,56,58,59,66,68) without differentiation. Performed at: =G Performed By: #### U RCX #### [facility] [address] [place] [address] Dr. Julien Eric Methodology: Comment Normal [facility] Comment on above: Result Comment: This liquid based ThinPrep(R) pap test was screened with the use of an image guided system. Performed at: WB Performed By: #### U RCX #### [facility] [address] [place] [address] Dr. Julien Eric Note: Comment Normal [facility] Comment on above: Result Comment: The [...] WB Performed By: #### U RCX #### [facility] [address] [place] [address] Dr. Julien Eric Performed by: Comment Normal [facility] Comment on above: Result Comment: Hanane Treviño, Fisher Pot (ASCP) Performed at: WB Performed By: #### U RCX #### [facility] [address] [place] [address] Dr. Julien Eric Specimen adequacy: Comment Normal [facility] Comment on above: Result Comment: Sati sfactory for evaluation. No endocervical component is identified. Performed at: WB Performed By: #### U RCX #### [facility] [address] [address] [address] Julien Eric CHLAMYDIA/GONOCOCCUS KATTY (SW AB/URINE/PAPon 04-18-2022 Chlamydia trachomatis, KATTY Negative Normal Negative [facility] Comment on above: Performed By: #### H BSANS #### [facility] [address] [place] [address] Dr. Julien Eric Neisseria gonorrhoeae, KATTY Negative Normal Negative [facility] Comment on above: Performed By: #### H BSANS #### [facility] [address] [place] [address] Dr. Julien Eric CULTURE URINEon 04-18-2022 CULTURE URINE Isolate 1 Escherichia coli >100,000 cfu/mL of ORGANISM 1 Escherichia coli ANTIBIOTIC M.I.C RX STATUS Ampicillin <=2 S F Ampicillin/Sulbacta m <=2 S F Piperacillin/Tazoba ctam <=4 S F Cefazolin <=4 S F Ceftazidime <=1 S F Ceftriaxone <=1 S F Ertapenem <=0.5 S F Imipenem <=0.25 S F Amikacin <=2 S F Gentamicin <=1 S F Tobramycin <=1 S F Ciprofloxacin <=0.25 S F Levofloxacin <=0.12 S F Nitrofurantoin <=16 S F Trimethoprim/Sulfam ethoxazole <=20 S F Normal [facility] Comment on above: Performed By: #### U RCX #### [facility] [address] [place] [address] Dr. Julien Eric VAGINITIS/VAGINOSIS DNA PROB Jonathan 04-17-2022 Rocio species Negative Normal Negative [facility] Comment on above: Performed By: #### H CVPCRR #### [facility] [address] [place] [address] Dr. Julien Eric Gardnerella vaginalis Negative Normal Negative [facility] Comment on above: Performed By: #### H CVPCRR #### [facility] [address] [address] [address] Julien Eric Trichomonas vaginalis Negative Normal Negative [facility] Comment on above: Performed By: #### H CVPCRR #### [facility] [address] [address] [address] Julien Eric UA RANDOM W/MICROSCOPICon BACTERIA LARGE Abnormal NONE SEEN [facility] Comment on above: Performed By: #### U RCX #### [facility] [address] [place] [address] Dr. Julien Eric Bilirubin Ql (U) Negative Normal NEGATIVE [facility] Comment on above: Performed By: #### U RCX #### [facility] [address] [place] [address] Dr. Julien Eric CAST NONE SEEN Normal NONE SEEN [facility] Comment on above: Performed By: #### U RCX #### [facility] [address] [place] [address] Dr. Julien Eric Clarity (U) CLEAR Normal CLEAR [facility] Comment on above: Performed By: #### U RCX #### [facility] [address] [address] [address] Julien Eric Color (U) LT. YELLOW Normal YELLOW [facility] Comment on above: Performed By: #### U RCX #### [facility] [address] [address] [address] Julien Eric Crystals LM Nom (Urine sed) NONE SEEN Normal NONE SEEN [facility] Comment on above: Performed By: #### U RCX #### [facility] [address] [address] [address] Julien Eric Epithelial cells LM Ql (Urine sed) FEW Abnormal NONE SEEN /RARE [facility] Comment on above: Performed By: #### U RCX #### [facility] [address] [place] [address] Dr. Julien Eric Glucose Ql (U) Negative Normal NEGATIVE [facility] Comment on above: Performed By: #### U RCX #### [facility] [address] [place] [address] Dr. Julien Eric Hemoglobin Ql (U) MODERATE Abnormal NEGATIVE [facility] Comment on above: Performed By: #### U RCX #### [facility] [address] [place] [address] Dr. Julien Eric Ketones Ql (U) Negative Normal NEGATIVE [facility] Comment on above: Performed By: #### U RCX #### [facility] [address] [place] [address] Dr. Julien Eric LEUKOCYTES Negative Normal NEGATIVE [facility] Comment on above: Performed By: #### U RCX #### [facility] [address] [place] [address] Dr. Julien Eric MUCOUS NONE SEEN Normal NONE SEEN [facility] Comment on above: Performed By: #### U RCX #### [facility] [address] [place] [address] Dr. Julien Eric Nitrite Ql (U) Negative Normal NEGATIVE [facility] Comment on above: Performed By: #### U RCX #### [facility] [address] [place] [address] Dr. Julien Eric pH (U) 6.5 [pH] Normal 5-9 [facility] Comment on above: Performed By: #### U RCX #### [facility] [address] [place] [address] Dr. Julien Eric RBC NONE SEEN Abnormal 0-2 [facility] Comment on above: Performed By: #### U RCX #### [facility] [address] [place] [address] Dr. Julien Eric SPEC GRAVITY 1.020 Normal 1.005-<=1.02 5 [facility] Comment on above: Performed By: #### U RCX #### [facility] [address] [place] [address] Dr. Julien Eric UA PROTEIN 30 mg/dl Abnormal NEGATIVE/ TRACE [facility] Comment on above: Performed By: #### U RCX #### [facility] [address] [place] [address] Dr. Julien Eric Urobilinogen Qn (U) 0.2 {Ene'U}/dL Normal 0.2 - 1. 0 [facility] Comment on above: Performed By: #### U RCX #### [facility] [address] [address] [address] Julien Eric WBC 2-5 Abnormal NONE SEEN [facility] Comment on above: Performed By: #### U RCX #### [facility] [address] [address] [address] Julien Eric AFP MATERNAL FOR SPINA BIFID Aon 03-01-2022 AFP MoM 0.98 Normal [facility] Comment on above: Performed By: #### A FPMAT #### [facility] [address] [address] [address] Julien Eric AFP Value 35.7 ng/mL Normal [facility] Comment on above: Performed By: #### A FPMAT #### [facility] [address] [address] [address] Julien Eric AFP, Serum for Spina Bifida Report Normal [facility] Comment on above: Performed By: #### A FPMAT #### [facility] [address] [address] [address] Julien Eric Comment Comment Normal [facility] Comment on above: Result Comment: Jessica Borja, Ph.D., [facility] Director . References: Available Upon Request. . Multiples Of Median Cutoffs For AFP Elevations Warner 2.5 Black 2.8 IDD 2.0 Twins 4.5 Abbreviation Definitions IDD - Insulin Dep Diabetes OSBR - Open Spina Bifida Risk . For further inquiries contact [email or web address] at [phone]. . This test was developed and its performance characteristics determined by [employer]. It has not been cleared or approved by the Food and Drug Administration. Performed By: #### A FPMAT #### [facility] [address] [address] [address] Julien Eric Gest Age Collection Date 18.3 weeks Normal [facility] Comment on above: Performed By: #### A FPMAT #### [facility] [address] [place] [address] Dr. Julien Eric Gestat, Age Based on As provided [facility] Comment on above: Result Comment: Reca lculations are not recommended when gestational dating by LMP and ultrasound are within 10 days. Performed By: #### A FPMAT #### [facility] [address] [place] [address] Dr. Julien Eric Insulin Dep Diabetes No Normal [facility] Comment on above: Performed By: #### A FPMAT #### [facility] [address] [place] [address] Dr. Julien Eric Interpretation Comment Normal [facility] Comment on above: Result Comment: Inte [...] Customer Services to discuss available options. The [employer] recommends amniocentesis be offered to women age 35 and older. Performed By: #### A FPMAT #### [facility] [address] [place] [address] Dr. Julien Eric [age] Normal [facility] Comment on above: Performed By: #### A FPMAT #### [facility] [address] [place] [address] Dr. Julien Eric Multiple Gestation No Normal [facility] Comment on above: Performed By: #### A FPMAT #### [facility] [address] [place] [address] Dr. Julien Eric OSBR [place] [address] [facility] Comment on above: Performed By: #### A FPMAT #### [facility] [address] [place] [address] Dr. Julien Eric PDF . Normal [facility] Comment on above: Performed By: #### A FPMAT #### [facility] [address] [place], [place] [address] Dr. Julien Eric Race Normal [facility] Comment on above: Performed By: #### A FPMAT #### [facility] [address] [place], [place] [address] Dr. Julien Eric Test Results: Negative Normal [facility] Comment on above: Performed By: #### A FPMAT #### [facility] [address] [place], [place] [address] Dr. Julien Eric US PREG ANATOMY SINGLEon US PREG ANATOMY SINGLE EXAMINATION: US PREG ANATOMY SINGLE HISTORY: anatomy study COMPARISON: No [...] by: ZACH WALDEN Date: 2022-02-25 16:32 Normal [facility] HEPATITIS C VIRUS AB W/ REFL EX QUANTon 12-26-2021 HCV AB 1.9 s/co ratio Critically high 0.0-0.9 [facility] Comment on above: Result Comment: . Performed By: #### H CVPCRR #### [facility] [address] [place] [address] Dr. Julien Eric HCV log10 Normal [facility] Comment on above: Performed By: #### H CVPCRR #### [facility] [address] [place] [address] Dr. Julien Eric Hep C Quantitation Not detected Normal [facility] Comment on above: Performed By: #### H CVPCRR #### [facility] [address] [place] [address] Dr. Julien Eric Interpretation Comment Normal [facility] Comment on above: Result Comment: Posi tive HCV antibody screen without the presence of HCV RNA is consistent with a resolved past infection or a false positive HCV antibody. Consider repeat testing after one month. Performed By: #### H CVPCRR #### [facility] [address] [place] [address] Dr. Julien Eric Test Information: Comment Normal [facility] Comment on above: Result Comment: The quantitative range of this assay is 15 IU/mL to 100 million IU/mL. Performed By: #### H CVPCRR #### [facility] [address] [place] [address] Dr. Julien Eric CULTURE URINEon 12-24-2021 CULTURE URINE Culture Observations: GREATER THAN TWO ORGANISMS PRESENT. PLEASE RESUBMIT CLEAN CATCH MID-STREAM URINE IF CLINICALLY INDICATED. Normal [facility] Comment on above: Performed By: #### U RCX #### [facility] [address] [place] [address] Dr. Julien Eric HEP B SURFACE ANTIGEN SCREEN on 12-24-2021 HBsAg Screen Negative Normal Negative [facility] Comment on above: Performed By: #### H BSANS #### [facility] [address] [place] [address] Dr. Julien Eric HIV 1 AND 2 WITH REFLEXon HIV Screen 4th Generation wRfx Non-Reactive Normal Non Reactive [facility] Comment on above: Result Comment: HIV Negative HIV-1/HIV-2 antibodies and HIV-1 p24 antigen were NOT detected. There is no laboratory evidence of HIV infection. Performed By: #### U RCX #### [facility] [address] [place] [address] Dr. Julien Eric RPR QUANTon 12-24-2021 Rapid Plasma Reagin, Quant Non-Reactive Normal NonRea<1:1 [facility] Comment on above: Result Comment: Plea se Note: This test does not meet current guidelines for screening and diagnosis of syphilis. This test is intended for following treatment response in patients being treated for syphilis infection. To screen for syphilis infection, a reflex cascade that includes both RPR and a treponema-specific assay should be utilized, such as Treponema pallidum (Syphilis) Screening [place] (757755) or Rapid Plasma Reagin (RPR) Test With Reflex to Quantitative RPR and Confirmatory Treponema pallidum Antibodies (124239). Performed By: #### U RCX #### [facility] [address] [place] [address] Dr. Julien Eric RUBELLA AB IGGon 12-24-2021 Rubella Antibodies, IgG 8.34 index Normal Immune >0.99 [facility] Comment on above: Result Comment: Non- immune <0.90 Equivocal 0.90 - 0.99 Immune >0.99 Performed By: #### H CVPCRR #### [facility] [address] [place] [address] Dr. Julien Eric CBC AUTO DIFFon 12-23-2021 BASO # 0.1 103/ul Normal 0.0-0.1 [facility] Comment on above: Performed By: #### B LDCX2 #### [facility] [address] [place] [address] Dr. Julien Eric Basophils/100 WBC (Bld) 0.6 % Normal 0.2-2.0 [facility] Comment on above: Performed By: #### B LDCX2 #### [facility] [address] [place] [address] Dr. Julien Eric EO # 0.2 103/ul Normal 0.0-0.7 [facility] Comment on above: Performed By: #### B LDCX2 #### [facility] [address] [place] [address] Dr. Julien Eric Eosinophils/100 WBC (Bld) 1.5 % Normal 0.9-7.0 [facility] Comment on above: Performed By: #### B LDCX2 #### [facility] [address] [place] [address] Dr. Julien Eric Erythrocyte distribution width (RBC) [Ratio] 14.4 % Normal 11.0-15.0 [facility] Comment on above: Performed By: #### B LDCX2 #### [facility] [address] [place] [address] Dr. Julien Eric Hematocrit (Bld) [Volume fraction] 39.5 % Normal 36.0-48.0 [facility] Comment on above: Performed By: #### B LDCX2 #### [facility] [address] [place] [address] Dr. Julien Eric Hemoglobin (Bld) [Mass/Vol] 12.8 g/dL Normal 12.0-16.0 [facility] Comment on above: Performed By: #### B LDCX2 #### [facility] [address] [place] [address] Dr. Julien Eric IG # 0.04 10e3/ul Critically high 0.00-0.03 [facility] Comment on above: Performed By: #### B LDCX2 #### [facility] [address] [place] [address] Dr. Julien Eric IG % 0.3 % Normal 0.0-0.5 [facility] Comment on above: Performed By: #### B LDCX2 #### [facility] [address] [place] [address] Dr. Julien Eric LYMPH # 2.5 103/ul Normal 1.2-3.8 [facility] Comment on above: Performed By: #### B LDCX2 #### [facility] [address] [place] [address] Dr. Julien Eric Lymphocytes/100 WBC (Bld) 21.2 % Normal 20.5-60.0 [facility] Comment on above: Performed By: #### B LDCX2 #### [facility] [address] [place] [address] Dr. Julien Eric MANUAL DIFF REQ NO Normal [facility] Comment on above: Performed By: #### B LDCX2 #### [facility] [address] [place] [address] Dr. Julien Eric MCH (RBC) [Entitic mass] 29.1 pg Normal 26.7-34.0 [facility] Comment on above: Performed By: #### B LDCX2 #### [facility] [address] [place] [address] Dr. Julien Eric MCHC (RBC) [Mass/Vol] 32.4 g/dL Normal 29.9-35.2 [facility] Comment on above: Performed By: #### B LDCX2 #### [facility] [address] [place] [address] Dr. Julien Eric MCV (RBC) [Entitic vol] 89.8 fL Normal 81.0-99.0 [facility] Comment on above: Performed By: #### B LDCX2 #### [facility] [address] [place] [address] Dr. Julien Eric MONO # 0.5 103/ul Normal 0.3-0.8 [facility] Comment on above: Performed By: #### B LDCX2 #### [facility] [address] [place] [address] Dr. Julien Eric Monocytes/100 WBC (Bld) 4.2 % Normal 1.7-12.0 [facility] Comment on above: Performed By: #### B LDCX2 #### [facility] [address] [place] [address] Dr. Julien Eric NEUT # 8.4 103/ul Critically high 1.4-6.5 [facility] Comment on above: Performed By: #### B LDCX2 #### [facility] [address] [address] [address] Julien Eric Neutrophils/100 WBC (Bld) 72.2 % Normal 43.0-75.0 [facility] Comment on above: Performed By: #### B LDCX2 #### [facility] [address] [address] [address] Julien Eric Platelet mean volume (Bld) [Entitic vol] 11.3 fL Normal 9.5-13.5 [facility] Comment on above: Performed By: #### B LDCX2 #### [facility] [address] [address] [address] Julien Eric PLT 264 103/ul Normal 150-450 [facility] Comment on above: Performed By: #### B LDCX2 #### [facility] [address] [place] [address] Dr. Julien Eric RBC 4.40 106/ul Normal 4.20-5.40 [facility] Comment on above: Performed By: #### B LDCX2 #### [facility] [address] [address] [address] Julien Eric WBC 11.7 103/ul Critically high 4.0-11.0 [facility] Comment on above: Performed By: #### B LDCX2 #### [facility] [address] [address] [address] Julien Eric GLYCOHEMOGLOBIN A1Con 2021 ADA RECOMMENDATION SEE BELOW Normal [facility] Comment on above: Result Comment: ADA RECOMMENDED LIMIT 4.0 - 6.0 ADA THERAPEUTIC TARGET < 7.0 ACTION SUGGESTED > 7.0 Performed By: #### H BSANS #### [facility] [address] [place] [address] Dr. Julien Eric Glucose [Mass/Vol] 111 mg/dL Normal [facility] Comment on above: Performed By: #### H BSANS #### [facility] [address] [address] [address] Julien Eric HbA1c (Bld) [Mass fraction] 5.5 % Normal 4.5-6.2 [facility] Comment on above: Performed By: #### H BSANS #### [facility] [address] [place] [address] Dr. Julien Eric SERENITY BOX TEST PT SEND OUTo n 12-23-2021 SENT TO REF LAB 12/23/2021 Normal [facility] Comment on above: Performed By: #### H BSANS #### [facility] [address] [place] [address] Dr. Julien Eric TYPE AND SCREENon 12-23-2021 TYPE AND SCREEN Negative Normal [facility] Comment on above: Performed By: #### H BSANS #### [facility] [address] [place] [address] Dr. Julien Eric CULTURE URINEon 12-02-2021 CULTURE URINE Isolate 1 Escherichia coli >100,000 cfu/ml of ORGANISM 1 Escherichia coli ANTIBIOTIC M.I.C RX STATUS Ampicillin >=32 R F Ampicillin/Sulbacta m 8 S F Cefazolin 8 S F Ceftazidime <=1 S F Ceftriaxone <=1 S F Ertapenem <=0.5 S F Amikacin 4 S F Gentamicin <=1 S F Tobramycin <=1 S F Ciprofloxacin 0.5 S F Levofloxacin <=0.12 S F Nitrofurantoin 32 S F Normal [facility] Comment on above: Performed By: #### H BSANS #### [facility] [address] [place] [address] Dr. Julien Eric US PREG TVon 11-29-2021 US PREG TV EXAMINATION: US PREG TV HISTORY: Missed period COMPARISON: No relevant comparison available. FINDINGS: Transvaginal images Warner intrauterine gestation Gestational sac: 1.9 cm, 6 weeks 2 days [place]-rump length: 0.76 cm, 6 weeks 5 days [...] SOUMYA MONSALVE Date: 2021-11-29 16:59 Normal [facility] AMYLASEon 10-20-2021 Amylase [Catalytic activity/Vol] 32 U/L Normal 25-115 [facility] Comment on above: Performed By: #### U RCX #### [facility] [address] [place] [address] Dr. Julien Eric CBC AUTO DIFFon 10-20-2021 BASO # 0.1 103/ul Normal 0.0-0.1 [facility] Comment on above: Performed By: #### U RCX #### [facility] [address] [place] [address] Dr. Julien Eric Basophils/100 WBC (Bld) 0.8 % Normal 0.2-2.0 [facility] Comment on above: Performed By: #### U RCX #### [facility] [address] [place] [address] Dr. Julien Eric EO # 0.5 103/ul Normal 0.0-0.7 [facility] Comment on above: Performed By: #### U RCX #### [facility] [address] [place] [address] Dr. Julien Eric Eosinophils/100 WBC (Bld) 4.7 % Normal 0.9-7.0 [facility] Comment on above: Performed By: #### U RCX #### [facility] [address] [place] [address] Dr. Julien Eric Erythrocyte distribution width (RBC) [Ratio] 14.9 % Normal 11.0-15.0 [facility] Comment on above: Performed By: #### U RCX #### [facility] [address] [place] [address] Dr. Julien Eric Hematocrit (Bld) [Volume fraction] 39.3 % Normal 36.0-48.0 [facility] Comment on above: Performed By: #### U RCX #### [facility] [address] [place] [address] Dr. Julien Eric Hemoglobin (Bld) [Mass/Vol] 12.6 g/dL Normal 12.0-16.0 [facility] Comment on above: Performed By: #### U RCX #### [facility] [address] [place] [address] Dr. Julien Eric IG # 0.03 10e3/ul Normal 0.00-0.03 [facility] Comment on above: Performed By: #### U RCX #### [facility] [address] [place] [address] Dr. Julien Eric IG % 0.3 % Normal 0.0-0.5 [facility] Comment on above: Performed By: #### U RCX #### [facility] [address] [place] [address] Dr. Julien Eric LYMPH # 3.0 103/ul Normal 1.2-3.8 [facility] Comment on above: Performed By: #### U RCX #### [facility] [address] [place] [address] Dr. Julien Eric Lymphocytes/100 WBC (Bld) 27.8 % Normal 20.5-60.0 [facility] Comment on above: Performed By: #### U RCX #### [facility] [address] [place] [address] Dr. Julien Eric MANUAL DIFF REQ NO Normal [facility] Comment on above: Performed By: #### U RCX #### [facility] [address] [place] [address] Dr. Julien Eric MCH (RBC) [Entitic mass] 29.2 pg Normal 26.7-34.0 [facility] Comment on above: Performed By: #### U RCX #### [facility] [address] [place] [address] Dr. Julien Eric MCHC (RBC) [Mass/Vol] 32.1 g/dL Normal 29.9-35.2 [facility] Comment on above: Performed By: #### U RCX #### [facility] [address] [place] [address] Dr. Julien Eric MCV (RBC) [Entitic vol] 91.0 fL Normal 81.0-99.0 [facility] Comment on above: Performed By: #### U RCX #### [facility] [address] [place] [address] Dr. Julien Eric MONO # 0.8 103/ul Normal 0.3-0.8 [facility] Comment on above: Performed By: #### U RCX #### [facility] [address] [place] [address] Dr. Julien Eric Monocytes/100 WBC (Bld) 7.6 % Normal 1.7-12.0 [facility] Comment on above: Performed By: #### U RCX #### [facility] [address] [place] [address] Dr. Julien Eric NEUT # 6.3 103/ul Normal 1.4-6.5 [facility] Comment on above: Performed By: #### U RCX #### [facility] [address] [place] [address] Dr. Julien Eric Neutrophils/100 WBC (Bld) 58.8 % Normal 43.0-75.0 [facility] Comment on above: Performed By: #### U RCX #### [facility] [address] [place] [address] Dr. Julien Eric Platelet mean volume (Bld) [Entitic vol] 10.9 fL Normal 9.5-13.5 [facility] Comment on above: Performed By: #### U RCX #### [facility] [address] [place] [address] Dr. Julien Eric PLT 305 103/ul Normal 150-450 [facility] Comment on above: Performed By: #### U RCX #### [facility] [address] [place] [address] Dr. Julien rEic RBC 4.32 106/ul Normal 4.20-5.40 [facility] Comment on above: Performed By: #### U RCX #### [facility] [address] [place] [address] Dr. Julien Eric WBC 10.7 103/ul Normal 4.0-11.0 [facility] Comment on above: Performed By: #### U RCX #### [facility] [address] [place], [place] [address] ABD/PELV W CONon 10-21-[address] ABD/PELV W CON EXAMINATION: CT ABD/PELV [...] Piotr ROBBINS Date: 2021-10-20 03:27 Normal [facility] LIPASEon 10-20-2021 Lipase [Catalytic activity/Vol] 112.0 U/L Normal 23.0-300.0 [facility] Comment on above: Performed By: #### U RCX #### [facility] [address] [place], [place] [address] Dr. Julien Eric PREG HCG QUALon 10-20-2021 , QUAL Negative Normal NEGATIVE [facility] Comment on above: Performed By: #### H CVPCRR #### [facility] [address] [place], [place] [address] Dr. Julien Eric PROF 14(COMP METB)on 022 Albumin [Mass/Vol] 3.1 g/dL Critically low 3.4-5.0 [facility] Comment on above: Performed By: #### U RCX #### [facility] [address] [address] [address] Julien Eric Albumin/Globulin [Mass ratio] 0.8 {ratio} Normal [facility] Comment on above: Performed By: #### U RCX #### [facility] [address] [address] [address] Julien Eric ALP [Catalytic activity/Vol] 86 U/L Normal 46-116 [facility] Comment on above: Performed By: #### U RCX #### [facility] [address] [address] [address] Julien Eric ALT [Catalytic activity/Vol] 21 U/L Normal 14-59 [facility] Comment on above: Performed By: #### U RCX #### [facility] [address] [place] [address] Dr. Julien Eric Anion gap [Moles/Vol] 12.1 mmol/L Normal [facility] Comment on above: Performed By: #### U RCX #### [facility] [address] [address] [address] Julien Eric AST [Catalytic activity/Vol] 10 U/L Critically low 15-37 [facility] Comment on above: Performed By: #### U RCX #### [facility] [address] [place] [address] Dr. Julien Eric Bilirubin [Mass/Vol] 0.1 mg/dL Critically low 0.2-1.3 [facility] Comment on above: Performed By: #### U RCX #### [facility] [address] [address] [address] Julien Eric Calcium [Mass/Vol] 8.2 mg/dL Critically low 8.5-10.1 [facility] Comment on above: Performed By: #### U RCX #### [facility] [address] [address] [address] Julien Eric Chloride [Moles/Vol] 105 mmol/L Normal 98-107 [facility] Comment on above: Performed By: #### U RCX #### [facility] [address] [address] [address] Julien Eric CO2 [Moles/Vol] 26.7 mmol/L Normal 22.0-30.0 [facility] Comment on above: Performed By: #### U RCX #### [facility] [address] [address] [address] Julien Eric Creatinine [Mass/Vol] 0.79 mg/dL Normal 0.52-1.04 [facility] Comment on above: Performed By: #### U RCX #### [facility] [address] [address] [address] Julien Eric EGFR-AF TUNISIAN >60 Normal >=60 [facility] Comment on above: Performed By: #### U RCX #### [facility] [address] [place] [address] Dr. Julien Eric EGFR-NON AF TUNISIAN >60 Normal >=60 [facility] Comment on above: Performed By: #### U RCX #### [facility] [address] [address] [address] Julien Eric Globulin (S) [Mass/Vol] 3.7 g/dL Normal [facility] Comment on above: Performed By: #### U RCX #### [facility] [address] [address] [address] Julien Eric Glucose [Mass/Vol] 112 mg/dL Critically high 74-106 [facility] Comment on above: Performed By: #### U RCX #### [facility] [address] [place] [address] Dr. Julien Eric Potassium [Moles/Vol] 3.8 mmol/L Normal 3.4-5.0 [facility] Comment on above: Performed By: #### U RCX #### [facility] [address] [address] [address] Julien Eric Protein [Mass/Vol] 6.8 g/dL Normal 6.1-8.2 [facility] Comment on above: Performed By: #### U RCX #### [facility] [address] [place], [place] [address] Dr. Julien Eric Sodium [Moles/Vol] 140 mmol/L Normal 137-145 [facility] Comment on above: Performed By: #### U RCX #### [facility] [address] [place], [place] [address] Dr. Julien Eric Urea nitrogen [Mass/Vol] 8.0 mg/dL Normal 7.0-18.0 [facility] Comment on above: Performed By: #### U RCX #### [facility] [address] [place], [place] [address] Dr. Julien Eric Urea nitrogen/Creatinine [Mass ratio] 10.1 mg/mg Normal [facility] Comment on above: Performed By: #### U RCX #### [facility] [address] [place], [place] [address] Dr. Julien Eric Vital Signs Date Time Vital Sign Value Performing Clinician Facility 05-13-2024 13:04-0400 Body height 170.2 cm Phillip RAMÍREZ DNP Work Phone: [phone] [place] [address] 05-13-2024 13:04-0400 Body mass index (BMI) [Ratio] 38.37 kg/m2 Phillip RAMÍREZ DNP Work Phone: [facility] 05-13-2024 13:04-0400 Body weight 111.13 kg Phillip RAMÍREZ DNP Work Phone: [facility] 05-13-2024 13:04-0400 Diastolic blood pressure 70 mm[Hg] Phillip RAMÍREZ DNP Work Phone: [facility] 05-13-2024 13:04-0400 Heart rate 81 /min Phillip RAMÍREZ DNP Work Phone: [facility] 05-13-2024 13:04-0400 SaO2% (BldA) [Mass fraction] 99 % Phillip RAMÍREZ DNP Work Phone: [facility] 05-13-2024 13:04-0400 Systolic blood pressure 112 mm[Hg] Phillip Saleh 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, 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 Work Phone: [facility] 05-10-2024 12:00-0400 Body temperature 98.1 [degF] DO Danyell Brown Work Phone: [facility] 05-10-2024 12:00-0400 Diastolic blood pressure 70 mm[Hg] DO Danyell Brown Work Phone: [facility] 05-10-2024 12:00-0400 Heart rate 69 /min DO Danyell Brown Work Phone: [facility] 05-10-2024 12:00-0400 Respiratory rate 16 /min DO Danyell Brown Work Phone: [facility] 05-10-2024 12:00-0400 SaO2% (BldA) [Mass fraction] 99 % DO Danyell Brown Work Phone: [facility] 05-10-2024 12:00-0400 Systolic blood pressure 124 mm[Hg] DO Danyell Brown Work Phone: [facility] 05-10-2024 06:57-0400 Body weight 109.3 kg DO Danyell Brown Work Phone: [facility] 05-09-2024 14:05-0400 Body height 167.64 cm DO Danyell Brown Work Phone: [facility] 05-09-2024 13:00-0400 Diastolic blood pressure 56 mm[Hg] DO Danyell Brown Work Phone: [facility] 05-09-2024 13:00-0400 Heart rate 56 /min DO Danyell Brown Work Phone: [facility] 05-09-2024 13:00-0400 Respiratory rate 18 /min DO Danyell Brown Work Phone: [facility] 05-09-2024 13:00-0400 SaO2% (BldA) [Mass fraction] 98 % DO Danyell Banks Work Phone: [facility] 05-09-2024 13:00-0400 Systolic blood pressure 97 mm[Hg] DO Danyell Banks Work Phone: [facility] 05-09-2024 08:41-0400 Body height 167.64 cm DO Danyell Banks Work Phone: [facility] 05-09-2024 08:41-0400 Body temperature 98.4 [degF] DO Danyell Banks Work Phone: [facility] 05-09-2024 08:41-0400 Body weight 110 kg DO Danyell Banks Work Phone: [facility] 09-10-2023 08:59-0500 Body height 170.2 cm Jenssenait Plasencia DO Work Phone: [facility] 09-10-2023 08:59-0500 Body mass index (BMI) [Ratio] 39.84 kg/m2 Jens Luis Angel DO Work Phone: [facility] 09-10-2023 08:59-0500 Body weight 115.39 kg Jens Luis Angel DO Work Phone: [facility] 09-10-2023 08:59-0500 Diastolic blood pressure 70 mm[Hg] Jens Luis Angel Work Phone: [facility] 09-10-2023 08:59-0500 Systolic blood pressure 110 mm[Hg] Jens Luis Angel DO Work Phone: [facility] 03-01-2022 02:06-0400 Body weight 105.[address] JENS PLASENCIA [facility] Comment on above: Performed By: #### AFPMAT #### [facility] [address] [place] [address] Dr. Julien Eric Encounters Encounter Date Encounter Type Care Provider Facility Start: 05-13-2024 End: 05-13-2024 ambulatory PHILLIP [facility] Start: 05-13-2024 End: 05-13-2024 Subsequent hospital visit by physician Fernando Wy Rakel [facility] Comment on above: Paroxysmal atrial fi brillation (Multi) Start: 05-13-2024 End: 05-13-2024 Office outpatient new 45 minutes Phillip Baxter Reynaldo 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, DNP Work Phone: [facility] Comment on above: Paroxysmal atrial fi brillation (Multi) (Primary Dx) Start: 05-13-2024 End: 05-13-2024 ambulatory PHILLIP SALEH [facility] Start: 05-09-2024 End: 05-10-2024 Evaluation and management of inpatient DO Danyell Banks Work Phone: [facility] [place] [facility] Work Phone: Start: 05-09-2024 End: 05-10-2024 observation encounter DO Danyell Banks Work Phone: [facility] Work Phone: Start: 05-09-2024 End: 05-10-2024 ambulatory Robbin Love Facility:[facility] Start: 10-29-2023 End: 10-29-2023 ambulatory KARSON ACUNA Not Available Start: 10-01-2023 End: 10-01-2023 ambulatory [...] OB Start: 09-10-2023 End: 09-10-2023 ambulatory JENS LUIS ANGEL Not Available Start: 09-10-2023 End: 09-10-2023 Office outpatient visit 15 minutes Jens Plasencia DO Work Phone: [facility] Comment on above: Vaginal discharge; Weight gain; PCOS (polycystic ovarian syndrome); STD exposure Start: 07-29-2022 Encounter for preprocedural laboratory examination DR JENS PLASENCIA [facility] Start: 07-16-2022 Encounter for preprocedural laboratory examination DR JENS PLASENCIA [facility] Start: 07-14-2022 End: 07-16-2022 Evaluation and [...] f 2) Zoster Vaccines (1 of 2) [facility] Start: 06-24-2024 End: 06-24-2024 Telemedicine consultation with patient 06/24/2024 1:00 PM EST Telemedicine [facility] [address] [place] [id number] Phillip Saleh, 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, DNP [address], [address] [place] [address] [facility] Start: 06-13-2024 End: 06-13-2024 Patient encounter procedure 06/13/2024 11:15 AM EST Appointment [address] [place] [address] [facility] Start: 06-13-2024 End: 06-13-2024 Patient encounter procedure [facility] Start: 05-13-2024 End: 05-13-2025 Holter monitor study [facility] Work Phone: Comment on above: Expected: 05/13/2024 (Approximate), Expires: 05/13/2025 Once for 1 Occurrenc es starting 05/13/2024 until 05/13/2024 Start: 05-13-2024 End: 05-13-2025 NM Heart Perfusion W stress and W radionuclide IV Nuclear Stress Test Cardiac Nuclear Medicine Routine Paroxysmal atrial fibrillation (Multi) Expected: 05/13/2024 (Approximate), Expires: 05/13/2025 [facility] Service Area Work Phone: Comment on above: Expected: 05/13/2024 (Approximate), Expires: 05/13/2025 Start: 05-13-2024 End: 05-13-2024 Patient encounter procedure 05/13/2024 2:00 PM EDT Appointment [facility] [address] [address] [facility] Start: 05-10-2024 [facility] Start: 05-09-[address] [facility] Start: 05-09-2024 [facility] Start: 04-03-2024 COVID-19 Vaccine ( season) COVID-19 Vaccine ( season) [facility] Start: 04-03-2024 Influenza vaccination Influenza Vacc ine (#1) [facility] Start: 10-01-2023 End: 10-01-2023 Patient encounter procedure 10/01/2023 10:00 AM EST Office Visit [facility] [address] [place] [address] Jens Plasencia DO [address] [place], [place] [id number] [facility] Start: 09-10-2023 End: 09-10-2024 DHEA DHEA Lab Routine PCOS (polycystic ovarian syndrome) Expected: 09/10/2023 (Approximate), Expires: 09/10/2024 [facility] Comment on above: Expected: 09/10/2023 (Approximate), Expires: 09/10/2024 Start: 09-10-2023 End: 09-10-2024 US for US PELVIS-TRANSVAG IF INDICATED Imaging Routine PCOS (polycystic ovarian syndrome) Expected: 09/10/2023 (Approximate), Expires: 09/10/2024 [facility] Comment on above: Expected: 09/10/2023 (Approximate), Expires: 09/10/2024 Start: 09-10-2023 End: 09-10-2023 Patient encounter procedure 09/10/2023 8:50 AM EST Office Visit [facility] [address] [place] [address] Jens Plasencia, DO [address] [place] [address] Arrived [facility] Comment on above: Arrived Start: 11-16-2007 DTaP/Tdap/Td Vaccine s (1 - Tdap) DTaP/Tdap/Td Vaccines (1 - Tdap) [facility] Start: 2006 Screening for malign ant neoplasm of cervix [facility] Start: 2004 Hepatitis B Vaccines (1 of 3 - 19+ 3-dose series) Hepatitis B Vaccines (1 of 3 - 19+ 3-dose series) [facility] Start: 11-16-2003 Diabetes mellitus screening Diabetes Screening [facility] Start: 11-16-2003 Hepatitis C screening Hepatitis C [facility] Start: 1998 Varicella vaccination Varicell a Vaccines (1 of 2 - 13+ 2-dose series) [facility] Start: 1986 MMR Vaccines (1 of 1 - Standard series) MMR Vaccines (1 of 1 - Standard series) [facility] Start: 1985 HIV screening HIV Screening [facility] Start: 1985 Lipid panel Lipid Panel [facility] Start: 1985 Yearly Adult Physical Yearly Adult P hysical [facility] CBC W Auto Different ial panel - Blood CBC and differential Lab Routine PCOS (polycystic ovarian syndrome) Ordered: 09/10/2023 [facility] Comment on above: Ordered: 09/10/2023 CHLAMYDIA TRACHOMATI S (GENITO/STI) CHLAMYDIA TRACHOMATIS (GENITO/STI) Lab Routine STD exposure Ordered: 09/10/2023 [facility] Comment on above: Ordered: 09/10/2023 DHEA-sulfate DHEA-sulfate Lab Routine PCOS (polycystic ovarian syndrome) Ordered: 09/10/2023 [facility] Comment on above: Ordered: 09/10/2023 Follicle stimulating hormone Follicle stimulating hormone Lab Routine PCOS (polycystic ovarian syndrome) Ordered: 09/10/2023 [facility] Comment on above: Ordered: 09/10/2023 hCG, quantitative, hCG, quantitative, Lab Routine PCOS (polycystic ovarian syndrome) Ordered: 09/10/2023 [facility] Work Phone: Comment on above: Ordered: 09/10/2023 Hemoglobin A1c measurement Hemoglobin A1c Lab Routine PCOS (polycystic ovarian syndrome) Ordered: 09/10/2023 [facility] Comment on above: Ordered: 09/10/2023 Luteinizing hormone Luteinizing hormone Lab Routine PCOS (polycystic ovarian syndrome) Ordered: 09/10/2023 [facility] Comment on above: Ordered: 09/10/2023 Neisseria gonorrhoea e DNA [Presence] in Unspecified specimen by KATTY with probe detection Neisseria gonorrhea DNA probe, direct Lab Routine STD exposure Ordered: 09/10/2023 [facility] Comment on above: Ordered: 09/10/2023 Patient Education [facility] Work Phone: Patient referral [facility] Work Phone: SURESWAB(R) ADVANCED VAGINITIS PLUS, TMA SURESWAB(R) ADVANCED VAGINITIS PLUS, TMA Pathology and Cytology Routine Vaginal discharge Ordered: 09/10/2023 [facility] Comment on above: Ordered: 09/10/2023 Thyrotropin [Units/volume] in Serum or Plasma TSH Lab Routine PCOS (polycystic ovarian syndrome) Ordered: 09/10/2023 [facility] Comment on above: Ordered: 09/10/2023 Thyroxine (T4) free [Mass/volume] in Serum or Plasma T4, free Lab Routine PCOS (polycystic ovarian syndrome) Ordered: 09/10/2023 [facility] Comment on above: Ordered: 09/10/2023 Payers Date Payer Category Payer Self-pay [id number] 2019 Medicaid [facility]ICA[facility] MEDICAID [id number] 2019-Present [address] [place] [address] [id number] 2019 Unknown [facility] HEALTH PLAN [facility] PLAN [id number] 2019-Present [address] [place] [address] [id number] 1985 Unknown [id number] 2.16.840.1.381760.3.579.2.593 1985 Unknown [id number] 2.16.840.1.816544.3.579.2.593 1985 Unknown [id number] 2.16.840.1.359747.3.579.2.593 1985 Unknown [id number] 2.16.840.1.065733.3.579.2.593 1985 Unknown [id number] 2.16.840.1.172171.3.579.2.593 1985 Unknown [id number] 2.16.840.1.096353.3.579.2.593 1985 Unknown [id number] 2.16.840.1.372451.3.579.2.593 1985 Unknown [id number] 2.16.840.1.227839.3.579.2.593 1985 Unknown [id number] 2.16.840.1.027703.3.579.2.593 1985 Unknown [id number] 2.16.840.1.460065.3.579.2.593 1985 Unknown [id number] 2.16.840.1.645659.3.579.2.593 1985 Unknown [id number] 2.16.840.1.441194.3.579.2.593 1985 Unknown [id number] 2.16.840.1.938967.3.579.2.593 1985 Unknown [id number] 2.16.840.1.422411.3.579.2.593 1985 Unknown [id number] 2.16.840.1.059275.3.579.2.593 1985 Unknown [id number] 2.16.840.1.859733.3.579.2.593 1985 Unknown [id number] 2.16.840.1.760817.3.579.2.593 1985 Unknown [id number] 2.16.840.1.901243.3.579.2.593 1985 Unknown [id number] 2.16.840.1.284443.3.579.2.593 1985 Unknown [id number] 2.16.840.1.290523.3.579.2.593 1985 Unknown [id number] 2.16.840.1.693683.3.579.2.1259 1985 Unknown [id number] 2.16.840.1.615764.3.579.2.1259 1985 Unknown [id number] 2.16.840.1.387285.3.579.2.1259 1985 Unknown [id number] 2.16.840.1.882066.3.579.2.1244 1985 Unknown [id number] 2.16.840.1.359802.3.579.2.1243 1959 Self-pay [id number] 1959 Unknown [id number] 1959 Unknown UNDEFINED Unknown [id number] 2.16.840.1.309284.3.579.2.593 Unknown [id number] 2.16.840.1.938771.3.579.2.531 Social History Date Type Detail Facility Start: 04-10-2023 Tobacco smoking status SDIS Never smoked tobacco [facility] Start: 04-10-2023 Tobacco use and exposure Smokeless tobacco non-user [facility] Start: 04-10-2023 End: 09-10-2023 Alcohol intake Lifetime non-drinker (finding) [facility] Start: 04-10-2023 End: 05-13-2024 History of Social function [facility] Start: 04-10-2023 End: 05-13-2024 Tobacco use panel [facility] Start: 1985 Sex Assigned At Not on file [facility] Start: 05-09-2024 End: 05-09-2024 Tobacco smoking status SDIS Smoker (finding) [facility] Start: 1985 Sex Assigned At Female [facility] Start: 05-13-2024 Tobacco smoking status SDIS Ex-smoker [facility] Work Phone: History of tobacco use Cigarette Smoker [facility] Work Phone: Start: 05-13-2024 Tobacco use and exposure User of smokeless tobacco [facility] Work Phone: Start: 05-13-2024 Alcoholic beverage intake Current drinker of alcohol (finding) [facility] Work Phone: Start: 05-13-2024 Tobacco Comment Vape [facility] Work Phone: Start: 05-13-2024 Alcohol Comment occasionally [facility] Work Phone: Start: 05-03-2024 End: 05-13-2024 Exposure to SARS-CoV-2 (event) Not sure [facility] NEGATED: Highlighted row [facility] Goals Date Patient Goal Desired Activity /State Functional Status Date Assessment Result Facility 05-09-2024 Functional status Patient at Baseline [facility] Work Phone: Mental Status Date Assessment Result Facility 05-09-2024 Cognitive function Cognitive Sta tus Patient at Baseline [facility] Work Phone: Clinical Notes 07-14-2022 to 05-13-2024 Phillip Saleh, 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, DNP - 05/13/2024 1:00 PM EDT Note [...] Patient tried to get in with a Glass Vial Filler near her hometown but all were months [...] , EGFR , MG in the last 49432 hours.No results for input(s): ALBUMIN , ALKPHOS , ALT , AST , BILITOT , LIPASE in the last 91513 hours. No lab exists for component: CA CBC:No results for input(s): WBC , HGB , HCT , PLT , MCV in the last 04680 hours. COAG: No results for input(s): PTT , INR , HAUF , DDIMERVTE , HAPTOGLOBIN , FIBRINOGEN in the last 59604 hours. ABO: No results for input(s): ABO in the last 41241 hours. HEME/ENDO:No results for input(s): FERRITIN , IRONSAT , TSH , HGBA1C in the last 98682 hours. CARDIAC: No results for input(s): LDH , CKMB , TROPHS , BNP in the last 17072 hours. No lab exists for component: CK , CKMBP No results for input(s): CHOL , LDLF , HDL , TRIG in the last 42414 hours. MICRO: No results for input(s): ESR , CRP , PROCAL in the last 05818 hours. No results found for the last [...] the patient's care. Phillip Saleh DNP, SHIVA, WELL DRILLER HELPER-C Division of Cardiovascular Medicine [facility] documented in this encounter [facility] Work Phone: 05-09-2024 History and physi thomas note Note Date/Time May 09, 2024 8:21pm [facility] [address] [place] [address] Hospitalist H&P Signed Patient: Sarah Pennington MR#: [id number] : 1985 Acct:[id number] Age/Sex: 38 / F Adm Date: 4 Loc: 3T Room: [address] [place] [address] Type: ADM INOo Attending Dr: Robbin Love [...] [facility] service for further [...] than female gender in terms of her [id number] scoring which is only a score of [...] discharged with these 2 new medications tomorrow. [facility] Medical History (Updated 05/09/24 @ 13:12 [...] % (Auto) 31.1 % (.) 05/09/24 08:43 [place] % (Auto) 6.3 % (.) 05/09/24 08:43 Eos % (Auto) 2.7 % (.) 05/09/24 08:43 Baso % (Auto) 0.9 % (.) 05/09/24 08:43 Nucleat RBC Rel Count 0.1 /100 WBC (0-0.5) 05/09/24 08:43 Neut # (Auto) 5.4 x10E3/uL (1.8-7.7) 05/09/24 08:43 Lymph # (Auto) 2.8 x10E3/uL (1.00-4.8) 05/09/24 08:43 [place] # (Auto) 0.6 x10E3/uL (0.0-0.8) 05/09/24 08:43 [...] pH 6.5 (5.0-9.0) 05/09/24 08:05 Ur Specific Sunset 1.006 (1.001-1.030) 05/09/24 08:05 Urine Protein Negative [...] <Electronically signed by Robbin Love DO> 05/09/242020 [facility] Work Phone: 1(116) 367-274410-07-2024 Discharge summary Author Robbin Love [facility] May 09, 2024 5:40pm Note Date/Time May 09, 2024 1: 19pm [facility] [address] [place] [address] Discharge Summary Signed with Addenda Patient: Sarah Pennington MR#: [id number] : 1985 Acct:[id number] Age/Sex: 38 / F Adm Date: 4 Loc: 3T Room: 2V6319-[address]: Robbin Love DO Copies to: NON STAFF Robbin Love DO~ ADDENDUM1 Disregard this documentation as I was falsely informed by ER nursing staff of the patient's AMA status and now unbeknownst to me he has arrived on the [facility] for admission. Addendum Documented By: Robbin Love DO 05/09/241739 Addendum Signed By: <Electronically signed by Robbin Love DO> 05/09/241739 Providers Date of Discharge: 05/09/24 Discharging [...] medical chart to warrant anticoagulation chronically answered [id number] scoring based on female statusis only 1. [...] % (Auto) 59.0, Lymph % (Auto) 31.1, [place] % (Auto) 6.3, Eos % (Auto) 2.7, Baso % (Auto) 0.9, Nucleat RBC Rel Count 0.1, Neut # (Auto) 5.4, Lymph # (Auto) 2.8, [place] # (Auto) 0.6, Eos # (Auto) 0.2, [...] Appearance Clear, Urine pH 6.5, Ur Specific Sunset 1.006, Urine Protein Negative, Urine Glucose (UA) Normal, UrineKetones Negative, Urine Occult Blood 1+ H, Urine Nitrite Negative, Urine Bilirubin Negative, Urine Urobilinogen Normal, Ur Leukocyte Esterase Negative, Urine RBC 3-4, Urine WBC 1-2, Ur Squamous Epith Cells 1-2, Urine Bacteria Rare, Hyaline Casts None Documented By: Robbin Love DO 05/09/24 13 15 Signed By: <Electronically signed by Robbin Love DO> 05/09/24 1241 [facility] Work Phone: 1(745) 175-799102-08-2024 History of Present illness Narrative* Rosio MaurerSILVANA - 09/10/2023 8:50 AM EST Reason for [...] nursing note reviewed. Exam conducted with a therapy manager present. Vitals: Estimated body mass index is [...] of: Jens Plasencia DO [facility] [id number] NoteOPERATIVE NOTE OPERATION DATE: 07/14/2022 PROCEDURE: Repeat low transverse section with bilateral salpingectomy. PREOPERATIVE DIAGNOSIS: 1. Intrauterine at 39 weeks. 2. Desires permanent sterilization. 3. Previous x3. POSTOPERATIVE DIAGNOSIS: 1. Intrauterine at 39 weeks. 2. Desires permanent sterilization. 3. Previous x3. ANESTHESIA: Spinal with Duramorph. SURGEON: Jens Plasencia D.O. ENGINE MECHANIC: KURT Carrion URINE OUTPUT: Yellow and clear. [...] and cut. Cord blood was obtained. The infant was handed off to awaiting team. The [...] The tubes were identified, grasped with a Tolono, the LigaSure apparatus was used to come [...] to the Recovery Room in stable condition.[facility] [id number] NoteDISCHARGE SUMMARY DISCHARGE DATE: 07/28/2022 PRIMARY DIAGNOSES: [...] pain free and no longer on narcotics.[facility] Hospital[facility] summary Author Robbin Love [facility] May 09, 2024 1:19pm Note Date/Time May 09, 2024 1: 19pm [facility] [address] [place], [place] [id number] Discharge Summary Signed Patient: Sarah Pennington MR#: [id number] : 1985 Acct:[id number] Age/Sex: 38 / F Adm Date: 4 [...] medical chart to warrant anticoagulation chronically answered [id number] scoring based on female statusis only 1. [...] % (Auto) 59.0, Lymph % (Auto) 31.1, [place] % (Auto) 6.3, Eos % (Auto) 2.7, Baso % (Auto) 0.9, Nucleat RBC Rel Count 0.1, Neut # (Auto) 5.4, Lymph # (Auto) 2.8, [place] # (Auto) 0.6, Eos # (Auto) 0.2, [...] Appearance Clear, Urine pH 6.5, Ur Specific [place] 1.006, Urine Protein Negative, Urine Glucose (UA) Normal, UrineKetones Negative, Urine Occult Blood 1+ H, Urine Nitrite Negative, Urine Bilirubin Negative, Urine Urobilinogen Normal, Ur Leukocyte Esterase Negative, Urine RBC 3-4, Urine WBC 1-2, Ur Squamous Epith Cells 1-2, Urine Bacteria Rare, Hyaline Casts None Documented By: Robbin Love DO 05/09/24 13 15 Signed By: <Electronically signed by Robbin Love DO> 05/09/24 1319 [facility] Work Phone: Evaluation note* Diagnosis Vaginal discharge Leukorrhea, not specified as infective Weight gain Other symptoms concerning nutrition, metabolism, and development PCOS (polycystic ovarian syndrome) Polycystic ovaries STD exposure [facility] Diagnosis Onset Date Resolution Status Atrial fibrillation acute [facility] Work Phone: Evaluation note* Diagnosis Paroxysmal atrial fibrillation (Multi)- Primary Atrial fibrillation documented in this encounter [facility] Work Phone: Evaluation note* Diagnosis Paroxysmal atrial fibrillation (Multi) Atrial fibrillation documented in this encounter [facility] Work Phone: Summary Purpose Family History No Family History Records FoundNo Family History Records FoundNo Family History Records FoundNo Family History Records FoundNo Family History Records Found Advance Directives No Advanced Directives Records Found Advance Directive Response Recorded Date/ Time Advance Directives No February 10 1:57pm Chief Complaint and Reason for Visit Chief Complaint a-fib Reason for Visit Atrial fibrillation Reason for Referral Specialty Diagnoses / Procedures Referred By Contac t Referred To Contact Cardiology Diagnoses Paroxysmal atrial fibrillation (Multi) Procedures Holter Or Event Electric Blanket Wirer Phillip Saleh APRN-CNP, DNP [address], [place] [address] Referral ID Status Reason Start Date Expiration Date V isits Requested Visits Authorized [id number] Pending Review 05/13/2024 05/13/2025 1 1 Specialty Diagnoses / Procedures Referred By Contac t Referred To Contact Cardiology Diagnoses Paroxysmal atrial fibrillation (Multi) Procedures Nuclear Stress Test CHG MYOCARDIAL SPECT MULTIPLE STUDIES Phillip Saleh APRN-CNP, DNP [address] [place], [facility] [address] [place] [address] Referral ID Status Reason Start Date Expiration Date Visits Requested Visits Authorized [id number] Pending Review Perform Procedure 4 05/13/2025 3 3 Referral ID Status Reason Start Date Expiration Date V isits Requested Visits Authorized [id number] Authorized 05/13/2024 05/13/2025 1 1 Additional Source Comments INFORMATION SOURCE (unrecogn ized section and content) DATE CREATED AUTHOR 07/29/2022 [facility] DATE CREATED AUTHOR AUTHOR'S ORGANIZ ATION 10/30/2023 [facility] EPIC DATE CREATED AUTHOR AUTHOR'S ORGANIZ ATION 05/16/2024 [facility] DATE CREATED AUTHOR AUTHOR'S ORGANIZ ATION 05/16/[address] [facility] DATE CREATED AUTHOR AUTHOR'S ORGANIZ ATION 05/18/2024 [facility] Reason for Visit (unrecogniz ed section and content) Reason Comments Issues with vagina Reason Comments New Patient Visit AFIB Specialty Diagnoses / Procedures Referred By Contac t Referred To Contact Cardiology Diagnoses Paroxysmal atrial fibrillation (Multi) Procedures Holter Or Event Electric Blanket Wirer Phillip Saleh, SHIVA-AUTO MECHANIC SUPERVISOR, LUIS [address] [facility], [facility] [address] [place] [address] Referral ID Status Reason Start Date Expiration Date V isits Requested Visits Authorized [id number] Authorized 05/13/2024 05/13/2025 1 1 Care Teams [...] May 09, 2024 End: May 10, 2024 [employer] Dies Loader Relationship Specialty Start Date End Date Airam Cheng [address] [place] [address] PCP - General 05/13/24 Goals (unrecognized section [...] BE BASED ON THE PRIMARY CLINICAL RECORDS. [employer] provides no warranty or guarantee of the accuracy or completeness of information in this document.
[2024-05-19 05:32] VITALS: BP 103/67; PULSE 50; TEMP 36.4; O2SAT 97
--- NOTE | 2024-05-19 06:24 | P.HP_ITS ---
HPI H&P: HPI History of Present Illness Chief complaint: DENTAL PAIN Narrative: Patient presented to the emergency room with fever, chills, she had had a dental procedure done earlier in the day. To complete the workup with the significant lactic acidosis and leukocytosis they obtained a CT scan of her abdomen and pelvis which showed a tubo-ovarian abscess potentially. She was started on IV antibiotics overnight. Observation overnight Opioid HPI Opioid Management Most Recent Pain and Opioid Data: Last Pain Assessment 05/19/24 09:18 Last ORT Total Score 0 05/19/24 00:36 05/19/24 Last ORT Risk Category Low Risk 05/19/24 00:36 05/19/24 PFSH PFS Medical History (Updated 05/19/24 @ 01:15 by Sameera Vaughn RN) UTI (urinary tract infection) ?N39.0 - Urinary tract infection, site not specified (ICD-10) delivery delivered ?O82 - Encounter for delivery without indication (ICD-10) A-fib ?I48.91 - Unspecified atrial fibrillation (ICD-10) Surgical History (Updated 05/19/24 @ 09:41 by Matt Meier MD) History of cholecystectomy ?Z90.49 - Acquired absence of other specified parts of digestive tract (ICD- 10) H/O tooth extraction ?K08.409 - Partial loss of teeth, unspecified cause, unspecified class (ICD- 10) Family History (Updated 05/19/24 @ 00:49 by Jud Gutierrez) Uncle Family history of COPD (chronic obstructive pulmonary disease) Family history of diabetes mellitus Family history of hypertension Mother Family history of cancer Aunt Family history of hypertension Social History (Updated 05/19/24 @ 00:50 by Jud Gutierrez) Within the past year, how often did you have a drink containing alcohol: monthly or less Do you use any of these nicotine containing products: vaping products Non-prescribed substance use: denies use 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 Highest level of school completed/degree received: some college, no degree Are you now , , , , never or living with a partner: In a typical week, how many times do you talk on the telephone with family, friends, or neighbors: twice per week How often do you get together with friends or relatives: twice per week How often do you attend voodoo or synagogue services: never Do you belong to any clubs or organizations such as voodoo groups unions, fraternal or athletic groups, or school groups: no Total score: 2 Score interpretation: A score of greater than or equal to 2 indicates the lowest level of social isolation. Little interest or pleasure in doing things: not at all Feeling down, depressed, or hopeless: not at all Feel stressed/tense/nervous/anxious/difficulty sleeping: not at all Do you think of yourself as: straight/heterosexual Gender Identity: female Meds Home Medications and Allergies Home Medications ?Medication ?Instructions ?Recorded ?Confirmed ?Type amoxicillin 875 mg-potassium 1 tab PO Q12H #20 tabs 05/19/24 Rx clavulanate 125 mg tablet Allergies Allergy/AdvReac Type Severity Reaction Status Date / Time azithromycin (From Zithromax) Allergy Mild Anaphylaxis Verified 05/18/24 19:13 Exam Constitutional Vital Signs, click to edit/add: Last Vital Signs Temp 97.6 F 05/19/24 05:32 Pulse 50 L 05/19/24 05:32 Resp 16 05/19/24 05:32 BP 103/67 05/19/24 05:32 Pulse Ox 97 05/19/24 05:32 O2 Del Method Room Air 05/19/24 05:32 Documenting provider has reviewed patient's vital signs: yes Common normals: no apparent distress Chest Common normals: inspection of chest normal Respiratory Common normals: normal respiratory effort Cardio Common normals: no JVD, regular rate, regular rhythm and no murmurs GI Common normals: Normal to inspection, nondistended, normoactive bowel sounds present, soft to palpation, non-tender and no masses Results Labs Labs: Short CBC 05/18/24 Range/Units 20:18 WBC 18.3 H (4.0-11.0) 10^3/uL Hgb 12.3 (12.0-16.0) g/dL Hct 37.4 (36.0-48.0) % Plt Count 284 (150-450) 10^3/uL BMP 05/18/24 20:18 Sodium 137 Potassium 3.4 L Chloride 103 Carbon Dioxide 21.2 BUN 11.0 Creatinine 1.08 H Glucose 135 H Calcium 8.9 Liver Function 05/18/24 Range/Units 20:18 Total Bilirubin 0.4 (0.2-1.0) mg/dL AST 13 L (15-37) U/L ALT 21 (14-59) U/L Alkaline Phosphatase 74 (46-116) U/L Albumin 3.2 L (3.4-5.0) g/dL Urine 05/18/24 Range/Units 21:25 Urine Color Lt. yellow (YELLOW) Urine Clarity Clear (CLEAR) Urine pH 5.5 (5.0-9.0) Ur Specific [place] >=1.030 A (1.005-1.025) Urine Protein 100 A (NEG/TRACE) mg/dL Urine Glucose (UA) Negative (NEGATIVE) mg/dL ABG ABG results: 05/18/24 20:18 VBG pH 7.427 VBG pCO2 32.4 L Assessment and Plan Assessment and Plan (1) Fever: (2) Rigors: Plan Admission findings: Fever, uncontrolled hypertension, lactic acidosis, leukocytosis, possibly related to tubo-ovarian abscess. Lactic acidosis and leukocytosis-ultrasound showed just ovarian cyst, discussed case with her acid tender who states she had a salpingectomy bilaterally. She has no abdominal tenderness. At this point the lactic acidosis and leukocytosis may be on the basis of her dental procedure. Will have the patient eat breakfast, if she is comfortable with that and pain is well-controlled she can be discharged to home in improving condition. Medications see list. Follow-up with her PCP and gynecology. History of atrial fibrillation-not anticoagulated, that was recommended by her PCP to not be anticoagulated at this time while workup is ongoing. She has a Holter monitor for 30 days on. Recommend follow-up with local cardiology Admission status: Patient observation status. This is likely to remain as observation as she is likely discharged to home this morning
[2024-05-19 06:26] LABS: Basophils Absolute Auto 0.1 10^3/uL (0.0-0.1); Basophils Percent Auto 0.7 % (0.2-2.0); Eosinophils Absolute Auto 0.2 10^3/uL (0.0-0.7); Eosinophils Percent Auto 1.5 % (0.9-7.0); Hematocrit 34.2 % (36.0-48.0); Immature Granulocytes Abs Auto 0.03 10^3/uL (0.00-0.03); Immature Granulocytes Pct Auto 0.3 % (0.0-0.5); Lymphocytes Absolute Auto 1.7 10^3/uL (1.2-3.8); Lymphocytes Percent Auto 16.3 % (20.5-60.0); Mean Corpuscular HGB Conc 32.2 g/dL (29.9-35.2); Mean Corpuscular Hemoglobin 28.5 pg (26.7-34.0); Mean Corpuscular Volume 88.6 fL (81.0-99.0); Mean Platelet Volume 11.1 fL (9.5-13.5); Monocytes Absolute Auto 0.6 10^3/uL (0.3-0.8); Monocytes Percent Auto 5.8 % (1.7-12.0); Neutrophils Absolute Auto 7.8 10^3/uL (1.4-6.5); Neutrophils Percent Auto 75.4 % (43.0-75.0); Platelet Count 247 10^3/uL (150-450); Red Blood Count 3.86 10^6/uL (4.20-5.40); Red Cell Distribution Width 14.2 % (11.0-15.0); White Blood Count 10.4 10^3/uL (4.0-11.0)
--- NOTE | 2024-05-19 06:32 | US_ITS ---
The [address] [address] Patient Name: SARAH ALVAREZ MRN: [id number] date: 1985 Sex: F Assigned Patient Location: [place] Current Patient Location: [place] Accession/Order Number: [id number] Exam Date: 05/19/2024 08:02 Report Date: 05/19/2024 09:05 At the request of: CAROL HARTMAN Procedure: US pelvis w/ transvaginal EXAMINATION: US pelvis w/ transvaginal HISTORY: Tubo-ovarian abscess COMPARISON: No relevant comparison available. FINDINGS: The uterus is normal in size, contour and echotexture measuring 8.7 x 7.9 x 6.1 cm. No focal myometrial mass. The endometrium measures 17.1 cm containing a small amount of free fluid. Area of anechoic echogenicity cervix measuring 2.2 cm, nabothian cysts. The right ovary is normal measuring 4.7 x 2.8 x 3.2 cm. Normal color Doppler flow. 1.9 cm simple cyst. Left ovary is not visualized These findings discussed with Dr. Plasencia by telephone 8:40 AM US/US pelvis w/ transvaginal IMPRESSION: No acute abnormality observed Electronically authenticated by: SOUMYA MONSALVE Date: 05/19/2024 09:05
[2024-05-19 06:33] LABS: Anion Gap 11.8; BUN Creatinine Ratio 10.2; Calcium 8.4 mg/dL (8.5-10.1); Carbon Dioxide 24.8 mmol/L (21.0-32.0); Chloride 106 mmol/L (98-107); Estimated GFR (African America >60 (>=60 mL/min/1.73m^2); Estimated GFR (Non-African Ame >60 (>=60 mL/min/1.73m^2); Glucose 105 mg/dL (74-106); Potassium 3.6 mmol/L (3.5-5.1); Sodium 139 mmol/L (136-145)
[2024-05-19 06:57] LABS: Alanine Aminotransferase 18 U/L (14-59); Albumin Globulin Ratio 0.8; Albumin Level 2.7 g/dL (3.4-5.0); Alkaline Phosphatase 64 U/L (46-116); Aspartate Amino Transferase 13 U/L (15-37); Bilirubin Direct 0.1 mg/dL (0.0-0.2); Bilirubin Total 0.4 mg/dL (0.2-1.0); Globulin 3.4 g/dL; Total Protein 6.1 g/dL (6.4-8.2)
[2024-05-19 07:10] LABS: HCG Quantitative <1 mIU/mL
[2024-05-19 07:59] LABS: INR 1.05; Partial Thromboplastin Time 32.6 sec (22.3-36.2); Prothrombin Time 11.1 sec (9.0-11.6)
[2024-05-19] MEDS: DOXYCYCLINE HYCLATE 100 MG in 0.9 % SODIUM CHLORIDE 100 ML IV (08:53)
[2024-05-19] MEDS: 0.9 % SODIUM CHLORIDE 250 ML 10 ML IV (08:54)
[2024-05-19 08:59] VITALS: BP 88/57; PULSE 62; TEMP 36.9; O2SAT 96
--- NOTE | 2024-05-19 09:03 | CM.NOTE ---
Rounds made with Dr. Meier, pt having pelvic ultrasound this AM and Dr. Plasencia will consult with pt for plan of care. Possible discharge this afternoon.
--- NOTE | 2024-05-19 09:44 | P.DS_ITS ---
DS: Providers Provider Date of admission: 05/19/24 00:30 Primary care physician: Non-Staff Physician, Consults: 05/19/24 06:30 Consult to OBGYN Routine Consulting Provider: Jens Plasencia Reason For Exam: Reason for consultation: Tubo-ovarian abscess Has provider been notified: No Consult to Pharmacy Routine Consulting Provider: Reason for consultation: Please [place] me when Med Rec is Updated Has provider been notified: No DS: Diagnosis Discharge Diagnosis (1) Fever: (2) Rigors: Plan Admission findings: Fever, uncontrolled hypertension, lactic acidosis, leukocytosis, possibly related to tubo-ovarian abscess. 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 She has no abdominal tenderness. At this point the lactic acidosis and leukocytosis may be on the basis of her dental procedure. Will have the patient eat breakfast, if she is comfortable with that and pain is well-controlled she can be discharged to home in improving condition. Medications see list. Follow-up with her PCP and gynecology. History of atrial fibrillation-not anticoagulated, that was recommended by her PCP to not be anticoagulated at this time while workup is ongoing. She has a Holter monitor for 30 days on. Recommend follow-up with local cardiology Admission status: Patient observation status. This is likely to remain as observation as she is likely discharged to home this morning ? DS: Summary Hospital Course Hospital Course: Patient seen and evaluated in the emergency room with an fever and chills. Emergency room physician about patient have significant lactic acidosis and leukocytosis. Did not feel it was on the basis of the pain in her jaw from recent dental procedures is fine for that were minimal, CT scan was done of the abdomen and pelvis which showed possible tubo-ovarian abscess. Patient was admitted overnight, ultrasounds obtained the following morning and evaluated by gynecology. Patient has had a salpingectomy bilaterally. Ultrasound did show ovarian cyst. Patient had no pain in no more fevers or chills. She was discharged to home in improving condition. Medications see list. Follow-up with GI by end within the next week Status at Discharge Overall status at discharge: patient is progressing back to baseline Time Spent with Patient Time attestation: Total time spent providing and/or coordinating discharge services: Time spent: greater than 30 minutes Exam Constitutional Vital Signs, click to edit/add: Last Vital Signs Temp 98.4 F 05/19/24 08:59 Pulse 62 05/19/24 08:59 Resp 18 05/19/24 08:59 BP 88/57 L 05/19/24 08:59 Pulse Ox 96 05/19/24 08:59 O2 Del Method Room Air 05/19/24 08:59 Documenting provider has reviewed patient's vital signs: yes Common normals: no apparent distress Chest Common normals: inspection of chest normal Respiratory Common normals: normal respiratory effort Cardio Common normals: no JVD, regular rate, regular rhythm and no murmurs GI Common normals: Normal to inspection, nondistended, normoactive bowel sounds present, soft to palpation, non-tender and no masses DS: Data Data Completed and Pending Labs on day of discharge: Labs from last 24 hours 05/19/24 05/19/24 05/18/24 07:30 06:08 22:56 WBC 10.4 RBC 3.86 L Hgb 11.0 L Hct 34.2 L MCV 88.6 MCH 28.5 MCHC 32.2 RDW 14.2 Plt Count 247 MPV 11.1 Neut % (Auto) 75.4 H Lymph % (Auto) 16.3 L [place] % (Auto) 5.8 Eos % (Auto) 1.5 Baso % (Auto) 0.7 Neut # (Auto) 7.8 H Lymph # (Auto) 1.7 [place] # (Auto) 0.6 Eos # (Auto) 0.2 Baso # (Auto) 0.1 Abs Immat Gran (auto) 0.03 Imm/Tot Granulo (auto) 0.3 PT 11.1 INR 1.05 APTT 32.6 VBG pH VBG pCO2 Sodium 139 Potassium 3.6 Chloride 106 Carbon Dioxide 24.8 Anion Gap 11.8 BUN 9.0 Creatinine 0.88 Est GFR ( Amer) >60 Est GFR (Non-Af Amer) >60 BUN/Creatinine Ratio 10.2 Glucose 105 Lactate 2.2 H* Calcium 8.4 L Total Bilirubin 0.4 Direct Bilirubin 0.1 AST 13 L ALT 18 Alkaline Phosphatase 64 Total Protein 6.1 L Albumin 2.7 L Globulin 3.4 Albumin/Globulin Ratio 0.8 HCG, Quant <1 Urine Color Urine Clarity Urine pH Ur Specific [place] Urine Protein Urine Glucose (UA) Urine Ketones Urine Occult Blood Urine Nitrite Urine Bilirubin Urine Urobilinogen Ur Leukocyte Esterase Urine RBC Urine WBC Ur Squamous Epith Cells Urine Crystals Urine Bacteria Urine Casts Urine Mucus Ur Culture Indicated? Urine HCG, Qual Influenza Type A Ag Influenza Type B Ag SARS-CoV-2 Ag (CV2AG) 05/18/24 05/18/24 05/18/24 21:25 20:18 19:30 WBC 18.3 H RBC 4.28 Hgb 12.3 Hct 37.4 MCV 87.4 MCH 28.7 MCHC 32.9 RDW 14.2 Plt Count 284 MPV 11.0 Neut % (Auto) 91.3 H Lymph % (Auto) 4.0 L [place] % (Auto) 3.8 Eos % (Auto) 0.2 L Baso % (Auto) 0.3 Neut # (Auto) 16.7 H Lymph # (Auto) 0.7 L [place] # (Auto) 0.7 Eos # (Auto) 0.0 Baso # (Auto) 0.1 Abs Immat Gran (auto) 0.08 H Imm/Tot Granulo (auto) 0.4 PT INR APTT VBG pH 7.427 VBG pCO2 32.4 L Sodium 137 Potassium 3.4 L Chloride 103 Carbon Dioxide 21.2 Anion Gap 16.2 BUN 11.0 Creatinine 1.08 H Est GFR ( Amer) >60 Est GFR (Non-Af Amer) 57 L BUN/Creatinine Ratio 10.2 Glucose 135 H Lactate 3.4 H* Calcium 8.9 Total Bilirubin 0.4 Direct Bilirubin AST 13 L ALT 21 Alkaline Phosphatase 74 Total Protein 7.1 Albumin 3.2 L Globulin 3.9 Albumin/Globulin Ratio 0.8 HCG, Quant Urine Color Lt. yellow Urine Clarity Clear Urine pH 5.5 Ur Specific [place] >=1.030 A Urine Protein 100 A Urine Glucose (UA) Negative Urine Ketones Negative Urine Occult Blood Large A Urine Nitrite Negative Urine Bilirubin Negative Urine Urobilinogen 0.2 Ur Leukocyte Esterase Negative Urine RBC 2-5 A Urine WBC 2-5 A Ur Squamous Epith Cells Few A Urine Crystals None seen Urine Bacteria Trace A Urine Casts None seen Urine Mucus Trace A Ur Culture Indicated? No Urine HCG, Qual Negative Influenza Type A Ag Negative Influenza Type B Ag Negative SARS-CoV-2 Ag (CV2AG) Negative Discharge Plan Discharge Disposition: Home, Self-Care Discharge Medications: New amoxicillin-pot clavulanate 875-125 mg tablet 1 tab PO Q12H Qty: 20 0RF Activity: increase activity as tolerated Diet: advance to your usual diet Print Language: Danish Patient Instructions: Ovarian Cyst (DC) Forms: Portal Instructions Follow Up Appointments: @ 2:10pm with Dr. Plasencia [phone] Discharge Date/Time: 05/19/24 10:19
--- NOTE | 2024-05-20 14:19 | CM.DCFOLLOWU ---
1st attempt. No answer
--- NOTE | 2024-05-23 12:45 | CM.DCFOLLOWU ---
2nd attempt 05/23/24, no answer
== END 2024-05-19 10:19 | disposition home or self-care (01) ==
LOC: ER 23:53 → MS 05-19 00:31
PROVIDERS: Physician Assistant; Registered Nurse; Admitting Provider Family Medicine; Emergency Provider Internal Medicine; Visit Provider Family Medicine
DX: R50.9 Fever, unspecified (principal); E87.20 Acidosis, unspecified; I10 Essential (primary) hypertension; D72.829 Elevated white blood cell count, unspecified; N83.291 Other ovarian cyst, right side; I48.91 Unspecified atrial fibrillation; F17.290 Nicotine dependence, other tobacco product, uncomplicated; Z90.79 Acquired absence of other genital organ(s); Z87.440 Personal history of urinary (tract) infections; Z20.822 Contact with and (suspected) exposure to COVID-19
CPT/HCPCS: 36415; 71045; 74176; 76830; 76856; 80048; 80053; 80076; 81001; 82800; 83605; 84702; 84703; 85025; 85610; 85730; 87040; 87804; 87811; 96365; 96367; 96375; 99285; G0378; J0696; J1171; J1885; J2405

== ENCOUNTER 2024-08-14 21:42 | Emergency (ER) | payer OTHER, SELFPAY ==
--- OUTSIDE RECORDS SUMMARY | 2024-08-14 21:48 | XMS_ITS | CCD ---
Author Organization [facility] Care Team Providers Care Architectural Designer Name Role Phone LUIS ANGEL, DR JOHNSON [...] ble LUIS ANGEL, DR JOHNSON Consulting Unavailable CARLA JAVIER Consulting Unavailable LUIS ANGEL, DR JOHNSON Procedure Practitioner Unavailab KENDAL Walsh Consulting Unavailable TEAGAN CALZADA B Consulting Unavaila ble LUIS ANGEL, DR JOHNSON Admitting Unavailable LUIS ANGEL, DR JOHNSON Attending Unavailable HOUSE, DR BO Primary Care Unavailable LUIS ANGEL, DR JOHNSON Consulting Unavailable LUIS ANGEL, DR JOHNSON Admitting Unavailable LUIS ANGEL, DR JOHNSON Attending Unavailable HOUSE, DR BO Primary Care Unavailable [place], DR SOUMYA Galan Consulting Unavailable LUIS ANGEL, DR JOHNSON Consulting Unavailable HOUSE, DR BO Primary Care Unavailable KARASIK, DR FALK Admitting Unavailable KARASIK, DR FALK Attending Unavailable KARBREA, DR FALK Consulting Unavailable LUISA NGEL, DR JOHNSON Consulting Unavailable ZIEBER, DR ZACH Baxter Consulting Unavailable ANGELICA, DR [...] ANGEL, DR JOHNSON Consulting Unavailable REQUEST, DR MAYDA LISTED Primary Care Unavaila ble ZIEBER, DR [...] Unavailable HOUSE, DR BO Primary Care Unavailable [place], DR SOUMYA Galan Consulting Unavailable LUIS ANGEL, DR JOHNSON Consulting Unavailable LUIS ANGEL, DR JOHNSON Admestrada Unavailable LUIS ANGEL, DR JOHNSON Attending Unavailable [...] Attending Unavailable KARSON ACUNA Attending Unavailable DO Johanna Banksra Rafiq Emergency Provider NON STAFF Primary Care Provider UnavailDO Robbin Wilks Admit Provider DO Robbin Love Attending Provider [phone] SHIVA Cheng [place] Primary Care Provider [phone] Unavailable Primary Care Provider Unavailhannah Cheng, [place] Primary Care Provider Robbin Love Attending Unavailable Robbin Love Admitting Unavailable Julian, [place] Primary Care Unavailable Wade Dominguez DO Primary Care Provider PHILLIP SALEH [facility] Un[facility] Unavailable PHILLIP SALEH Referring Unavailable [facility] Primary Care Unavailable LOBATOCHARLEY ALVARADOIS FIDELIA Admitting Unava ilable CHARLEY SHARMAIS FIDELIA Attending Unava ilable JULIAN, OLIVIA Primary Care Unavailable PHILLIP SALEH Attending Unavailable PHILLIP SALEH Attending Unavailable [facility] Primary Care Unavailable Allergies Allergy Classification Reported Allergen(s) Allergy Type Date of Onset Reaction(s) Facility (1 source) Azithromycin Drug Allergy 07-22-2013 [facility] Repository (14 sources) Azithromycin; Translations: [AZITHROMYCIN] Drug Allergy 01-31-2013 [facility] Work Phone: (1 source) Azithromycin Drug Allergy 05-09-2024 [facility] Repository Medications Current Medications Medication Drug Class(es) Dates Sig (Normalized) Sig (Original) acetaminophen 325 mg oral tablet (1 source) Start: 07-04-2024 take 1 tablet by mouth every four hours as needed 650 mg, oral, Every 4 hours PRN, pain mild (1-3), first line, Starting on Thu07/04/24 at 1314, Administer tablet or oral liquid per patient preference., If ordered PRN for pain, nurse is permitted to administer this medication for higher pain scores based on patient preference? Yes cephalexin 500 mg oral capsule (1 source) Cephalosporin Antibacterial take 1 capsule by mouth in the morning CEPHalexin (KEFLEX) 500 mg capsule Take 500 mg by mouth in the morning. Active 24 hr dilTIAZem hydrochloride 120 mg extended [...] medication. 14 tablet 0 09/10/2023 09/17/2023 Active nitrofurantoin, macrocrystals 25 mg / nitrofurantoin, monohydrate 75 mg oral capsule (1 source) Nitrofuran Antibacterial take 1 capsule by mouth in the morning nitrofurantoin, macrocrystal-monoh ydrate, (MACROBID) 100 mg capsule Take 100 mg by mouth in the morning and 100 mg before bedtime. Active progesterone (FIRST-PROGESTERONE VGS) 200 mg suppository (1 source) progesterone (FIRST-PROGESTERON E VGS) 200 mg suppository Insert 200 mg into the vagina nightly. Active rivaroxaban 20 mg oral tablet (5 sources) Factor Xa Inhibitor Start: 05-13-2024 End: 05-13-2025 take 1 tablet by mouth once daily at mealtime rivaroxaban (Xarelto) 20 mg tablet Indications: Paroxysmal atrial fibrillation (Multi) Take 1 tablet (20 mg) by mouth once daily in the evening. Take with meals. Take with food. 30 tablet 11 05/13/2024 07/12/2024 Discontinued (Med List Cleanup) Completed/Discontinued Medications Medication Drug Class(es) Dates Sig (Normalized) Sig (Original) aspirin 325 mg oral tablet (2 sources) Platelet Aggregation Inhibitor, Nonsteroidal Anti-inflammatory Drug Start: 07-04-2024 End: 07-04-2024 take 325 mg by mouth once 325 mg, oral, Once, On Thu07/04/24 at 0930, For 1 dose, Preprocedure take 81 mg by mouth in the morni ng aspirin 81 mg Take 81 mg by mouth in the morning. Active Problems Active Problems Problem Classification Problem Date Documented Date Episodic/Chronic Administrative/social admission (1 source) Patient encounter status; Translations: [Person consulting for explanation of examination or test findings] 07-12-2024 Episodic Cardiac dysrhythmias (20 sources) Atrial fibrillation; Translations: [Unspecified atrial fibrillation] [...] GE AND COLITIS UNS] Onset: 05-28-2022 Episodic Nonspecific chest pain (3 sources) Chest pain; Translations: [Other chest pain] Onset: 07-04-2024 07-04-2024 Episodic Other complications of ; puerperium affecting [...] normal , third trimester] Onset: 11-29-2021 Episodic Other screening for suspected conditions (not mental disorders or infectious disease) (16 sources) Encounter for screening for malignant neoplasm of cervix; Translations: [Encounter for other specified screening] Onset: 12-26-2021 Episodic Polyhydramnios and other problems of amniotic [...] EXPOS COVID-19] Onset: 07-29-2022 Unclassified (1 source) OT SPCF DIS/COND COMPL CHILDBIRTH; Translations: [OTH SPCF DIS/COND COMPL CHILDBIRTH] Onset: 07-29-2022 Unclassified (2 sources) Post-Cath; Translations: [Post-Cath] Onset: 07-11-2024 Past or Other Problems Problem Classification Problem Date Documented Da te Episodic/Chronic Abdominal pain (4 sources) Epigastric pain; Translations: [Unspecified abdominal pain] Onset: 10-20-2021 Episodic Other complications of (1 source) Multigravida of advanced maternal age; Translations: [Supervision of elderly multigravida, second trimester] Onset: 03-03-2022 03-03-2022 Episodic Unclassified (5 sources) Onset: 05-13-2024 Resolved: 07-11-2024 05-13-2024 Urinary tract infections (4 sources) Urinary tract infection, site not specified; Translations: [UTI SITE NOT SPECIFIED] Onset: 04-15-2022 Episodic Results Test Name Value Interpretation Reference Range Facility CARDIAC CATHETERIZATION PROC [facility] 07-04-2024 CARDIAC CATHETERIZATION PROCEDURE [facility] Partner Alliance Manager [address] [place] [address] [phone], Cardiovascular Catheterization Report Patient Name: SARAH LIRIANO Performing Physician: [id number] Antoine ANTONIO Sanchez MD Study Date: 07/04/2024 Verifying Physician: [id number] Sanchez MD MRN/PID: [id number] 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 Suspected coronary artery disease. Stress test performed: Yes. Stress test type: Exercise Stress. Stress result: Positive. LVEF Assessed: Yes. LVEF = 60%. Procedure Description: After infiltration with 2% Lidocaine, the right radial artery was cannulated with a modified Seldinger technique. Subsequently a 6 Cuban sheath was placed in the right radial artery. Selective coronary catheterization was performed using a 5 Fr catheter(s) exchanged over a guide wire to cannulate the coronary arteries. A 5 Fr [place] catheter was used for left and right coronary artery injections. Multiple injections of contrast were made into the left and right coronary arteries with angiograms recorded in multiple projections. After completion of the procedure, the arterial sheath was pulled and a TR Band Radial Compression Device was utilized to obtain patent hemostasis. Coronary Angiography: The coronary circulation is right dominant. Left Main Coronary Artery: The left main coronary artery is a normal caliber vessel. The left main arises normally from the left coronary sinus of Valsalva and bifurcates into the LAD and circumflex coronary arteries. The left main coronary artery showed a normal vessel. Left Anterior Descending Coronary Artery Distribution: The left anterior descending coronary artery is a normal caliber vessel. The LAD arises normally from the left main coronary artery. The LAD demonstrated a normal vessel. The 1st diagonal branch is a normal caliber vessel. The 1st diagonal branch showed a normal vessel. The 2nd diagonal branch is a normal caliber vessel. The 2nd diagonal branch demonstrated a normal vessel. Circumflex Coronary Artery Distribution: The circumflex coronary artery is a normal caliber vessel. The circumflex arises normally from the left main coronary artery and terminates in the AV groove. The circumflex revealed a normal vessel. The 1st obtuse marginal branch is a normal caliber vessel. The 1st obtuse marginal branch showed a normal vessel. The 2nd obtuse marginal branch is a normal caliber vessel. The 2nd obtuse marginal branch demonstrated a normal vessel. Right Coronary Artery Distribution: The right coronary artery is a normal caliber vessel. The RCA arises normally from the right sinus of Valsalva. The RCA showed a normal vessel. The right posterolateral branch is a normal caliber vessel. The right posterolateral branch showed a normal vessel. The right posterior descending artery is a normal caliber vessel. The right posterior descending artery showed a normal vessel. Left Ventriculography: The LV ejection fraction was 60 to 65%. All left ventricular regional wall segments contract normally. Complications: No in-lab complications observed. Cardiac Cath Post Procedure Notes: Post Procedure Diagnosis: Angiographically normal coronary arteries. Blood Loss: Estimated blood loss during the procedure was 5 mls. Specimens Removed: Number of specimen(s) removed: none. Recommendations: Maximize medical therapy. Agressive risk factor modification efforts. Follow-up with cardiology clinic. Medical management of coronary artery disease. CONCLUSIONS: 1. Right coronary artery system dominance. 2. Normal coronaries. 3. Preserved LV systolic function. ICD 10 Codes: Other chest pain-R07.89 CPT Codes: Left Heart Cath (visualization of coronaries) and LV-69545; Moderate Sedation Services initial 15 minutes patient >5 years-[id number] Antoine Sanchez MD Performing Physician Final [facility] Cardiac catheterization stud yon 07-04-2024 [facility] Partner [employer] Manager [address] [place] [address] [phone], Cardiovascular Catheterization Report Patient Name: SARAH LIRIANO Performing Physician: [id number] Antoine ANTONIO Sanchez MD Study Date: 07/04/2024 Verifying Physician: [id number] Sanchez MD MRN/PID: [id number] 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 Suspected coronary artery disease. Stress test performed: Yes. Stress test type: Exercise Stress. Stress result: Positive. LVEF Assessed: Yes. LVEF = 60%. Procedure Description: After infiltration with 2% Lidocaine, the right radial artery was cannulated with a modified Seldinger technique. Subsequently a 6 Cuban sheath was placed in the right radial artery. Selective coronary catheterization was performed using a 5 Fr catheter(s) exchanged over a guide wire to cannulate the coronary arteries. A 5 Fr [place] catheter was used for left and right coronary artery injections. Multiple injections of contrast were made into the left and right coronary arteries with angiograms recorded in multiple projections. After completion of the procedure, the arterial sheath was pulled and a TR Band Radial Compression Device was utilized to obtain patent hemostasis. Coronary Angiography: The coronary circulation is right dominant. Left Main Coronary Artery: The left main coronary artery is a normal caliber vessel. The left main arises normally from the left coronary sinus of Valsalva and bifurcates into the LAD and circumflex coronary arteries. The left main coronary artery showed a normal vessel. Left Anterior Descending Coronary Artery Distribution: The left anterior descending coronary artery is a normal caliber vessel. The LAD arises normally from the left main coronary artery. The LAD demonstrated a normal vessel. The 1st diagonal branch is a normal caliber vessel. The 1st diagonal branch showed a normal vessel. The 2nd diagonal branch is a normal caliber vessel. The 2nd diagonal branch demonstrated a normal vessel. Circumflex Coronary Artery Distribution: The circumflex coronary artery is a normal caliber vessel. The circumflex arises normally from the left main coronary artery and terminates in the AV groove. The circumflex revealed a normal vessel. The 1st obtuse marginal branch is a normal caliber vessel. The 1st obtuse marginal branch showed a normal vessel. The 2nd obtuse marginal branch is a normal caliber vessel. The 2nd obtuse marginal branch demonstrated a normal vessel. Right Coronary Artery Distribution: The right coronary artery is a normal caliber vessel. The RCA arises normally from the right sinus of Valsalva. The RCA showed a normal vessel. The right posterolateral branch is a normal caliber vessel. The right posterolateral branch showed a normal vessel. The right posterior descending artery is a normal caliber vessel. The right posterior descending artery showed a normal vessel. Left Ventriculography: The LV ejection fraction was 60 to 65%. All left ventricular regional wall segments contract normally. Complications: No in-lab complications observed. Cardiac Cath Post Procedure Notes: Post Procedure Diagnosis: Angiographically normal coronary arteries. Blood Loss: Estimated blood loss during the procedure was 5 mls. Specimens Removed: Number of specimen(s) removed: none. Recommendations: Maximize medical therapy. Agressive risk factor modification efforts. Follow-up with cardiology clinic. Medical management of coronary artery disease. CONCLUSIONS: 1. Right coronary artery system dominance. 2. Normal coronaries. 3. Preserved LV systolic function. ICD 10 Codes: Other chest pain-R07.89 CPT Codes: Left Heart Cath (visualization of coronaries) and LV-33699; Moderate Sedation Services initial 15 minutes patient >5 years-[id number] Sanchez MD Performing Physician Final (more content not included)... 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 Suspected coronary artery disease. Stress test performed: Yes. Stress test type: Exercise Stress. Stress result: Positive. LVEF Assessed: Yes. LVEF = 60%. Procedure Description: After infiltration with 2% Lidocaine, the right radial artery was cannulated with a modified Seldinger technique. Subsequently a 6 Cuban sheath was placed in the right radial artery. Selective coronary catheterization was performed using a 5 Fr catheter(s) exchanged over a guide wire to cannulate the coronary arteries. A 5 Fr [place] catheter was used for left and right coronary artery injections. Multiple injections of contrast were made into the left and right coronary arteries with angiograms recorded in multiple projections. After completion of the procedure, the arterial sheath was pulled and a TR Band Radial Compression Device was utilized to obtain patent hemostasis. Coronary Angiography: The coronary circulation is right dominant. Left Main Coronary Artery: The left main coronary artery is a normal caliber vessel. The left main arises normally from the left coronary sinus of Valsalva and bifurcates into the LAD and circumflex coronary arteries. The left main coronary artery showed a normal vessel. Left Anterior Descending Coronary Artery Distribution: The left anterior descending coronary artery is a normal caliber vessel. The LAD arises normally from the left main coronary artery. The LAD demonstrated a normal vessel. The 1st diagonal branch is a normal caliber vessel. The 1st diagonal branch showed a normal vessel. The 2nd diagonal branch is a normal caliber vessel. The 2nd diagonal branch demonstrated a normal vessel. Circumflex Coronary Artery Distribution: The circumflex coronary artery is a normal caliber vessel. The circumflex arises normally from the left main coronary artery and terminates in the AV groove. The circumflex revealed a normal vessel. The 1st obtuse marginal branch is a normal caliber vessel. The 1st obtuse marginal branch showed a normal vessel. The 2nd obtuse marginal branch is a normal caliber vessel. The 2nd obtuse marginal branch demonstrated a normal vessel. Right Coronary Artery Distribution: The right coronary artery is a normal caliber vessel. The RCA arises normally from the right sinus of Valsalva. The RCA showed a normal vessel. The right posterolateral branch is a normal caliber vessel. The right posterolateral branch showed a normal vessel. The right posterior descending artery is a normal caliber vessel. The right posterior descending artery showed a normal vessel. Left Ventriculography: The LV ejection fraction was 60 to 65%. All left ventricular regional wall segments contract normally. Complications: No in-lab complications observed. Cardiac Cath Post Procedure Notes: Post Procedure Diagnosis: Angiographically normal coronary arteries. Blood Loss: Estimated blood loss during the procedure was 5 mls. Specimens Removed: Number of specimen(s) removed: none. Recommendations: Maximize medical therapy. Agressive risk factor modification efforts. Follow-up with cardiology clinic. Medical management of coronary artery disease. CONCLUSIONS: 1. Right coronary artery system dominance. 2. Normal coronaries. 3. Preserved LV systolic function. ICD 10 Codes: Other chest pain-R07.89 CPT Codes: Left Heart Cath (visualization of coronaries) and LV-80190; Moderate Sedation Services initial 15 minutes patient >5 years-[id number] [id number] Antoine Sanchez MD Performing Physician Final [facility] Work Phone: [facility] Work Phone: [facility] 06-07-2024 [place] [address] [phone], Exercise Stress Test Patient Name: SARAH LIRIANO Ordering Provider: [id number] PHILLIP SALEH Study Date: 06/07/2024 Reading Physician: [id number] Antoine Sanchez MD MRN/PID: [id number] Supervising Physician: [id number] Antoine Sanchez MD Fellow: Date of /Age: 411/15/1985 Fellow: years Gender: F Nurse: N/A Admit Date: 06/07/2024 Property Management Intern: Hiram Newsome FACTORY FOCUS TECHNICIAN, CCT Admission Status: Outpatient Assembly Press Operator: N/A Height: 170.18 cm Technologist: Weight: 111.13 kg Additional Staff: BSA: 2.20 m2 BMI: 38.37 kg/m2 Patient Location: [facility] Stress Lab Study Type: STRESS TEST ONLY Diagnosis/ICD: Paroxysmal atrial fibrillation-I48.0 Indication: Atrial Fibrillation CPT Codes: Stress Test Interpretation-9301 8; Stress Test Supervision-[id number] Falls Risk: Low: Patient has low risk for sustaining a fall; environmental safety interventions in place. Study Details: Correct procedure and correct patient verified verbally and with ID Band checked. Patient History: Atrial fibrillation, chest pain and family history of coronary artery disease. Allergies: Azithromycin. Smoker: Former. Diabetes: No. BMI: Obese >30. Medications: Rivaroxaban (Xarelto). The patient did not take medications as prescribed. Patient Performance: The patient exercised to stage III on a Jeremiah protocol for 8 minutes and 45 seconds, achieving 10.10 METS. The peak heart rate achieved was 155 bpm, which was 85 % of the age predicted target heart rate of 181 bpm. The resting blood pressure was 114/73 mmHg with a heart rate of 56 bpm. The standing blood pressure was 106/72 mmHg with a heart rate of 68 bpm. The patient developed dyspnea during the stress exam. The symptoms resolved with rest 4 minutes into recovery. The blood pressure response was normal. The test was terminated due to: dyspnea, MPHR >85% and patient request. Baseline ECG: Resting ECG showed sinus bradycardia with normal tracing. Stress ECG: Stress ECG showed sinus tachycardia, with no abnormal findings. Stress Stage Data: + + ---+------+-------+ HR Sys BP [place]leton BP + + ---+------+-------+ Baseline Resting 56 114 73 + + ---+------+-------+ Baseline Standing 68 106 72 + + ---+------+-------+ Stage I 105 136 80 + + ---+------+-------+ Stage II 123 142 80 + + ---+------+-------+ Stage III 155 175 86 + + ---+------+-------+ Recovery ECG: Recovery ECG showed normal sinus rhythm, with no abnormal findings. The heart rate recovery was normal. + +---+-- ----+-------+ HR Sys BP Middleton BP + +---+-- ----+-------+ Recovery I 120 + +---+-- ----+-------+ Recovery II 81 176 52 + +---+-- ----+-------+ Recovery IV 74 134 65 + +---+-- ----+-------+ Summary: 1. Baseline EKG showing bradycardic sinus rhythm with no resting ST-T segment changes. 2. Patient exercised for 8 minutes and 45 seconds achieving 10.1 METS. 3. Heart rate response to exercise is normal. Blood pressure response to exercise is normal. 4. Exercise capacity is normal average for age. 5. With exercise, there are ST-T depressions measuring 1mm seen in leads II, III, aVF, V5, V6. Changes normalized 3 minutes into recovery. 6. Exercise stress EKG is suggestive of ischemia. 7. Calix treadmill score is 3 (intermediate risk). 8. Adequate level of stress achieved. [id number] Antoine Sanchez MD Electronically signed on 06/07/2024 at 1:08:44 PM Final Antoine Diego MD - 06/07/2024 [place] [address] [phone], Exercise Stress Test Patient Name: SARAH LIRIANO Ordering Provider: [id number] PHILLIP SALEH Study Date: 06/07/2024 Reading Physician: [id number] Sanchez MD MRN/PID: [id number] Supervising Physician: Fabián Sanchez MD Fellow: Date of /Age: 411/15/1985 Fellow: years Gender: F Nurse: N/A Admit Date: 06/07/2024 Property Management Intern: Hiram Newsome FACTORY FOCUS TECHNICIAN, CCT Admission Status: Outpatient Assembly Press Operator: N/A Height: 170.18 cm Technologist: Weight: 111.13 kg Additional Staff: BSA: 2.20 m2 BMI: 38.37 kg/m2 Patient Location: [facility] Stress Lab Study Type: STRESS TEST ONLY Diagnosis/ICD: Paroxysmal atrial fibrillation-I48.0 Indication: Atrial Fibrillation CPT Codes: Stress Test Interpretation-9301 8; Stress Test Supervision-[id number] Falls Risk: Low: Patient has low risk for sustaining a fall; environmental safety interventions in place. Study Details: Correct procedure and correct patient verified verbally and with ID Band checked. Patient History: Atrial fibrillation, chest pain and family history of coronary artery disease. Allergies: Azithromycin. Smoker: Former. Diabetes: No. BMI: Obese >30. Medications: Rivaroxaban (Xarelto). The patient did not take medications as prescribed. Patient Performance: The patient exercised to stage III on a Jeremiah protocol for 8 minutes and 45 seconds, achieving 10.10 METS. The peak heart rate achieved was 155 bpm, which was 85 % of the age predicted target heart rate of 181 bpm. The resting blood pressure was 114/73 mmHg with a heart rate of 56 bpm. The standing blood pressure was 106/72 mmHg with a heart rate of 68 bpm. The patient developed dyspnea during the stress exam. The symptoms resolved with rest 4 minutes into recovery. The blood pressure response was normal. The test was terminated due to: dyspnea, MPHR >85% and patient request. Baseline ECG: Resting ECG showed sinus bradycardia with normal tracing. Stress ECG: Stress ECG showed sinus tachycardia, with no abnormal findings. Stress Stage Data: + + ---+------+-------+ HR Sys BP Middleton BP + + ---+------+-------+ Baseline Resting 56 114 73 + + ---+------+-------+ Baseline Standing 68 106 72 + + ---+------+-------+ Stage I 105 136 80 + + ---+------+-------+ Stage II 123 142 80 + + ---+------+-------+ Stage III 155 175 86 + + ---+------+-------+ Recovery ECG: Recovery ECG showed normal sinus rhythm, with no abnormal findings. The heart rate recovery was normal. + +---+-- ----+-------+ HR Sys BP Middleton BP + +---+-- ----+-------+ Recovery I 120 + +---+-- ----+-------+ Recovery II 81 176 52 + +---+-- ----+-------+ Recovery IV 74 134 65 + +---+-- ----+-------+ Summary: 1. Baseline EKG showing bradycardic sinus rhythm with no resting ST-T segment changes. 2. Patient exercised for 8 minutes and 45 seconds achieving 10.1 METS. 3. Heart rate response to exercise is normal. Blood pressure response to exercise is normal. 4. Exercise capacity is normal average for age. 5. With exercise, there are ST-T depressions measuring 1mm seen in leads II, III, aVF, V5, V6. Changes normalized 3 minutes into recovery. 6. Exercise stress EKG is suggestive of ischemia. 7. Calix treadmill score is 3 (intermediate risk). 8. Adequate level of stress achieved. [id number] Antoine Sanchez MD Electronically signed on 06/07/2024 at 1:08:44 PM Final [facility] Work Phone: Cardiac stress study Procedu reOrdered By: Antoine Sanchez on 06-07-2024 [facility] Work Phone: STRESS TEST ONLYon 4 [place] [address] [phone], Exercise Stress Test Patient Name: SARAH LIRIANO Ordering Provider: [id number] PHILLIP SALEH Study Date: 06/07/2024 Reading Physician: Fabián Sanchez MD MRN/PID: [id number] Supervising Physician: Fabián Sanchez MD Fellow: Date of /Age: 411/15/1985 Fellow: years Gender: F Nurse: N/A Admit Date: 06/07/2024 Property Management Intern: Hiram Newsome FACTORY FOCUS TECHNICIAN, CCT Admission Status: Outpatient Assembly Press Operator: N/A Height: 170.18 cm Technologist: Weight: 111.13 kg Additional Staff: BSA: 2.20 m2 BMI: 38.37 kg/m2 Patient Location: [facility] Stress Lab Study Type: STRESS TEST ONLY Diagnosis/ICD: Paroxysmal atrial fibrillation-I48.0 Indication: Atrial Fibrillation CPT Codes: Stress Test Interpretation-9301 8; Stress Test Supervision-[id number] Falls Risk: Low: Patient has low risk for sustaining a fall; environmental safety interventions in place. Study Details: Correct procedure and correct patient verified verbally and with ID Band checked. Patient History: Atrial fibrillation, chest pain and family history of coronary artery disease. Allergies: Azithromycin. Smoker: Former. Diabetes: No. BMI: Obese >30. Medications: Rivaroxaban (Xarelto). The patient did not take medications as prescribed. Patient Performance: The patient exercised to stage III on a Jeremiah protocol for 8 minutes and 45 seconds, achieving 10.10 METS. The peak heart rate achieved was 155 bpm, which was 85 % of the age predicted target heart rate of 181 bpm. The resting blood pressure was 114/73 mmHg with a heart rate of 56 bpm. The standing blood pressure was 106/72 mmHg with a heart rate of 68 bpm. The patient developed dyspnea during the stress exam. The symptoms resolved with rest 4 minutes into recovery. The blood pressure response was normal. The test was terminated due to: dyspnea, MPHR >85% and patient request. Baseline ECG: Resting ECG showed sinus bradycardia with normal tracing. Stress ECG: Stress ECG showed sinus tachycardia, with no abnormal findings. Stress Stage Data: + + ---+------+-------+ HR Sys BP Middleton BP + + ---+------+-------+ Baseline Resting 56 114 73 + + ---+------+-------+ Baseline Standing 68 106 72 + + ---+------+-------+ Stage I 105 136 80 + + ---+------+-------+ Stage II 123 142 80 + + ---+------+-------+ Stage III 155 175 86 + + ---+------+-------+ Recovery ECG: Recovery ECG showed normal sinus rhythm, with no abnormal findings. The heart rate recovery was normal. + +---+-- ----+-------+ HR Sys BP Middleton BP + +---+-- ----+-------+ Recovery I 120 + +---+-- ----+-------+ Recovery II 81 176 52 + +---+-- ----+-------+ Recovery IV 74 134 65 + +---+-- ----+-------+ Summary: 1. Baseline EKG showing bradycardic sinus rhythm with no resting ST-T segment changes. 2. Patient exercised for 8 minutes and 45 seconds achieving 10.1 METS. 3. Heart rate response to exercise is normal. Blood pressure response to exercise is normal. 4. Exercise capacity is normal average for age. 5. With exercise, there are ST-T depressions measuring 1mm seen in leads II, III, aVF, V5, V6. Changes normalized 3 minutes into recovery. 6. Exercise stress EKG is suggestive of ischemia. 7. Calix treadmill score is 3 (intermediate risk). 8. Adequate level of stress achieved. [id number] Antoine Sanchez MD Electronically signed on 06/07/2024 at 1:08:44 PM Final [facility] echo transthoracicon [facility] echo transthoracic [facility] Main [address] [address] Echocardiogram Signed Patient: Sarah Pennington MR#: [id number] : 1985 Acct:[id number] Age/Sex: 38 / F ADM Date: 05/09/24 Loc: Room: [address] [place] [address] Type: DIS INOo Attending Dr: Robbin Love DO Ordering Provider: Robbin Love DO Date of Service: 05/09/2402/23/2013 [facility] echo transthoracic: afib Copies to: MD Robbin [...] Daniel Ragland MD 05/10/24 1817 Normal [facility] Alanine aminotransferase [En zymatic activity/volume] in Serum or PlasmaOrdered By: Danyell Banks on 05-09-2024 ALT [Catalytic activity/Vol] 13 U/L Normal 7-52 [facility] Comment on above: Performed By: #### C BC, HS TROP, BNP, TSH3, MG, CMP, PHOS, HCGQUAL #### [facility] [address] [place] [address] [place] Albumin [Mass/volume] in Ser um or Plasma by Bromocresol green (BCG) dye binding methoOrdered By: Danyell Banks on 05-09-2024 Albumin BCG dye [Mass/Vol] 3.9 g/dL 3.5-5.7 [facility] Alkaline phosphatase [Enzyma tic activity/volume] in Serum or PlasmaOrdered By: Danyell Banks on 05-09-2024 ALP [Catalytic activity/Vol] 66 U/L Normal 34-104 [facility] Comment on above: Performed By: #### C BC, HS TROP, BNP, TSH3, MG, CMP, PHOS, HCGQUAL #### [facility] [address] [place] [address] [place] Aspartate aminotransferase [ Enzymatic activity/volume] in Serum or PlasmaOrdered By: Danyell Banks on 05-09-2024 AST [Catalytic activity/Vol] 12 U/L Low 13-39 [facility] Comment on above: Performed By: #### C BC, HS TROP, BNP, TSH3, MG, CMP, PHOS, HCGQUAL #### [address] Automated basophil %Ordered By: Danyell Banks on 05-09-2024 Basophils/100 WBC (Bld) 0.9 % Normal . [facility] Comment on above: Performed By: #### C BC, HS TROP, BNP, TSH3, MG, CMP, PHOS, HCGQUAL #### [address] Automated basophil countOrde red By: Danyell Banks on 05-09-2024 Basophils (Bld) [#/Vol] 0.1 10*3/uL Normal 0.0-0.2 [facility] Comment on above: Result Comment: PERF ORMED BY: [place] [address] PATHOLOGIST MAC OPERATOR JEANETH CERNA M.D. Performed By: #### C BC, HS TROP, BNP, TSH3, MG, CMP, PHOS, HCGQUAL #### [address] Automated blood monocyte cou ntOrdered By: Danyell Banks on 05-09-2024 Monocytes (Bld) [#/Vol] 0.6 10*3/uL Normal 0.0-0.8 [facility] Comment on above: Performed By: #### C BC, HS TROP, BNP, TSH3, MG, CMP, PHOS, HCGQUAL #### [address] Automated eosinophil %Ordere d By: Danyell Banks on 05-09-2024 Eosinophils/100 WBC (Bld) 2.7 % Normal . [facility] Comment on above: Performed By: #### C BC, HS TROP, BNP, TSH3, MG, CMP, PHOS, HCGQUAL #### [address] Automated eosinophil countOr dered By: Danyell Banks on 05-09-2024 Eosinophils (Bld) [#/Vol] 0.2 10*3/uL Normal 0.0-0.45 [facility] Comment on above: Performed By: #### C BC, HS TROP, BNP, TSH3, MG, CMP, PHOS, HCGQUAL #### [facility] [address] Automated monocyte %Ordered By: Danyell Banks on 05-09-2024 Monocytes/100 WBC (Bld) 6.3 % Normal . [facility] Comment on above: Performed By: #### C BC, HS TROP, BNP, TSH3, MG, CMP, PHOS, HCGQUAL #### [address] Automated neutrophil %Ordere d By: Danyell Banks on 05-09-2024 Neutrophils/100 WBC (Bld) 59.0 % Normal . [facility] Comment on above: Performed By: #### C BC, HS TROP, BNP, TSH3, MG, CMP, PHOS, HCGQUAL #### [address] BNP ser/plasOrdered By: Cuco Banks on 05-09-2024 Natriuretic peptide B (Bld) [Mass/Vol] 63.0 pg/mL Normal 5-100 [facility] Comment on above: Result Comment: PERF ORMED BY: [place] [address] PATHOLOGIST MAC OPERATOR JEANETH CERNA M.D. Performed By: #### C BC, HS TROP, BNP, TSH3, MG, CMP, PHOS, HCGQUAL #### [address] Bacteria [Presence] in Urine by AutomatedOrdered By: Danyell Banks on 05-09-2024 Bacteria Auto Ql (U) Rare [HPF] None Seen [facility] Bilirubin Test strip Ql (U)O rdered By: Danyell Banks on 05-09-2024 Bilirubin Ql (U) Negative Negative [facility] Bilirubin.total [Mass/volume ] in Serum or PlasmaOrdered By: Danyell Banks on 05-09-2024 Bilirubin [Mass/Vol] 0.4 mg/dL Normal 0.3-1.0 [facility] Comment on above: Performed By: #### C BC, HS TROP, BNP, TSH3, MG, CMP, PHOS, HCGQUAL #### [facility] [address] [place] [address] [place] Calcium [Mass/volume] in Ser um or PlasmaOrdered By: Danyell Banks on 05-09-2024 Calcium [Mass/Vol] 8.6 mg/dL Normal 8.6-10.3 [facility] Comment on above: Performed By: #### C BC, HS TROP, BNP, TSH3, MG, CMP, PHOS, HCGQUAL #### [facility] [address] [place] [address] [place] Carbon dioxide, total [Moles /volume] in Serum or PlasmaOrdered By: Danyell Banks on 05-09-2024 CO2 [Moles/Vol] 24.7 mmol/L Normal 21.0-31.0 [facility] Comment on above: Performed By: #### C BC, HS TROP, BNP, TSH3, MG, CMP, PHOS, HCGQUAL #### [facility] [address] [place] [address] [place] Chloride [Moles/volume] in S ranulfo or PlasmaOrdered By: Danyell Banks on 05-09-2024 Chloride [Moles/Vol] 108 mmol/L High 98-107 [facility] Comment on above: Performed By: #### C BC, HS TROP, BNP, TSH3, MG, CMP, PHOS, HCGQUAL #### [facility] [address] [place] [address] [place] Choriogonadotropin.beta subu nit [Units/volume] in Serum or PlasmaOrdered By: Danyell Banks on 05-09-2024 HCG.beta subunit Qn Negative [facility] Color of Urine by AutoOrdere d By: Danyell Banks on 05-09-2024 Color (U) Colorless Normal [facility] Comment on above: Order Comment: Name Collection Type:: Clean-Voided Midstream Performed By: #### A DDONUAPLUS #### [address] Complete Blood Count Auto Di ffon 05-09-2024 Mean Corpuscular HGB Conc 33.5 g/dL Normal 32.0-35.0 [facility] Comment on above: Performed By: #### C BC, HS TROP, BNP, TSH3, MG, CMP, PHOS, HCGQUAL #### [address] Monocytes/100 WBC (Bld) 19.70 % Normal 0.00-20.00 [facility] Comment on above: Performed By: #### C BC, HS TROP, BNP, TSH3, MG, CMP, PHOS, HCGQUAL #### [address] NRBC% 0.1 /100{WBC} Normal 0-0.5 [facility] Comment on above: Performed By: #### C BC, HS TROP, BNP, TSH3, MG, CMP, PHOS, HCGQUAL #### [address] Comprehensive Metabolic Pane brady 05-09-2024 Albumin [Mass/Vol] 3.9 g/dL Normal 3.5-5.7 [facility] Comment on above: Performed By: #### C BC, HS TROP, BNP, TSH3, MG, CMP, PHOS, HCGQUAL #### [address] Creatinine Clr Calc Pharmacy 145.19 Normal [facility] Comment on above: Performed By: #### C BC, HS TROP, BNP, TSH3, MG, CMP, PHOS, HCGQUAL #### [address] GFR/1.73 sq M.predicted MDRD (S/P/Bld) [Vol rate/Area] mL/min/{1.73_m2} Normal [facility] Comment on above: Performed By: #### C BC, HS TROP, BNP, TSH3, MG, CMP, PHOS, HCGQUAL #### [facility] [address] [place] [address] [place] Creatinine [Mass/volume] in Serum or PlasmaOrdered By: Danyell Banks on 05-09-2024 Creatinine [Mass/Vol] 0.66 mg/dL Normal 0.60-1.20 [facility] Comment on above: Performed By: #### C BC, HS TROP, BNP, TSH3, MG, CMP, PHOS, HCGQUAL #### [facility] [address] [place] [address] [place] Dipstick and Microscopicon 1 Bacteria,Urine Rare Normal None Seen [facility] Comment on above: Order Comment: Name Collection Type:: Clean-Voided Midstream Performed By: #### A DDONUAPLUS #### [place] [address] [place] Bilirubin,Urine Negative Normal Negative [facility] Comment on above: Order Comment: Name Collection Type:: Clean-Voided Midstream Performed By: #### A DDONUAPLUS #### [address] Glucose Ql (U) Normal Normal Normal [facility] Comment on above: Order Comment: Name Collection Type:: Clean-Voided Midstream Performed By: #### A DDONUAPLUS #### [place] [address] [place] Hyaline Casts,Urine None Normal 0-8 [facility] Comment on above: Order Comment: Name Collection Type:: Clean-Voided Midstream Result Comment: PERF ORMED BY: [place] [address] PATHOLOGIST MAC OPERATOR JEANETH CERNA M.D. Performed By: #### A DDONUAPLUS #### [place] [address] [place] Nitrite,Urine Negative Normal Negative [facility] Comment on above: Order Comment: Name Collection Type:: Clean-Voided Midstream Performed By: #### A DDONUAPLUS #### [place] [address] [place] Occult Blood,Urine 1+ High Negative [facility] Comment on above: Order Comment: Name Collection Type:: Clean-Voided Midstream Result Comment: PERF ORMED BY: [place] [address] PATHOLOGIST MAC OPERATOR JEANETH CERNA M.D. Performed By: #### A DDONUAPLUS #### [place] [address] [place] Protein,Urine Negative Normal Negative [facility] Comment on above: Order Comment: Name Collection Type:: Clean-Voided Midstream Performed By: #### A DDONUAPLUS #### [address] RBC,Urine 3-4 Normal 0-4 [facility] Comment on above: Order Comment: Name Collection Type:: Clean-Voided Midstream Performed By: #### A DDONUAPLUS #### [place] [address] [place] Specificy [place],Urine 1.006 Normal 1.001-1.030 [facility] Comment on above: Order Comment: Name Collection Type:: Clean-Voided Midstream Performed By: #### A DDONUAPLUS #### [place] [address] [place] Squamous Epithelial Cell,Urine 1-2 Normal 0-2 [facility] Comment on above: Order Comment: Name Collection Type:: Clean-Voided Midstream Performed By: #### A DDONUAPLUS #### [place] [address] [place] Urobilinogen,Urine Normal Normal Normal [facility] Comment on above: Order Comment: Name Collection Type:: Clean-Voided Midstream Performed By: #### A DDONUAPLUS #### [place] [address] [place] WBC,Urine 1-2 Normal 0-4 [facility] Comment on above: Order Comment: Name Collection Type:: Clean-Voided Midstream Performed By: #### A DDONUAPLUS #### [address] ECG 12 lead ECGon 05-09-2024 ECG 12 lead ECG [facility] [place] [address] Electrocardiograph Report Signed Patient: Sarah Pennington MR#: [id number] : 1985 Acct:[id number] Age/Sex: 38 / F ADM Date: 05/09/24 Loc: Room: [address] [place] [address] Type: ADM INOo Attending Dr: Robbin Love [...] 420 ms Sinus bradycardia Confirmed by Mark Florian DO ([id number]) on 05/09/2024 8:25:51 PM Referred By: Electronically Signed By: Mark Florian DO Transcribed By: MUS Signed By Mark Florian DO 2024 Normal [facility] ECG 12 lead ECG [facility] [place] [address] Electrocardiograph Report Signed Patient: Sarah Pennington MR#: [id number] : 1985 Acct:[id number] Age/Sex: 38 / F ADM Date: 05/09/24 Loc: Room: [address] [place] [address] Type: ADM INOo Attending Dr: Robbin Love [...] and T wave abnormality Confirmed by Mark Florian DO ([id number]) on 05/09/2024 8:26:05 PM Referred By: Electronically Signed By: Mark Florian DO Transcribed By: MUS Signed By Mark Florian DO 2025 Normal [facility] Epithelial cells.squamous [# /area] in Urine sediment by Automated countOrdered By: Danyell Banks on 05-09-2024 Epithelial cells.squamous Auto (Urine sed) [#/Area] 1-2 [HPF] 0-2 [facility] Erythrocyte distribution wid th [Ratio] by Automated countOrdered By: Danyell Banks on 05-09-2024 Erythrocyte distribution width (RBC) [Ratio] 14.6 % Normal 11.9-15.3 [facility] Comment on above: Performed By: #### C BC, HS TROP, BNP, TSH3, MG, CMP, PHOS, HCGQUAL #### [facility] [address] Erythrocytes [#/area] in Uri ne sediment by Automated countOrdered By: Danyell Banks on 05-09-2024 RBC Auto (Urine sed) [#/Area] 3-4 [HPF] 0-4 [facility] Erythrocytes [#/volume] in B lood by Automated countOrdered By: Danyell Banks on 05-09-2024 RBC (Bld) [#/Vol] 4.47 10*6/uL Normal 3.60-5.00 [facility] Comment on above: Performed By: #### C BC, HS TROP, BNP, TSH3, MG, CMP, PHOS, HCGQUAL #### [facility] [address] [place] [address] [place] Glucose [Mass/volume] in Ser um or PlasmaOrdered By: Danyell Banks on 05-09-2024 Glucose [Mass/Vol] 102 mg/dL High 70-100 [facility] Comment on above: ADA recommended refe rence rangeRandom Glucose Reference Range is dependent on time and content of last meal. Glucose of more than 200 mg/dL in a nonstressed, ambulatory subject supports the diagnosis of Diabetes Mellitus. Result Comment: [place] om Glucose Reference Range is dependent on time and content of last meal. Glucose of more than 200 mg/dL in a nonstressed, ambulatory subject supports the diagnosis of Diabetes Mellitus. ADA recommended reference range Performed By: #### C BC, HS TROP, BNP, TSH3, MG, CMP, PHOS, HCGQUAL #### [address] Glucose [Mass/volume] in Uri ne by Test stripOrdered By: Danyell Banks on 05-09-2024 Glucose Test strip (U) [Mass/Vol] Normal mg/dL Normal [facility] HCG,Qualitative Serumon HCG,Qualitative Serum Negative Normal [facility] Comment on above: Result Comment: PERF ORMED BY: [place] [address] PATHOLOGIST MAC OPERATOR JEANETH CERNA M.D. Performed By: #### C BC, HS TROP, BNP, TSH3, MG, CMP, PHOS, HCGQUAL #### [address] Hematocrit [Volume Fraction] of Blood by Automated countOrdered By: Danyell Banks on 05-09-2024 Hematocrit (Bld) [Volume fraction] 38.2 % Normal 34.0-46.4 [facility] Comment on above: Performed By: #### C BC, HS TROP, BNP, TSH3, MG, CMP, PHOS, HCGQUAL #### [address] Hemoglobin Test strip Ql (U) Ordered By: Danyell Banks on 05-09-2024 Hemoglobin Ql (U) 1+ High Negative [facility] Hemoglobin [Mass/volume] in BloodOrdered By: Danyell Banks on 05-09-2024 Hemoglobin (Bld) [Mass/Vol] 12.8 g/dL Normal 11.8-15.4 [facility] Comment on above: Performed By: #### C BC, HS TROP, BNP, TSH3, MG, CMP, PHOS, HCGQUAL #### [facility] [address] [place] [address] [place] Hyaline casts [#/area] in Ur ine sediment by Automated countOrdered By: Danyell Banks on 05-09-2024 Hyaline casts Auto (Urine sed) [#/Area] None [LPF] 0-8 [facility] Ketones [Presence] in Urine by Test stripOrdered By: Danyell Banks on 05-09-2024 Ketones Ql (U) Negative Normal Negative [facility] Comment on above: Order Comment: Name Collection Type:: Clean-Voided Midstream Performed By: #### A DDONUAPLUS #### [address] Leukocyte esterase [Presence ] in Urine by Test stripOrdered By: Danyell Banks on 05-09-2024 Leukocyte esterase Test strip Ql (U) Negative Normal Negative [facility] Comment on above: Order Comment: Name Collection Type:: Clean-Voided Midstream Performed By: #### A DDONUAPLUS #### [facility] [address] [place] [address] [place] Leukocytes [#/area] in Urine sediment by Automated countOrdered By: Danyell Banks on 05-09-2024 WBC Auto (Urine sed) [#/Area] 1-2 [HPF] 0-4 [facility] Leukocytes [#/volume] correc tania for nucleated erythrocytes in Blood by Automated counOrdered By: Danyell Banks on 05-09-2024 WBC corrected for nucl RBC Auto (Bld) [#/Vol] 9.1 10*3/uL 3.8-11.6 [facility] Leukocytes [#/volume] in Blo od by Automated countOrdered By: Danyell Banks on 05-09-2024 WBC (Bld) [#/Vol] 9.1 10*3/uL Normal 3.8-11.6 [facility] Comment on above: Performed By: #### C BC, HS TROP, BNP, TSH3, MG, CMP, PHOS, HCGQUAL #### [address] Lymphocytes [#/volume] in Bl ood by Automated countOrdered By: Danyell Banks on 05-09-2024 Lymphocytes (Bld) [#/Vol] 2.8 10*3/uL Normal 1.00-4.8 [facility] Comment on above: Performed By: #### C BC, HS TROP, BNP, TSH3, MG, CMP, PHOS, HCGQUAL #### [address] Lymphocytes/100 leukocytes i n Blood by Automated countOrdered By: Danyell Banks on 05-09-2024 Lymphocytes/100 WBC (Bld) 31.1 % Normal . [facility] Comment on above: Performed By: #### C BC, HS TROP, BNP, TSH3, MG, CMP, PHOS, HCGQUAL #### [address] MCH [Entitic mass] by Automa tania countOrdered By: Danyell Banks on 05-09-2024 MCH (RBC) [Entitic mass] 28.6 pg Normal 24.7-34.3 [facility] Comment on above: Performed By: #### C BC, HS TROP, BNP, TSH3, MG, CMP, PHOS, HCGQUAL #### [address] MCHC Auto (RBC) [Mass/Vol]Or dered By: Danyell Banks on 05-09-2024 MCHC (RBC) [Mass/Vol] 33.5 g/dL 32.0-35.0 [facility] MCV [Entitic volume] by Auto mated countOrdered By: Danyell Banks on 05-09-2024 MCV (RBC) [Entitic vol] 85.4 fL Normal 80-100 [facility] Comment on above: Performed By: #### C BC, HS TROP, BNP, TSH3, MG, CMP, PHOS, HCGQUAL #### [address] Magnesium [Mass/volume] in S ranulfo or PlasmaOrdered By: Danyell Banks on 05-09-2024 Magnesium [Mass/Vol] 1.8 mg/dL Low 1.9-2.7 [facility] Comment on above: Performed By: #### C BC, HS TROP, BNP, TSH3, MG, CMP, PHOS, HCGQUAL #### [facility] [address] [place] [address] Monocyte distribution width [Entitic volume] in Blood by AutomatedOrdered By: Danyell Banks on 05-09-2024 Monocyte distribution width Auto (Bld) [Entitic vol] 19.70 % 0.00-20.00 [facility] Neutrophils [#/volume] in Bl ood by Automated countOrdered By: Danyell Banks on 05-09-2024 Neutrophils (Bld) [#/Vol] 5.4 10*3/uL Normal 1.8-7.7 [facility] Comment on above: Performed By: #### C BC, HS TROP, BNP, TSH3, MG, CMP, PHOS, HCGQUAL #### [address] Nitrite Test strip Ql (U)Ord ered By: Danyell Banks on 05-09-2024 Nitrite Ql (U) Negative Negative [facility] No Panel InformationOrdered By: Danyell Banks on 05-09-2024 Estimated GFR (CKD-EPI) > 60.0 mL/Min [facility] Creatinine Clearance (Chem 145.19 [facility] Nucleated erythrocytes [Pres ence] in Blood by Automated countOrdered By: Danyell Banks on 05-09-2024 Nucleated RBC Auto Ql (Bld) 0.1 /100{WBC} 0-0.5 [facility] Phosphate [Mass/volume] in S ranulfo or PlasmaOrdered By: Danyell Banks on 05-09-2024 Phosphate [Mass/Vol] 2.7 mg/dL Normal 2.5-4.5 [facility] Comment on above: Performed By: #### C BC, HS TROP, BNP, TSH3, MG, CMP, PHOS, HCGQUAL #### [facility] [address] [place] [address] [place] Platelet mean volume [Entiti c volume] in Blood by Automated countOrdered By: Danyell Banks on 05-09-2024 Platelet mean volume (Bld) [Entitic vol] 9.2 fL Normal 6.3-10.7 [facility] Comment on above: Performed By: #### C BC, HS TROP, BNP, TSH3, MG, CMP, PHOS, HCGQUAL #### [facility] [address] Platelets [#/volume] in Bloo d by Automated countOrdered By: Danyell Banks on 05-09-2024 Platelets (Bld) [#/Vol] 344 10*3/uL Normal 150-450 [facility] Comment on above: Performed By: #### C BC, HS TROP, BNP, TSH3, MG, CMP, PHOS, HCGQUAL #### [address] Potassium [Moles/volume] in Serum or PlasmaOrdered By: Danyell Banks on 05-09-2024 Potassium [Moles/Vol] 3.9 mmol/L Normal 3.5-5.1 [facility] Comment on above: Performed By: #### C BC, HS TROP, BNP, TSH3, MG, CMP, PHOS, HCGQUAL #### [address] Protein Test strip (U) [Mass /Vol]Ordered By: Danyell Banks on 05-09-2024 Protein (U) [Mass/Vol] Negative Negative [facility] Protein [Mass/volume] in Ser um or PlasmaOrdered By: Danyell Banks on 05-09-2024 Protein [Mass/Vol] 7.3 g/dL Normal 6.4-8.9 [facility] Comment on above: Performed By: #### C BC, HS TROP, BNP, TSH3, MG, CMP, PHOS, HCGQUAL #### [address] Serum globulin measurement b y calculation (mass/volume)Ordered By: Danyell Banks on 05-09-2024 Globulin (S) [Mass/Vol] 3.4 g/dL Normal [facility] Comment on above: Performed By: #### C BC, HS TROP, BNP, TSH3, MG, CMP, PHOS, HCGQUAL #### [address] Serum or plasma albumin/glob ulin mass ratioOrdered By: Danyell Banks on 05-09-2024 Albumin/Globulin [Mass ratio] 1.1 {ratio} Normal [facility] Comment on above: Performed By: #### C BC, HS TROP, BNP, TSH3, MG, CMP, PHOS, HCGQUAL #### [address] Serum or plasma anion gap de terminationOrdered By: Danyell Banks on 05-09-2024 Anion gap [Moles/Vol] 11.2 mmol/L Normal 6.0-15.0 [facility] Comment on above: Performed By: #### C BC, HS TROP, BNP, TSH3, MG, CMP, PHOS, HCGQUAL #### [address] Sodium [Moles/volume] in Ser um or PlasmaOrdered By: Danyell Banks on 05-09-2024 Sodium [Moles/Vol] 140 mmol/L Normal 136-145 [facility] Comment on above: Performed By: #### C BC, HS TROP, BNP, TSH3, MG, CMP, PHOS, HCGQUAL #### [address] Specific gravity Test strip (U) [Rel density]Ordered By: Danyell Banks on 05-09-2024 Specific gravity (U) [Rel density] 1.006 1.001-1.030 [facility] Thyrotropin [Units/volume] i n Serum or PlasmaOrdered By: Danyell Banks on 05-09-2024 TSH Qn 2.96 m[IU]/L Normal 0.45-5.33 [facility] Comment on above: Performed By: #### C BC, HS TROP, BNP, TSH3, MG, CMP, PHOS, HCGQUAL #### [facility] [address] Troponin I High Sensitivityo n 05-09-2024 Troponin I High Sensitivity 5.7 pg/mL Normal 0.0-15.0 [facility] Comment on above: Result Comment: PERF ORMED BY: [place] [address] PATHOLOGIST MAC OPERATOR JEANETH CERNA M.D. Performed By: #### C BC, HS TROP, BNP, TSH3, MG, CMP, PHOS, HCGQUAL #### [facility] [address] [place] [address] Troponin I.cardiac [Mass/vol ume] in Serum or Plasma by Detection limit <= 0.01 ng/Ordered By: Danyell Banks on 05-09-2024 Troponin I.cardiac DL <= 0.01 ng/mL [Mass/Vol] 5.7 pg/mL 0.0-15.0 [facility] Urea nitrogen [Mass/volume] in Serum or PlasmaOrdered By: Danyell Banks on 05-09-2024 Urea nitrogen [Mass/Vol] 9 mg/dL Normal 7-25 [facility] Comment on above: Performed By: #### C BC, HS TROP, BNP, TSH3, MG, CMP, PHOS, HCGQUAL #### [facility] [address] [place] [address] Urine appearanceOrdered By: Danyell Banks on 05-09-2024 Appearance (U) Clear Normal Clear [facility] Comment on above: Order Comment: Name Collection Type:: Clean-Voided Midstream Performed By: #### A DDONUAPLUS #### [facility] [address] [place] [address] Urobilinogen Test strip (U) [Mass/Vol]Ordered By: Danyell Banks on 05-09-2024 Urobilinogen (U) [Mass/Vol] Normal mg/dL Normal [facility] XR chest 1V portableon 05-09 XR chest 1V portable [facility] [place] [address] [place] [address] XRay Report Signed Patient: Sarah Pennington MR#: [id number] : 1985 Acct:[id number] Age/Sex: 38 / F ADM Date: 05/09/24 Loc: ER Room: Type: [facility] ER Attending Dr: Copies to: Danyell Banks [...] Artie Duke M.D.05/09/2024 10:31 AM Dictation Location: [place] [address] Transcribed By: [facility] 05/09/24 1031 Dictated By: Artie Duke DO 05/09/24 1031 Signed By: 05/09/24 1031 Normal [facility] pH of Urine by Test stripOrd ered By: Danyell Banks on 05-09-2024 pH (U) 6.5 [pH] Normal 5.0-9.0 [facility] Comment on above: Order Comment: Name Collection Type:: Clean-Voided Midstream Performed By: #### A DDONUAPLUS #### [address] ALL CBC WITH AUTO DIFFon BASOPHILS ABSOLUTE AUTO 0.1 [facility] Basophils/100 WBC (Bld) 0.8 % 0.2 - 2.0 % [facility] Eosinophils/100 WBC (Bld) 3.3 % 0.9 - 7.0 % [facility] Erythrocyte distribution width (RBC) [Ratio] 13.9 % 11.0 - 15.0 % [facility] Hematocrit (Bld) [Volume fraction] 37.9 % 36.0 - 48.0 % [facility] Hemoglobin (Bld) [Mass/Vol] 12.1 g/dL 12.0 - 16.0 g/dL [facility] IMMATURE GRANULOCYTES ABS AUTO 0.02 [facility] Immature granulocytes/100 WBC (Bld) 0.2 % 0.0 - 0.5 % [facility] LYMPHOCYTES ABSOLUTE AUTO 2.7 [facility] Lymphocytes/100 WBC (Bld) 27.3 % 20.5 - 60.0 % [facility] MCH (RBC) [Entitic mass] 28.1 pg 26. 7 - 34.0 pg [facility] MCHC (RBC) [Mass/Vol] 31.9 g/dL 29.9 - 35.2 g/dL [facility] MCV (RBC) [Entitic vol] 88.1 fL 81.0 - 99.0 fL [facility] MONOCYTES ABSOLUTE AUTO 0.6 N [facility] Monocytes/100 WBC (Bld) 6.2 % 1.7 - 12.0 % [facility] NEUTROPHILS ABSOLUTE AUTO 6.1 [facility] Neutrophils/100 WBC (Bld) 62.2 % 43.0 - 75.0 % [facility] Platelet mean volume (Bld) [Entitic vol] 11.3 fL 9.5 - 13.5 fL [facility]H EO # 0.3 [facility] PLT [address] [facility] RBC 4.30 [facility] TB WBC 9.8 [facility] BUNon 07-15-2022 Urea nitrogen [Mass/Vol] 10.0 mg/dL Normal 7.0-18.0 [facility] Comment on above: Performed By: #### U RCX #### [facility] [address] [place] [address] Dr. Julien Eric CBC AUTO DIFFon 07-15-2022 BASO # 0.1 103/ul Normal 0.0-0.1 [facility] Comment on above: Performed By: #### H CVPCRR #### [facility] [address] [place] [address] Dr. Julien Eric Basophils/100 WBC (Bld) 0.4 % Normal 0.2-2.0 [facility] Comment on above: Performed By: #### H CVPCRR #### [facility] [address] [address] [address] Julien Eric EO # 0.2 103/ul Normal 0.0-0.7 [facility] Comment on above: Performed By: #### H CVPCRR #### [facility] [address] [place] [address] Dr. Julien Eric Eosinophils/100 WBC (Bld) 1.6 % Normal 0.9-7.0 [facility] Comment on above: Performed By: #### H CVPCRR #### [facility] [address] [place] [address] Dr. Julien Eric Erythrocyte distribution width (RBC) [Ratio] 15.3 % Critically high 11.0-15.0 [facility] Comment on above: Performed By: #### H CVPCRR #### [facility] [address] [place] [address] Dr. Julien Eric Hematocrit (Bld) [Volume fraction] 27.2 % Critically low 36.0-48.0 [facility] Comment on above: Performed By: #### H CVPCRR #### [facility] [address] [place] [address] Dr. Julien Eric Hemoglobin (Bld) [Mass/Vol] 8.8 g/dL Critically low 12.0-16.0 [facility] Comment on above: Performed By: #### H CVPCRR #### [facility] [address] [place] [address] Dr. Julien Eric IG # 0.07 10e3/ul Critically high 0.00-0.03 [facility] Comment on above: Performed By: #### H CVPCRR #### [facility] [address] [place] [address] Dr. Julien Eric IG % 0.6 % Critically high 0.0-0.5 [facility] Comment on above: Performed By: #### H CVPCRR #### [facility] [address] [place] [address] Dr. Julien Eric LYMPH # 2.0 103/ul Normal 1.2-3.8 [facility] Comment on above: Performed By: #### H CVPCRR #### [facility] [address] [place] [address] Dr. Julien Eric Lymphocytes/100 WBC (Bld) 17.3 % Critically low 20.5-60.0 [facility] Comment on above: Performed By: #### H CVPCRR #### [facility] [address] [place] [address] Dr. Julien Eric MANUAL DIFF REQ NO Normal [facility] Comment on above: Performed By: #### H CVPCRR #### [facility] [address] [place] [address] Dr. Julien Eric MCH (RBC) [Entitic mass] 29.9 pg Normal 26.7-34.0 [facility] Comment on above: Performed By: #### H CVPCRR #### [facility] [address] [place] [address] Dr. Julien Eric MCHC (RBC) [Mass/Vol] 32.4 g/dL Normal 29.9-35.2 [facility] Comment on above: Performed By: #### H CVPCRR #### [facility] [address] [place] [address] Dr. Julien Eric MCV (RBC) [Entitic vol] 92.5 fL Normal 81.0-99.0 [facility] Comment on above: Performed By: #### H CVPCRR #### [facility] [address] [place] [address] Dr. Julien Eric MONO # 0.7 103/ul Normal 0.3-0.8 [facility] Comment on above: Performed By: #### H CVPCRR #### [facility] [address] [place] [address] Dr. Julien Eric Monocytes/100 WBC (Bld) 5.8 % Normal 1.7-12.0 [facility] Comment on above: Performed By: #### H CVPCRR #### [facility] [address] [place] [address] Dr. Julien Eric NEUT # 8.4 103/ul Critically high 1.4-6.5 [facility] Comment on above: Performed By: #### H CVPCRR #### [facility] [address] [address] [address] Julien Eric Neutrophils/100 WBC (Bld) 74.3 % Normal 43.0-75.0 [facility] Comment on above: Performed By: #### H CVPCRR #### [facility] [address] [address] [address] Julien Eric Platelet mean volume (Bld) [Entitic vol] 10.9 fL Normal 9.5-13.5 [facility] Comment on above: Performed By: #### H CVPCRR #### [facility] [address] [address] [address] Julien Eric PLT 300 103/ul Normal 150-450 [facility] Comment on above: Performed By: #### H CVPCRR #### [facility] [address] [address] [address] Julien Eric RBC 2.94 106/ul Critically low 4.20-5.40 [facility] Comment on above: Performed By: #### H CVPCRR #### [facility] [address] [address] [address] Julien Eric WBC 11.3 103/ul Critically high 4.0-11.0 [facility] Comment on above: Performed By: #### H CVPCRR #### [facility] [address] [address] [address] Julien Eric CREATININEon 07-15-2022 Creatinine [Mass/Vol] 0.61 mg/dL Normal 0.55-1.02 [facility] Comment on above: Performed By: #### U RCX #### [facility] [address] [address] [address] Julien Eric EGFR-AF [facility] >60 Normal >=60 [facility] Comment on above: Performed By: #### U RCX #### [facility] [address] [address] [address] Julien Eric EGFR-NON AF [facility] >60 Normal >=60 [facility] Comment on above: Performed By: #### U RCX #### [facility] [address] [address] [address] Julien Eric CBC AUTO DIFFon 07-14-2022 BASO # 0.1 103/ul Normal 0.0-0.1 [facility] Comment on above: Performed By: #### U RCX #### [facility] [address] [address] [address] Julien Eric Basophils/100 WBC (Bld) 0.4 % Normal 0.2-2.0 [facility] Comment on above: Performed By: #### U RCX #### [facility] [address] [place] [address] Dr. Julien Eric EO # 0.2 103/ul Normal 0.0-0.7 [facility] Comment on above: Performed By: #### U RCX #### [facility] [address] [place] [address] Dr. Julien Eric Eosinophils/100 WBC (Bld) 1.2 % Normal 0.9-7.0 [facility] Comment on above: Performed By: #### U RCX #### [facility] [address] [place] [address] Dr. Julien Eric Erythrocyte distribution width (RBC) [Ratio] 15.2 % Critically high 11.0-15.0 [facility] Comment on above: Performed By: #### U RCX #### [facility] [address] [place] [address] Dr. Julien Eric Hematocrit (Bld) [Volume fraction] 33.8 % Critically low 36.0-48.0 [facility] Comment on above: Performed By: #### U RCX #### [facility] [address] [place] [address] Dr. Julien Eric Hemoglobin (Bld) [Mass/Vol] 11.1 g/dL Critically low 12.0-16.0 [facility] Comment on above: Performed By: #### U RCX #### [facility] [address] [place] [address] Dr. Julien Eric IG # 0.06 10e3/ul Critically high 0.00-0.03 [facility] Comment on above: Performed By: #### U RCX #### [facility] [address] [address] [address] Julien Eric IG % 0.5 % Normal 0.0-0.5 [facility] Comment on above: Performed By: #### U RCX #### [facility] [address] [address] [address] Julien Eric LYMPH # 2.4 103/ul Normal 1.2-3.8 [facility] Comment on above: Performed By: #### U RCX #### [facility] [address] [place] [address] Dr. Julien Eric Lymphocytes/100 WBC (Bld) 19.4 % Critically low 20.5-60.0 [facility] Comment on above: Performed By: #### U RCX #### [facility] [address] [place] [address] Dr. Julien Eric MANUAL DIFF REQ NO Normal [facility] Comment on above: Performed By: #### U RCX #### [facility] [address] [address] [address] Julien Eric MCH (RBC) [Entitic mass] 29.6 pg Normal 26.7-34.0 [facility] Comment on above: Performed By: #### U RCX #### [facility] [address] [address] [address] Julien Eric MCHC (RBC) [Mass/Vol] 32.8 g/dL Normal 29.9-35.2 [facility] Comment on above: Performed By: #### U RCX #### [facility] [address] [address] [address] Julien Eric MCV (RBC) [Entitic vol] 90.1 fL Normal 81.0-99.0 [facility] Comment on above: Performed By: #### U RCX #### [facility] [address] [address] [address] Julien Eric MONO # 0.7 103/ul Normal 0.3-0.8 [facility] Comment on above: Performed By: #### U RCX #### [facility] [address] [address] [address] Julien Eric Monocytes/100 WBC (Bld) 5.4 % Normal 1.7-12.0 [facility] Comment on above: Performed By: #### U RCX #### [facility] [address] [address] [address] Julien Eric NEUT # 9.2 103/ul Critically high 1.4-6.5 [facility] Comment on above: Performed By: #### U RCX #### [facility] [address] [place] [address] Dr. Julien Eric Neutrophils/100 WBC (Bld) 73.1 % Normal 43.0-75.0 [facility] Comment on above: Performed By: #### U RCX #### [facility] [address] [place] [address] Dr. Julien Eric Platelet mean volume (Bld) [Entitic vol] 11.2 fL Normal 9.5-13.5 [facility] Comment on above: Performed By: #### U RCX #### [facility] [address] [place] [address] Dr. Julien Eric PLT 371 103/ul Normal 150-450 [facility] Comment on above: Performed By: #### U RCX #### [facility] [address] [place] [address] Dr. Julien Eric RBC 3.75 106/ul Critically low 4.20-5.40 [facility] Comment on above: Performed By: #### U RCX #### [facility] [address] [place] [address] Dr. Julien Eric WBC 12.6 103/ul Critically high 4.0-11.0 [facility] Comment on above: Performed By: #### U RCX #### [facility] [address] [place] [address] Dr. Julien Eric CULTURE URINEon 07-14-2022 CULTURE URINE Culture Observations: LIGHT GROWTH OF MIXED GENITAL BRITTON. NO POTENTIAL PATHOGENS SEEN. Normal [facility] Comment on above: Performed By: #### B LDCX2 #### [facility] [address] [place] [address] Dr. Julien Eric DRUG SCREEN RAPID (URINE)on 07-14-2022 AMP Negative Normal NEGATIVE [facility] Comment on above: Performed By: #### H CVPCRR #### [facility] [address] [place] [address] Dr. Julien Eric BAR Negative Normal NEGATIVE [facility] Comment on above: Performed By: #### H CVPCRR #### [facility] [address] [place] [address] Dr. Julien Eric BUP Negative Normal NEGATIVE [facility] Comment on above: Performed By: #### H CVPCRR #### [facility] [address] [place] [address] Dr. Julien Eric BZO Negative Normal NEGATIVE [facility] Comment on above: Performed By: #### H CVPCRR #### [facility] [address] [place] [address] Dr. Julien Eric REMI Negative Normal NEGATIVE [facility] Comment on above: Performed By: #### H CVPCRR #### [facility] [address] [place] [address] Dr. Julien Eric CUT-OFFS SEE BELOW Normal [facility] Comment on above: Result Comment: AMP (Amphetamine): 500ng/mL, BAR (Barbituates): 200 ng/mL, BZO (Benzodiazepines): 150 ng/mL, BUP (Buprenorphine): 10 ng/mL, REMI (Cocaine): 150 ng/mL, mAMP (Methamphetamine): 500 ng/mL, MTD (Methadone): 200 ng/mL, OPI (Opiates): 100 ng/mL, OXY (Oxycodone): 100 ng/mL, PCP (Phencyclidine): 25 ng/mL, PPX (Propoxyphene): 300 ng/mL, THC (Cannabinoids): 50 ng/mL, TCA (Trycyclic Antidepressants): 300 ng/mL Performed By: #### H CVPCRR #### [facility] [address] [place] [address] Dr. Julien Eric DRUG CUT HEADER DRUG CLASS TEST SYSTEM CUT-OFF CONCENTRATIONS ARE FOLLOWS: Normal [facility] Comment on above: Performed By: #### H CVPCRR #### [facility] [address] [address] [address] Julien Eric mAMP Negative Normal NEGATIVE [facility] Comment on above: Performed By: #### H CVPCRR #### [facility] [address] [address] [address] Julien Eric MTD Negative Normal NEGATIVE [facility] Comment on above: Performed By: #### H CVPCRR #### [facility] [address] [address] [address] Julien Eric OPI Negative Normal NEGATIVE [facility] Comment on above: Performed By: #### H CVPCRR #### [facility] [address] [place] [address] Dr. Julien Eric OXY Negative Normal NEGATIVE [facility] Comment on above: Performed By: #### H CVPCRR #### [facility] [address] [address] [address] Julien Eric PCP Negative Normal NEGATIVE [facility] Comment on above: Performed By: #### H CVPCRR #### [facility] [address] [place] [address] Dr. Julien Eric PPX Negative Normal NEGATIVE [facility] Comment on above: Performed By: #### H CVPCRR #### [facility] [address] [place] [address] Dr. Julien Eric TCA Negative Normal NEGATIVE [facility] Comment on above: Performed By: #### H CVPCRR #### [facility] [address] [address] [address] Julien Eric THC Negative Normal NEGATIVE [facility] Comment on above: Performed By: #### H CVPCRR #### [facility] [address] [place] [address] Dr. Julien Eric TYPE AND SCREENon 07-14-2022 TYPE AND SCREEN Negative Normal [facility] Comment on above: Performed By: #### T NS #### [facility] [address] [place] [address] Dr. Julien Eric UA (CLEAN/CATCH) RN CARDIOLOGY/MICRO I F IND.on 07-14-2022 Bilirubin Ql (U) Negative Normal NEGATIVE [facility] Comment on above: Performed By: #### H CVPCRR #### [facility] [address] [place] [address] Dr. Julien Eric Clarity (U) SL CLOUDY Abnormal CLEAR [facility] Comment on above: Performed By: #### H CVPCRR #### [facility] [address] [place] [address] Dr. Julien Eric Color (U) LT. YELLOW Normal YELLOW [facility] Comment on above: Performed By: #### H CVPCRR #### [facility] [address] [place] [address] Dr. Julien Eric Glucose Ql (U) Negative Normal NEGATIVE [facility] Comment on above: Performed By: #### H CVPCRR #### [facility] [address] [place] [address] Dr. Julien Eric Hemoglobin Ql (U) SMALL Abnormal NEGATIVE [facility] Comment on above: Performed By: #### H CVPCRR #### [facility] [address] [place] [address] Dr. Julien Eric Ketones Ql (U) Negative Normal NEGATIVE [facility] Comment on above: Performed By: #### H CVPCRR #### [facility] [address] [place] [address] Dr. Julien Eric LEUKOCYTES SMALL Abnormal NEGATIVE [facility] Comment on above: Performed By: #### H CVPCRR #### [facility] [address] [place] [address] Dr. Julien Eric Nitrite Ql (U) Negative Normal NEGATIVE [facility] Comment on above: Performed By: #### H CVPCRR #### [facility] [address] [place] [address] Dr. Julien Eric pH (U) 7.0 [pH] Normal 5-9 [facility] Comment on above: Performed By: #### H CVPCRR #### [facility] [address] [place] [address] Dr. Julien Eric SPEC GRAVITY 1.020 Normal 1.005-<=1.[address] [facility] Comment on above: Performed By: #### H CVPCRR #### [facility] [address] [place] [address] Dr. Julien Eric UA PROTEIN 30 mg/dl Abnormal NEGATIVE/ TRACE [facility] Comment on above: Performed By: #### H CVPCRR #### [facility] [address] [place] [address] Dr. Julien Eric UR MICRO IND INDICATED Normal [facility] Comment on above: Performed By: #### H CVPCRR #### [facility] [address] [place] [address] Dr. Julien Eric Urobilinogen Qn (U) 0.2 {Ene'U}/dL Normal 0.2 - 1. 0 [facility] Comment on above: Performed By: #### H CVPCRR #### [facility] [address] [place] [address] Dr. Julien Eric URINE MICROSCOPIC ONLYon BACTERIA MODERATE Abnormal NONE SEEN The [facility] Comment on above: Performed By: #### H CVPCRR #### [facility] [address] [place] [address] Dr. Julien Eric Bacteria identified Cx Nom (U) INDICATED Normal [facility] Comment on above: Performed By: #### H CVPCRR #### [facility] [address] [place] [address] Dr. Julien Eric CAST NONE SEEN Normal NONE SEEN The [facility] Comment on above: Performed By: #### H CVPCRR #### [facility] [address] [place] [address] Dr. Julien Eric Crystals LM Nom (Urine sed) NONE SEEN Normal NONE SEEN [facility] Comment on above: Performed By: #### H CVPCRR #### [facility] [address] [place] [address] Dr. Julien Eric Epithelial cells LM Ql (Urine sed) MANY Abnormal NONE SEEN /RARE The [facility] Comment on above: Performed By: #### H CVPCRR #### [facility] [address] [place] [address] Dr. Julien Eric MUCOUS NONE SEEN Normal NONE SEEN The [facility] Comment on above: Performed By: #### H CVPCRR #### [facility] [address] [place] [address] Dr. Julien Eric RBC 0-2 Normal 0-2 [facility] Comment on above: Performed By: #### H CVPCRR #### [facility] [address] [place] [address] Dr. Julien Eric WBC 2-5 Abnormal NONE SEEN The [facility] Comment on above: Performed By: #### H CVPCRR #### [facility] [address] [place] [address] Dr. Julien Eric Cov[facility]-19 [facility]on SARS-CoV-2 (COVID-19) RNA KATTY+probe Ql (Unsp spec) Not detected Normal NOT DETECTED The [facility] Comment on above: Result Comment: This test is not yet approved or cleared by the [place] FDA. When there are no FDA-approved or cleared tests available, and other criteria are met, FDA can make tests available under an emergency access mechanism called an Emergency Use Authorization (EUA). The EUA for this test is supported by the [employer] of Health and Human Service's (HHS's) declaration [...] SARS-CoV-2. Performed By: #### U RCX #### [facility] [address] [place] [address] Dr. Julien Eric US PREG BIOPHY W [...] ZACH WALDEN Date: 2022-07-09 06:31 Normal The [facility] CULTURE URINEon 07-02-2022 CULTURE URINE Culture Observations: NO GROWTH. Normal The [facility] Comment on above: Performed By: #### U RCX #### [facility] [address] [place] [address] Dr. Julien Eric PREG BIOPHY W NON [...] by: ZACH WALDEN Date: 2022-07-01 16:27 Normal [facility] GROUP B STREP CULTUREon 06-04 S. agalactiae Ag Ql (Unsp spec) Culture Observations: NEGATIVE FOR GROUP B STREPTOCOCCUS. Normal [facility] Comment on above: Performed By: #### B LDCX2 #### [facility] [address] [place] [address] Dr. Julien Eric PREG BIOPHY W NON [...] by: ZACH WALDEN Date: 2022-06-24 21:[address] [facility] US PREG GROWTHon 06-24-2022 US PREG [...] by: ZACH WALDEN Date: 2022-06-24 21:[address] [facility] US PREG BIOPHY W NON STRESSo [...] by: ZACH WALDEN Date: 2022-06-18 06:40 Normal [facility] US PREG BIOPHY W NON STRESSo n [...] by: SOUMYA MONSALVE Date: 2022-06-10 19:[address] [facility] US PREG BIOPHY W NON STRESSo [...] by: ZACH WALDEN Date: 2022-06-03 22:[address] [facility] CULTURE BLOODon 05-28-2022 Microscopic examination of blood, culture Culture Observations: POSITIVE AEROBIC BOTTLE 05/23/22 Culture Observations: BCID= STAPH SPP. CALLED TO LIANA JONES RN 05/23/22 @4910 BY DM Culture Observations: NO GROWTH IN [...] S F Oxacillin <=0.[address] [facility] Comment on above: Performed By: #### B LDCX2 #### [facility] [address] [place] [address] Dr. Julien Eric US PREG BIOPHY W [...] by: ZACH WALDEN Date: 2022-05-27 16:[address] [facility] US PREG GROWTHon 05-27-2022 US PREG [...] ZACH WALDEN Date: 2022-05-27 16:05 Normal [facility] CBC AUTO DIFFon 05-23-2022 BASO # 0.0 103/ul Normal 0.0-0.1 [facility] Comment on above: Performed By: #### H CVPCRR #### [facility] [address] [address] [address] Julien Eric Basophils/100 WBC (Bld) 0.3 % Normal 0.2-2.0 [facility] Comment on above: Performed By: #### H CVPCRR #### [facility] [address] [place] [address] Dr. Julien Eric EO # 0.1 103/ul Normal 0.0-0.7 [facility] Comment on above: Performed By: #### H CVPCRR #### [facility] [address] [address] [address] Julien Eric Eosinophils/100 WBC (Bld) 1.3 % Normal 0.9-7.0 [facility] Comment on above: Performed By: #### H CVPCRR #### [facility] [address] [place] [address] Dr. Julien Eric Erythrocyte distribution width (RBC) [Ratio] 14.5 % Normal 11.0-15.0 [facility] Comment on above: Performed By: #### H CVPCRR #### [facility] [address] [place] [address] Dr. Julien Eric Hematocrit (Bld) [Volume fraction] 28.8 % Critically low 36.0-48.0 [facility] Comment on above: Performed By: #### H CVPCRR #### [facility] [address] [place] [address] Dr. Julien Eric Hemoglobin (Bld) [Mass/Vol] 9.5 g/dL Critically low 12.0-16.0 [facility] Comment on above: Performed By: #### H CVPCRR #### [facility] [address] [address] [address] Julien Eric IG # 0.06 10e3/ul Critically high 0.00-0.03 [facility] Comment on above: Performed By: #### H CVPCRR #### [facility] [address] [address] [address] Julien Eric IG % 0.8 % Critically high 0.0-0.5 [facility] Comment on above: Performed By: #### H CVPCRR #### [facility] [address] [place] [address] Dr. Julien rEic LYMPH # 1.5 103/ul Normal 1.2-3.8 [facility] Comment on above: Performed By: #### H CVPCRR #### [facility] [address] [place] [address] Dr. Julien Eric Lymphocytes/100 WBC (Bld) 18.8 % Critically low 20.5-60.0 [facility] Comment on above: Performed By: #### H CVPCRR #### [facility] [address] [place] [address] Dr. Julien Eric MANUAL DIFF REQ NO Normal [facility] Comment on above: Performed By: #### H CVPCRR #### [facility] [address] [place] [address] Dr. Julien Eric MCH (RBC) [Entitic mass] 30.4 pg Normal 26.7-34.0 [facility] Comment on above: Performed By: #### H CVPCRR #### [facility] [address] [place] [address] Dr. Julien Eric MCHC (RBC) [Mass/Vol] 33.0 g/dL Normal 29.9-35.2 [facility] Comment on above: Performed By: #### H CVPCRR #### [facility] [address] [place] [address] Dr. Julien Eric MCV (RBC) [Entitic vol] 92.0 fL Normal 81.0-99.0 [facility] Comment on above: Performed By: #### H CVPCRR #### [facility] [address] [address] [address] Julien Eric MONO # 0.6 103/ul Normal 0.3-0.8 [facility] Comment on above: Performed By: #### H CVPCRR #### [facility] [address] [place] [address] Dr. Julien Eric Monocytes/100 WBC (Bld) 7.3 % Normal 1.7-12.0 [facility] Comment on above: Performed By: #### H CVPCRR #### [facility] [address] [place] [address] Dr. Julien Eric NEUT # 5.7 103/ul Normal 1.4-6.5 [facility] Comment on above: Performed By: #### H CVPCRR #### [facility] [address] [place] [address] Dr. Julien Eric Neutrophils/100 WBC (Bld) 71.5 % Normal 43.0-75.0 [facility] Comment on above: Performed By: #### H CVPCRR #### [facility] [address] [place] [address] Dr. Julien Eric Platelet mean volume (Bld) [Entitic vol] 11.4 fL Normal 9.5-13.5 [facility] Comment on above: Performed By: #### H CVPCRR #### [facility] [address] [place] [address] Dr. Julien Eric PLT 286 103/ul Normal 150-450 [facility] Comment on above: Performed By: #### H CVPCRR #### [facility] [address] [place] [address] Dr. Julien Eric RBC 3.13 106/ul Critically low 4.20-5.40 [facility] Comment on above: Performed By: #### H CVPCRR #### [facility] [address] [place] [address] Dr. Julien Eric WBC 8.0 103/ul Normal 4.0-11.0 [facility] Comment on above: Performed By: #### H CVPCRR #### [facility] [address] [place] [address] Dr. Julien Eric PROF CHEM 8 (BAS METB)on Anion gap [Moles/Vol] 7.8 mmol/L Normal [facility] Comment on above: Performed By: #### H BSANS #### [facility] [address] [place] [address] Dr. Julien Eric Calcium [Mass/Vol] 7.8 mg/dL Critically low 8.5-10.1 [facility] Comment on above: Performed By: #### H BSANS #### [facility] [address] [place] [address] Dr. Julien Eric Chloride [Moles/Vol] 105 mmol/L Normal 98-107 [facility] Comment on above: Performed By: #### H BSANS #### [facility] [address] [place] [address] Dr. Julien Eric CO2 [Moles/Vol] 24.5 mmol/L Normal 21.0-32.0 [facility] Comment on above: Performed By: #### H BSANS #### [facility] [address] [place] [address] Dr. Julien Eric Creatinine [Mass/Vol] 0.50 mg/dL Critically low 0.55-1.02 [facility] Comment on above: Performed By: #### H BSANS #### [facility] [address] [place] [address] Dr. Julien Eric EGFR-AF [facility] >60 Normal >=60 [facility] Comment on above: Performed By: #### H BSANS #### [facility] [address] [place] [address] Dr. Julien Eric EGFR-NON AF [facility] >60 Normal >=60 [facility] Comment on above: Performed By: #### H BSANS #### [facility] [address] [place] [address] Dr. Julien Eric Glucose [Mass/Vol] 98 mg/dL Normal 74-106 [facility] Comment on above: Performed By: #### H BSANS #### [facility] [address] [address] [address] Julien Eric Potassium [Moles/Vol] 3.3 mmol/L Critically low 3.5-5.1 [facility] Comment on above: Performed By: #### H BSANS #### [facility] [address] [address] [address] Julien Eric Sodium [Moles/Vol] 134 mmol/L Critically low 136-145 [facility] Comment on above: Performed By: #### H BSANS #### [facility] [address] [address] [address] Julien Eric Urea nitrogen [Mass/Vol] 5.0 mg/dL Critically low 7.0-18. 0 [facility] Comment on above: Performed By: #### H BSANS #### [facility] [address] [place] [address] Dr. Julien Eric Urea nitrogen/Creatinine [Mass ratio] 10.0 mg/mg Normal [facility] Comment on above: Performed By: #### H BSANS #### [facility] [address] [place] [address] Dr. Julien Eric AMYLASEon 05-22-2022 Amylase [Catalytic activity/Vol] 33 U/L Normal 25-115 [facility] Comment on above: Performed By: #### H BSANS #### [facility] [address] [place] [address] Dr. Julien Eric BLOOD CULTURE ID PANELon A. baumannii Not detected Normal NOT DETECTED [facility] Comment on above: Performed By: #### U RCX #### [facility] [address] [address] [address] Julien Eric Bacteriodes fragilis Not detected Normal NOT DETECTED The [facility] Comment on above: Performed By: #### U RCX #### [facility] [address] [address] [address] Julien Eric BCID CONTROLS PASSED Normal [facility] Comment on above: Performed By: #### U RCX #### [facility] [address] [place] [address] Dr. Julien Eric BCIDBTHD BLOOD CULTURE BOTTLE INFORMATION [facility] Comment on above: Performed By: #### U RCX #### [facility] [address] [place] [address] Dr. Julien Eric BCIDHD1 ANTIMICROBIAL RESISTANCE GENES [facility] Comment on above: Performed By: #### U RCX #### [facility] [address] [place] [address] Dr. Julien Eric BCIDHD2 SEE BELOW [facility] Comment on above: Result Comment: Note : Antimicrobial resitance can occur via multiple mechanisms. A Not Detected result for the [employer] antomicrobial resistance gene assays does not indicate antimicrobial susceptibility. Subculturing is required for species identification and susceptibility testing of isolates. Performed By: #### U RCX #### [facility] [address] [place] [address] Dr. Julien Eric BCIDHD3 Positive [facility] Comment on above: Performed By: #### U RCX #### [facility] [address] [place] [address] Dr. Julien Eric BCIDHD4 Negative [facility] Comment on above: Performed By: #### U RCX #### [facility] [address] [place] [address] Dr. Julien Eric BCIDHD5 YEAST Normal [facility] Comment on above: Performed By: #### U RCX #### [facility] [address] [place] [address] Dr. Julien Eric Bottle Set: Set 2 [facility] Comment on above: Performed By: #### U RCX #### [facility] [address] [place] [address] Dr. Julien Eric Bottle: Aerobic Normal [facility] Comment on above: Performed By: #### U RCX #### [facility] [address] [place] [address] Dr. Julien Eric C. neoformans/gattii Not detected Normal NOT DETECTED [facility] Comment on above: Performed By: #### U RCX #### [facility] [address] [place] [address] Dr. Julien Eric Rocio albicans Not detected Normal NOT DETECTED [facility] Comment on above: Performed By: #### U RCX #### [facility] [address] [address] [address] Julien Eric Rocio auris Not detected Normal NOT DETECTED The [facility] Comment on above: Performed By: #### U RCX #### [facility] [address] [place] [address] Dr. Julien Eric Rocio glabrata Not detected Normal NOT DETECTED [facility] Comment on above: Performed By: #### U RCX #### [facility] [address] [place] [address] Dr. Julien Eric Rocio Krusei Not detected Normal NOT DETECTED The [facility] Comment on above: Performed By: #### U RCX #### [facility] [address] [place] [address] Dr. Julien Eric Rocio Parapsilosis Not detected Normal NOT DETECTED [facility] Comment on above: Performed By: #### U RCX #### [facility] [address] [place] [address] Dr. Julien Eric Rocio Tropicalis Not detected Normal NOT DETECTED [facility] Comment on above: Performed By: #### U RCX #### [facility] [address] [place] [address] Dr. Julien Eric CTX-M Resistant Gene Not Applicable Normal NOT DETECTE D [facility] Comment on above: Performed By: #### U RCX #### [facility] [address] [place] [address] Dr. Julien Eric E. Cloacae complex Not detected Normal NOT DETECTED [facility] Comment on above: Performed By: #### U RCX #### [facility] [address] [place] [address] Dr. Julien Eric E. faecalis Not detected Normal NOT DETECTED [facility] Comment on above: Performed By: #### U RCX #### [facility] [address] [place] [address] Dr. Julien Eric E. faecium Not detected Normal NOT DETECTED [facility] Comment on above: Performed By: #### U RCX #### [facility] [address] [place] [address] Dr. Julien Eric Enterobacteriaceae Not detected Normal NOT DETECTED [facility] Comment on above: Performed By: #### U RCX #### [facility] [address] [place] [address] Dr. Julien Eric Escherichia coli Not detected Normal NOT DETECTED The [facility] Comment on above: Performed By: #### U RCX #### [facility] [address] [place] [address] Dr. Julien Eric H. influenzae Not detected Normal NOT DETECTED [facility] Comment on above: Performed By: #### U RCX #### [facility] [address] [place] [address] Dr. Julien Eric IMP Resistant Gene Not Applicable Normal NOT DETECTED The [facility] Comment on above: Performed By: #### U RCX #### [facility] [address] [place] [address] Dr. Julien Eric K. oxytoca Not detected Normal NOT DETECTED [facility] Comment on above: Performed By: #### U RCX #### [facility] [address] [place] [address] Dr. Julien Eric K. pneumoniae Not detected Normal NOT DETECTED [facility] Comment on above: Performed By: #### U RCX #### [facility] [address] [place] [address] Dr. Julien Eric Klebsiella aerogenes Not detected Normal NOT DETECTED [facility] Comment on above: Performed By: #### U RCX #### [facility] [address] [place] [address] Dr. Julien Eric KPC Resistant Gene Not Applicable Normal NOT DETECTED [facility] Comment on above: Performed By: #### U RCX #### [facility] [address] [place] [address] Dr. Julien Eric List. monocytogenes Not detected Normal NOT DETECTED [facility] Comment on above: Performed By: #### U RCX #### [facility] [address] [place] [address] Dr. Julien Eric Mcr-1 Resistant Gene Not Applicable Normal NOT DETECTE D [facility] Comment on above: Performed By: #### U RCX #### [facility] [address] [place] [address] Dr. Julien Eric mecA/C Not Applicable Normal NOT DETECTED [facility] Comment on above: Performed By: #### U RCX #### [facility] [address] [place] [address] Dr. Julien Eric mecA/C MREJ Not Applicable Normal NOT DETECTED [facility] Comment on above: Performed By: #### U RCX #### [facility] [address] [place] [address] Dr. Julien Eric N. meningitidis Not detected Normal NOT DETECTED [facility] Comment on above: Performed By: #### U RCX #### [facility] [address] [place] [address] Dr. Julien Eric NDM Resistant Gene Not Applicable Normal NOT DETECTED [facility] Comment on above: Performed By: #### U RCX #### [facility] [address] [place] [address] Dr. Julien Eric Oxa-48-like Not Applicable Normal NOT DETECTED [facility] Comment on above: Performed By: #### U RCX #### [facility] [address] [place] [address] Dr. Julien Eric Proteus Not detected Normal NOT DETECTED [facility] Comment on above: Performed By: #### U RCX #### [facility] [address] [place] [address] Dr. Julien Eric Pseud. aeruginosa Not detected Normal NOT DETECTED [facility] Comment on above: Performed By: #### U RCX #### [facility] [address] [place] [address] Dr. Julien Eric S. maltophilia Not detected Normal NOT DETECTED [facility] Comment on above: Performed By: #### U RCX #### [facility] [address] [place] [address] Dr. Julien Eric Salmonella Not detected Normal NOT DETECTED [facility] Comment on above: Performed By: #### U RCX #### [facility] [address] [place] [address] Dr. Julien Eric Seratia marcescens Not detected Normal NOT DETECTED [facility] Comment on above: Performed By: #### U RCX #### [facility] [address] [address] [address] Julien Eric Site: l. hand Normal [facility] Comment on above: Performed By: #### U RCX #### [facility] [address] [place] [address] Dr. Julien Eric Staph. aureus Not detected Normal NOT DETECTED [facility] Comment on above: Performed By: #### U RCX #### [facility] [address] [place] [address] Dr. Julien Eric Staph. epidermidis Not detected Normal NOT DETECTED [facility] Comment on above: Performed By: #### U RCX #### [facility] [address] [place] [address] Dr. Julien Eric Staph. lugdunensis Not detected Normal NOT DETECTED [facility] Comment on above: Performed By: #### U RCX #### [facility] [address] [place] [address] Dr. Julien Eric Staphylococcus Detected Critically abnormal NOT DETECTED The [facility] Comment on above: Performed By: #### U RCX #### [facility] [address] [place] [address] Dr. Juilen Eric Strep. agalactiae Not detected Normal NOT DETECTED [facility] Comment on above: Performed By: #### U RCX #### [facility] [address] [place] [address] Dr. Julien Eric Strep. pneumoniae Not detected Normal NOT DETECTED [facility] Comment on above: Performed By: #### U RCX #### [facility] [address] [place] [address] Dr. Julien Eric Strep. pyogenes Not detected Normal NOT DETECTED [facility] Comment on above: Performed By: #### U RCX #### [facility] [address] [place] [address] Dr. Julien Eric Streptococcus Not detected Normal NOT DETECTED The [facility] Comment on above: Performed By: #### U RCX #### [facility] [address] [place] [address] Dr. Julien Eric Melisa/Alesha Resist. Gene Not Applicable Normal NOT DETECTED [facility] Comment on above: Performed By: #### U RCX #### [facility] [address] [place] [address] Dr. Julien Eric VIM Resistant Gene Not Applicable Normal NOT DETECTED [facility] Comment on above: Performed By: #### U RCX #### [facility] [address] [place] [address] Dr. Julien Eric CBC AUTO DIFFon 05-22-2022 BASO # 0.1 103/ul Normal 0.0-0.1 [facility] Comment on above: Performed By: #### U RCX #### [facility] [address] [place] [address] Dr. Julien Eric Basophils/100 WBC (Bld) 0.3 % Normal 0.2-2.0 [facility] Comment on above: Performed By: #### U RCX #### [facility] [address] [place] [address] Dr. Julien Eric EO # 0.0 103/ul Normal 0.0-0.7 [facility] Comment on above: Performed By: #### U RCX #### [facility] [address] [place] [address] Dr. Julien Eric Eosinophils/100 WBC (Bld) 0.2 % Critically low 0.9-7.0 [facility] Comment on above: Performed By: #### U RCX #### [facility] [address] [place] [address] Dr. Julien Eric Erythrocyte distribution width (RBC) [Ratio] 14.3 % Normal 11.0-15.0 [facility] Comment on above: Performed By: #### U RCX #### [facility] [address] [address] [address] Julien Eric Hematocrit (Bld) [Volume fraction] 36.3 % Normal 36.0-48.0 [facility] Comment on above: Performed By: #### U RCX #### [facility] [address] [address] [address] Julien Eric Hemoglobin (Bld) [Mass/Vol] 11.8 g/dL Critically low 12.0-16.0 [facility] Comment on above: Performed By: #### U RCX #### [facility] [address] [address] [address] Julien Eric IG # 0.11 10e3/ul Critically high 0.00-0.03 [facility] Comment on above: Performed By: #### U RCX #### [facility] [address] [place] [address] Dr. Julien Eric IG % 0.6 % Critically high 0.0-0.5 [facility] Comment on above: Performed By: #### U RCX #### [facility] [address] [address] [address] Julien Eric LYMPH # 0.9 103/ul Critically low 1.2-3.8 [facility] Comment on above: Performed By: #### U RCX #### [facility] [address] [address] [address] Julien Eric Lymphocytes/100 WBC (Bld) 4.7 % Critically low 20.5-60.0 [facility] Comment on above: Performed By: #### U RCX #### [facility] [address] [address] [address] Julien Eric MANUAL DIFF REQ NO Normal [facility] Comment on above: Performed By: #### U RCX #### [facility] [address] [address] [address] Julien Eric MCH (RBC) [Entitic mass] 29.9 pg Normal 26.7-34.0 [facility] Comment on above: Performed By: #### U RCX #### [facility] [address] [address] [address] Julien Eric MCHC (RBC) [Mass/Vol] 32.5 g/dL Normal 29.9-35.2 [facility] Comment on above: Performed By: #### U RCX #### [facility] [address] [address] [address] Julien Eric MCV (RBC) [Entitic vol] 92.1 fL Normal 81.0-99.0 [facility] Comment on above: Performed By: #### U RCX #### [facility] [address] [address] [address] Julien Eric MONO # 0.5 103/ul Normal 0.3-0.8 [facility] Comment on above: Performed By: #### U RCX #### [facility] [address] [place] [address] Dr. Julien Eric Monocytes/100 WBC (Bld) 2.7 % Normal 1.7-12.0 [facility] Comment on above: Performed By: #### U RCX #### [facility] [address] [place] [address] Dr. Julien Eric NEUT # 16.4 103/ul Critically high 1.4-6.5 [facility] Comment on above: Performed By: #### U RCX #### [facility] [address] [place] [address] Dr. Julien Eric Neutrophils/100 WBC (Bld) 91.5 % Critically high 43.0-75.0 [facility] Comment on above: Performed By: #### U RCX #### [facility] [address] [place] [address] Dr. Julien Eric Platelet mean volume (Bld) [Entitic vol] 11.1 fL Normal 9.5-13.5 [facility] Comment on above: Performed By: #### U RCX #### [facility] [address] [place] [address] Dr. Julien Eric PLT 374 103/ul Normal 150-450 [facility] Comment on above: Performed By: #### U RCX #### [facility] [address] [address] [address] Julien Eric RBC 3.94 106/ul Critically low 4.20-5.40 [facility] Comment on above: Performed By: #### U RCX #### [facility] [address] [address] [address] Julien Eric WBC 17.9 103/ul Critically high 4.0-11.0 [facility] Comment on above: Performed By: #### U RCX #### [facility] [address] [address] [address] Julien Eric CULTURE BLOODon 05-22-2022 Microscopic examination of blood, culture Culture Observations: NO GROWTH AT [address] [facility] Comment on above: Performed By: #### B [id number] #### [facility] [address] [place] [address] Dr. Julien Eric CULTURE URINEon 05-22-2022 CULTURE URINE Culture Observations: HEAVY GROWTH OF MIXED GENITAL BRITTON. NO POTENTIAL PATHOGENS SEEN. Normal [facility] Comment on above: Performed By: #### B LDCX2 #### [facility] [address] [address] [address] Julien Eric Covid-19 PCR ([facility])on 05-04 SARS-CoV-2 (COVID-19) RNA KATTY+probe Ql (Unsp spec) Not detected Normal NOT DETECTED [facility] Comment on above: Result Comment: When diagnostic [...] for this test is supported by the [employer] and Human Service's declaration that [...] used). Performed By: #### H CVPCRR #### [facility] [address] [place] [address] Dr. Julien Eric DRUG SCREEN RAPID (URINE)on 05-22-2022 AMP Negative Normal NEGATIVE [facility] Comment on above: Performed By: #### H CVPCRR #### [facility] [address] [place] [address] Dr. Julien Eric BAR Negative Normal NEGATIVE [facility] Comment on above: Performed By: #### H CVPCRR #### [facility] [address] [place] [address] Dr. Julien Eric BUP Negative Normal NEGATIVE [facility] Comment on above: Performed By: #### H CVPCRR #### [facility] [address] [place] [address] Dr. Julien Eric BZO Negative Normal NEGATIVE [facility] Comment on above: Performed By: #### H CVPCRR #### [facility] [address] [place] [address] Dr. Julien Eric REMI Negative Normal NEGATIVE [facility] Comment on above: Performed By: #### H CVPCRR #### [facility] [address] [place] [address] Dr. Julien Eric CUT-OFFS SEE BELOW Normal [facility] Comment on above: Result Comment: AMP (Amphetamine): 500ng/mL, BAR (Barbituates): 200 ng/mL, BZO (Benzodiazepines): 150 ng/mL, BUP (Buprenorphine): 10 ng/mL, REMI (Cocaine): 150 ng/mL, mAMP (Methamphetamine): 500 ng/mL, MTD (Methadone): 200 ng/mL, OPI (Opiates): 100 ng/mL, OXY (Oxycodone): 100 ng/mL, PCP (Phencyclidine): 25 ng/mL, PPX (Propoxyphene): 300 ng/mL, THC (Cannabinoids): 50 ng/mL, TCA (Trycyclic Antidepressants): 300 ng/mL Performed By: #### H CVPCRR #### [facility] [address] [place] [address] Dr. Julien Eric DRUG CUT HEADER DRUG CLASS TEST SYSTEM CUT-OFF CONCENTRATIONS ARE FOLLOWS: Normal [facility] Comment on above: Performed By: #### H CVPCRR #### [facility] [address] [place] [address] Dr. Julien Eric mAMP Negative Normal NEGATIVE [facility] Comment on above: Performed By: #### H CVPCRR #### [facility] [address] [place] [address] Dr. Julien Eric MTD Negative Normal NEGATIVE [facility] Comment on above: Performed By: #### H CVPCRR #### [facility] [address] [place] [address] Dr. Julien Eric OPI Negative Normal NEGATIVE [facility] Comment on above: Performed By: #### H CVPCRR #### [facility] [address] [place] [address] Dr. Julien Eric OXY Negative Normal NEGATIVE [facility] Comment on above: Performed By: #### H CVPCRR #### [facility] [address] [place] [address] Dr. Julien Eric PCP Negative Normal NEGATIVE [facility] Comment on above: Performed By: #### H CVPCRR #### [facility] [address] [place] [address] Dr. Julien Eric PPX Negative Normal NEGATIVE [facility] Comment on above: Performed By: #### H CVPCRR #### [facility] [address] [place] [address] Dr. Julien Eric TCA Negative Normal NEGATIVE [facility] Comment on above: Performed By: #### H CVPCRR #### [facility] [address] [place] [address] Dr. Julien Eric THC Negative Normal NEGATIVE [facility] Comment on above: Performed By: #### H CVPCRR #### [facility] [address] [place] [address] Dr. Julien Eric LIPASEon 05-22-2022 Lipase [Catalytic activity/Vol] 71.0 U/L Critically low 73.0-393.0 [facility] Comment on above: Performed By: #### H BSANS #### [facility] [address] [address] [address] Julien Eric MRI ABDOMEN WO CONon [...] JANE MORTON Date: 2022-05-22 19:43 Normal [facility] PROF 14(COMP METB)on 022 Albumin [Mass/Vol] 2.7 g/dL Critically low 3.4-5.0 [facility] Comment on above: Performed By: #### H BSANS #### [facility] [address] [address] [address] Julien Eric Albumin/Globulin [Mass ratio] 0.6 {ratio} Normal [facility] Comment on above: Performed By: #### H BSANS #### [facility] [address] [address] [address] Julien Eric ALP [Catalytic activity/Vol] 108 U/L Normal 46-116 [facility] Comment on above: Performed By: #### H BSANS #### [facility] [address] [address] [address] Julien Eric ALT [Catalytic activity/Vol] 10 U/L Critically low 14-59 [facility] Comment on above: Performed By: #### H BSANS #### [facility] [address] [place] [address] Dr. Julien Eric Anion gap [Moles/Vol] 16.6 mmol/L Normal [facility] Comment on above: Performed By: #### H BSANS #### [facility] [address] [address] [address] Julien Eric AST [Catalytic activity/Vol] 9 U/L Critically low 15-37 [facility] Comment on above: Performed By: #### H BSANS #### [facility] [address] [place] [address] Dr. Julien Eric Bilirubin [Mass/Vol] 0.3 mg/dL Normal 0.2-1.0 [facility] Comment on above: Performed By: #### H BSANS #### [facility] [address] [place] [address] Dr. Julien Eric Calcium [Mass/Vol] 8.1 mg/dL Critically low 8.5-10.1 [facility] Comment on above: Performed By: #### H BSANS #### [facility] [address] [place] [address] Dr. Julien Eric Chloride [Moles/Vol] 103 mmol/L Normal 98-107 [facility] Comment on above: Performed By: #### H BSANS #### [facility] [address] [place] [address] Dr. Julien Eric CO2 [Moles/Vol] 21.4 mmol/L Normal 21.0-32.0 [facility] Comment on above: Performed By: #### H BSANS #### [facility] [address] [place] [address] Dr. Julien Eric Creatinine [Mass/Vol] 0.46 mg/dL Critically low 0.55-1.02 [facility] Comment on above: Performed By: #### H BSANS #### [facility] [address] [place] [address] Dr. Julien Eric EGFR-AF [facility] >60 Normal >=60 [facility] Comment on above: Performed By: #### H BSANS #### [facility] [address] [address] [address] Julien Eric EGFR-NON AF [facility] >60 Normal >=60 [facility] Comment on above: Performed By: #### H BSANS #### [facility] [address] [address] [address] Julien Eric Globulin (S) [Mass/Vol] 4.5 g/dL Normal T [facility] Comment on above: Performed By: #### H BSANS #### [facility] [address] [address] [address] Julien Eric Glucose [Mass/Vol] 99 mg/dL Normal 74-106 [facility] Comment on above: Performed By: #### H BSANS #### [facility] [address] [address] [address] Juilen Eric Potassium [Moles/Vol] 4.0 mmol/L Normal 3.5-5.1 [facility] Comment on above: Performed By: #### H BSANS #### [facility] [address] [address] [address] Julien Eric Protein [Mass/Vol] 7.2 g/dL Normal 6.4-8.2 [facility] Comment on above: Performed By: #### H BSANS #### [facility] [address] [address] [address] Julien Eric Sodium [Moles/Vol] 137 mmol/L Normal 136-145 [facility] Comment on above: Performed By: #### H BSANS #### [facility] [address] [address] [address] Julien Eric Urea nitrogen [Mass/Vol] 7.0 mg/dL Normal 7.0-18.0 [facility] Comment on above: Performed By: #### H BSANS #### [facility] [address] [address] [address] Julien Eric Urea nitrogen/Creatinine [Mass ratio] 15.2 mg/mg Normal [facility] Comment on above: Performed By: #### H BSANS #### [facility] [address] [place] [address] Dr. Julien Eric UA (CLEAN/CATCH) RN CARDIOLOGY/MICRO I F IND.on 05-22-2022 Bilirubin Ql (U) Negative Normal NEGATIVE [facility] Comment on above: Performed By: #### U RCX #### [facility] [address] [place] [address] Dr. Julien Eric Clarity (U) CLEAR Normal CLEAR [facility] Comment on above: Performed By: #### U RCX #### [facility] [address] [place] [address] Dr. Julien Eric Color (U) YELLOW Normal YELLOW [facility] Comment on above: Performed By: #### U RCX #### [facility] [address] [place] [address] Dr. Julien Eric Glucose Ql (U) Negative Normal NEGATIVE [facility] Comment on above: Performed By: #### U RCX #### [facility] [address] [place] [address] Dr. Julien Eric Hemoglobin Ql (U) MODERATE Abnormal NEGATIVE [facility] Comment on above: Performed By: #### U RCX #### [facility] [address] [place] [address] Dr. Julien Eric Ketones Ql (U) Negative Normal NEGATIVE [facility] Comment on above: Performed By: #### U RCX #### [facility] [address] [place] [address] Dr. Julien Eric LEUKOCYTES Negative Normal NEGATIVE [facility] Comment on above: Performed By: #### U RCX #### [facility] [address] [place] [address] Dr. Julien Eric Nitrite Ql (U) Negative Normal NEGATIVE [facility] Comment on above: Performed By: #### U RCX #### [facility] [address] [place] [address] Dr. Julien Eric pH (U) 6.0 [pH] Normal 5-9 [facility] Comment on above: Performed By: #### U RCX #### [facility] [address] [place] [address] Dr. Julien Eric SPEC GRAVITY >=1.030 Abnormal 1.005-<=1.02 5 [facility] Comment on above: Performed By: #### U RCX #### [facility] [address] [place] [address] Dr. Julien Eric UA PROTEIN 100 mg/dl Abnormal NEGATIVE/ TRACE [facility] Comment on above: Performed By: #### U RCX #### [facility] [address] [place] [address] Dr. Julien Eric UR MICRO IND INDICATED Normal [facility] Comment on above: Performed By: #### U RCX #### [facility] [address] [place] [address] Dr. Julien Eric Urobilinogen Qn (U) 0.2 {Ene'U}/dL Normal 0.2 - 1. 0 [facility] Comment on above: Performed By: #### U RCX #### [facility] [address] [place] [address] Dr. Julien Eric URINE MICROSCOPIC ONLYon BACTERIA SMALL Abnormal NONE SEEN [facility] Comment on above: Performed By: #### U RCX #### [facility] [address] [place] [address] Dr. Julien Eric Bacteria identified Cx Nom (U) NOT INDICATED Normal [facility] Comment on above: Performed By: #### U RCX #### [facility] [address] [place] [address] Dr. Julien Eric CAST NONE SEEN Normal NONE SEEN [facility] Comment on above: Performed By: #### U RCX #### [facility] [address] [place] [address] Dr. Julien Eric Crystals LM Nom (Urine sed) NONE SEEN Normal NONE SEEN [facility] Comment on above: Performed By: #### U RCX #### [facility] [address] [place] [address] Dr. Julien Eric Epithelial cells LM Ql (Urine sed) FEW Abnormal NONE SEEN /RARE [facility] Comment on above: Performed By: #### U RCX #### [facility] [address] [address] [address] Julien Eric MUCOUS LARGE Abnormal NONE SEEN [facility] Comment on above: Performed By: #### U RCX #### [facility] [address] [address] [address] Julien Eric RBC 5-10 Abnormal 0-2 [facility] Comment on above: Performed By: #### U RCX #### [facility] [address] [address] [address] Julien Eric WBC NONE SEEN Normal NONE SEEN [facility] Comment on above: Performed By: #### U RCX #### [facility] [address] [address] [address] Julien Eric PAP ACOG PANEL 2: 30 to 65on 04-21-2022 . . Normal [facility] Comment on above: Result Comment: Perf ormed at: WB Performed By: #### U RCX #### [facility] [address] [address] [address] Julien Eric Age Gdln ACOG Testing 30-[address] [facility] Comment on above: Performed By: #### U RCX #### [facility] [address] [address] [address] Julien Eric DIAGNOSIS: Comment Normal [facility] Comment on above: Result Comment: NEGA TIVE FOR INTRAEPITHELIAL LESION OR MALIGNANCY. Performed at: WB Performed By: #### U RCX #### [facility] [address] [address] [address] Julien Eric HPV Aptima Negative Normal Negative [facility] Comment on above: Result Comment: This nucleic acid amplification test detects fourteen high-risk HPV types (16,18,31,33,35,39,45,51,52,56,58,59,66,68) without differentiation. Performed at: =G Performed By: #### U RCX #### [facility] [address] [address] [address] Julien Eric Methodology: Comment Normal [facility] Comment on above: Result Comment: This liquid based ThinPrep(R) pap test was screened with the use of an image guided system. Performed at: WB Performed By: #### U RCX #### [facility] [address] [place] [address] Dr. Julien Eric Note: Comment Normal [facility] Comment on above: Result Comment: The [...] WB Performed By: #### U RCX #### [facility] [address] [place] [address] Dr. Julien Eric Performed by: Comment Normal [facility] Comment on above: Result Comment: Hanane Treviño, Anodizer (ASCP) Performed at: WB Performed By: #### U RCX #### [facility] [address] [place] [address] Dr. Julien Eric Specimen adequacy: Comment Normal [facility] Comment on above: Result Comment: Sati sfactory for evaluation. No endocervical component is identified. Performed at: WB Performed By: #### U RCX #### [facility] [address] [place] [address] Dr. Julien Eric CHLAMYDIA/GONOCOCCUS KATTY (SW AB/URINE/PAPon 04-18-2022 Chlamydia trachomatis, KATTY Negative Normal Negative [facility] Comment on above: Performed By: #### H BSANS #### [facility] [address] [place] [address] Dr. Julien Eric Neisseria gonorrhoeae, KATTY Negative Normal Negative [facility] Comment on above: Performed By: #### H BSANS #### [facility] [address] [place] [address] Dr. Julien Eric CULTURE URINEon 04-18-2022 CULTURE [...] Trimethoprim/Sulfam ethoxazole <=20 S F Normal [facility] Comment on above: Performed By: #### U RCX #### [facility] [address] [place] [address] Dr. Julien Eric VAGINITIS/VAGINOSIS DNA PROB Jonathan 04-17-2022 Rocio species Negative Normal Negative [facility] Comment on above: Performed By: #### H CVPCRR #### [facility] [address] [place] [address] Dr. Julien Eric Gardnerella vaginalis Negative Normal Negative [facility] Comment on above: Performed By: #### H CVPCRR #### [facility] [address] [place] [address] Dr. Julien Eric Trichomonas vaginalis Negative Normal Negative [facility] Comment on above: Performed By: #### H CVPCRR #### [facility] [address] [place] [address] Dr. Julien Eric UA RANDOM W/MICROSCOPICon BACTERIA LARGE Abnormal NONE SEEN The [facility] Comment on above: Performed By: #### U RCX #### [facility] [address] [place] [address] Dr. Julien Eric Bilirubin Ql (U) Negative Normal NEGATIVE The [facility] Comment on above: Performed By: #### U RCX #### [facility] [address] [place] [address] Dr. Julien Eric CAST NONE SEEN Normal NONE SEEN The [facility] Comment on above: Performed By: #### U RCX #### [facility] [address] [place] [address] Dr. Julien Eric Clarity (U) CLEAR Normal CLEAR The [facility] Comment on above: Performed By: #### U RCX #### [facility] [address] [address] [address] Julien Eric Color (U) LT. YELLOW Normal YELLOW The [facility] Comment on above: Performed By: #### U RCX #### [facility] [address] [address] [address] Julien Eric Crystals LM Nom (Urine sed) NONE SEEN Normal NONE SEEN [facility] Comment on above: Performed By: #### U RCX #### [facility] [address] [address] [address] Julien Eric Epithelial cells LM Ql (Urine sed) FEW Abnormal NONE SEEN /RARE The [facility] Comment on above: Performed By: #### U RCX #### [facility] [address] [address] [address] Julien Eric Glucose Ql (U) Negative Normal NEGATIVE The [facility] Comment on above: Performed By: #### U RCX #### [facility] [address] [address] [address] Julien Eric Hemoglobin Ql (U) MODERATE Abnormal NEGATIVE The [facility] Comment on above: Performed By: #### U RCX #### [facility] [address] [address] [address] Julien Eric Ketones Ql (U) Negative Normal NEGATIVE [facility] Comment on above: Performed By: #### U RCX #### [facility] [address] [address] [address] Julien Eric LEUKOCYTES Negative Normal NEGATIVE The [facility] Comment on above: Performed By: #### U RCX #### [facility] [address] [address] [address] Julien Eric MUCOUS NONE SEEN Normal NONE SEEN [facility] Comment on above: Performed By: #### U RCX #### [facility] [address] [address] [address] Julien Eric Nitrite Ql (U) Negative Normal NEGATIVE [facility] Comment on above: Performed By: #### U RCX #### [facility] [address] [place] [address] Dr. Julien Eric pH (U) 6.5 [pH] Normal 5-9 The [facility] Comment on above: Performed By: #### U RCX #### [facility] [address] [place] [address] Dr. Julien Eric RBC NONE SEEN Abnormal 0-2 The [facility] Comment on above: Performed By: #### U RCX #### [facility] [address] [place] [address] Dr. Julien Eric SPEC GRAVITY 1.020 Normal 1.005-<=1.02 5 The [facility] Comment on above: Performed By: #### U RCX #### [facility] [address] [place] [address] Dr. Julien Eric UA PROTEIN 30 mg/dl Abnormal NEGATIVE/ TRACE The [facility] Comment on above: Performed By: #### U RCX #### [facility] [address] [place] [address] Dr. Julien Eric Urobilinogen Qn (U) 0.2 {Ene'U}/dL Normal 0.2 - 1. 0 The [facility] Comment on above: Performed By: #### U RCX #### [facility] [address] [place] [address] Dr. Julien Eric WBC 2-5 Abnormal NONE SEEN The [facility] Comment on above: Performed By: #### U RCX #### [facility] [address] [place] [address] Dr. Julien Eric AFP MATERNAL FOR SPINA BIFID Aon 03-01-2022 AFP MoM 0.98 Normal The [facility] Comment on above: Performed By: #### A FPMAT #### [facility] [address] [place] [address] Dr. Julien Eric AFP Value 35.7 ng/mL Normal The [facility] Comment on above: Performed By: #### A FPMAT #### [facility] [address] [place] [address] Dr. Julien Eric AFP, Serum for Spina Bifida Report Normal The [facility] Comment on above: Performed By: #### A FPMAT #### [facility] [address] [address] [address] Julien Eric Comment Comment Normal [facility] Comment on above: Result Comment: Jessica Borja, Ph.D., [facility] Director . References: Available Upon Request. . Multiples Of Median Cutoffs For AFP Elevations Warner 2.5 Black 2.8 IDD 2.0 Twins 4.5 Abbreviation Definitions IDD - Insulin Dep Diabetes OSBR - Open Spina Bifida Risk . For further inquiries contact [facility] at [phone]. . This test was developed and its performance characteristics determined by [employer]. It has not been cleared or approved by the Food and Drug Administration. Performed By: #### A FPMAT #### [facility] [address] [address] [address] Julien Eric Gest Age Collection Date 18.[address] [facility] Comment on above: Performed By: #### A FPMAT #### [facility] [address] [address] [address] Julien Eric Gestat, Age Based on As provided Normal [facility] Comment on above: Result Comment: Reca lculations are not recommended when gestational dating by LMP and ultrasound are within 10 days. Performed By: #### A FPMAT #### [facility] [address] [place] [address] Dr. Julien Eric Insulin Dep Diabetes No Normal The [facility] Comment on above: Performed By: #### A FPMAT #### [facility] [address] [address] [address] Julien Eric Interpretation Comment Normal [facility] Comment on above: Result Comment: Inte [...] Customer Services to discuss available options. The [employer] recommends amniocentesis be offered to women age 35 and older. Performed By: #### A FPMAT #### [facility] [address] [place] [address] Dr. Julien Eric [age] Normal [facility] Comment on above: Performed By: #### A FPMAT #### [facility] [address] [place] [address] Dr. Julien Eric Multiple Gestation No Normal [facility] Comment on above: Performed By: #### A FPMAT #### [facility] [address] [place] [address] Dr. Julien Eric OSBR Risk 1 [place] [id number] [facility] Comment on above: Performed By: #### A FPMAT #### [facility] [address] [place] [address] Dr. Julien Eric PDF . [facility] Comment on above: Performed By: #### A FPMAT #### [facility] [address] [place] [address] Dr. Julien Eric Race [facility] Comment on above: Performed By: #### A FPMAT #### [facility] [address] [place] [address] Dr. Julien Eric Test Results: Negative [facility] Comment on above: Performed By: #### A FPMAT #### [facility] [address] [place] [address] Dr. Julien Eric US PREG ANATOMY SINGLEon [...] ZACH WALDEN Date: 2022-02-25 16:32 Normal The [facility] HEPATITIS C VIRUS AB W/ REFL EX QUANTon 12-26-2021 HCV AB 1.9 s/co ratio Critically high 0.0-0.9 [facility] Comment on above: Result Comment: . Performed By: #### H CVPCRR #### [facility] [address] [address] [address] Julien Eric HCV log10 Normal [facility] Comment on above: Performed By: #### H CVPCRR #### [facility] [address] [address] [address] Julien Eric Hep C Quantitation Not detected Normal [facility] Comment on above: Performed By: #### H CVPCRR #### [facility] [address] [address] [address] Julien Eric Interpretation Comment Normal [facility] Comment on above: Result Comment: Posi tive HCV antibody screen without the presence of HCV RNA is consistent with a resolved past infection or a false positive HCV antibody. Consider repeat testing after one month. Performed By: #### H CVPCRR #### [facility] [address] [address] [address] Julien Eric Test Information: Comment Normal [facility] Comment on above: Result Comment: The quantitative range of this assay is 15 IU/mL to 100 million IU/mL. Performed By: #### H CVPCRR #### [facility] [address] [address] [address] Julien Eric CULTURE URINEon 12-24-2021 CULTURE URINE Culture Observations: GREATER THAN TWO ORGANISMS PRESENT. PLEASE RESUBMIT CLEAN CATCH MID-STREAM URINE IF CLINICALLY INDICATED. Normal [facility] Comment on above: Performed By: #### U RCX #### [facility] [address] [address] [address] Julien Eric HEP B SURFACE ANTIGEN SCREEN on 12-24-2021 HBsAg Screen Negative Normal Negative [facility] Comment on above: Performed By: #### H BSANS #### [facility] [address] [address] [address] Julien Eric HIV 1 AND 2 WITH REFLEXon HIV Screen 4th Generation wRfx Non-Reactive Normal Non Reactive [facility] Comment on above: Result Comment: HIV Negative HIV-1/HIV-2 antibodies and HIV-1 p24 antigen were NOT detected. There is no laboratory evidence of HIV infection. Performed By: #### U RCX #### [facility] [address] [address] [address] Julien Eric RPR QUANTon 12-24-2021 Rapid Plasma Reagin, Quant Non-Reactive Normal NonRea<1:1 [facility] Comment on above: Result Comment: Plea se Note: This test does not meet current guidelines for screening and diagnosis of syphilis. This test is intended for following treatment response in patients being treated for syphilis infection. To screen for syphilis infection, a reflex cascade that includes both RPR and a treponema-specific assay should be utilized, such as Treponema pallidum (Syphilis) Screening Letcher (098135) or Rapid Plasma Reagin (RPR) Test With Reflex to Quantitative RPR and Confirmatory Treponema pallidum Antibodies (704075). Performed By: #### U RCX #### [facility] [address] [place] [address] Dr. Julien Eric RUBELLA AB IGGon 12-24-2021 Rubella Antibodies, IgG 8.34 index Normal Immune >0.99 [facility] Comment on above: Result Comment: Non- immune <0.90 Equivocal 0.90 - 0.99 Immune >0.99 Performed By: #### H CVPCRR #### [facility] [address] [place] [address] Dr. Julien Eric CBC AUTO DIFFon 12-23-2021 BASO # 0.1 103/ul Normal 0.0-0.1 [facility] Comment on above: Performed By: #### B LDCX2 #### [facility] [address] [place] [address] Dr. Julien Eric Basophils/100 WBC (Bld) 0.6 % Normal 0.2-2.0 [facility] Comment on above: Performed By: #### B LDCX2 #### [facility] [address] [place] [address] Dr. Julien Eric EO # 0.2 103/ul Normal 0.0-0.7 [facility] Comment on above: Performed By: #### B LDCX2 #### [facility] [address] [place] [address] Dr. Julien Eric Eosinophils/100 WBC (Bld) 1.5 % Normal 0.9-7.0 [facility] Comment on above: Performed By: #### B LDCX2 #### [facility] [address] [place] [address] Dr. Julien Eric Erythrocyte distribution width (RBC) [Ratio] 14.4 % Normal 11.0-15.0 [facility] Comment on above: Performed By: #### B LDCX2 #### [facility] [address] [place] [address] Dr. Julien Eric Hematocrit (Bld) [Volume fraction] 39.5 % Normal 36.0-48.0 [facility] Comment on above: Performed By: #### B LDCX2 #### [facility] [address] [place] [address] Dr. Julien Eric Hemoglobin (Bld) [Mass/Vol] 12.8 g/dL Normal 12.0-16.0 [facility] Comment on above: Performed By: #### B LDCX2 #### [facility] [address] [place] [address] Dr. Julien Eric IG # 0.04 10e3/ul Critically high 0.00-0.03 [facility] Comment on above: Performed By: #### B LDCX2 #### [facility] [address] [place] [address] Dr. Julien Eric IG % 0.3 % Normal 0.0-0.5 [facility] Comment on above: Performed By: #### B LDCX2 #### [facility] [address] [place] [address] Dr. Julien Eric LYMPH # 2.5 103/ul Normal 1.2-3.8 [facility] Comment on above: Performed By: #### B LDCX2 #### [facility] [address] [place] [address] Dr. Julien Eric Lymphocytes/100 WBC (Bld) 21.2 % Normal 20.5-60.0 [facility] Comment on above: Performed By: #### B LDCX2 #### [facility] [address] [place] [address] Dr. Julien Eric MANUAL DIFF REQ NO Normal [facility] Comment on above: Performed By: #### B LDCX2 #### [facility] [address] [place] [address] Dr. Julien Eric MCH (RBC) [Entitic mass] 29.1 pg Normal 26.7-34.0 The [facility] Comment on above: Performed By: #### B LDCX2 #### [facility] [address] [place] [address] Dr. Julien Eric MCHC (RBC) [Mass/Vol] 32.4 g/dL Normal 29.9-35.2 [facility] Comment on above: Performed By: #### B LDCX2 #### [facility] [address] [address] [address] Julien Eric MCV (RBC) [Entitic vol] 89.8 fL Normal 81.0-99.0 [facility] Comment on above: Performed By: #### B LDCX2 #### [facility] [address] [place] [address] Dr. Julien Eric MONO # 0.5 103/ul Normal 0.3-0.8 [facility] Comment on above: Performed By: #### B LDCX2 #### [facility] [address] [place] [address] Dr. Julien Eric Monocytes/100 WBC (Bld) 4.2 % Normal 1.7-12.0 [facility] Comment on above: Performed By: #### B LDCX2 #### [facility] [address] [place] [address] Dr. Julien Eric NEUT # 8.4 103/ul Critically high 1.4-6.5 [facility] Comment on above: Performed By: #### B LDCX2 #### [facility] [address] [place] [address] Dr. Julien Eric Neutrophils/100 WBC (Bld) 72.2 % Normal 43.0-75.0 [facility] Comment on above: Performed By: #### B LDCX2 #### [facility] [address] [place] [address] Dr. Julien Eric Platelet mean volume (Bld) [Entitic vol] 11.3 fL Normal 9.5-13.5 [facility] Comment on above: Performed By: #### B LDCX2 #### [facility] [address] [place] [address] Dr. Julien Eric PLT 264 103/ul Normal 150-450 [facility] Comment on above: Performed By: #### B LDCX2 #### [facility] [address] [place] [address] Dr. Julien Eric RBC 4.40 106/ul Normal 4.20-5.40 [facility] Comment on above: Performed By: #### B LDCX2 #### [facility] [address] [address] [address] Julien Eric WBC 11.7 103/ul Critically high 4.0-11.0 [facility] Comment on above: Performed By: #### B LDCX2 #### [facility] [address] [place] [address] Dr. Julien Eric GLYCOHEMOGLOBIN A1Con 2021 ADA RECOMMENDATION SEE BELOW Normal The [facility] Comment on above: Result Comment: ADA RECOMMENDED LIMIT 4.0 - 6.0 ADA THERAPEUTIC TARGET < 7.0 ACTION SUGGESTED > 7.0 Performed By: #### H BSANS #### [facility] [address] [place] [address] Dr. Julien Eric Glucose [Mass/Vol] 111 mg/dL Normal [facility] Comment on above: Performed By: #### H BSANS #### [facility] [address] [place] [address] Dr. Julien Eric HbA1c (Bld) [Mass fraction] 5.5 % Normal 4.5-6.2 [facility] Comment on above: Performed By: #### H BSANS #### [facility] [address] [place] [address] Dr. Julien Eric SERENITY BOX TEST PT SEND OUTo n 12-23-2021 SENT TO REF LAB 12/23/2021 Normal [facility] Comment on above: Performed By: #### H BSANS #### [facility] [address] [place] [address] Dr. Julien Eric TYPE AND SCREENon 12-23-2021 TYPE AND SCREEN Negative Normal [facility] Comment on above: Performed By: #### H BSANS #### [facility] [address] [place] [address] Dr. Julien Eric CULTURE URINEon 12-02-2021 CULTURE [...] S F Nitrofurantoin [address] [facility] Comment on above: Performed By: #### H BSANS #### [facility] [address] [address] [address] Julien Eric US PREG TVon 11-29-2021 US PREG TV EXAMINATION: US PREG TV HISTORY: Missed period COMPARISON: No relevant comparison available. FINDINGS: Transvaginal images Warner intrauterine gestation Gestational sac: 1.9 cm, 6 weeks 2 days [place]-rump length: 0.76 cm, 6 weeks 5 days [...] by: SOUMYA MONSALVE Date: 2021-11-29 16:[address] [facility] AMYLASEon 10-20-2021 Amylase [Catalytic activity/Vol] 32 U/L Normal 25-115 [facility] Comment on above: Performed By: #### U RCX #### [facility] [address] [place] [address] Dr. Julien Eric CBC AUTO DIFFon 10-20-2021 BASO # 0.1 103/ul Normal 0.0-0.1 [facility] Comment on above: Performed By: #### U RCX #### [facility] [address] [address] [address] Julien Eric Basophils/100 WBC (Bld) 0.8 % Normal 0.2-2.0 [facility] Comment on above: Performed By: #### U RCX #### [facility] [address] [place] [address] Dr. Julien Eric EO # 0.5 103/ul Normal 0.0-0.7 [facility] Comment on above: Performed By: #### U RCX #### [facility] [address] [place] [address] Dr. Julien Eric Eosinophils/100 WBC (Bld) 4.7 % Normal 0.9-7.0 [facility] Comment on above: Performed By: #### U RCX #### [facility] [address] [place] [address] Dr. Julien Eric Erythrocyte distribution width (RBC) [Ratio] 14.9 % Normal 11.0-15.0 [facility] Comment on above: Performed By: #### U RCX #### [facility] [address] [place] [address] Dr. Julien Eric Hematocrit (Bld) [Volume fraction] 39.3 % Normal 36.0-48.0 [facility] Comment on above: Performed By: #### U RCX #### [facility] [address] [place] [address] Dr. Julien Eric Hemoglobin (Bld) [Mass/Vol] 12.6 g/dL Normal 12.0-16.0 [facility] Comment on above: Performed By: #### U RCX #### [facility] [address] [place] [address] Dr. Julien Eric IG # 0.03 10e3/ul Normal 0.00-0.03 [facility] Comment on above: Performed By: #### U RCX #### [facility] [address] [place] [address] Dr. Julien Eric IG % 0.3 % Normal 0.0-0.5 [facility] Comment on above: Performed By: #### U RCX #### [facility] [address] [place] [address] Dr. Julien Eric LYMPH # 3.0 103/ul Normal 1.2-3.8 [facility] Comment on above: Performed By: #### U RCX #### [facility] [address] [place] [address] Dr. Julien Eric Lymphocytes/100 WBC (Bld) 27.8 % Normal 20.5-60.0 [facility] Comment on above: Performed By: #### U RCX #### [facility] [address] [place] [address] Dr. Julien Eric MANUAL DIFF REQ NO Normal [facility] Comment on above: Performed By: #### U RCX #### [facility] [address] [place] [address] Dr. Julien Eric MCH (RBC) [Entitic mass] 29.2 pg Normal 26.7-34.0 [facility] Comment on above: Performed By: #### U RCX #### [facility] [address] [place] [address] Dr. Julien Eric MCHC (RBC) [Mass/Vol] 32.1 g/dL Normal 29.9-35.2 [facility] Comment on above: Performed By: #### U RCX #### [facility] [address] [place] [address] Dr. Julien Eric MCV (RBC) [Entitic vol] 91.0 fL Normal 81.0-99.0 [facility] Comment on above: Performed By: #### U RCX #### [facility] [address] [place] [address] Dr. Julien Eric MONO # 0.8 103/ul Normal 0.3-0.8 [facility] Comment on above: Performed By: #### U RCX #### [facility] [address] [place] [address] Dr. Julien Eric Monocytes/100 WBC (Bld) 7.6 % Normal 1.7-12.0 [facility] Comment on above: Performed By: #### U RCX #### [facility] [address] [place] [address] Dr. Julien Eric NEUT # 6.3 103/ul Normal 1.4-6.5 [facility] Comment on above: Performed By: #### U RCX #### [facility] [address] [place] [address] Dr. Julien Eric Neutrophils/100 WBC (Bld) 58.8 % Normal 43.0-75.0 [facility] Comment on above: Performed By: #### U RCX #### [facility] [address] [address] [address] Julien Eric Platelet mean volume (Bld) [Entitic vol] 10.9 fL Normal 9.5-13.5 [facility] Comment on above: Performed By: #### U RCX #### [facility] [address] [address] [address] Julien Eric PLT 305 103/ul Normal 150-450 [facility] Comment on above: Performed By: #### U RCX #### [facility] [address] [address] [address] Julien Eric RBC 4.32 106/ul Normal 4.20-5.40 [facility] Comment on above: Performed By: #### U RCX #### [facility] [address] [place] [address] Dr. Julien Eric WBC 10.7 103/ul Normal 4.0-11.0 [facility] Comment on above: Performed By: #### U RCX #### [facility] [address] [place], [place] [address] ABD/PELV W CONon [...] by: Piotr ROBBINS Date: 2021-10-20 03:[address] [facility] LIPASEon 10-20-2021 Lipase [Catalytic activity/Vol] 112.0 U/L Normal 23.0-300.0 [facility] Comment on above: Performed By: #### U RCX #### [facility] [address] [place] [address] Dr. Julien Eric PREG HCG QUALon 10-20-2021 , QUAL Negative Normal NEGATIVE [facility] Comment on above: Performed By: #### H CVPCRR #### [facility] [address] [place] [address] Dr. Julien Eric PROF 14(COMP METB)on 022 Albumin [Mass/Vol] 3.1 g/dL Critically low 3.4-5.0 [facility] Comment on above: Performed By: #### U RCX #### [facility] [address] [place] [address] Dr. Julien Eric Albumin/Globulin [Mass ratio] 0.8 {ratio} Normal [facility] Comment on above: Performed By: #### U RCX #### [facility] [address] [place] [address] Dr. Julien Eric ALP [Catalytic activity/Vol] 86 U/L Normal 46-116 [facility] Comment on above: Performed By: #### U RCX #### [facility] [address] [address] [address] Julien Eric ALT [Catalytic activity/Vol] 21 U/L Normal 14-59 [facility] Comment on above: Performed By: #### U RCX #### [facility] [address] [place] [address] Dr. Julien Eric Anion gap [Moles/Vol] 12.1 mmol/L Normal [facility] Comment on above: Performed By: #### U RCX #### [facility] [address] [address] [address] Julien Eric AST [Catalytic activity/Vol] 10 U/L Critically low 15-37 [facility] Comment on above: Performed By: #### U RCX #### [facility] [address] [address] [address] Julien Eric Bilirubin [Mass/Vol] 0.1 mg/dL Critically low 0.2-1.3 [facility] Comment on above: Performed By: #### U RCX #### [facility] [address] [address] [address] Julien Eric Calcium [Mass/Vol] 8.2 mg/dL Critically low 8.5-10.1 [facility] Comment on above: Performed By: #### U RCX #### [facility] [address] [address] [address] Julien Eric Chloride [Moles/Vol] 105 mmol/L Normal 98-107 [facility] Comment on above: Performed By: #### U RCX #### [facility] [address] [address] [address] Julien Eric CO2 [Moles/Vol] 26.7 mmol/L Normal 22.0-30.0 [facility] Comment on above: Performed By: #### U RCX #### [facility] [address] [address] [address] Julien Eric Creatinine [Mass/Vol] 0.79 mg/dL Normal 0.52-1.04 [facility] Comment on above: Performed By: #### U RCX #### [facility] [address] [address] [address] Julien Eric EGFR-AF [facility] >60 Normal >=60 [facility] Comment on above: Performed By: #### U RCX #### [facility] [address] [address] [address] Julien Eric EGFR-NON AF [facility] >60 Normal >=60 [facility] Comment on above: Performed By: #### U RCX #### [facility] [address] [address] [address] Julien Eric Globulin (S) [Mass/Vol] 3.7 g/dL Normal [facility] Comment on above: Performed By: #### U RCX #### [facility] [address] [address] [address] Julien Eric Glucose [Mass/Vol] 112 mg/dL Critically high 74-106 [facility] Comment on above: Performed By: #### U RCX #### [facility] [address] [address] [address] Julien Eric Potassium [Moles/Vol] 3.8 mmol/L Normal 3.4-5.0 [facility] Comment on above: Performed By: #### U RCX #### [facility] [address] [address] [address] Julien Eric Protein [Mass/Vol] 6.8 g/dL Normal 6.1-8.2 [facility] Comment on above: Performed By: #### U RCX #### [facility] [address] [address] [address] Julien Eric Sodium [Moles/Vol] 140 mmol/L Normal 137-145 [facility] Comment on above: Performed By: #### U RCX #### [facility] [address] [address] [address] Julien Eric Urea nitrogen [Mass/Vol] 8.0 mg/dL Normal 7.0-18.0 [facility] Comment on above: Performed By: #### U RCX #### [facility] [address] [address] [address] Julien Eric Urea nitrogen/Creatinine [Mass ratio] 10.1 mg/mg Normal [facility] Comment on above: Performed By: #### U RCX #### [facility] [address] [address] [address] Julien Eric Vital Signs Date Time Vital Sign Value Performing Clinician Facility 07-11-2024 15:41-0500 Body mass index (BMI) [Ratio] 38.98 kg/m2 Phillip Saleh PROPOSAL EDITOR-MANAGER [employer], DNP Work Phone: [facility] 07-11-2024 15:41-0500 Body weight 112.9 kg Phillippriyank RAMÍREZ, DNP Work Phone: [facility] 07-11-2024 15:41-0500 Diastolic blood pressure 62 mm[Hg] Phillip Saleh APRN-COURTNEY, DNP Work Phone: [facility] 07-11-2024 15:41-0500 Heart rate 73 /min Phillip RAMÍREZ, DNP Work Phone: [facility] 07-11-2024 15:41-0500 SaO2% (BldA) [Mass fraction] 98 % Phillip RAMÍREZ, DNP Work Phone: [facility] 07-11-2024 15:41-0500 Systolic blood pressure 118 mm[Hg] Phillip RAMÍREZ DNP Work Phone: 1(106)976-892050 [place] [address] 07-04-2024 13:10-0500 Diastolic blood pressure 54 mm[Hg] Antoine Sanchez MD Work Phone: 6(538)335-797450 [place] [address] 07-04-2024 13:10-0500 Heart rate 57 /min Antoine Sanchez MD Work Phone: 3(610)[phone] [place] [address] 07-04-2024 13:10-0500 Respiratory rate 15 /min Antoine Sanchez MD Work Phone: 8(910)497-054950 [place] [address] 07-04-2024 13:10-0500 SaO2% (BldA) [Mass fraction] 100 % Antoine Sanchez MD Work Phone: 6(358)387-367950 [place] [address] 07-04-2024 13:10-0500 Systolic blood pressure 103 mm[Hg] Antoine Sanchez MD Work Phone: [facility] 07-04-2024 09:00-0500 Body height 170.2 cm Antoine Sanchez MD Work Phone: 3(779)[phone] [address] 07-04-2024 09:00-0500 Body mass index (BMI) [Ratio] 39.16 kg/m2 Antoine Sanchez MD Work Phone: [facility] 07-04-2024 09:00-0500 Body temperature 97.7 [degF] Antoine Sanchez MD Work Phone: [facility] 07-04-2024 09:00-0500 Body weight 113.4 kg Antoine Sanchez MD Work Phone: [facility] 06-07-2024 09:08-0500 Diastolic blood pressure 72 mm[Hg] [facility] 1 [facility] 06-07-2024 09:08-0500 Heart rate 68 /min [facility] 1 [facility] 06-07-2024 09:08-0500 Systolic blood pressure 106 mm[Hg] [facility] 1 [facility] 05-13-2024 13:04-0400 Body height 170.2 cm Phillip RAMÍREZ DNP Work Phone: [facility] 05-13-2024 13:04-0400 Body mass index (BMI) [Ratio] 38.37 kg/m2 Phillip RAMÍREZ DNP Work Phone: [facility] 05-13-2024 13:04-0400 Body weight 111.13 kg Phillip RAMÍREZ DNP Work Phone: [facility] 05-13-2024 13:04-0400 Diastolic blood pressure 70 mm[Hg] Phillip RAMÍREZ DNP Work Phone: [facility] 05-13-2024 13:04-0400 Heart rate 81 /min Phillip RAMÍREZ DNP Work Phone: [facility] 05-13-2024 13:04-0400 SaO2% (BldA) [Mass fraction] 99 % Phillip RAMÍREZ DNP Work Phone: [facility] 05-13-2024 13:04-0400 Systolic blood pressure 112 mm[Hg] Phillip Saleh PROPOSAL EDITOR-MANAGER [employer], DNP Work Phone: [facility] 05-10-2024 12:00-0400 Body temperature 98.1 [degF] DO Danyell Brown Work Phone: [facility] 05-10-2024 12:00-0400 Diastolic blood pressure 70 mm[Hg] DO Danyell Brown Work Phone: [facility] 05-10-2024 12:00-0400 Heart rate 69 /min DO Danyell Brown Work Phone: [facility] 05-10-2024 12:00-0400 Respiratory rate 16 /min DO Danyell Brown Work Phone: [facility] 05-10-2024 12:00-0400 SaO2% (BldA) [Mass fraction] 99 % DO Danyell Brown Work Phone: [facility] 05-10-2024 12:00-0400 Systolic blood pressure 124 mm[Hg] DO Danyell Brown Work Phone: [facility] 05-10-2024 06:57-0400 Body weight 109.3 kg DO Danyell Brown Work Phone: [facility] 05-09-2024 14:05-0400 Body height 167.64 cm DO Danyell Brown Work Phone: [facility] 05-09-2024 13:00-0400 Diastolic blood pressure 56 mm[Hg] DO Danyell Brown Work Phone: [facility] 05-09-2024 13:00-0400 Heart rate 56 /min DO Danyell Brown Work Phone: [facility] 05-09-2024 13:00-0400 Respiratory rate 18 /min DO Danyell Brown Work Phone: [facility] 05-09-2024 13:00-0400 SaO2% (BldA) [Mass fraction] 98 % DO Danyell Banks Work Phone: [facility] 05-09-2024 13:00-0400 Systolic blood pressure 97 mm[Hg] DO Danyell Banks Work Phone: [facility] 05-09-2024 08:41-0400 Body height 167.64 cm DO Danyell Banks Work Phone: [facility] 05-09-2024 08:41-0400 Body temperature 98.4 [degF] DO Danyell Banks Work Phone: [facility] 05-09-2024 08:41-0400 Body weight 110 kg DO Danyell Banks Work Phone: [facility] 09-10-2023 08:59-0500 Body height 170.2 cm Jenssenait Hopkinso DO Work Phone: [facility] 09-10-2023 08:59-0500 Body mass index (BMI) [Ratio] 39.84 kg/m2 Jens Luis Angel DO Work Phone: [facility] 09-10-2023 08:59-0500 Body weight 115.39 kg Jens Luis Angel DO Work Phone: [facility] 09-10-2023 08:59-0500 Diastolic blood pressure 70 mm[Hg] Jens Luis Angel DO Work Phone: [facility] 09-10-2023 08:59-0500 Systolic blood pressure 110 mm[Hg] Jens Luis Angel DO Work Phone: [facility] 03-01-2022 02:06-0400 Body weight 105.[address] JENS PLASENCIA [facility] Comment on above: Performed By: #### AFPMAT #### [facility] [address] [place] [address] Dr. Julien Eric Encounters Encounter Date Encounter Type Care Provider Facility Start: 07-11-2024 End: 07-11-2024 ambulatory [facility] Start: 07-11-2024 End: 07-11-2024 Office outpatient visit 25 minutes Phillip Saleh APRN-COUTRNEY, DNP Work Phone: [facility] Comment on above: Paroxysmal atrial fi brillation (Multi) (Primary Dx); Abnormal ECG during exercise stress test; Encounter to discuss test results Start: 07-04-2024 End: 07-04-[address] [facility] Start: 07-04-2024 End: 07-04-2024 Subsequent hospital visit by physician Antoine Sanchez MD Work Phone: [facility] Comment on above: Abnormal ECG during exercise stress test (Primary Dx); Paroxysmal atrial fibrillation (Multi); Other chest pain Start: 06-07-2024 End: 06-07-2024 Subsequent hospital visit by physician Fernando Garcia [address] [place] [address] Comment on above: Paroxysmal atrial fi brillation (Multi) Start: 06-07-2024 End: 06-07-[address] [facility] Start: 06-03-2024 End: 06-03-2024 [facility] Start: 05-13-2024 End: 05-13-[address] [facility] Start: 05-13-2024 End: 05-13-2024 Subsequent hospital visit by physician Fernando Ny Rakel [facility] Comment on above: Paroxysmal atrial fi brillation (Multi) Start: 05-13-2024 End: 05-13-2024 Office outpatient new 45 minutes Phillip RAMÍREZ, DNP Work Phone: [facility] Comment on above: Paroxysmal atrial fi brillation (Multi) (Primary Dx) Start: 05-13-2024 End: 05-13-2024 ambulatory PHILLIP ASLEH [facility] Start: 05-09-2024 End: 05-10-2024 Evaluation and management of inpatient DO Danyell Darren Work Phone: [facility] [place] [facility] Work Phone: Start: 05-09-2024 End: 05-10-2024 observation encounter DO Danyell Banks Work Phone: [facility] Work Phone: Start: 05-09-2024 End: 05-10-2024 ambulatory Robbin Love Facility:[facility] Start: 10-29-2023 End: 10-29-2023 ambulatory KARSON ACUNA [...] 09-10-2023 Office outpatient visit 15 minutes Jens Luis Angel DO Work Phone: [facility] Comment on above: Vaginal discharge; Weight gain; PCOS (polycystic ovarian syndrome); STD exposure Start: 07-29-2022 Encounter for preprocedural laboratory examination DR JENS PLASENCIA [facility] Start: 07-16-2022 Encounter for preprocedural laboratory examination DR JENS PLASENCIA [facility] Start: 07-14-2022 End: 07-16-2022 Evaluation and management of inpatient DR JENS PLASENCIA Facility:[facility] Start: 07-11-2022 End: 07-12-[address] JENS PLASENCIA Facility:[facility] Start: 07-11-2022 End: 07-12-2022 Encounter for preprocedural laboratory examination DR JENS PLASENCIA Facility:[facility] Start: 07-08-2022 End: 07-08-[address] JENS PLASENCIA Facility:[facility] Start: 07-02-2022 End: 07-02-[address] JENS PLASENCIA Facility:[facility] Start: 07-01-2022 End: 07-01-[address] WADE DOMINGUEZ Facility:[facility] Start: 06-25-2022 End: 06-25-[address] JENS PLASENCIA Facility:[facility] Start: 06-24-2022 End: 06-24-[address] WADE DOMINGUEZ Facility:[facility] Start: 06-17-2022 End: 06-17-[address] WADE DOMINGUEZ Facility:[facility] Start: 06-10-2022 End: 06-10-[address] JENS PLASENCIA Facility:[facility] Start: 06-03-2022 End: 06-03-[address] JENS PLASENCIA Facility:[facility] Start: 05-27-2022 End: 05-27-[address] JENS PLASENCIA Facility:[facility] Start: 05-22-2022 End: 05-23-[address] WADE DOMINGUEZ Facility:[facility] Start: 04-29-[address] JENS [...] Facility:[facility] Start: 10-20-2021 End: 10-20-[address] WADE DOMINGUEZ Facility:[facility] Procedures Date Procedure Procedure Detail Performing Clinician Start: 07-04-2024 Cardiac catheterizat ion study Phillip Saleh APRN-MANAGER [employer], DNP Work Phone: Start: 06-07-2024 Cv strs tst xers&/or rx cont ecg trcg only Phillip RAMÍREZ DNP Work Phone: Start: 05-09-2024 Plain chest X-ray DO Booker Banks Work Phone: Start: 09-16-2023 ALL CBC WITH AUTO DIFF Jens Plasencia DO Work Phone: Start: 07-14-2022 Extraction of Produc ts of Conception, Low Cervical, Open Approach DR JENS PLASENCIA Start: 07-14-2022 Resection of Bilater al Fallopian Tubes, Open Approach DR JENS PLASENCIA Start: 04-15-2022 Microscopic observat ion [Identifier] in Cervix by Cyto stain [facility] 1 Plan of Treatment Date Care Activity Detail Author Start: 11-16-2035 Zoster Vaccines (1 of 2) Zoste r Vaccines (1 of 2) [facility] Start: 04-15-2025 Screening for malign ant neoplasm of cervix [facility] Start: 07-11-2024 End: 07-11-2024 Patient encounter procedure 07/11/2024 3:30 PM EST Office Visit [facility] [address] [place] [address] Phillip Saleh APRN-CNP, DNP [address] [facility], [place] [phone] [facility] Start: 06-24-2024 End: 06-24-2024 Telemedicine consultation with patient 06/24/2024 1:00 PM EST Telemedicine [facility] [address] [place] [address] Phillip Saleh APRN-CNP, DNP [address] [facility], [place] [phone] [facility] Start: 06-13-2024 End: 06-13-2024 Patient encounter procedure 06/13/2024 11:15 AM EST Appointment [address] [phone] [facility] Start: 06-13-2024 End: 06-13-2024 Patient encounter procedure [facility] Start: 06-06-2024 End: 06-06-2024 Patient encounter procedure 06/06/2024 9:45 AM EST Office Visit [facility] [address] [place] [address] Brinda Miller MD [address] [place] [address] [facility] Start: 05-13-2024 End: 05-13-2025 Holter monitor study [facility] Work Phone: Comment on above: Expected: 05/13/2024 (Approximate), Expires: 05/13/2025 Once for 1 Occurrenc es starting 05/13/2024 until 05/13/2024 Start: 05-13-2024 End: 05-13-2025 [facility] Heart Perfusion W stress and W radionuclide IV Nuclear Stress Test Cardiac Nuclear Medicine Routine Paroxysmal atrial fibrillation (Multi) Expected: 05/13/2024 (Approximate), Expires: 05/13/2025 [facility] Service Area Work Phone: Comment on above: Expected: 05/13/2024 (Approximate), Expires: 05/13/2025 Start: 05-13-2024 End: 05-13-2024 Patient encounter procedure 05/13/2024 2:00 PM EDT Appointment [facility] [address] [place] [address] [facility] Start: 05-10-2024 [facility] Start: 05-09-2024 Hospital admission [facility] Start: 05-09-2024 [facility] Start: 04-03-2024 COVID-19 Vaccine ( season) COVID-19 Vaccine ( season) [facility] Start: 04-03-2024 COVID-19 Vaccine ( season) COVID-19 Vaccine ( season) [facility] Start: 04-03-2024 Influenza vaccination U [facility] Start: 10-01-2023 End: 10-01-2023 Patient encounter procedure 10/01/2023 10:00 AM EST Office Visit [facility] [address] [address] Jens Plasencia, [address] [place] [address] [facility] Start: 09-10-2023 End: 09-10-2024 [...] EST Office Visit [facility] [address] [phone] Jens Plasencia, DO [address] [place] [address] Arrived [facility] Comment on above: Arrived Start: 03-03-2023 Adult BMI Screening [facility] Start: 11-16-2007 DTaP/Tdap/Td Vaccine s (1 - Tdap) DTaP/Tdap/Td Vaccines (1 - Tdap) [facility] Start: 2006 Screening for malign ant neoplasm of cervix [facility] Start: 2004 DTaP,Tdap and Td Vac cines (1 - Tdap) DTaP,Tdap and Td Vaccines (1 - Tdap) [facility] Start: 2004 Hepatitis B Vaccines (1 of 3 - 19+ 3-dose series) Hepatitis B Vaccines (1 of 3 - 19+ 3-dose series) [facility] Start: 11-16-2003 Diabetes mellitus screening Diabetes Screening [facility] Start: 11-16-2003 Hepatitis C screening Hepatitis C Sc reening [facility] Start: 1998 Varicella vaccination Varicell a Vaccines (1 of 2 - 13+ 2-dose series) [facility] Start: 1997 Depression Screening Depression Scre ening [facility] Start: 1997 Tobacco Screening Tobacco Screening [facility] Start: 11-16-1991 Pneumococcal Vaccine : Pediatrics (0 to 5 Years) and At-Risk Patients (6 to 64 Years) (1 of 2 - PCV) Pneumococcal Vaccine: Pediatrics (0 to 5 Years) and At-Risk Patients (6 to 64 Years) (1 of 2 - PCV) [facility] Start: 1986 MMR Vaccines (1 of 1 - Standard series) MMR Vaccines (1 of 1 - Standard series) [facility] Start: 1985 HIV screening HIV Screening [facility] Start: 1985 Lipid panel Lipid Panel [facility] Start: 1985 Yearly Adult Physical Yearly Adult P hysical [facility] CBC W Auto Different ial panel - Blood CBC and differential Lab Routine PCOS (polycystic ovarian syndrome) Ordered: 09/10/2023 [facility] Comment on above: Ordered: 09/10/2023 CHLAMYDIA TRACHOMATI S (GENITO/STI) CHLAMYDIA TRACHOMATIS (GENITO/STI) Lab Routine STD exposure Ordered: 09/10/2023 [facility] Comment on above: Ordered: 09/10/2023 DHEA-sulfate DHEA-sulfate Lab Routine PCOS (polycystic ovarian syndrome) Ordered: 09/10/2023 [facility] Comment on above: Ordered: 09/10/2023 End: 07-04-2024 ECG 12 lead STAT ECG 12 lead STAT ECG Routine Once for 1 Occurrences starting 07/04/2024 until 07/04/2024 [facility] Service Area Work Phone: Comment on above: Once for 1 Occurrenc es starting 07/04/2024 until 07/04/2024 Follicle stimulating hormone Follicle stimulating hormone Lab Routine PCOS (polycystic ovarian syndrome) Ordered: 09/10/2023 [facility] Comment on above: Ordered: 09/10/2023 hCG, quantitative, hCG, quantitative, Lab Routine PCOS (polycystic ovarian syndrome) Ordered: 09/10/2023 [facility] Work Phone: Comment on above: Ordered: 09/10/2023 Hemoglobin A1c measurement Hemog lobin A1c Lab Routine PCOS (polycystic ovarian syndrome) Ordered: 09/10/2023 [facility] Comment on above: Ordered: 09/10/2023 L hrt cath w/njx l ventriculography img s&i LEFT HEART CATH Abnormal ECG during exercise stress test Paroxysmal atrial fibrillation (Multi) Virtual [employer] Manager Luteinizing hormone Luteinizing hormone Lab Routine PCOS (polycystic ovarian syndrome) Ordered: 09/10/2023 [facility] Comment on above: Ordered: 09/10/2023 Neisseria gonorrhoea e DNA [Presence] in Unspecified specimen by KATTY with probe detection Neisseria gonorrhea DNA probe, direct Lab Routine STD exposure Ordered: 09/10/2023 [facility] Comment on above: Ordered: 09/10/2023 Patient Education Know your Meds [facility] Work Phone: Patient referral [facility] Work Phone: SURESWAB(R) ADVANCED VAGINITIS PLUS, TMA SURESWAB(R) ADVANCED VAGINITIS PLUS, TMA Pathology and Cytology Routine Vaginal discharge Ordered: 09/10/2023 [facility] Comment on above: Ordered: 09/10/2023 Thyrotropin [Units/v olume] in Serum or Plasma TSH Lab Routine PCOS (polycystic ovarian syndrome) Ordered: 09/10/2023 [facility] Comment on above: Ordered: 09/10/2023 Thyroxine (T4) free [Mass/volume] in Serum or Plasma T4, free Lab Routine PCOS (polycystic ovarian syndrome) Ordered: 09/10/2023 [facility] Comment on above: Ordered: 09/10/2023 Payers Date Payer Category Payer Self-pay [id number] 2019 Medicaid [employer] [id number] 2019-Present [address] [place] [phone] [id number] 2019 Medicaid (Managed Care) [facility] PLAN [id number] 2019 Medicaid HMO [employer] [id number] 2019 Unknown [facility] [id number] 2019-Present [address] [place] [id number] 1985 Unknown [id number] 2.16.840.1.704508.3.579.2. 593 1985 Unknown [id number] 2.16.840.1.873715.3.579.2. 593 1985 Unknown [id number] 2.16.840.1.483195.3.579.2. 593 1985 Unknown [id number] 2.16.840.1.344571.3.579.2. 593 1985 Unknown [id number] 2.16.840.1.233022.3.579.2. 593 1985 Unknown [id number] 2.16.840.1.880065.3.579.2. 593 1985 Unknown [id number] 2.16.840.1.217327.3.579.2. 593 1985 Unknown [id number] 2.16.840.1.130848.3.579.2. 593 1985 Unknown [id number] 2.16.840.1.986840.3.579.2. 593 1985 Unknown [id number] 2.16.840.1.109046.3.579.2. 593 1985 Unknown [id number] 2.16.840.1.794410.3.579.2. 593 1985 Unknown [id number] 2.16.840.1.576222.3.579.2. 593 1985 Unknown [id number] 2.16.840.1.210144.3.579.2. 593 1985 Unknown [id number] 2.16.840.1.992213.3.579.2. 593 1985 Unknown [id number] 2.16.840.1.606304.3.579.2. 593 1985 Unknown [id number] 2.16.840.1.189552.3.579.2. 593 1985 Unknown [id number] 2.16.840.1.420180.3.579.2. 593 1985 Unknown [id number] 2.16.840.1.837654.3.579.2. 593 1985 Unknown [id number] 2.16.840.1.160893.3.579.2. 593 1985 Unknown [id number] 2.16.840.1.100101.3.579.2. 593 1985 Unknown [id number] [id number] 1985 Unknown [id number] [id number]. 1259 1985 Unknown [id number] [id number]. 1259 1985 Unknown [id number] [id number]. 1243 1985 Unknown [id number] [id number]. 1243 1985 Unknown [id number] 2.16.840.1.865965.3.579.2. 1243 1985 Unknown [id number] 2.16.840.1.036733.3.579.2. 1244 1985 Unknown [id number] [id number]. 1244 1959 Self-pay [id number] 1959 Unknown [id number] 1959 Unknown UNDEFINED Unknown [id number] [id number]. 593 Unknown [id number]. 531 Social History Date Type Detail Facility Start: 04-10-2023 Tobacco smoking status NDIS Never smoked tobacco [facility] Start: 04-03-2018 End: 04-10-2023 Tobacco use and exposure Smokeless tobacco non-user [facility] Start: 04-10-2023 End: 09-10-2023 Alcohol intake Lifetime non-drinker (finding) [facility] Start: 04-10-2023 End: 07-11-2024 History of Social function [facility] Start: 04-10-2023 End: 07-11-2024 Tobacco use panel [facility] Start: 1985 Sex Assigned At Not on file [facility] Start: 05-09-2024 End: 05-09-2024 Tobacco smoking status NHIS Smoker (finding) [facility] Start: 1985 Sex Assigned At Female [facility] Start: 05-13-2024 Tobacco smoking status NHIS Ex-smoker [facility] Work Phone: History of tobacco use Cigarette Smoker [facility] Work Phone: Start: 05-13-2024 Tobacco use and exposure User of smokeless tobacco [facility] Work Phone: Start: 05-13-2024 End: 07-11-2024 Alcoholic beverage intake Current drinker of alcohol (finding) [facility] Work Phone: Start: 05-13-2024 Tobacco Comment Vape [facility] Work Phone: Start: 05-13-2024 Alcohol Comment occasionally [facility] Work Phone: Start: 05-03-2024 End: 07-11-2024 Exposure to SARS-CoV-2 (event) Not sure [facility] Start: 04-03-2018 Tobacco smoking status NDIS Smokes tobacco daily [facility] Start: 10-12-2022 Alcoholic beverage intake [facility]-drinker (finding[facility] Start: 03-08-2015 Sex [facility] (finding[facility] NEGATED: Highlighted row [facility] Goals Date Patient Goal Desired Activity /State Functional Status Date Assessment Result Facility 05-09-2024 Functional status Patient at Baseline [facility] Work Phone: Mental Status Date Assessment Result Facility 05-09-2024 Cognitive function Cognitive Sta tus Patient at Baseline [facility] Work Phone: Clinical Notes 07-14-2022 to 07-11-2024 Phillip Saleh, PROPOSAL EDITOR-MANAGER [employer]IVERSAL, DNP - 07/11/2024 3:30 PM ESTPatient InstructionsMonalisa Heaton RN - 07/04/2024 12:10 PM William eHaton RN - 07/04/2024 12:10 PM ESTDischarge Instructions Note Date & Type Note Facility 07-11-2024 History of Presen t illness Narrative Images from the original note were not included. CHIEF COMPLAINT Follow up cath HISTORY OF PRESENT ILLNESS Patient reports right arm is slightly bruised but pain is improving from procedure. She is under more stress at home but is coping well. Cardiovascular hx: Atrial fibrillation, paroxysmal: -Dates back to 05/09/24 when patient went to the ER for palpitations and elevated HR. Afib was noted, patient given a dose of diltiazem and then converted back to NSR. -Ischemia work up ordered with stress EKG showings mild ST depressions with exercise, therefore, a LHC was ordered which was normal -30-day event monitor showing no evidence of arrhythmias, pauses, or blocks -MACIE?DS?-VASc Score of 1 (female gender); I did start DOAC while obtaining more information, however, patient never started Cardiovascular testing: LHC (July,)-normal coronaries 30 day surveillance system monitor (June,)-predominant rhythm is sinus with average rate of 66 bpm; PAC and PVC burden <1%; no significant atrial or ventricular arrhythmias Echo (May,)-normal biventricular function Past Medical, Surgical, and Family History reviewed [...] , EGFR , MG in the last 47061 hours.No results for input(s): ALBUMIN , ALKPHOS , ALT , AST , BILITOT , LIPASE in the last 86573 hours. No lab exists for component: CA CBC:No results for input(s): WBC , HGB , HCT , PLT , MCV in the last 48658 hours. COAG: No results for input(s): PTT , INR , HAUF , DDIMERVTE , HAPTOGLOBIN , FIBRINOGEN in the last 90995 hours. ABO: No results for input(s): ABO in the last 14103 hours. HEME/ENDO:No results for input(s): FERRITIN , IRONSAT , TSH , HGBA1C in the last 05060 hours. CARDIAC: No results for input(s): LDH , CKMB , TROPHS , BNP in the last 87168 hours. No lab exists for component: CK , CKMBP No results for input(s): CHOL , LDLF , HDL , TRIG in the last 62115 hours. MICRO: No results for input(s): ESR , CRP , PROCAL in the last 44442 hours. No results found for the last 90 days. Notable Studies: imaging personally reviewed EKG:No results found for this or any previous visit (from the past 4464 hours). Echocardiogram: No results found for this or any previous visit from the past 1825 days. Stress Testing: No results found for this or any previous visit from the past 1825 days. Cardiac Catheterization: No results found for this or any previous visit from the past 1825 days. 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 Suspected coronary artery disease. Stress test performed: Yes. Stress test type: Exercise Stress. Stress result: Positive. LVEF Assessed: Yes. LVEF = 60%. Procedure Description: After infiltration with 2% Lidocaine, the right radial artery was cannulated with a modified Seldinger technique. Subsequently a 6 Cuban sheath was placed in the right radial artery. Selective coronary catheterization was performed using a 5 Fr catheter(s) exchanged over a guide wire to cannulate the coronary arteries. A 5 Fr [place] catheter was used for left and right coronary artery injections. Multiple injections of contrast were made into the left and right coronary arteries with angiograms recorded in multiple projections. After completion of the procedure, the arterial sheath was pulled and a TR Band Radial Compression Device was utilized to obtain patent hemostasis. Coronary Angiography: The coronary circulation is right dominant. Left Main Coronary Artery: The left main coronary artery is a normal caliber vessel. The left main arises normally from the left coronary sinus of Valsalva and bifurcates into the LAD and circumflex coronary arteries. The left main coronary artery showed a normal vessel. Left Anterior Descending Coronary Artery Distribution: The left anterior descending coronary artery is a normal caliber vessel. The LAD arises normally from the left main coronary artery. The LAD demonstrated a normal vessel. The 1st diagonal branch is a normal caliber vessel. The 1st diagonal branch showed a normal vessel. The 2nd diagonal branch is a normal caliber vessel. The 2nd diagonal branch demonstrated a normal vessel. Circumflex Coronary Artery Distribution: The circumflex coronary artery is a normal caliber vessel. The circumflex arises normally from the left main coronary artery and terminates in the AV groove. The circumflex revealed a normal vessel. The 1st obtuse marginal branch is a normal caliber vessel. The 1st obtuse marginal branch showed a normal vessel. The 2nd obtuse marginal branch is a normal caliber vessel. The 2nd obtuse marginal branch demonstrated a normal vessel. Right Coronary Artery Distribution: The right coronary artery is a normal caliber vessel. The RCA arises normally from the right sinus of Valsalva. The RCA showed a normal vessel. The right posterolateral branch is a normal caliber vessel. The right posterolateral branch showed a normal vessel. The right posterior descending artery is a normal caliber vessel. The right posterior descending artery showed a normal vessel. Left Ventriculography: The LV ejection fraction was 60 to 65%. All left ventricular regional wall segments contract normally. Complications: No in-lab complications observed. Cardiac Cath Post Procedure Notes: Post Procedure Diagnosis: Angiographically normal coronary arteries. Blood Loss: Estimated blood loss during the procedure was 5 mls. Specimens Removed: Number of specimen(s) removed: none. Recommendations: Maximize medical therapy. Agressive risk factor modification efforts. Follow-up with cardiology clinic. Medical management of coronary artery disease. CONCLUSIONS: 1. Right coronary artery system dominance. 2. Normal coronaries. 3. Preserved LV systolic function. ICD 10 Codes: Other chest pain-R07.89 CPT Codes: Left Heart Cath (visualization of coronaries) and LV-72574; Moderate Sedation Services initial 15 minutes patient >5 [id number] Antoine Sanchez MD Performing Physician Final REVIEW OF SYSTEMS A 10-point system review was completed and was negative except as noted in the HPI. VITALS Vitals: 07/11/24 1541 BP: 118/62 Pulse: 73 SpO2: 98% PHYSICAL EXAM General: awake, alert and oriented. No acute distress. Skin: Skin is warm, dry and intact without rashes or lesions. HEENT: normocephalic, atraumatic; conjunctivae are clear without exudates or hemorrhage. Sclera is non-icteric. Eyelids are normal in appearance without swelling or lesions. Hearing intact. Nares are patent bilaterally. Moist mucous membranes. Cardiovascular: heart rate and rhythm are normal. Respiratory: bilateral lung sounds clear to auscultations without rales, rhonchi, or wheezes. No accessory muscle use or stridor Neurological: no focal deficits; gait steady Psychiatric: appropriate mood and affect; good judgment and insight ASSESSMENT AND PLAN Assessment/Plan Diagnoses and all orders for this visit: Paroxysmal atrial fibrillation (Multi) Abnormal ECG during exercise stress test Encounter to discuss test results -We reviewed her 30 day monitor showing no evidence of afib or chronotropic incompetence. -Her MACIE?DS?-VASc Score is 1, however, patient never started DOAC and her overall burden is very low so we can continue without med -We discussed longer monitoring with an implantable loop recorder which would be appropriate; patient would like to think about it and then will decide if she would like to proceed Thank you for allowing me to participate in the care of this patient. Please reach me out if you have any questions or if you need any clarifications regarding the patient's care. Phillip Saleh DNP, SHIVA, COILED TUBING SUPERVISOR-C Division of Cardiovascular Medicine [facility] documented in this encounter [facility] Work Phone: 07-11-2024 Instructions DESIREE Sofia DNP - 07/11/2024 3:30 PM EST Implantable loop recorder documented in this encounter [facility] Work Phone: 07-04-2024 Nurse Note Patient discharged via wheelchair to private vehicle. Home going instructions specific to procedure given: Yes 1 Easily Arousable; Responding Appropriately: Yes 2. VS +/- 20% of preprocedure status: Yes 3. Significant complications are absent: Yes 4. Ambulates without dizziness/Age appropriate activity: Yes 5. Pulse Ox great than or equal to 92% or above on room air /ordered oxygen treatment: Yes 6. Care Plan Complete: Yes 7. Discharge education completed and information provided to patient and family: Yes 8. If Patient had PCI performed-Stent card sent home with Patient: N/A Patient and family have no further questions at this time. Gave patient and family department number and office number if any questions should arise. [facility] Work Phone: 07-04-2024 Nurse Note Patient discharged via wheelchair to private vehicle. Home going instructions specific to procedure given: Yes 1 Easily Arousable; Responding Appropriately: Yes 2. VS +/- 20% of preprocedure status: Yes 3. Significant complications are absent: Yes 4. Ambulates without dizziness/Age appropriate activity: Yes 5. Pulse Ox great than or equal to 92% or above on room air /ordered oxygen treatment: Yes 6. Care Plan Complete: Yes 7. Discharge education completed and information provided to patient and family: Yes 8. If Patient had PCI performed-Stent card sent home with Patient: N/A Patient and family have no further questions at this time. Gave patient and family department number and office number if any questions should arise. documented in this encounter [facility] Work Phone: 07-04-2024 Hospital Discharg e instructions Phillip Saleh APRN-MANAGER [employer]IVERS[employer], DNP - 07/04/2024 10:56 AM EST Images from the original note were not included. CARDIAC CATHETERIZATION DISCHARGE INSTRUCTIONS FOR SUDDEN AND SEVERE CHEST PAIN, SHORTNESS OF BREATH, EXCESSIVE BLEEDING, SIGNS OF STROKE, OR CHANGES IN MENTAL STATUS YOU SHOULD CALL 911 IMMEDIATELY. If your provider has prescribed aspirin and/or clopidogrel (Plavix), or prasugrel (Effient), or ticagrelor (Brilinta), DO NOT STOP THESE MEDICATIONS for any reason without talking to your gin clerk first. If any of these were prescribed, you must take them every day without missing a single dose. If you are getting low on these medications, contact your provider immediately for a refill. FOR NEXT 24 HOURS - Upon discharge, you should return home and rest for the remainder of the day and evening. You do not have to stay on bed rest but should not be very active. It is recommended a responsible adult be with you for the first 24 hours after the procedure. - No driving for 24 hours after procedure. Please arrange for someone to drive you home from the hospital today. - Do not drive, operate machinery, or use power tools for 24 hours after your procedure. - Do not make any legal decisions for 24 hours after your procedure. - Do not drink alcoholic beverages for 24 hours after your procedure. WOUND CARE *FOR FEMORAL (LEG) ACCESS* Avoid heavy lifting (over 10 pounds) for 7 days, squatting or excessive bending for 2 days, and strenuous exercise for 7 days. No submerged bathing, swimming, or hot tubs for the next 7 days, or until fully healed. Avoid sexual activity for 3-4 days until any groin discomfort has ceased. *FOR RADIAL (WRIST) ACCESS* No lifting more than 5 pounds or excessive use of the wrist for 24 hours - for example, treat your wrist as if it is sprained. Do not engage in vigorous activities (tennis, golf, bowling, weights) for at least 48 hours after the procedure. Do not submerge the wrist for 7 days after the procedure. You should expect mild tingling in your hand and tenderness at the puncture site for up to 3 days. - The transparent dressing should be removed from the site 24 hours after the procedure. Wash the site gently with soap and water. Rinse well and pat dry. Keep the area clean and dry. You may apply a Band-Aid to the site. Avoid lotions, ointments, or powders until fully healed. - You may shower the day after your procedure. - It is normal to notice a small bruise around the puncture site and/or a small grape sized or smaller lump. Any large bruising or large lump warrants a call to the office. - If bleeding should occur, lay down and apply pressure to the affected area for 10 minutes. If the bleeding stops notify your physician. If there is a large amount of bleeding or spurting of blood CALL [address] yourself to the hospital. - You may experience some tenderness, bruising or minimal inflammation. If you have any concerns, you may contact the Partner Alliance Manager or if any of these symptoms become excessive, contact your gin clerk or go to the emergency room. OTHER INSTRUCTIONS - You may take acetaminophen (Tylenol) as directed for discomfort. If pain is not relieved with acetaminophen (Tylenol), contact your doctor. - If you notice or experience any of the following, you should notify your doctor or seek medical attention Chest pain or discomfort Change in mental status or weakness in extremities. Dizziness, light headedness, or feeling faint. Change in the site where the procedure was performed, such as bleeding or an increased area of bruising or swelling. Tingling, numbness, pain, or coolness in the leg/arm beyond the site where the procedure was performed. Signs of infection (i.e. shaking chills, temperature > 100 degrees Fahrenheit, warmth, redness) in the leg/arm area where the procedure was performed. Changes in urination Bloody or black stools Vomiting blood Severe nose bleeds Any excessive bleeding - If you DO NOT have an appointment with your gin clerk within 2-4 weeks following your procedure, please contact their office. Lifestyle Recommendations for a Healthier Life: The following lifestyle changes can have a significant positive impact on your overall health - helping you to achieve healthy weight, lower metabolic and heart disease risk and manage stress more effectively: 1. Eat whole, fresh foods. Food is one of the biggest drivers of our overall health. Make your meals whole foods based, focusing on a wide variety of non starchy vegetables and fruits. It also beneficial to include various nuts, seeds and high-quality animal proteins for overall balanced diet. 2. Remove the sweeteners from your diet. Artificial sweeteners have a negative impact on our metabolic health - they can cause increase in both glucose and insulin, increasing the risk or potential for insulin resistance and abnormal blood sugar levels. Artificial sweeteners are also excessively sweeter than regular sugar, they trick our taste buds into craving extreme forms of sweet, like an addiction. I encourage you to avoid sugar, but also stevia, aspartame, sucralose, sugar alcohols like xylitol and maltitol. 3. Get rid of the inflammatory factors in your diet - this mainly comes from sugars of all kinds and refined vegetable oils. These can increase our risk for changes in our metabolic health which can lead to diabetes, heart disease and other chronic disease. You can reverse or combat the effective of inflammatory foods by increasing your intake of anti-inflammatory foods like wild-caught fish, fresh ground flax seed, fish oil and variety of fruits & vegetables. 4. Eat plenty of fiber!! The standard [place] diet has very low levels of daily dietary fiber, many people barely get 15 grams per day. There is plenty of nutrition research that shows how high-fiber foods can help lower our blood sugar. Eat a wide variety of fiber-rich plant-based foods including nuts, seeds, fruits, vegetables, and legumes. 5. Get enough sleep. Studies from experts in endocrinology & metabolism have shown that even a few nights of poor sleep can increase the risk of insulin resistance and abnormal blood sugar values. Make sleep a priority - it is an important factor in your health. Develop a sleep routine including: avoid eating two-three hours before bed, practice relaxation techniques (warm bath, meditation, yoga, mindfulness) to help relax your muscles and prepare you for sleep. Go to bed and wake up at consistent times. Avoid screen time for at least 60-90 minutes before bedtime. 6. Make exercise part of your regular routine. Exercise helps us manage blood sugar more effectively and makes our cells more receptive to the effect of the insulin our body makes (lowers blood sugar). Regular aerobic exercise AND interval or strength training are ideal to help maintain a healthy weight, metabolism & lower the risk of chronic disease. 7. Control stress levels. Chronic stress can lead to elevated blood sugar, elevated blood pressure, accumulation of fat around the belly and these things increase the risk for metabolic syndrome, diabetes and heart disease. We all have various levels of stress in our lives, we can't control all of it, but we can control how we respond to it and manage it's impact. Find healthy outlets for stress management like meditation, yoga, deep breathing, or exercise. Home BP monitoring instructions: Goal < 130 / 80 Remain still, Avoid smoking, caffeinated beverages, or exercise within 30 min before BP measurements. Ensure 5 min of quiet rest before BP measurements. Sit correctly with back straight and supported (on a straight-backed dining chair, for example, rather than a sofa). Sit with feet flat on the floor and legs uncrossed. Keep arm supported on a flat surface (such as a table), with the upper arm at heart level. Bottom of the cuff should be placed directly above the bend of the elbow Take a reading in the AM before breakfast 2-3 times / week Record all readings accurately: A written log should be brought to all appointments Monitors with built-in memory should be brought to all clinic appointments and calibrated to our machines Weight Management: Since food equals calories, in order to lose weight you must either eat fewer calories, exercise more to burn off calories with activity, or both. Food that is not used to fuel the body is stored as fat. A major component of losing weight is to make smarter food choices. Here's how: Limit non-nutritious foods, such as: Sugar, honey, syrups and candy Pastries, donuts, pies, cakes and cookies Soft drinks, sweetened juices and alcoholic beverages Cut down on high-fat foods by: Choosing poultry, fish or lean red meat Choosing low-fat cooking methods, such as baking, broiling, steaming, grilling and boiling Using low-fat or non-fat dairy products Using vinaigrette, herbs, lemon or fat-free salad dressings Avoiding fatty meats, such as slater, sausage, crystal, ribs and luncheon meats Avoiding high-fat snacks like nuts, chips and chocolate Avoiding fried foods Using less butter, margarine, oil and mayonnaise Avoiding high-fat gravies, cream sauces and cream-based soups Eat a variety of foods, including: Fruit and vegetables that are raw, steamed or baked Whole grains, breads, cereal, rice and pasta Dairy products, such as low-fat or non-fat milk or yogurt, low-fat cottage cheese and low-fat cheese Protein-rich foods like chicken, turkey, fish, lean meat and legumes, or beans Change your eating habits: Eat three balanced meals a day to help control your hunger Watch portion sizes and eat small servings of a variety of foods Choose low-calorie snacks Eat only when you are hungry and stop when you are satisfied Eat slowly and try not to perform other tasks while eating Find other activities to distract you from food, such as walking, taking up a hobby or being involved in the community Include regular exercise in your daily routine Find a support group, if necessary, for emotional support in your weight loss effort Patient Education: Smoking Cessation Making the commitment to quit smoking is one of the best choices that smokers can make for themselves, but also a difficult one. There are various opportunities for support available. Here is an overview of them. There are various forms of nicotine replacement therapy available to assist with minimizing these symptoms. They are nicotine gum, nicotine patch, nicotine nasal spray, nicotine inhaler, and nicotine lozenge. Which kind of nicotine replacement therapy will best work for you can be discussed with your doctor or nurse to help you understand the pros and cons of each. Non-nicotine replacement therapy is also available. Bupropion (Wellbutrin, Zyban) is a mild anti-depressant that is also effective in helping people to quit smoking. It can be used alone or with nicotine replacement therapy. Varenicline (Chantix) is another medication that helps people who what to quit. This medication is not a form of nicotine replacement therapy, but it helps with the withdrawal symptoms. Studies have shown that the best success rates for people trying to quit include counseling and/or support groups such as the [employer] Helpline that is a free, confidential, 23/02, 374-cen-v-year treatment referral and information service: 1-245-073-QAWU (3504) Some helpful hints include: Avoidance. Stay away from smokers and places where you are tempted to smoke. Activities. Exercise or do hobbies that keep your hands busy. Alternatives. Use oral substitutes such as sugarless gum, hard candy, and carrot sticks. Change of habits. For example, if you usually smoke during a coffee break, then go for a walk instead. Deep breathing. When you have the urge to smoke, do a deep breathing exercise and remind yourself why you quit. Delay tactic. If you feel that you are about to light up, delay. Tell yourself you must wait 10 minutes. Often this simple trick will allow you to move beyond the urge Discussion. Call a friend for support. Drink of water. Use as an oral substitute such as water. Many people say the reason they smoke is to deal with stress. Unfortunately, stress is a part of all our lives. When quitting, you will need to find new strategies to deal with stress. There are stress-management classes, and self-help books that can help you discover new ways to reduce and deal with stress. The bottom line is: don't just try to go it alone-reach out for support to help you achieve your goal. documented in this encounter [facility] Work Phone: 07-04-2024 Miscellaneous Notes Physician Transition of Care Summary Invasive Cardiovascular Lab Procedure Date: 07/04/2024 Attending: * Antoine Sanchez - Primary Resident/Fellow/Other Seed And Fertilizer Specialist: Surgeons and Role: * No surgeons found with a matching role * Indications: Pre-op Diagnosis * Abnormal ECG during exercise stress test [R94.31] * Paroxysmal atrial fibrillation (Multi) [I48.0] Post-procedure diagnosis: Post-op Diagnosis * Abnormal ECG during exercise stress test [R94.31] * Paroxysmal atrial fibrillation (Multi) [I48.0] Procedure(s): Left Heart Cath 82022 - AK L HRT CATH W/NJX L VENTRICULOGRAPHY IMG S&I Procedure Findings: Normal coronaries Preserved LV systolic function Description of the Procedure: Procedure: Left Heart Catheterization R radial artery access with 6F sheath. LV and Ao hemodynamic measurements. S/P Left Heart Catheterization that showed normal coronaries. Preserved LV systolic function. Patient remained stable during the entire procedure. No complications. Hemostasis with TR Band. Plan: Patient may be discharged home after bed rest for 3 hours. Constant check for bleeding. Maintain compression band (CB) for 60 minutes past procedure. Remove 3mL of air from CB every 15 minutes until fully deflated. If recurrent bleeding occurs, re-inflate with enough air to fully restore hemostasis (2 to 3 mL, maximum of 18 mL). Maintain CB at this same level for 30 minutes before attempting to re-deflate. Once fully deflated, carefully remove CB and place a sterile dressing over access site. Observe for 15 minutes and check for pulse and for signs of bleeding. Instruct patient not to use or bend their wrist for four hours. Cardiology follow up. Would suggest to keep conservative treatment and guideline-directed medical therapy (GDMT). Complications: No Stents/Implants: Implants No implant documentation for this case. Anticoagulation/Antiplatelet Plan: ASA Estimated Blood Loss: * No values recorded between 07/04/2024 10:30 AM and 07/04/2024 10:54 AM * Anesthesia: Moderate Sedation Anesthesia Staff: No anesthesia staff entered. Any Specimen(s) Removed: No specimens collected during this procedure. Disposition: Home Electronically signed by: Antoine Sanchez MD, 07/04/2024 10:54 AM Sedation Plan ASA 1 Mallampati class: II. Risks, benefits, and alternatives discussed with patient. Cosigned by Antoine Sanchez MD at 07/04/2024 10:28 AM EST documented in this encounter [facility] Work Phone: 07-04-2024 Note Formatting of this n ote is different from the original. Physician Transition of Care Summary Invasive Cardiovascular Lab Procedure Date: 07/04/2024 Attending: * Antoine Sanchez - Primary Resident/Fellow/Other Seed And Fertilizer Specialist: Surgeons and Role: * No surgeons found with a matching role * Indications: Pre-op Diagnosis * Abnormal ECG during exercise stress test [R94.31] * Paroxysmal atrial fibrillation (Multi) [I48.0] Post-procedure diagnosis: Post-op Diagnosis * Abnormal ECG during exercise stress test [R94.31] * Paroxysmal atrial fibrillation (Multi) [I48.0] Procedure(s): Left Heart Cath 82062 - AK L HRT CATH W/NJX L VENTRICULOGRAPHY IMG S&I Procedure Findings: Normal coronaries Preserved LV systolic function Description of the Procedure: Procedure: Left Heart Catheterization R radial artery access with 6F sheath. LV and Ao hemodynamic measurements. S/P Left Heart Catheterization that showed normal coronaries. Preserved LV systolic function. Patient remained stable during the entire procedure. No complications. Hemostasis with TR Band. Plan: Patient may be discharged home after bed rest for 3 hours. Constant check for bleeding. Maintain compression band (CB) for 60 minutes past procedure. Remove 3mL of air from CB every 15 minutes until fully deflated. If recurrent bleeding occurs, re-inflate with enough air to fully restore hemostasis (2 to 3 mL, maximum of 18 mL). Maintain CB at this same level for 30 minutes before attempting to re-deflate. Once fully deflated, carefully remove CB and place a sterile dressing over access site. Observe for 15 minutes and check for pulse and for signs of bleeding. Instruct patient not to use or bend their wrist for four hours. Cardiology follow up. Would suggest to keep conservative treatment and guideline-directed medical therapy (GDMT). Complications: No Stents/Implants: Implants No implant documentation for this case. Anticoagulation/Antiplatelet Plan: ASA Estimated Blood Loss: * No values recorded between 07/04/2024 10:30 AM and 07/04/2024 10:54 AM * Anesthesia: Moderate Sedation Anesthesia Staff: No anesthesia staff entered. Any Specimen(s) Removed: No specimens collected during this procedure. Disposition: Home Electronically signed by: Antoine Sanchez MD, 07/04/2024 10:54 AM [facility] Work Phone: 07-04-2024 Note Formatting of this n ote might be different from the original. Sedation Plan ASA 1 Mallampati class: II. Risks, benefits, and alternatives discussed with patient. Cosigned by Antoine Sanchez MD at 07/04/2024 10:28 AM EST [facility] Work Phone: 07-04-2024 History and physical note History Of Present Illness Sarah Pennington is a 38 y.o. female with a PMH of palpitations, smoking, and a brief episode of atrial fibrillation while on telemetry during her hospitalization this fall. She came to see me in the office and patient was in NSR. Patient's MACIE?DS?-VASc Score was 1 so I did start her on Xarelto while further testing was being done, however, she has not started medication due to having dental work done. I ordered a 30 day monitor and a stress test. Her EKG portion of the stress test did show 1mm ST-T depressions in leads II, III, aVF, V5 and V6 with changes normalizing 3 minutes into recovery. Patient's echo was normal. Given her stress test was abnormal, a LHC was recommended to rule out ischemia. Patient reports occasional palpitations. Past Medical History No past medical history on file. Surgical History Past Surgical History: Procedure Laterality Date SECTION, CLASSIC CHOLECYSTECTOMY Social History She reports that she has quit smoking. Her smoking use included cigarettes. She uses smokeless tobacco. She reports current alcohol use. She reports that she does not use drugs. Family History Family History Problem Relation Name Age of Onset Heart disease Paternal Grandmother Heart disease Paternal Grandfather Allergies Azithromycin Review of Systems Pertinent negatives and positives noted in the HPI. Otherwise, a complete review of systems was negative. Physical Exam General: awake, alert and oriented. No acute [...] are heard and are of normal intensity. Respiratory: bilateral lung sounds clear to auscultations without rales, rhonchi, or wheezes. No accessory muscle use or stridor Musculoskeletal: no deformities Extremities: no swelling Neurological: no focal deficits Psychiatric: appropriate mood and affect; good judgment and insight Last Recorded Vitals There were no vitals taken for this visit. Relevant Results Assessment/Plan Assessment & Plan Abnormal ECG during exercise stress test Paroxysmal atrial fibrillation (Multi) DESIREE Sofia DNP Cosigned by Antoine Sanchez MD at 07/04/2024 9:52 AM EST [facility] Work Phone: 07-04-2024 History and physical note History Of Present Illness Sarah Pennington is a 38 y.o. female with a PMH of palpitations, smoking, and a brief episode of atrial fibrillation while on telemetry during her hospitalization this fall. She came to see me in the office and patient was in NSR. Patient's MACIE?DS?-VASc Score was 1 so I did start her on Xarelto while further testing was being done, however, she has not started medication due to having dental work done. I ordered a 30 day monitor and a stress test. Her EKG portion of the stress test did show 1mm ST-T depressions in leads II, III, aVF, V5 and V6 with changes normalizing 3 minutes into recovery. Patient's echo was normal. Given her stress test was abnormal, a LHC was recommended to rule out ischemia. Patient reports occasional palpitations. Past Medical History No past medical history on file. Surgical History Past Surgical History: Procedure Laterality Date SECTION, CLASSIC CHOLECYSTECTOMY Social History She reports that she has quit smoking. Her smoking use included cigarettes. She uses smokeless tobacco. She reports current alcohol use. She reports that she does not use drugs. Family History Family History Problem Relation Name Age of Onset Heart disease Paternal Grandmother Heart disease Paternal Grandfather Allergies Azithromycin Review of Systems Pertinent negatives and positives noted in the HPI. Otherwise, a complete review of systems was negative. Physical Exam General: awake, alert and oriented. No acute [...] are heard and are of normal intensity. Respiratory: bilateral lung sounds clear to auscultations without rales, rhonchi, or wheezes. No accessory muscle use or stridor Musculoskeletal: no deformities Extremities: no swelling Neurological: no focal deficits Psychiatric: appropriate mood and affect; good judgment and insight Last Recorded Vitals There were no vitals taken for this visit. Relevant Results Assessment/Plan Assessment & Plan Abnormal ECG during exercise stress test Paroxysmal atrial fibrillation (Multi) DESIREE Sofia DNP Cosigned by Antoine Sanchez MD at 07/04/2024 9:52 AM EST documented in this encounter [facility] Work Phone: 06-03-2024 Miscellaneous Notes ATTEMPTED TO CALL PT TO REMIND OF APPT SCHEDUELD FOR 06/06/2024, NO VOICE MAIL SET UP OR VOICE MAIL FULL. documented in this encounter [facility] 06-03-2024 Telephone encounter Note ATTEMPTED TO CALL PT TO REMIND OF APPT SCHEDUELD FOR 06/06/2024, NO VOICE MAIL SET UP OR VOICE MAIL FULL. [facility] 05-13-2024 History of Presen t illness Narrative Images from the original note [...] Patient tried to get in with a Heating Plant Superintendent near her hometown but all were months [...] , EGFR , MG in the last 44815 hours.No results for input(s): ALBUMIN , ALKPHOS , ALT , AST , BILITOT , LIPASE in the last 50681 hours. No lab exists for component: CA CBC:No results for input(s): WBC , HGB , HCT , PLT , MCV in the last 24992 hours. COAG: No results for input(s): PTT , INR , HAUF , DDIMERVTE , HAPTOGLOBIN , FIBRINOGEN in the last 76724 hours. ABO: No results for input(s): ABO in the last 80071 hours. HEME/ENDO:No results for input(s): FERRITIN , IRONSAT , TSH , HGBA1C in the last 41589 hours. CARDIAC: No results for input(s): LDH , CKMB , TROPHS , BNP in the last 17267 hours. No lab exists for component: CK , CKMBP No results for input(s): CHOL , LDLF , HDL , TRIG in the last 01999 hours. MICRO: No results for input(s): ESR , CRP , PROCAL in the last 10405 hours. No results found for the last [...] the patient's care. Phillip Saleh DNP, SHIVA, COILED TUBING SUPERVISOR-C Division of Cardiovascular Medicine [facility] documented in this encounter [facility] Work Phone: 05-09-2024 History and physi thomas note Note Date/Time May 09, 2024 8:21pm [facility] [address] [place] [address] Hospitalist H&P Signed Patient: Sarah Pennington MR#: [id number] : 1985 Acct:[id number] Age/Sex: 38 / F Adm Date: 4 Loc: Room: [address] [place] [address] Type: ADM INOo Attending Dr: Robbin Love DO Copies to: NON STAFF Robbin Love DO~ HPI DATE OF EXAMINATION: 05/09/24 CHIEF COMPLAINT: [...] She was brought in under observation to theMedSurg floor under the hospitalist service for further [...] than female gender in terms of her [id number] scoring which is only a score of [...] discharged with these 2 new medications tomorrow. [facility] Medical History (Updated 05/09/24 @ 13:12 [...] % (Auto) 31.1 % (.) 05/09/24 08:43 Edwards % (Auto) 6.3 % (.) 05/09/24 08:43 Eos % (Auto) 2.7 % (.) 05/09/24 08:43 Baso % (Auto) 0.9 % (.) 05/09/24 08:43 Nucleat RBC Rel Count 0.1 /100 WBC (0-0.5) 05/09/24 08:43 Neut # (Auto) 5.4 x10E3/uL (1.8-7.7) 05/09/24 08:43 Lymph # (Auto) 2.8 x10E3/uL (1.00-4.8) 05/09/24 08:43 Edwards # (Auto) 0.6 x10E3/uL (0.0-0.8) 05/09/24 08:43 [...] pH 6.5 (5.0-9.0) 05/09/24 08:05 Ur Specific [place] 1.006 (1.001-1.030) 05/09/24 08:05 Urine Protein Negative [...] 2 Documented By: Robbin Love DO 05/09/24 20 15 Signed By: <Electronically signed by Robbin Love DO> 05/09/242020 [facility] Work Phone: 1(409) 504-407810-07-2024 Discharge summary Author Robbin Love [facility] May 09, 2024 5:40pm Note Date/Time May 09, 2024 1: 19pm [facility] [address] [place] [address] Discharge Summary Signed with Addenda Patient: Sarah Pennington MR#: [id number] : 1985 Acct:[id number] Age/Sex: 38 / F Adm Date: 4 Loc: Room: [address] [place] [address]: Robbin Love DO Copies to: NON STAFF Robbin Love DO~ ADDENDUM1 Disregard this documentation as I was falsely informed by ER nursing staff of the patient's AMA status and now unbeknownst to me he has arrived on the [facility] for admission. Addendum Documented By: Robbin Love DO 05/09/241739 Addendum Signed By: <Electronically signed by oRbbin Love DO> 05/09/241739 Providers Date of Discharge: [...] but still tachycardic atrial fibrillation upon arrival tot ER and after initiation of Cardizem drip [...] medical chart to warrant anticoagulation chronically answered [id number] scoring based on female statusis only 1. [...] % (Auto) 59.0, Lymph % (Auto) 31.1, Edwards % (Auto) 6.3, Eos % (Auto) 2.7, Baso % (Auto) 0.9, Nucleat RBC Rel Count 0.1, Neut # (Auto) 5.4, Lymph # (Auto) 2.8, Edwards # (Auto) 0.6, Eos # (Auto) 0.2, [...] Appearance Clear, Urine pH 6.5, Ur Specific [place] 1.006, Urine Protein Negative, Urine Glucose (UA) Normal, UrineKetones Negative, Urine Occult Blood 1+ H, Urine Nitrite Negative, Urine Bilirubin Negative, Urine Urobilinogen Normal, Ur Leukocyte Esterase Negative, Urine RBC 3-4, Urine WBC 1-2, Ur Squamous Epith Cells 1-2, Urine Bacteria Rare, Hyaline Casts None Documented By: Robbin Love DO 05/09/24 13 15 Signed By: <Electronically signed by Robbin Love DO> 05/09/24 [facility] Work Phone: 1(375) 905-851802-08-2024 History of Present illness Narrative* Rosio Maurer MA - 09/10/2023 8:50 AM EST Reason for [...] SECTION, LOW TRANSVERSE 05/09/2004, 12/03/2007, 10/05/2017 CHOLECYSTECTOMY 2014 PAP SMEAR 2021 neg HPV- TUBAL LIGATION [...] nursing note reviewed. Exam conducted with a plant guard present. Vitals: Estimated body mass index is [...] of: Jens Plasencia DO documented in [facility] [id number] NoteOPERATIVE NOTE OPERATION DATE: 07/14/2022 PROCEDURE: Repeat low transverse section with bilateral salpingectomy. PREOPERATIVE DIAGNOSIS: 1. Intrauterine at 39 weeks. 2. Desires permanent sterilization. 3. Previous x3. POSTOPERATIVE DIAGNOSIS: 1. Intrauterine at 39 weeks. 2. Desires permanent sterilization. 3. Previous x3. ANESTHESIA: Spinal with Duramorph. SURGEON: Jens Plasencia D.O. FIGURE CLERK: KURT Carrion URINE OUTPUT: Yellow and clear. [...] patient's uterus and extended laterally digitally. The was then delivered atraumatically after the bladder [...] to the Recovery Room in stable condition.[facility] [id number] NoteDISCHARGE SUMMARY DISCHARGE DATE: 07/28/2022 PRIMARY DIAGNOSES: [...] pain free and no longer on narcotics.[facility] Center[facility] summary Author Robbin Love [facility] May 09, 2024 1:19pm Note Date/Time May 09, 2024 1: 19pm [facility] [address] [place] [address] Discharge Summary Signed Patient: Sarah Pennington MR#: [id number] : 1985 Acct:[id number] Age/Sex: 38 / F Adm Date: 4 Loc: ER Room: Attending Dr: Copies to: NON STAFF DO Robbin Coleman DO~ Providers Date of Discharge: 05/09/24 Discharging Provider: [...] medical chart to warrant anticoagulation chronically answered [id number] scoring based on female statusis only 1. [...] % (Auto) 59.0, Lymph % (Auto) 31.1, Edwards % (Auto) 6.3, Eos % (Auto) 2.7, Baso % (Auto) 0.9, Nucleat RBC Rel Count 0.1, Neut # (Auto) 5.4, Lymph # (Auto) 2.8, Edwards # (Auto) 0.6, Eos # (Auto) 0.2, [...] Appearance Clear, Urine pH 6.5, Ur Specific [place] 1.006, Urine Protein Negative, Urine Glucose (UA) Normal, UrineKetones Negative, Urine Occult Blood 1+ H, Urine Nitrite Negative, Urine Bilirubin Negative, Urine Urobilinogen Normal, Ur Leukocyte Esterase Negative, Urine RBC 3-4, Urine WBC 1-2, Ur Squamous Epith Cells 1-2, Urine Bacteria Rare, Hyaline Casts None Documented By: Robbin Love DO 05/09/24 13 15 Signed By: <Electronically signed by Robbin Love DO> 05/09/24 1319 [facility] Work Phone: Evaluation note* Diagnosis Vaginal discharge Leukorrhea, not specified as infective Weight gain Other symptoms concerning nutrition, metabolism, and development PCOS (polycystic ovarian syndrome) Polycystic ovaries STD exposure documented in this encounter [facility] HealthcareEvaluation note* Diagnosis Onset Date Resolution Status Atrial fibrillation acute [facility] Work Phone: Evaluation note* Diagnosis Paroxysmal atrial fibrillation (Multi)- Primary Atrial fibrillation documented in this encounter [facility] Work Phone: Evaluation note* Diagnosis Paroxysmal atrial fibrillation (Multi) Atrial fibrillation documented in this encounter [facility] Work Phone: Evaluation note* Diagnosis Paroxysmal atrial fibrillation (Multi) Atrial fibrillation documented in this encounter [facility] Work Phone: Evaluation note* Diagnosis Abnormal ECG during exercise stress test- Primary Paroxysmal atrial fibrillation (Multi) Atrial fibrillation Other chest pain Abnormal ECG during exercise stress test Paroxysmal atrial fibrillation (Multi) Atrial fibrillation documented in this encounter [facility] Work Phone: Evaluation note* Diagnosis Paroxysmal atrial fibrillation (Multi)- Primary Atrial fibrillation Abnormal ECG during exercise stress test Encounter to discuss test results Other specified counseling documented in this encounter [facility] Work Phone: InstructionsNot on filedocumented in [facility] N[facility] Cardiac Stress Testing (Routine) - Authorized Specialty Diagnoses / Procedures Referred By Rojelio t Referred To Contact Cardiology Diagnoses Paroxysmal atrial fibrillation (Multi) Procedures Stress Test AK CV STRS TST XERS&/OR RX CONT ECG TRCG ONLY Phillip Saleh, PROPOSAL EDITOR-MANAGER [employer], DNP [address] [facility], [place] [address] Phone: tel: fax: Referral ID Status Reason Start Date Expiration Date V isits Requested Visits Authorized [id number] Authorized 05/25/2024 05/25/2025 1 1 [facility] Work Phone: Reason for visit Narrative* Auth/Cert Specialty Diagnoses / Procedures Referred By Rojelio martinez Referred To Contact Diagnoses Abnormal ECG during exercise stress test Paroxysmal atrial fibrillation (Multi) Abnormal ECG during exercise stress test [R94.31] Paroxysmal atrial fibrillation (Multi) [I48.0] Procedures AK L HRT CATH W/NJX L VENTRICULOGRAPHY IMG S&I Left Heart Cath Antoine Sharma MD [address] [facility], [place] [address] Phone: tel: fax: [facility] [address] [place] [address] Phone: tel: fax: Referral ID Status Reason Start Date Expiration Date Visits Re quested Visits Authorized [id number] 1 1 [facility] Work Phone: Summary Purpose Family History No Family History Records FoundNo Family History Records FoundNo Family History Records FoundNo Family History Records FoundNo Family History Records Found Advance Directives Advance Directive Response Recorded Date/ Time Advance Directives No February 10 1:57pm Date Activated Date Inactivated Comments 07/04/2024 9:01 AM Question Answer Comments Plan of Care: Code Status Discussion Not Compl eted Decision Maker: Provider Rationale: Patient condition does not warra nt discussion Date Activated Date Inactivated Comments 07/04/2024 9:01 AM Question Answer Comments Plan of Care: Code Status Discussion Not Compl eted Decision Maker: Provider Rationale: Patient condition does not warra nt discussion Chief Complaint and Reason for Visit Chief Complaint a-fib Reason for Visit Atrial fibrillation Reason for Referral Specialty Diagnoses / Procedures Referred By Contac t Referred To Contact Cardiology Diagnoses Paroxysmal atrial fibrillation (Multi) Procedures Holter Or Event Laborer Pipelines Phillip Saleh APRN-CNP, LUIS [address] [facility], [place] [address] Referral ID Status Reason Start Date Expiration Date V isits Requested Visits Authorized [id number] Pending Review 05/13/2024 05/13/2025 1 1 Specialty Diagnoses / Procedures Referred By Contac t Referred To Contact Cardiology Diagnoses Paroxysmal atrial fibrillation (Multi) Procedures Nuclear Stress Test CHG MYOCARDIAL SPECT MULTIPLE STUDIES Phillip Saleh APRN-CNP, LUIS [facility] [address] [place] [address] Referral ID Status Reason Start Date Expiration Date Visits Requested Visits Authorized [id number] Pending Review Perform Procedure 05/13/2025 3 3 Referral ID Status Reason Start Date Expiration Date V isits Requested Visits Authorized [id number] Authorized 05/13/2024 05/13/2025 1 1 Additional Source Comments INFORMATION SOURCE (unrecogn ized section and content) DATE CREATED AUTHOR 07/29/2022 [facility] DATE CREATED AUTHOR AUTHOR'S ORGANIZ ATION 10/30/2023 [facility] EPIC DATE CREATED AUTHOR AUTHOR'S ORGANIZ ATION 05/18/2024 [facility] DATE CREATED AUTHOR AUTHOR'S ORGANIZ ATION 07/14/2024 [facility] DATE CREATED AUTHOR AUTHOR'S ORGANIZ ATION 07/14/2024 [facility] Reason for Visit (unrecogniz ed section and content) Reason Comments Issues with vagina Reason Comments New Patient Visit AFIB Specialty Diagnoses / Procedures Referred By Contанна t Referred To Contact Cardiology Diagnoses Paroxysmal atrial fibrillation (Multi) Procedures Holter Or Event Laborer Pipelines Phillip Saleh, PROPOSAL EDITOR-MANAGER [employer]IVERSAL, DNP [address] [facility], [facility] [address] [id number] Referral ID Status Reason Start Date Expiration Date V isits Requested Visits Authorized [id number] Authorized 05/13/2024 05/13/2025 1 1 Reason Comments Post-Cath Care Teams (unrecognized sec tion and content) [...] May 09, 2024 End: May 10, 2024 Architectural Designer Relationship Specialty Start Date End Date Airam Cheng [address] [facility] [place] [address] PCP - General 05/13/24 Architectural Designer Relationship Specialty Start Date End Date Wade Dominguez DO PCP - General 04/03/18 Architectural Designer Relationship Specialty Start Date End Date Airam Cheng [address] [place] [address] PCP - General 05/13/24 Architectural Designer Relationship Specialty Start Date End Date Airam Cheng [address] [place] [address] PCP - General 05/13/24 Architectural Designer Relationship Specialty Start Date End Date Airam Cheng [address] [place] [address] PCP - General 05/13/24 Goals (unrecognized section and content) Goals may be documented in a n alternate sectionNot on filedocumented as of this encounter Scheduled Active and Recently Administ ered Medications (unrecognized section and content) Medication Order 07/02/2024 07/03/2024 07/04/2024 aspirin tablet 325 mg (COMPLETED) 325 mg, oral, Once, On Thu07/04/24 at 0930, For 1 dose, Preprocedure 0906 (Given - Provid er: Monalisa Heaton RN) PRN Medication Order 07/02/2024 07/03/2024 07/04/2024 acetaminophen (Tylenol) tablet 650 mg 650 mg, oral, Every 4 hours PRN, pain mild (1-3), first line, Starting on Thu07/04/24 at 1314, Administer tablet or oral liquid per patient preference., If ordered PRN for pain, nurse is permitted to administer this medication for higher pain scores based on patient preference? Yes 1316 (Given - Provid er: Monalisa Heaton RN) fentaNYL PF (Sublimaze) injection (CANCELED) As needed, Starting on Thu07/04/24 at 1044, Intraprocedure 1044 (Given - Provid er: Vera Sanchez RN - Comment: sedation) heparin 1,000 unit/mL injection (CANCELED) As needed, Starting on Thu07/04/24 at 1048, Intraprocedure 1048 (Given - Provid er: Antoine Sanchez MD - Comment: radial cocktailverified by vera hdz and thai hdz) iohexol (OMNIPaque) 350 mg iodine/mL solution (CANCELED) As needed, Starting on Thu07/04/24 at 1053, Intraprocedure 1053 (Given - Provid er: Antoine Sanchez MD - Comment: angiography) lidocaine (Xylocaine) 20 mg/mL (2 %) injection (CANCELED) As needed, Starting on Thu07/04/24 at 1045, Intraprocedure 1045 (Given - Provid er: Antoine Sanchez MD - Comment: numbing) midazolam (Versed) injection (CANCELED) As needed, Starting on Thu07/04/24 at 1044, Intraprocedure 1044 (Given - Provid er: Vera Sanchez RN - Comment: sedation) nitroglycerin in 5 % dextrose 10 mL syringe (CANCELED) As needed, Starting on Thu07/04/24 at 1049, Intraprocedure 1049 (Given - Provid er: Antoine Sanchez MD - Comment: radial cocktail) verapamil (Isoptin) injection (CANCELED) As needed, Starting on Thu07/04/24 at 1048, Intraprocedure 1048 (Given - Provid er: Antoine Sanchez MD - Comment: radial cocktail) FOR RECORDS PERTAINING TO PATIENTS WHO ARE [...] BE BASED ON THE PRIMARY CLINICAL RECORDS. [employer] [facility]. provides no warranty or guarantee of the accuracy or completeness of information in this document.
[2024-08-14 22:05] VITALS: BP 120/64; PULSE 84; TEMP 36.9; O2SAT 97; BMI 39.2
--- NOTE | 2024-08-14 22:18 | ED_ITS ---
HPI - Nausea/Vomiting/Diarrhea General Chief complaint: Nausea/Vomiting/Diarrhea Stated complaint: Vomiting Time Seen by Provider: 08/14/24 22:05 Source: patient Mode of arrival: walk-in Limitations: no limitations History of Present Illness HPI Narrative: This 38-year-old female who denies the possibility of presents for evaluation of nausea vomiting and diarrhea that started earlier in the day. She states she has vomited so many times that she is now does having foamy emesis and biliary vomitus. Her child has similar symptoms. She states she cannot count home anytime she has thrown up. She is also having diarrhea but it is not as bad as the vomiting. She denies any fever. She has some mild epigastric abdominal pain that radiates into her back. She is status post cholecystectomy in the past. she denies any chest pain or shortness of breath. Related Data Home Medications ?Medication ?Instructions ?Recorded ?Confirmed No Known Home Medications 08/14/24 08/14/24 Allergies Allergy/AdvReac Type Severity Reaction Status Date / Time azithromycin (From Zithromax) Allergy Mild Anaphylaxis Verified 08/14/24 22:09 Review of Systems ROS Status of ROS 10 or more systems reviewed and unremark able except as noted in history and below [facility] Medical History (Updated 08/15/24 @ 00:00 by Marie Lanza MD) Fever ?R50.9 - Fever, unspecified (ICD-10) Rigors ?R68.89 - Other general symptoms and signs (ICD-10) UTI (urinary tract infection) ?N39.0 - Urinary tract infection, site not specified (ICD-10) delivery delivered ?O82 - Encounter for delivery without indication (ICD-10) A-fib ?I48.91 - Unspecified atrial fibrillation (ICD-10) Surgical History (Updated 05/19/24 @ 09:41 by Matt Meier MD) History of cholecystectomy ?Z90.49 - Acquired absence of other specified parts of digestive tract (ICD- 10) H/O tooth extraction ?K08.409 - Partial loss of teeth, unspecified cause, unspecified class (ICD- 10) Family History (Updated 05/19/24 @ 00:49 by Jud Gutierrez) Uncle Family history of COPD (chronic obstructive pulmonary disease) Family history of diabetes mellitus Family history of hypertension Mother Family history of cancer Aunt Family history of hypertension Social History (Updated 05/19/24 @ 00:50 by Jud Gutierrez) Within the past year, how often did you have a drink containing alcohol: monthly or less Do you use any of these nicotine containing products: vaping products Non-prescribed substance use: denies use 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 Highest level of school completed/degree received: some college, no degree Are you now , , , , never or living with a partner: In a typical week, how many times do you talk on the telephone with family, friends, or neighbors: twice per week How often do you get together with friends or relatives: twice per week How often do you attend sikhism or sabianist services: never Do you belong to any clubs or organizations such as sikhism groups unions, [employer] or athletic groups, or school groups: no Total score: 2 Score interpretation: A score of greater than or equal to 2 indicates the lowest level of social isolation. Little interest or pleasure in doing things: not at all Feeling down, depressed, or hopeless: not at all Feel stressed/tense/nervous/anxious/difficulty sleeping: not at all Do you think of yourself as: straight/heterosexual Gender Identity: female Exam Narrative Exam Narrative: Vital signs and Nursing Notes reviewed: Patient is afebrile with a normal pulse, normal blood pressure, she is not hypoxic with pulse ox of 97% on room air General: Anxious uncomfortable appearing female with dry heaves and bilious vomitus, no respiratory distress HEENT: Normocephalic atraumatic, mucous membranes are moist and pink, eyes are clear, normal conjunctiva, vision is grossly intact, posterior pharynx is normal in appearance. Neck: Supple, no meningeal signs, no anterior or posterior cervical lymphadenopathy Chest: Lungs are clear to auscultation with good air entry, there is no wheezing rhonchi or rales appreciated no accessory muscle use, patient is speaking in complete sentences-no chest wall tenderness to palpation CVS: Regular rate and rhythm S1-S2, no murmurs rubs or gallops, pulses are brisk and equal bilaterally ABD: Soft, nondistended, mild epigastric abdominal tenderness with no rebound guarding or rigidity Extremities: Moving all extremities, no lower extremity tenderness or swelling noted, negative Homans' sign, pulses are brisk and equal bilaterally Skin: Normal in appearance without rash,pallor, petechiae or purpura Neuro: No focal deficits Constitutional Vital Signs, click to edit/add: Last Vital Signs Temp 98.4 F 08/14/24 22:05 Pulse 84 08/14/24 22:05 Resp 20 08/14/24 22:05 BP 120/64 08/14/24 22:05 Pulse Ox 97 08/14/24 22:05 O2 Del Method Room Air 08/14/24 22:05 Course Vital Signs Vital signs: Vital Signs Temperature 98.4 F 08/14/24 22:05 Pulse Rate 84 08/14/24 22:05 Respiratory Rate 20 08/14/24 22:05 Blood Pressure 120/64 08/14/24 22:05 Pulse Oximetry 97 08/14/24 22:05 Oxygen Delivery Method Room Air 08/14/24 22:05 Temperature 98.4 F 08/14/24 22:05 Pulse Rate 84 08/14/24 22:05 Respiratory Rate 20 08/14/24 22:05 Blood Pressure 120/64 08/14/24 22:05 Pulse Oximetry 97 08/14/24 22:05 Oxygen Delivery Method Room Air 08/14/24 22:05 MDM - Nausea/Vomiting/Diarrhea MDM Narrative Medical decision making narrative: This 38-year-old female presents for evaluation of nausea vomiting and diarrhea that started earlier today. She has several children at home with similar symptoms. She was unable to tolerate anything by mouth upon arrival and was having foamy vomitus and then vomited bile. She was tearful upon arrival. An IV was placed and she was medicated with IV fluids, Zofran Pepcid and Toradol. Routine labs are ordered. She is negative for COVID-19 and influenza. Her white count is elevated at 15.4 which is likely acute phase reactant from her forceful vomiting, she has a stable hemoglobin. Electrolytes, LFTs and lipase are normal. On reevaluation she is feeling much better and tolerating ice chips. She will be discharged home with a home pack of Zofran and prescription for Zofran and Pepcid to use over the next several days. Lab Data Attestation: I reviewed the patient's lab results. Labs: Lab Results 08/14/24 Range/Units 22:10 WBC 15.4 H (4.0-11.0) 10^3/uL RBC 4.77 (4.20-5.40) 10^6/uL Hgb 13.4 (12.0-16.0) g/dL Hct 41.9 (36.0-48.0) % MCV 87.8 (81.0-99.0) fL MCH 28.1 (26.7-34.0) pg MCHC 32.0 (29.9-35.2) g/dL RDW 13.4 (11.0-15.0) % Plt Count 343 (150-450) 10^3/uL MPV 10.9 (9.5-13.5) fL Seg Neuts % (Manual) 95.0 H (43.0-75.0) Lymphocytes % (Manual) 3.0 L (20.5-60.0) % Monocytes % (Manual) 1.0 L (1.7-12.0) % Eosinophils % (Manual) 1.0 (0.9-7.0) % Basophils % (Manual) 0.0 L (0.2-2.0) % Neutrophils # (Manual) 14.63 H (1.4-6.5) 10^3/uL Lymphocytes # (Manual) 0.46 L (1.20-3.80) 10^3/uL Monocytes # (Manual) 0.15 L (0.30-0.80) 10^3/uL Eosinophils # (Manual) 0.15 (0.00-0.70) 10^3/uL Basophils # (Manual) 0.00 (0.00-0.10) 10^3/uL Sodium 141 (136-145) mmol/L Potassium 4.0 (3.5-5.1) mmol/L Chloride 104 (98-107) mmol/L Carbon Dioxide 25.1 (21.0-32.0) mmol/L Anion Gap 15.9 BUN 13.0 (7.0-18.0) mg/dL Creatinine 0.95 (0.55-1.02) mg/dL Est GFR ( Amer) >60 (>=60 mL/min/1.73m^2) Est GFR (Non-Af Amer) >60 (>=60 mL/min/1.73m^2) BUN/Creatinine Ratio 13.7 Glucose 126 H (74-106) mg/dL Calcium 8.7 (8.5-10.1) mg/dL Total Bilirubin 0.4 (0.2-1.0) mg/dL AST 13 L (15-37) U/L ALT 18 (14-59) U/L Alkaline Phosphatase 79 (46-116) U/L Total Protein 7.5 (6.4-8.2) g/dL Albumin 3.5 (3.4-5.0) g/dL Globulin 4.0 g/dL Albumin/Globulin Ratio 0.9 Lipase 31.0 (16.0-77.0) U/L Discharge Plan Discharge Chief Complaint: Nausea/Vomiting/Diarrhea Clinical Impression: Gastroenteritis Patient Disposition: Home, Self-Care Time of Disposition Decision: 00:00 Condition: Good Prescriptions / Home Meds: No Action No Known Home Medications Print Language: Grenadian Instructions: Gastroenteritis (ED), Acute Nausea and Vomiting (ED) Referrals: Physician,Non-Staff, MD [Primary Care Provider] - 1 week
[2024-08-14] MEDS: 0.9 % SODIUM CHLORIDE 1,000 ML 1000 ML IV (22:39)
[2024-08-14] MEDS: ONDANSETRON PF 4 MG/2 ML VIAL IV (22:39)
[2024-08-14 22:42] LABS: Hematocrit 41.9 % (36.0-48.0); Hemoglobin 13.4 g/dL (12.0-16.0); Mean Corpuscular Hemoglobin 28.1 pg (26.7-34.0); Mean Corpuscular Volume 87.8 fL (81.0-99.0); Mean Platelet Volume 10.9 fL (9.5-13.5); Platelet Count 343 10^3/uL (150-450); Red Blood Count 4.77 10^6/uL (4.20-5.40); Red Cell Distribution Width 13.4 % (11.0-15.0); White Blood Count 15.4 10^3/uL (4.0-11.0)
[2024-08-14] MEDS: FAMOTIDINE/PF 20 MG/2 ML VIAL IV (22:44)
[2024-08-14] MEDS: KETOROLAC TROMETHAMINE 30 MG/ML VIAL IVP (22:47)
[2024-08-14 23:06] LABS: Alanine Aminotransferase 18 U/L (14-59); Albumin Globulin Ratio 0.9; Albumin Level 3.5 g/dL (3.4-5.0); Alkaline Phosphatase 79 U/L (46-116); Anion Gap 15.9; Aspartate Amino Transferase 13 U/L (15-37); BUN Creatinine Ratio 13.7; Bilirubin Total 0.4 mg/dL (0.2-1.0); Calcium 8.7 mg/dL (8.5-10.1); Carbon Dioxide 25.1 mmol/L (21.0-32.0); Chloride 104 mmol/L (98-107); Estimated GFR (African America >60 (>=60 mL/min/1.73m^2); Estimated GFR (Non-African Ame >60 (>=60 mL/min/1.73m^2); Glucose 126 mg/dL (74-106); Sodium 141 mmol/L (136-145); Total Protein 7.5 g/dL (6.4-8.2)
[2024-08-14 23:08] LABS: Eosinophils Absolute Manual 0.15 10^3/uL (0.00-0.70); Lymphocytes Absolute Manual 0.46 10^3/uL (1.20-3.80); Monocytes Absolute Manual 0.15 10^3/uL (0.30-0.80); Segmented Neut Absolute Manual 14.63 10^3/uL (1.4-6.5)
[2024-08-15] MEDS: ONDANSETRON 4 MG RAPDIS TABLET SL (00:48)
== END 2024-08-15 01:05 | disposition home or self-care (01) ==
PROVIDERS: Emergency Provider Emergency Medicine
DX: K52.9 Noninfective gastroenteritis and colitis, unspecified (principal); Z90.49 Acquired absence of other specified parts of digestive tract; F17.290 Nicotine dependence, other tobacco product, uncomplicated
CPT/HCPCS: 36415; 80053; 83690; 85007; 85027; 96361; 96374; 96375; 99284; J1885; J2405; Q0162